=== PATIENT | male | born 1955 | race Caucasian/White ===

== ENCOUNTER 2016-10-29 11:07 | Inpatient (IN) | payer MEDICARE, OTHER ==
[2016-10-29] MEDS ORDERED: AMPICILLIN-SULBACTAM 3 GM in SODIUM CHLORIDE 0.9% 100 ML IVPB STA (11:27)
[2016-10-29] MEDS ORDERED: SODIUM CHLORIDE 0.9% 1,000 ML IV SCH ×2 (11:30→14:15)
--- NOTE | 2016-10-29 11:38 | ED ---
General Adult HPI - General Chief complaint: Skin/Abscess/Foreign Body Stated complaint: sores/difficulty walking Time Seen by Provider: 10/29/16 11:11 Source: patient, RN notes reviewed Mode of arrival: EMS Limitations: physical limitation - History of Present Illness Initial comments: Chief complaint and history of present illness this is a 61-year-old male brought emergency room by EMS. The patient states he last weighed himself 7 years ago he was over 500 pounds. Patient states she's having any now. His estimated to be proximally 600 pounds. Patient reports for the past 2-3 weeks he's had difficulty standing because his legs get weak and normal scleral from under him. He did stand once today. The patient reports that when he stood was noted that he has some blisters on his legs and the scrotal area. He also reports he has some blisters on his buttock region. Patient denies fever. - Related Data Home Medications Medication Instructions Recorded Confirmed Albuterol Sulfate [Proair Hfa] 2 puff INHALATION RT-Q4H PRN 03/20/14 10/29/16 Montelukast [Singulair] 10 mg PO DAILY 07/24/15 10/29/16 Bumetanide [Bumex] 1 mg PO DAILY 10/29/16 10/29/16 Celecoxib [CeleBREX] 200 mg PO BID 10/29/16 10/29/16 Citalopram Hydrobromide [CeleXA] 10 mg PO HS 10/29/16 10/29/16 Vitamin B Complex 1 cap PO DAILY 10/29/16 10/29/16 Allergies Allergy/AdvReac Type Severity Reaction Status Date / Time No Known Allergies Allergy Verified 10/29/16 11:29 Review of Systems ROS Statement: Those systems with pertinent positive or pertinent negative responses have been documented in the HPI. Review of systems. Denying any headache or visual acuity changes no chest pain or shortness of breath. He states his buttocks are uncomfortable because of not being able to move for several weeks. He states he was told his blisters in that general area. Patient weighs in excess of 600 pounds cannot physically move himself to examine the backside at this time. when The patient is transferred to his hospital bed this be examined. Patient reports she has a history of asthma and wheezes. All systems reviewed Past medical problems significant for asthma. His surgeries include both and carpal tunnel, and umbilical hernia repair. Patient's family history father had prostate cancer and mother had brain cancer patient denies any ALLERGIES nonsmoker nondrinker. ROS Other: All systems not noted in ROS Statement are negative. Past Medical History Past Medical History: Asthma, Hypertension, Prostate Disorder History of Any Multi-Drug Resistant Organisms: None Reported Past Surgical History: Hernia Repair, Orthopedic Surgery Additional Past Surgical History / Comment(s): cyst removed from hand Past Psychological History: Depression Smoking Status: Former smoker Past Alcohol Use History: Rare Past Drug Use History: None Reported General Exam - General Exam Comments Initial Comments: General: The patient is awake and alert, here because he is unable to stand, he weighs in excess of 600 pounds. States when he does stand his legs and muscles feel like to get about to give out. It was noticed patient does have some blistering on his tissue and complains of a burning sensation in the buttock area. Temperature 97.9 pulse 94 story rate 20 blood pressure 133/62, pulse ox 100% on 3 L. Eye: Pupils are equal, round and reactive to light, extra-ocular movements are intact ; there is normal conjunctiva bilaterally. No signs of icterus. Ears, nose, mouth and throat: There are moist mucous membranes and no oral lesions. Neck: The neck is supple, there is no tenderness . Cardiovascular: There is a regular rate and rhythm. No murmur, rub or gallop is appreciated. Respiratory: Lungs are clear to auscultation, respirations are non-labored, breath sounds are equal. No wheezes, stridor, rales, or rhonchi. Gastrointestinal: Morbidly obese, weighs Also 600 pounds. Back: Due to the patient's size unable to roll on his own to examine his back. This will be examined when the patient is transferred from the ER stretcher to his hospital bed. Musculoskeletal: Patient presents with redness, cellulitis type appearing lower extremities. Some ecchymotic areas on his heels from where he pushes to changes position in bed. Several clear blisters noted on his inner right thigh. Neurological: The patient states that due to his weight when he tries to stand his muscles feel he can give out. He is able to move upper or lower extremities.. Skin: He did have 1 clear fluid blister on his medial right thigh. Limitations: physical limitation Course Vital Signs 10/29/16 11:15 Temperature 97.9 F Pulse Rate 94 Respiratory 20 Rate Blood Pressure 133/62 O2 Sat by Pulse 100 Oximetry Medical Decision Making - Medical Decision Making Medical decision making patient's white count 8.5 hemoglobin 12 hematocrit 37 BUN 17 creatinine 0.7 with a GFR greater than 60. Glucose 100. Total bilirubin mildly elevated 2.1 with an AST of 88. UA sample was obtained using a Rob catheter. The patient's RBCs are 42 diagnoses 8. Patient had a Rob catheter placed because of his weight and developing decubiti and management of his physical state. Case discussed with Dr. Nash area patient be admitted his service for evaluation and management. Chest x-ray is done and reviewed by radiologist's his final impression is prominent heart size may be due to technique. Right sided aortic arch. Exam is limited technically. Follow-up PA and lateral chest x-ray for but evaluation is indicated. As read by Dr. Henriquez - Lab Data Result diagrams: 10/29/16 12:12 10/29/16 12:12 Lab Results 10/29/16 10/29/16 10/29/16 Range/Units 12:12 12:12 13:20 WBC 8.5 (3.8-10.6) k/uL RBC 4.15 L (4.30-5.90) m/uL Hgb 12.0 L (13.0-17.5) gm/dL Hct 37.6 L (39.0-53.0) % MCV 90.7 (80.0-100.0) fL MCH 28.9 (25.0-35.0) pg MCHC 31.9 (31.0-37.0) g/dL RDW 16.7 H (11.5-15.5) % Plt Count 168 (150-450) k/uL Sodium 138 (137-145) mmol/L Potassium 4.2 (3.5-5.1) mmol/L Chloride 108 H (98-107) mmol/L Carbon Dioxide 22 (22-30) mmol/L Anion Gap 8 mmol/L BUN 17 (9-20) mg/dL Creatinine 0.74 (0.66-1.25) mg/dL Est GFR (MDRD) Af Amer >60 (>60 ml/min/1.73 sqM) Est GFR (MDRD) Non-Af >60 (>60 ml/min/1.73 sqM) Glucose 100 H (74-99) mg/dL Calcium 8.2 L (8.4-10.2) mg/dL Total Bilirubin 2.1 H (0.2-1.3) mg/dL AST 88 H (17-59) U/L ALT 53 (21-72) U/L Alkaline Phosphatase 85 (38-126) U/L Total Protein 6.9 (6.3-8.2) g/dL Albumin 2.7 L (3.5-5.0) g/dL Urine Color Yellow Urine Appearance Cloudy (Clear) Urine pH 6.0 (5.0-8.0) Ur Specific [place] 1.022 (1.001-1.035) Urine Protein Trace H (Negative) Urine Glucose (UA) Negative (Negative) Urine Ketones 1+ H (Negative) Urine Blood Negative (Negative) Urine Nitrite Negative (Negative) Urine Bilirubin Negative (Negative) Urine Urobilinogen 6.0 (<2.0) mg/dL Ur Leukocyte Esterase Negative (Negative) Urine RBC 42 H (0-5) /hpf Urine WBC 8 H (0-5) /hpf Ur Squamous Epith Cells <1 (0-4) /hpf Urine Bacteria Occasional H (None) /hpf Urine Mucus Few H (None) /hpf Disposition Clinical Impression: Cellulitis of left leg, Cellulitis of right leg, Morbid obesity Disposition: ADMITTED IP TO THIS [facility] Condition: Serious
[2016-10-29 13:02] LABS: ALT 53 U/L (21-72); AST 88 U/L (17-59); Alkaline Phosphatase 85 U/L (38-126); Anion Gap 8 mmol/L; Blood Urea Nitrogen 17 mg/dL (9-20); Calcium 8.2 mg/dL (8.4-10.2); Carbon Dioxide 22 mmol/L (22-30); Chloride 108 mmol/L (98-107); Glucose 100 mg/dL (74-99); Non-African American GFR(MDRD) >60 (>60 ml/min/1.73 sqM); Potassium 4.2 mmol/L (3.5-5.1); Sodium 138 mmol/L (137-145); Total Bilirubin 2.1 mg/dL (0.2-1.3); Total Protein 6.9 g/dL (6.3-8.2)
--- NOTE | 2016-10-29 13:09 | XR ---
EXAMINATION TYPE: XR chest 1V portable DATE OF EXAM: 10/29/2016 1:00 PM COMPARISON: Prior chest x-ray 18 May 2014 HISTORY: Shortness of breath, bilateral lower limb swelling TECHNIQUE: Single frontal view of the chest is obtained. FINDINGS: Heart size is prominent but may be accentuated by technique. Patient is rotated. Right-lindsay ed aortic arch is present. No pneumothorax or pleural effusion. No evident airspace disease. IMPRESSION: Prominent heart size may be due to technique. Right-sided aortic arch. Exam is limited t echnically, follow-up PA and lateral chest x-ray for better evaluation as indicated.
[2016-10-29 13:52] LABS: Anisocytosis Slight; CH 27.8; CHCM 30.8; HCT 37.6 % (39.0-53.0); HDW 2.97; Hypochromasia Moderate; MCH 28.9 pg (25.0-35.0); MCHC 31.9 g/dL (31.0-37.0); MCV 90.7 fL (80.0-100.0); Mean Platelet Volume 8.4; RBC 4.15 m/uL (4.30-5.90); RDW 16.7 % (11.5-15.5); WBC 8.5 k/uL (3.8-10.6); WBC (Perox) 7.35
[2016-10-29 13:56] LABS: Appearance,Urine Cloudy (Clear); Bacteria,Urine Occasional /hpf; Bilirubin,Urine Negative (Negative); Glucose,Urine (UA) Negative (Negative); Ketones,Urine 1+ (Negative); Leukocyte Esterase,Urine Negative (Negative); Mucus,Urine Few /hpf; Nitrite,Urine Negative (Negative); Particle Count 27690; Protein,Urine Trace (Negative); RBC,Urine 42 /hpf (0-5); Specific Gravity,Urine 1.022 (1.001-1.035); Squamous Epithelial Cell,Urine <1 /hpf (0-4); UA Billing (MACRO vs. MICRO) MICRO; WBC,Urine 8 /hpf (0-5)
[2016-10-29] MEDS ORDERED: NALOXONE 0.4 MG/ML 1 ML VIAL IV PRN (14:09)
[2016-10-29] MEDS ORDERED: ALBUTEROL NEBULIZED 2.5 MG/3 ML INHALATION PRN (14:13)
[2016-10-29] MEDS: HYDROmorphone 1 MG/ML 1 ML SYRINGE IV PRN ×2 (14:16→18:31)
[2016-10-29 14:23] LABS: Add Differential Manual Differential
[2016-10-29 14:24] LABS: Nucleated Red Blood Cells 0 /100 WBC (0-0); Total Cells Counted 100
--- NOTE | 2016-10-29 16:38 | P.HPIM ---
History of Present Illness H&P Date: 10/29/16 61-year-old gentleman with history of morbid obesity currently is at home was brought to the hospital after being recommended by his home visiting physician for further evaluation in the hospital for cellulitis of the lower extremity is. And states that he is pretty much bedridden and dependent on all ADLs. Patient was evaluated in the emergency room was noted to have significant bilateral lower extremity erythema. Patient states that over the last few days he does State to have tenderness in his lower extremities significant tenderness in his left heel. Patient denies having any fevers chills nausea vomiting diarrhea chest pain difficulty breathing. Patient at the time of my evaluation was noted to be in 3 -4 L a supplement oxygen however was laying flat.States of tenderness in his lower extremities Tomy any history of heart failure COPD Review of Systems All systems: negative (Noted in HPI) Past Medical History Past Medical History: Asthma, Hypertension, Prostate Disorder History of Any Multi-Drug Resistant Organisms: None Reported Past Surgical History: Hernia Repair, Orthopedic Surgery Additional Past Surgical History / Comment(s): cyst removed from hand Past Psychological History: Depression Smoking Status: Former smoker Past Alcohol Use History: Rare Past Drug Use History: None Reported Medications and Allergies Home Medications Medication Instructions Recorded Confirmed Type Albuterol Sulfate [Proair Hfa] 2 puff INHALATION RT-Q4H PRN 03/20/14 10/29/16 History Montelukast [Singulair] 10 mg PO DAILY 07/24/15 10/29/16 History Bumetanide [Bumex] 1 mg PO DAILY 10/29/16 10/29/16 History Celecoxib [CeleBREX] 200 mg PO BID 10/29/16 10/29/16 History Citalopram Hydrobromide [CeleXA] 10 mg PO HS 10/29/16 10/29/16 History Vitamin B Complex 1 cap PO DAILY 10/29/16 10/29/16 History Allergies Allergy/AdvReac Type Severity Reaction Status Date / Time No Known Allergies Allergy Verified 10/29/16 11:29 Physical Exam Vitals: Vital Signs Temp Pulse Resp BP Pulse Ox 10/29/16 15:36 97.1 F L 93 18 120/59 98 10/29/16 15:00 97.1 F L 93 18 120/59 98 Gen. appearance morbidly obese gentleman appears to be comfortable Neck is supple no JVD Neck is supple no JVD \ Heart S1-S2 heard no murmurs appreciated F lungs good air movement anteriorly due to the patient's body habitus posterior auscultation is difficult Abdomen is obese no organomegaly distended Lower extremities bilateral lower extremity edema 2+ pitting in nature erythema appreciated there is a large blood blister noted on the left heel tender to palpation or graft neuro exam is able to move all 4 extremities no significant focal motor or sensory deficits noted Results CBC & Chem 7: 10/29/16 12:12 10/29/16 12:12 Assessment and Plan Plan: #1 sepsis secondary to bilateral lower ext cellulitis #2 morbid obesity #3 hypertension #4 depression #5 hypoxic respiratory failure likely secondary to obesity hypoventilation syndrome Plan Skin there is significant barrier breakdown on the back there is blisters noted diffusely on the right and lower left lower extremity Skin care with barrier cream Continue with antibiotics with the Unasyn Obtain a left heel x-ray. We'll rule out DVT in the bilateral lower extremities Medications were reconciled blood cultures were sent DVT prophylaxis will be initiated
--- NOTE | 2016-10-29 18:05 | US ---
EXAMINATION TYPE: US VENOUS DOPPLER DUPLEX LE DATE OF EXAM: 10/29/2016 5:50 PM COMPARISON: NONE CLINICAL HISTORY: rule out dvt. Cellulitis bilateral lower legs; 700lbs SIDE PERFORMED: Bilateral TECHNIQUE: The lower extremity deep venous system is examined utilizing real time linear array sonog meño with graded compression, Doppler sonography and color-flow sonography. VESSELS IMAGED and exam is technically limited by large body habitus: Common Femoral Vein Deep Femoral Vein Greater Saphenous Vein * Femoral Vein Popliteal Vein Small Saphenous Vein * Proximal Calf Veins/ right leg seen only due to body habitus *superficial veins FINDINGS: Grayscale, color doppler, spectral Doppler imaging performed of the deep veins of the lower extremities. There is normal flow, compressibility, vascular waveforms bilaterally. IMPRESSION: 1. NEGATIVE FOR DEEP VENOUS THROMBOSIS RIGHT LOWER EXTREMITY. 2. NEGATIVE FOR DEEP VENOUS THROMBOSIS LEFT LOWER EXTREMITY.
[2016-10-29] MEDS: HEPARIN SODIUM,PORCINE 5,000 UNIT/ML 1 ML VIAL SQ SCH ×2 (18:32→23:14)
[2016-10-29] MEDS: AMPICILLIN-SULBACTAM 3 GM in SODIUM CHLORIDE 0.9% 100 ML IVPB SCH (21:05)
[2016-10-29] MEDS: CITALOPRAM HYDROBROMIDE 10 MG TAB PO SCH (21:08)
[2016-10-29] MEDS: FAMOTIDINE 20 MG TAB PO SCH (21:08)
[2016-10-29] MEDS: MELOXICAM 7.5 MG TAB PO SCH (21:08)
[2016-10-29] MEDS: IPRATROPIUM-ALBUTEROL 3 ML NEB INHALATION PRN (21:27)
[2016-10-30] MEDS: AMPICILLIN-SULBACTAM 3 GM in SODIUM CHLORIDE 0.9% 100 ML IVPB SCH ×2 (05:49→13:14)
[2016-10-30] MEDS: IPRATROPIUM-ALBUTEROL 3 ML NEB INHALATION PRN ×4 (08:28→19:49)
[2016-10-30] MEDS: FAMOTIDINE 20 MG TAB PO SCH ×2 (09:38→21:01)
[2016-10-30] MEDS: MONTELUKAST 10 MG TAB PO SCH (09:38)
[2016-10-30] MEDS: MELOXICAM 7.5 MG TAB PO SCH ×2 (09:38→21:01)
[2016-10-30] MEDS: HEPARIN SODIUM,PORCINE 5,000 UNIT/ML 1 ML VIAL SQ SCH ×3 (09:38→23:26)
[2016-10-30] MEDS: BUMETANIDE 1 MG TAB PO SCH (09:39)
[2016-10-30] MEDS: B COMPLEX-VIT C-VIT E-ZINC 1 EACH TAB PO SCH (13:14)
[2016-10-30] MEDS: NYSTATIN 100,000UNIT/GM CREAM 30 GM TUBE TOPICAL SCH ×2 (13:37→21:02)
--- NOTE | 2016-10-30 14:14 | P.PN ---
Subjective 61-year-old gentleman with history of morbid obesity currently is at home was brought to the hospital after being recommended by his home visiting physician for further evaluation in the hospital for cellulitis of the lower extremity is. And states that he is pretty much bedridden and dependent on all ADLs. Patient was evaluated in the emergency room was noted to have significant bilateral lower extremity erythema. Patient states that over the last few days he does State to have tenderness in his lower extremities significant tenderness in his left heel. Patient denies having any fevers chills nausea vomiting diarrhea chest pain difficulty breathing. Patient at the time of my evaluation was noted to be in 3 -4 L a supplement oxygen however was laying flat.States of tenderness in his lower extremities denies any history of heart failure COPD 2016 Denies having any additional complaints Denies fevers chills nausea vomiting. No diarrhea is reported Patient's lower extremity are wrapped today. Objective - Vital Signs Vital signs: Vital Signs Temp 96.9 F L 10/30/16 07:00 Pulse 90 10/30/16 11:59 Resp 16 10/30/16 07:00 BP 122/67 10/30/16 07:00 Pulse Ox 95 10/30/16 07:00 Intake & Output 10/29/16 10/30/16 10/30/16 18:59 06:59 18:59 Output Total 900 Balance -900 Weight 230.3 kg Output: Urine 900 Other: Voiding Method Indwelling Catheter Indwelling Catheter # Voids 1 # Bowel Movements 0 - Exam Physical exam Gen. appearance oriented 3 in no distress. Obese Neck is supple no JVD Lungs good air entry clear to auscultation no rhonchi or wheezing Heart S1-S2 heard regular rate and rhythm no murmurs appreciated Abdomen is soft nontender no organomegaly bowel sounds are intact Lower extremities are wrapped Neurologically cranial nerves II-12 grossly intact no focal motor or sensory deficits noted Skin skin breakdown noted on the posterior surface multiple blisters - Labs CBC & Chem 7: 10/29/16 12:12 10/29/16 12:12 Assessment and Plan Plan: #1 sepsis secondary to bilateral lower ext cellulitis #2 morbid obesity #3 hypertension #4 depression #5 hypoxic respiratory failure likely secondary to obesity hypoventilation syndrome Plan Continue skin care DVT screen is negative Cefazolin as indicated by infectious diseases Titrate of oxygen Discharge disposition will be discussed social work consultation will be obtained Prophylaxis with heparin 10,000 units every 8 hours
[2016-10-30] MEDS: ceFAZolin 2 GM in SODIUM CHLORIDE 0.9% 100 ML IVPB SCH (15:33)
[2016-10-30] MEDS: CITALOPRAM HYDROBROMIDE 10 MG TAB PO SCH (21:01)
[2016-10-30] MEDS: HYDROmorphone 1 MG/ML 1 ML SYRINGE IV PRN (23:21)
--- NOTE | 2016-10-30 23:43 | CONS ---
DATE OF CONSULTATION: 10/30/2016 REASON FOR CONSULTATION: Lower extremity cellulitis. HISTORY OF PRESENT ILLNESS: The patient is a 61-year-old male with a past medical history significant for morbid obesity. Patient was sent to the ER at [facility] by request of his visiting physician for more swelling and redness of his lower extremity. Patient said over the last few days he has been noticed more swelling to his legs with subsequently getting more redness and pain to the left leg more than the right leg. The patient denies having any skin breakdown or any drainage from it. Denies having any history of any trauma. Pain is described to be more of a dull aching, 4 to 5 out of 10, and no radiation. The patient denies any high-grade fever; however, he did have some chills. Subsequently the patient was evaluated by the ER physician. The patient did have a lower extremity Doppler that was negative for DVT. The patient was started on Unasyn and admitted to hospital. I was asked to see the patient for further recommendations regarding antibiotic therapy. REVIEW OF SYSTEMS: CONSTITUTIONAL: Positive for weakness and chills. EYES: No complaint. ENT: No complaint. RESPIRATORY: No complaint. CARDIOVASCULAR: No complaint. GENITOURINARY: No complaint. GASTROINTESTINAL: No complaint. MUSCULOSKELETAL: No complaint. INTEGUMENTARY: As per HPI. PSYCHOLOGIC: No complaint. ENDOCRINE: No complaint. NEUROLOGIC: No complaint. Past medical history is significant for: 1. Asthma. 2. Hypertension. 3. Prostate disorder. PAST SURGICAL HISTORY: 1. Hernia repair. 2. Cyst removed from the head. SOCIAL HISTORY: Positive history of smoking. No drinking or any drug use. FAMILY HISTORY: No pertinent findings were noticed. ALLERGIES: NO KNOWN DRUG ALLERGIES. Medications currently include: 1. DuoNeb. 2. Bumex. 3. Celexa. 4. Pepcid. 5. Heparin. 6. Dilaudid. 7. Mobic. 8. Singulair. 9. Narcan. 10. Unasyn. On examination, blood pressure is 125/62 with a pulse of 92, temperature 96.8. He is 100% on 2 L nasal cannula. General description is a middle-aged male lying in bed in no distress. No tachypnea or accessory muscle of respiration use. HEENT EXAMINATION: No pallor or scleral icterus. Oral mucous membrane is dry. NECK: Trachea is central. No thyromegaly. LUNGS: Unlabored breathing. Clear to auscultation anteriorly. HEART: S1, S2. Regular rate and rhythm. ABDOMEN: Soft. No tenderness. LOWER EXTREMITIES: Significant swelling and diffuse redness, especially on the left leg more than the right. There is no skin breakdown. There is no foul-smelling drainage; however, the patient does have evidence of athlete's foot in between the toes. NEUROLOGICAL: The patient is awake, alert, oriented x3. Mood and affect normal. LABS: Hemoglobin is 12 with a white count of 8.5. BUN of 17, creatinine 0.74. UA has been negative. Blood culture obtained, currently pending. Lower extremity Doppler has been negative. DIAGNOSTIC IMPRESSION AND PLAN: Patient with bilateral lower extremity cellulitis, left greater than the right, in a patient who does have diffuse swelling and redness with evidence of athlete's foot, likely representing a streptococcal cellulitis. PLAN: 1. Will discontinue the Unasyn. 2. Start the patient on cefazolin 2 grams q.8 hours. 3. Nystatin powder in between the toes. 4. Rosas wrap from just above the toes to below the knee to keep swelling down. 5. Will follow up on the clinical condition and cultures to further adjust medication if needed. Thank you for this consultation. We will follow this patient along with you.
[2016-10-31] MEDS: ceFAZolin 2 GM in SODIUM CHLORIDE 0.9% 100 ML IVPB SCH ×4 (00:14→23:24)
[2016-10-31] MEDS: HYDROmorphone 1 MG/ML 1 ML SYRINGE IV PRN ×2 (02:35→21:57)
[2016-10-31] MEDS: IPRATROPIUM-ALBUTEROL 3 ML NEB INHALATION PRN ×2 (07:35→11:07)
[2016-10-31] MEDS: HEPARIN SODIUM,PORCINE 5,000 UNIT/ML 1 ML VIAL SQ SCH ×2 (07:40→14:58)
[2016-10-31] MEDS: BUMETANIDE 1 MG TAB PO SCH (07:41)
[2016-10-31] MEDS: MONTELUKAST 10 MG TAB PO SCH (07:41)
[2016-10-31] MEDS: FAMOTIDINE 20 MG TAB PO SCH ×2 (07:41→21:58)
[2016-10-31] MEDS: MELOXICAM 7.5 MG TAB PO SCH ×2 (07:41→21:58)
[2016-10-31] MEDS: NYSTATIN 100,000UNIT/GM CREAM 30 GM TUBE TOPICAL SCH ×2 (07:42→22:00)
[2016-10-31 09:39] LABS: Anisocytosis Slight; Basophils % (A) 0 %; CH 27.7; CHCM 31.1; Eosinophils # (A) 0.5 k/uL (0-0.7); Eosinophils % (A) 8 %; HCT 33.1 % (39.0-53.0); HDW 2.97; HGB 10.8 gm/dL (13.0-17.5); Hypochromasia Moderate; Luc # (Auto) 0.16; Luc % (Auto) 3; Lymphocytes # (A) 1.1 k/uL (1.0-4.8); Lymphocytes % (A) 19 %; MCH 29.1 pg (25.0-35.0); MCHC 32.6 g/dL (31.0-37.0); MCV 89.4 fL (80.0-100.0); Mean Platelet Volume 7.2; Monocytes # (A) 0.4 k/uL (0-1.0); Monocytes % (A) 6 %; Neutrophils # (A) 3.7 k/uL (1.3-7.7); Neutrophils % (A) 63 %; RBC 3.71 m/uL (4.30-5.90); RDW 16.7 % (11.5-15.5); WBC 5.8 k/uL (3.8-10.6); WBC (Perox) 5.45
[2016-10-31 09:56] LABS: ALT 47 U/L (21-72); AST 53 U/L (17-59); Alkaline Phosphatase 88 U/L (38-126); Anion Gap 7 mmol/L; Blood Urea Nitrogen 14 mg/dL (9-20); Calcium 7.7 mg/dL (8.4-10.2); Carbon Dioxide 24 mmol/L (22-30); Chloride 108 mmol/L (98-107); Glucose 124 mg/dL (74-99); Non-African American GFR(MDRD) >60 (>60 ml/min/1.73 sqM); Potassium 3.8 mmol/L (3.5-5.1); Sodium 139 mmol/L (137-145); Total Bilirubin 1.3 mg/dL (0.2-1.3); Total Protein 6.2 g/dL (6.3-8.2)
[2016-10-31 11:11] LABS: Manual Review Performed
[2016-10-31 11:12] LABS: Polychromasia Present
[2016-10-31] MEDS: B COMPLEX-VIT C-VIT E-ZINC 1 EACH TAB PO SCH (13:14)
--- NOTE | 2016-10-31 16:28 | CDI ---
In responding to this query, please exercise your independent professional judgment. The [facility] Coding Staff and Clinical Documentation Specialists appreciate your assistance in clarifying documentation, maintaining compliance with coding guidelines, accurately documenting patients condition and capturing severity of illness. The fact that a question is asked does not imply that any particular answer is desired or expected. Communication forms are a method of clarifying documentation and are not made part of the Legal Health Record. Thank you in advance for your clarification. Last Revision, August 2015 Marilin Hall [address] [place] [address] Documentation Clarification Form Date: 10/31/2016 4:13:00 PM From: Zeny Parson Admit Date: 10/29/2016 2:09:00 PM Patient Name: Kamran Salamanca Visit Number: [id number] Discharge Date: Dr. Fredy Rizzo Hypoxic respiratory failure likely secondary to obesity hypoventilation syndrome is in your H&P and progress notes. History/Risk Factors: Morbid obesity weight > 500 lbs, Hypertension, Asthma Tobacco use: Former smoker Clinical Indicators: 10/29/16 He complains of weakness and chills. H/P Evaluation noted patient to be on 3-4 L O2 NC Vital signs/Pulse oximetry: 133/62 94 20 97.9 100 % 2/L nc Lung/Breathing assessment: Good air entry clear to auscultation no rhonchi or wheezing Treatment: Breathing tx: Albuterol DuoNeb's, Singulair PO Monitor O2 Sat's (titrate) In your professional opinion, can you please further clarify? Acuity: o Acute o Chronic o Acute on Chronic Please document in your progress notes and discharge summary in order to capture severity of illness and risk of mortality. Include clinical findings that support your diagnosis. FYI: Press F11 to launch patient chart. Place X here if this finding has no clinical significance, is not applicable or if you are not able to provide any additional documentation. MTDD
--- NOTE | 2016-10-31 16:45 | P.PN ---
Subjective 61-year-old gentleman with history of morbid obesity currently is at home was brought to the hospital after being recommended by his home visiting physician for further evaluation in the hospital for cellulitis of the lower extremity is. And states that he is pretty much bedridden and dependent on all ADLs. Patient was evaluated in the emergency room was noted to have significant bilateral lower extremity erythema. Patient states that over the last few days he does State to have tenderness in his lower extremities significant tenderness in his left heel. Patient denies having any fevers chills nausea vomiting diarrhea chest pain difficulty breathing. Patient at the time of my evaluation was noted to be in 3 -4 L a supplement oxygen however was laying flat.States of tenderness in his lower extremities denies any history of heart failure COPD 2016 Denies having any additional complaints Denies fevers chills nausea vomiting. No diarrhea is reported Patient's lower extremity are wrapped today. 2016 Denies having any significant complaints Denies diarrhea urinary urgency or frequency nausea vomiting. Objective - Vital Signs Vital signs: Vital Signs Temp 97.2 F L 10/31/16 15:00 Pulse 96 10/31/16 15:00 Resp 20 10/31/16 15:00 BP 131/67 10/31/16 15:00 Pulse Ox 98 10/31/16 15:00 Intake & Output 10/30/16 10/31/16 10/31/16 18:59 06:59 18:59 Intake Total 640 Output Total 300 1625 1200 Balance -300 -1625 -560 Weight 230.1 kg Intake: Oral 640 Output: Urine 300 1625 1200 Other: Voiding Method Indwelling Catheter Indwelling Catheter Indwelling Catheter # Voids 3 # Bowel Movements 0 1 - Exam Physical exam Gen. appearance oriented 3 in no distress. Obese Neck is supple no JVD Lungs good air entry clear to auscultation no rhonchi or wheezing Heart S1-S2 heard regular rate and rhythm no murmurs appreciated Abdomen is soft nontender no organomegaly bowel sounds are intact Lower extremities are wrapped Neurologically cranial nerves II-12 grossly intact no focal motor or sensory deficits noted Skin skin breakdown noted on the posterior surface multiple blisters - Labs CBC & Chem 7: 10/31/16 09:00 10/31/16 09:00 Labs: Abnormal Lab Results - Last 24 Hours (Table) 10/31/16 10/31/16 Range/Units 09:00 09:00 RBC 3.71 L (4.30-5.90) m/uL Hgb 10.8 L (13.0-17.5) gm/dL Hct 33.1 L (39.0-53.0) % RDW 16.7 H (11.5-15.5) % Chloride 108 H (98-107) mmol/L Glucose 124 H (74-99) mg/dL Calcium 7.7 L (8.4-10.2) mg/dL Total Protein 6.2 L (6.3-8.2) g/dL Albumin 2.5 L (3.5-5.0) g/dL Assessment and Plan Plan: #1 sepsis secondary to bilateral lower ext cellulitis #2 morbid obesity #3 hypertension #4 depression #5 suspect chronic hypoxic respiratory failure likely secondary to obesity hypoventilation syndrome Plan Continue with antibiotic therapy disposition will be to a ECF/assisted living facility as patient and his family is not able to take care of himself Cellulitis is improving. Prophylaxis with heparin 10,000 units every 8 hours
[2016-10-31] MEDS: CITALOPRAM HYDROBROMIDE 10 MG TAB PO SCH (21:58)
[2016-10-31] MEDS: HEPARIN SODIUM,PORCINE 10,000 UNIT/ML 1 ML VIAL SQ SCH (23:30)
--- NOTE | 2016-11-01 07:32 | PN ---
DATE OF SERVICE: 10/31/2016 Reason for follow up is bilateral lower extremity cellulitis. INTERVAL HISTORY: The patient is afebrile. He has been breathing comfortably. The patient did not have the RN apply the Rosas wrap because of swelling and pain. Patient denies having any chest pain or shortness of breath or cough. On examination, blood pressure 141/55 with a pulse 91, temperature 97.6. He is 95% on room air. General description is a middle-aged male lying in bed in no distress. RESPIRATORY SYSTEM: Unlabored breathing. Clear to auscultation anteriorly. HEART: S1, S2 with regular rate and rhythm. ABDOMEN: Soft. No tenderness. LABS: Hemoglobin is 10.8 with white count 5.8, BUN of 14, creatinine 0.76. Blood culture so far negative. DIAGNOSTIC IMPRESSION AND PLAN: Patient with bilateral lower extremity cellulitis with diffuse swelling and redness and at least what is likely a streptococcal disease. The patient is to continue on the cefazolin. Will try to apply the Rosas wrap to keep the swelling down. Nystatin cream between the toes and Nystatin powder to the groin area. Continue supportive care. Plan of care was discussed with RN. ESTRADA
[2016-11-01] MEDS: ceFAZolin 2 GM in SODIUM CHLORIDE 0.9% 100 ML IVPB SCH ×3 (08:11→23:23)
[2016-11-01] MEDS: MELOXICAM 7.5 MG TAB PO SCH ×2 (08:11→20:20)
[2016-11-01] MEDS: BUMETANIDE 1 MG TAB PO SCH (08:11)
[2016-11-01] MEDS: FAMOTIDINE 20 MG TAB PO SCH ×2 (08:11→20:20)
[2016-11-01] MEDS: MONTELUKAST 10 MG TAB PO SCH (08:11)
[2016-11-01] MEDS: HEPARIN SODIUM,PORCINE 10,000 UNIT/ML 1 ML VIAL SQ SCH ×3 (08:15→23:23)
[2016-11-01] MEDS: HYDROmorphone 1 MG/ML 1 ML SYRINGE IV PRN ×2 (08:15→22:32)
[2016-11-01] MEDS: NYSTATIN 100,000UNIT/GM CREAM 30 GM TUBE TOPICAL SCH ×2 (09:47→20:21)
[2016-11-01] MEDS: IPRATROPIUM-ALBUTEROL 3 ML NEB INHALATION PRN ×2 (12:09→19:47)
[2016-11-01] MEDS: B COMPLEX-VIT C-VIT E-ZINC 1 EACH TAB PO SCH (12:17)
[2016-11-01 13:34] VITALS: BMI 74.0
--- NOTE | 2016-11-01 16:28 | P.PN ---
Subjective 61-year-old gentleman with history of morbid obesity currently is at home was brought to the hospital after being recommended by his home visiting physician for further evaluation in the hospital for cellulitis of the lower extremity is. And states that he is pretty much bedridden and dependent on all ADLs. Patient was evaluated in the emergency room was noted to have significant bilateral lower extremity erythema. Patient states that over the last few days he does State to have tenderness in his lower extremities significant tenderness in his left heel. Patient denies having any fevers chills nausea vomiting diarrhea chest pain difficulty breathing. Patient at the time of my evaluation was noted to be in 3 -4 L a supplement oxygen however was laying flat.States of tenderness in his lower extremities denies any history of heart failure COPD 2016 Denies having any additional complaints Denies fevers chills nausea vomiting. No diarrhea is reported Patient's lower extremity are wrapped today. 2016 Denies having any significant complaints Denies diarrhea urinary urgency or frequency nausea vomiting. 11/01/2001 No new overnight events per of denies having any headaches blurry vision, nausea , vomiting, diarrhea, chest pain. Does have does not have a cough currently on room air. Objective - Vital Signs Vital signs: Vital Signs Temp 97.1 F L 11/01/16 15:00 Pulse 91 11/01/16 15:00 Resp 20 11/01/16 15:00 BP 144/68 11/01/16 15:00 Pulse Ox 97 11/01/16 15:00 Intake & Output 10/31/16 11/01/16 11/01/16 18:59 06:59 18:59 Intake Total 640 480 Output Total 1200 1600 700 Balance -560 -1600 -220 Weight 241 kg 241 kg Intake: Oral 640 480 Output: Urine 1200 1600 700 Other: Voiding Method Indwelling Catheter Indwelling Catheter Indwelling Catheter # Voids 3 # Bowel Movements 1 0 - Exam Physical exam Gen. appearance oriented 3 in no distress. Obese Neck is supple no JVD Lungs good air entry clear to auscultation no rhonchi or wheezing Heart S1-S2 heard regular rate and rhythm no murmurs appreciated Abdomen is soft nontender no organomegaly bowel sounds are intact Lower extremities are wrapped Neurologically cranial nerves II-12 grossly intact no focal motor or sensory deficits noted Skin skin breakdown noted on the posterior surface multiple blisters - Labs CBC & Chem 7: 10/31/16 09:00 10/31/16 09:00 Assessment and Plan Plan: #1 sepsis secondary to bilateral lower ext cellulitis #2 morbid obesity #3 hypertension #4 depression #5 suspect chronic hypoxic respiratory failure likely secondary to obesity hypoventilation syndrome Plan Continue with antibiotic therapy disposition will be to a ECF/assisted living facility as patient and his family is not able to take care of himself Cellulitis is improving. Continue wrapping the lower extremities Prophylaxis with heparin 10,000 units every 8 hours
[2016-11-01] MEDS: CITALOPRAM HYDROBROMIDE 10 MG TAB PO SCH (20:20)
--- NOTE | 2016-11-02 08:03 | PN ---
DATE OF SERVICE: 11/01/2016 Reason for follow up is bilateral lower extremity cellulitis and athlete's foot. INTERVAL HISTORY: The patient is afebrile. He has been breathing comfortably. Swelling persisted to the legs. all the redness has been improved. Denies any significant chest pain, cough. no abdominal pain or any diarrhea. On examination, blood pressure is 144/68 with a pulse of 91, temperature 97.1. He is 97% on room air. General description is a middle-aged male lying in bed in no distress. RESPIRATORY SYSTEM: Unlabored breathing. Clear to auscultation anteriorly. HEART: S1, S2. Regular rate and rhythm. ABDOMEN: Soft, no tenderness. Bilateral leg swelling present, redness is improved. LABS: Hemoglobin is 10.8, white count of 5.8. DIAGNOSTIC IMPRESSION AND PLAN: 1. Patient with bilateral lower extremity cellulitis with diffuse swelling, redness and athlete's foot currently covered with cefazolin. Plan to finish therapy with p.o. Ceftin. 2. Patient with a positive urine culture with Streptococcus . Currently covered with cefazolin. Patient tolerating well. 3. Athlete's foot. Continue with Nystatin powder. MTDD
[2016-11-02] MEDS: ceFAZolin 2 GM in SODIUM CHLORIDE 0.9% 100 ML IVPB SCH ×3 (09:19→23:13)
[2016-11-02] MEDS: MELOXICAM 7.5 MG TAB PO SCH ×2 (09:19→20:09)
[2016-11-02] MEDS: BUMETANIDE 1 MG TAB PO SCH (09:19)
[2016-11-02] MEDS: HEPARIN SODIUM,PORCINE 10,000 UNIT/ML 1 ML VIAL SQ SCH ×3 (09:20→23:13)
[2016-11-02] MEDS: NYSTATIN 100,000UNIT/GM CREAM 30 GM TUBE TOPICAL SCH ×2 (09:21→20:10)
[2016-11-02] MEDS: FAMOTIDINE 20 MG TAB PO SCH ×2 (09:21→20:09)
[2016-11-02] MEDS: MONTELUKAST 10 MG TAB PO SCH (09:21)
[2016-11-02] MEDS: HYDROmorphone 1 MG/ML 1 ML SYRINGE IV PRN ×2 (09:25→16:13)
--- NOTE | 2016-11-02 12:18 | P.PN ---
Subjective 61-year-old gentleman with history of morbid obesity currently is at home was brought to the hospital after being recommended by his home visiting physician for further evaluation in the hospital for cellulitis of the lower extremity is. And states that he is pretty much bedridden and dependent on all ADLs. Patient was evaluated in the emergency room was noted to have significant bilateral lower extremity erythema. Patient states that over the last few days he does State to have tenderness in his lower extremities significant tenderness in his left heel. Patient denies having any fevers chills nausea vomiting diarrhea chest pain difficulty breathing. Patient at the time of my evaluation was noted to be in 3 -4 L a supplement oxygen however was laying flat.States of tenderness in his lower extremities denies any history of heart failure COPD 2016 Denies having any additional complaints Denies fevers chills nausea vomiting. No diarrhea is reported Patient's lower extremity are wrapped today. 2016 Denies having any significant complaints Denies diarrhea urinary urgency or frequency nausea vomiting. 11/01/2001 No new overnight events per of denies having any headaches blurry vision, nausea , vomiting, diarrhea, chest pain. Does have does not have a cough currently on room air. 11/02/2016 No new overnight events. Patient is having any headaches blurry vision nausea vomiting. Patient has never had urinary urgency or frequency. Objective - Vital Signs Vital signs: Vital Signs Temp 97.7 F 11/02/16 07:00 Pulse 89 11/02/16 07:00 Resp 20 11/02/16 07:00 BP 122/67 11/02/16 07:00 Pulse Ox 96 11/02/16 07:00 Intake & Output 11/01/16 11/02/16 11/02/16 18:59 06:59 18:59 Intake Total 480 Output Total 700 1475 Balance -220 -1475 Weight 241 kg 240.8 kg Intake: Oral 480 Output: Urine 700 1475 Other: Voiding Method Indwelling Catheter Indwelling Catheter Indwelling Catheter # Bowel Movements 0 - Exam Physical exam Gen. appearance oriented 3 in no distress. Obese Neck is supple no JVD Lungs good air entry clear to auscultation no rhonchi or wheezing Heart S1-S2 heard regular rate and rhythm no murmurs appreciated Abdomen is soft nontender no organomegaly bowel sounds are intact Lower extremities are wrapped Neurologically cranial nerves II-12 grossly intact no focal motor or sensory deficits noted Skin skin breakdown noted on the posterior surface multiple blisters - Labs CBC & Chem 7: 10/31/16 09:00 10/31/16 09:00 Assessment and Plan Plan: #1 sepsis secondary to bilateral lower ext cellulitis #2 morbid obesity #3 hypertension #4 depression #5 suspect chronic hypoxic respiratory failure likely secondary to obesity hypoventilation syndrome #6 asymptomatic bacteriuria Plan Continue with antibiotic therapy disposition will be to a ECF/assisted living facility as patient and his family is not able to take care of himself Cellulitis is improving. Continue wrapping the lower extremities Prophylaxis with heparin 10,000 units every 8 hours
[2016-11-02] MEDS: B COMPLEX-VIT C-VIT E-ZINC 1 EACH TAB PO SCH (12:34)
[2016-11-02] MEDS: CITALOPRAM HYDROBROMIDE 10 MG TAB PO SCH (20:09)
--- NOTE | 2016-11-03 07:50 | PN ---
DATE OF SERVICE: 11/02/2016 Reason for followup is bilateral lower extremity cellulitis and athlete's foot. INTERVAL HISTORY: The patient is afebrile. He is complaining of swelling which has be been extended to his thigh. Patient denies any significant chest pain. No cough. No abdominal pain or any diarrhea. On examination, blood pressure is 126/58 with a pulse of 95, temperature 97.8. He is 99% on room air. General description is a middle-age male lying in bed in no distress. RESPIRATORY SYSTEM: Unlabored breathing. Clear to auscultation anteriorly. HEART: S1, S2. Regular rate and rhythm. ABDOMEN: Soft, no tenderness. LABS: Hemoglobin is 10.8, white count times 5.8. Urine with streptococcus anginosus. DIAGNOSTIC IMPRESSION AND PLAN: 1. Patient with bilateral lower extremity cellulitis with diffuse swelling and redness foot likely streptococcal and currently on cefazolin. Plan to finish therapy with p.o. Keflex along with an Rosas wrap. 2. Athlete's foot. Continue with nystatin in between the toes. [facility]
[2016-11-03] MEDS: MELOXICAM 7.5 MG TAB PO SCH ×2 (08:16→20:39)
[2016-11-03] MEDS: ceFAZolin 2 GM in SODIUM CHLORIDE 0.9% 100 ML IVPB SCH ×2 (08:16→15:21)
[2016-11-03] MEDS: HEPARIN SODIUM,PORCINE 10,000 UNIT/ML 1 ML VIAL SQ SCH ×2 (08:16→15:21)
[2016-11-03] MEDS: BUMETANIDE 1 MG TAB PO SCH (08:16)
[2016-11-03] MEDS: FAMOTIDINE 20 MG TAB PO SCH ×2 (08:16→20:40)
[2016-11-03] MEDS: MONTELUKAST 10 MG TAB PO SCH (08:17)
[2016-11-03] MEDS: HYDROmorphone 1 MG/ML 1 ML SYRINGE IV PRN ×5 (08:20→22:31)
[2016-11-03] MEDS: NYSTATIN 100,000UNIT/GM CREAM 30 GM TUBE TOPICAL SCH ×2 (08:25→20:41)
[2016-11-03] MEDS ORDERED: BUMETANIDE 0.25 MG/ML 4 ML VIAL IVP STA (11:39)
[2016-11-03] MEDS: B COMPLEX-VIT C-VIT E-ZINC 1 EACH TAB PO SCH (12:00)
--- NOTE | 2016-11-03 13:08 | P.PN ---
Subjective 61-year-old gentleman with history of morbid obesity currently is at home was brought to the hospital after being recommended by his home visiting physician for further evaluation in the hospital for cellulitis of the lower extremity is. And states that he is pretty much bedridden and dependent on all ADLs. Patient was evaluated in the emergency room was noted to have significant bilateral lower extremity erythema. Patient states that over the last few days he does State to have tenderness in his lower extremities significant tenderness in his left heel. Patient denies having any fevers chills nausea vomiting diarrhea chest pain difficulty breathing. Patient at the time of my evaluation was noted to be in 3 -4 L a supplement oxygen however was laying flat.States of tenderness in his lower extremities denies any history of heart failure COPD 2016 Denies having any additional complaints Denies fevers chills nausea vomiting. No diarrhea is reported Patient's lower extremity are wrapped today. 2016 Denies having any significant complaints Denies diarrhea urinary urgency or frequency nausea vomiting. 11/01/2001 No new overnight events per of denies having any headaches blurry vision, nausea , vomiting, diarrhea, chest pain. Does have does not have a cough currently on room air. 11/02/2016 No new overnight events. Patient is having any headaches blurry vision nausea vomiting. Patient has never had urinary urgency or frequency. 11/03/2016 Denies having any additional complaints today States that he does have some swelling on his abdominal wall No fevers no chills nausea vomiting or diarrhea reported. Objective - Vital Signs Vital signs: Vital Signs Temp 97.8 F 11/03/16 07:00 Pulse 99 11/03/16 07:00 Resp 18 11/03/16 07:00 BP 143/77 11/03/16 07:00 Pulse Ox 97 11/03/16 07:00 Intake & Output 11/02/16 11/03/16 11/03/16 18:59 06:59 18:59 Intake Total 240 Output Total 550 950 Balance -310 -950 Weight 235 kg Intake: Oral 240 Output: Urine 550 950 Other: Voiding Method Indwelling Catheter Indwelling Catheter Indwelling Catheter # Bowel Movements 0 - Exam Physical exam Gen. appearance oriented 3 in no distress. Obese Neck is supple no JVD Lungs good air entry clear to auscultation no rhonchi or wheezing Heart S1-S2 heard regular rate and rhythm no murmurs appreciated Abdomen is soft nontender no organomegaly bowel sounds are intact with abdominal wall edema is appreciated Lower extremities are wrapped Neurologically cranial nerves II-12 grossly intact no focal motor or sensory deficits noted Skin skin breakdown noted on the posterior surface multiple blisters - Labs CBC & Chem 7: 10/31/16 09:00 10/31/16 09:00 Assessment and Plan Plan: #1 sepsis secondary to bilateral lower ext cellulitis #2 morbid obesity #3 hypertension #4 depression #5 suspect chronic hypoxic respiratory failure likely secondary to obesity hypoventilation syndrome #6 asymptomatic bacteriuria Plan Continue with antibiotic therapy disposition will be to a ECF/assisted living facility as patient and his family is not able to take care of himself Obtain echocardiogram today 1 dose of IV Bumex 1 mg. Repeat renal function in the a.m. Prophylaxis with heparin 10,000 units every 8 hours
[2016-11-03] MEDS: CITALOPRAM HYDROBROMIDE 10 MG TAB PO SCH (20:40)
[2016-11-03] MEDS: HYDROcodone/APAP 5-325MG 1 EACH TAB PO PRN (20:42)
[2016-11-04] MEDS: ceFAZolin 2 GM in SODIUM CHLORIDE 0.9% 100 ML IVPB SCH ×3 (00:44→16:27)
[2016-11-04] MEDS: HYDROmorphone 1 MG/ML 1 ML SYRINGE IV PRN ×3 (00:48→11:27)
[2016-11-04] MEDS: HEPARIN SODIUM,PORCINE 10,000 UNIT/ML 1 ML VIAL SQ SCH ×3 (04:19→16:29)
--- NOTE | 2016-11-04 06:14 | PN ---
DATE OF SERVICE: 11/03/2016 Reason for followup is bilateral lower extremity cellulitis and athlete's foot. INTERVAL HISTORY: The patient is afebrile. Patient is currently breathing comfortably. Swelling persists, the redness has slightly improved. Denies significant chest pain, cough. No abdominal pain or any diarrhea. On examination, blood pressure 123/61 with a pulse of 90, temperature 98.6. She is 98% on room air. General description is a middle-age male lying in bed in no distress. RESPIRATORY SYSTEM: Unlabored breathing. Clear to auscultation anteriorly. HEART: S1, S2, regular rate and rhythm. ABDOMEN: Soft, no tenderness. LEGS: Swelling persists. The redness improved. He did have a bruise on his left foot. LABS: No new lab has been obtained today. Blood culture has been negative. Urine with Streptococcus anginosus. DIAGNOSTIC IMPRESSION AND PLAN: Patient with bilateral lower extremity swelling and cellulitis with Athlete's foot, likely streptococal disease currently on cefazolin, that should cover the urinary tract infection. Plan to finish therapy with oral antibiotic therapy. Continue with Rosas wrap to keep the swelling down and marked the area of the bruise on the foot for continuous monitoring. MTDD
[2016-11-04] MEDS: HYDROcodone/APAP 5-325MG 1 EACH TAB PO PRN ×3 (08:28→21:03)
[2016-11-04] MEDS: BUMETANIDE 1 MG TAB PO SCH (08:29)
[2016-11-04] MEDS: MONTELUKAST 10 MG TAB PO SCH (08:29)
[2016-11-04] MEDS: FAMOTIDINE 20 MG TAB PO SCH ×2 (08:29→21:00)
[2016-11-04] MEDS: MELOXICAM 7.5 MG TAB PO SCH ×2 (08:29→21:00)
[2016-11-04] MEDS: NYSTATIN 100,000UNIT/GM CREAM 30 GM TUBE TOPICAL SCH ×2 (08:30→21:04)
[2016-11-04 09:34] LABS: Anisocytosis Slight; CH 27.8; CHCM 31.1; HCT 35.2 % (39.0-53.0); HDW 2.99; HGB 11.1 gm/dL (13.0-17.5); Hypochromasia Moderate; MCH 28.4 pg (25.0-35.0); MCHC 31.5 g/dL (31.0-37.0); Mean Platelet Volume 7.4; RBC 3.91 m/uL (4.30-5.90); RDW 16.3 % (11.5-15.5); WBC 6.1 k/uL (3.8-10.6); WBC (Perox) 5.84
[2016-11-04 10:30] LABS: ALT 37 U/L (21-72); AST 58 U/L (17-59); Alkaline Phosphatase 104 U/L (38-126); Anion Gap 6 mmol/L; Blood Urea Nitrogen 13 mg/dL (9-20); Calcium 7.9 mg/dL (8.4-10.2); Carbon Dioxide 29 mmol/L (22-30); Chloride 106 mmol/L (98-107); Glucose 128 mg/dL (74-99); Non-African American GFR(MDRD) >60 (>60 ml/min/1.73 sqM); Potassium 3.9 mmol/L (3.5-5.1); Sodium 141 mmol/L (137-145); Total Bilirubin 0.8 mg/dL (0.2-1.3); Total Protein 6.3 g/dL (6.3-8.2)
--- NOTE | 2016-11-04 10:53 | ECHOF ---
Referral Reason:diastolic murmur MEASUREMENTS -------- HEIGHT: 182.9 cm WEIGHT: 235.0 kg BP: 143/77 IVSd: 1.1 cm (0.6 - 1.1) LVIDd: 5.1 cm (3.9 - 5.3) LVPWd: 1.7 cm (0.6 - 1.1) IVSs: 1.5 cm LVIDs: 3.4 cm LVPWs: 2.6 cm Ao Diam: 3.1 cm (2.0 - 3.7) AV Cusp: 2.3 cm (1.5 - 2.6) LA Diam: 3.7 cm (2.7 - 3.8) MV EXCURSION: 12.148 mm (> 18.000) MV EF SLOPE: 81 mm/s (70 - 150) EPSS: 0.7 cm MV E Chaz: 1.04 m/s MV DecT: 185 ms MV A Chaz: 0.83 m/s MV E/A Ratio: 1.25 RAP: 5.00 mmHg RVSP: 10.41 mmHg FINDINGS -------- Sinus rhythm. This was a technically difficult study with suboptimal views. Morbid Obesity There is mild concentric left ventricular hypertrophy. Overall left ventricular systolic function is normal with, an EF between 55 - 60 %. The RV was not well visualized. The left atrial size is normal. The right atrium was not well visualized. 1.5mg of Definity was utilized for enhancement of images The aortic valve was not well visualized. There is trace mitral regurgitation. Trace tricuspid regurgitation present. The right ventricular systolic pressure, as measured by Doppler, is 10.41mmHg. The pulmonic valve was not well visualized. CONCLUSIONS -------- 1. Sinus rhythm. 2. The aortic valve was not well visualized. 3. There is trace mitral regurgitation. 4. Trace tricuspid regurgitation present. 5. The right ventricular systolic pressure, as measured by Doppler, is 10.41mmHg. 6. The pulmonic valve was not well visualized. 7. This was a technically difficult study with suboptimal views. 8. Morbid Obesity 9. There is mild concentric left ventricular hypertrophy. 10. Overall left ventricular systolic function is normal with, an EF between 55 - 60 %. 11. The RV was not well visualized. 12. The left atrial size is normal. 13. The right atrium was not well visualized. 14. 1.5mg of Definity was utilized for enhancement of images [employer] DESIGNER: Annette Shukla RDCS
[2016-11-04 11:26] LABS: Add Differential Manual Differential
[2016-11-04] MEDS: B COMPLEX-VIT C-VIT E-ZINC 1 EACH TAB PO SCH (11:27)
[2016-11-04 11:39] LABS: Nucleated Red Blood Cells 0 /100 WBC (0-0); Total Cells Counted 100
--- NOTE | 2016-11-04 12:21 | PN ---
DATE OF SERVICE: 11/04/2016 Reason for followup is bilateral lower extremity cellulitis. INTERVAL HISTORY: The patient is afebrile. Has been feeling better. Complaining of some pain in the right anterior thigh area, but no swelling or redness. The patient denies having any chest pain. Some shortness of breath, occasional cough. No abdominal pain or any diarrhea. On examination, blood pressure is 167/82 with a pulse of 97, temperature is 96.9. He is 97% on room air. General description is an middle-age male lying in bed in no distress. RESPIRATORY SYSTEM: Unlabored breathing. Clear to auscultation anteriorly. HEART: S1, S2. Regular rate and rhythm. ABDOMEN: Soft. No tenderness. Legs are wrapped up. No obvious drainage on the dressing. LABS: Hemoglobin is 11.1, white count 6.1 with a BUN of 13, creatinine 0.67. DIAGNOSTIC IMPRESSION AND PLAN: Patient with bilateral lower extremity cellulitis. The patient with diffuse swelling and likely streptococcal disease, did well on cefazolin. Plan to finish therapy with p.o. Keflex for about a week along with Rosas wrap to keep the swelling down. Continue supportive care. MTDD
--- NOTE | 2016-11-04 17:11 | P.PN ---
Subjective 61-year-old gentleman with history of morbid obesity currently is at home was brought to the hospital after being recommended by his home visiting physician for further evaluation in the hospital for cellulitis of the lower extremity is. And states that he is pretty much bedridden and dependent on all ADLs. Patient was evaluated in the emergency room was noted to have significant bilateral lower extremity erythema. Patient states that over the last few days he does State to have tenderness in his lower extremities significant tenderness in his left heel. Patient denies having any fevers chills nausea vomiting diarrhea chest pain difficulty breathing. Patient at the time of my evaluation was noted to be in 3 -4 L a supplement oxygen however was laying flat.States of tenderness in his lower extremities denies any history of heart failure COPD 2016 Denies having any additional complaints Denies fevers chills nausea vomiting. No diarrhea is reported Patient's lower extremity are wrapped today. 2016 Denies having any significant complaints Denies diarrhea urinary urgency or frequency nausea vomiting. 11/01/2001 No new overnight events per of denies having any headaches blurry vision, nausea , vomiting, diarrhea, chest pain. Does have does not have a cough currently on room air. 11/02/2016 No new overnight events. Patient is having any headaches blurry vision nausea vomiting. Patient has never had urinary urgency or frequency. 11/03/2016 Denies having any additional complaints today States that he does have some swelling on his abdominal wall No fevers no chills nausea vomiting or diarrhea reported. 11/04/16 No new overnight events denies fevers, chills, nausea, vomiting, diarrhea. Objective - Vital Signs Vital signs: Vital Signs Temp 97.3 F L 11/04/16 14:57 Pulse 90 11/04/16 14:57 Resp 18 11/04/16 14:57 BP 138/78 11/04/16 14:57 Pulse Ox 97 11/04/16 14:57 Intake & Output 11/03/16 11/04/16 11/04/16 18:59 06:59 18:59 Output Total 3400 1700 900 Balance -3400 -1700 -900 Weight 233.7 kg Output: Urine 3400 1700 900 Other: Voiding Method Indwelling Catheter Indwelling Catheter # Voids 0 # Bowel Movements 0 - Exam Physical exam Gen. appearance oriented 3 in no distress. Obese Neck is supple no JVD Lungs good air entry clear to auscultation no rhonchi or wheezing Heart S1-S2 heard regular rate and rhythm no murmurs appreciated Abdomen is soft nontender no organomegaly bowel sounds are intact with abdominal wall edema is appreciated Lower extremities are wrapped Neurologically cranial nerves II-12 grossly intact no focal motor or sensory deficits noted Skin skin breakdown noted on the posterior surface multiple blisters - Labs CBC & Chem 7: 11/04/16 08:41 11/04/16 08:41 Labs: Abnormal Lab Results - Last 24 Hours (Table) 11/04/16 11/04/16 Range/Units 08:41 08:41 RBC 3.91 L (4.30-5.90) m/uL Hgb 11.1 L (13.0-17.5) gm/dL Hct 35.2 L (39.0-53.0) % RDW 16.3 H (11.5-15.5) % Glucose 128 H (74-99) mg/dL Calcium 7.9 L (8.4-10.2) mg/dL Albumin 2.5 L (3.5-5.0) g/dL Assessment and Plan Plan: #1 sepsis secondary to bilateral lower ext cellulitis #2 morbid obesity #3 hypertension #4 depression #5 suspect chronic hypoxic respiratory failure likely secondary to obesity hypoventilation syndrome #6 asymptomatic bacteriuria Plan Continue with antibiotic therapy, change to oral keflex on discharge. disposition will be to a ECF/assisted living facility as patient and his family is not able to take care of himself echo was noted fluid retention is due to venous stasis. Prophylaxis with heparin 10,000 units every 8 hours
[2016-11-04] MEDS: CITALOPRAM HYDROBROMIDE 10 MG TAB PO SCH (21:00)
[2016-11-05] MEDS: HEPARIN SODIUM,PORCINE 10,000 UNIT/ML 1 ML VIAL SQ SCH ×4 (01:04→23:45)
[2016-11-05] MEDS: ceFAZolin 2 GM in SODIUM CHLORIDE 0.9% 100 ML IVPB SCH ×4 (01:04→23:45)
[2016-11-05] MEDS: HYDROcodone/APAP 5-325MG 1 EACH TAB PO PRN ×5 (01:05→23:47)
[2016-11-05] MEDS: FAMOTIDINE 20 MG TAB PO SCH ×2 (07:54→20:01)
[2016-11-05] MEDS: BUMETANIDE 1 MG TAB PO SCH (07:54)
[2016-11-05] MEDS: MELOXICAM 7.5 MG TAB PO SCH ×2 (07:54→20:01)
[2016-11-05] MEDS: MONTELUKAST 10 MG TAB PO SCH (07:55)
[2016-11-05] MEDS: NYSTATIN 100,000UNIT/GM CREAM 30 GM TUBE TOPICAL SCH ×2 (09:00→20:24)
[2016-11-05] MEDS: B COMPLEX-VIT C-VIT E-ZINC 1 EACH TAB PO SCH (14:31)
--- NOTE | 2016-11-05 14:42 | PN ---
DATE OF SERVICE: 11/05/2016 Reason for followup lower extremity wound and cellulitis. INTERVAL HISTORY: The patient is afebrile. He is breath comfortably. Denies any significant chest pain, no cough, no abdominal pain or diarrhea. There was pain in the leg area. On examination, blood pressure 141/65 with a pulse of 96, temperature 96.1. He is 96% on room air. General description is a middle-aged male, lying in bed in no distress. RESPIRATORY SYSTEM: Unlabored breathing. Clear to auscultation. HEART: S1, S2. Regular rate and rhythm. ABDOMEN: Soft, no tenderness. The left leg did have a open wound from a ruptured blister, the redness has improved. LABS: Hemoglobin 11.1, white count 6.1 with a BUN of 13, creatinine 0.67. DIAGNOSTIC IMPRESSION AND PLAN: Patient with left lower extremity wound from ruptured blister with diffuse swelling and redness and likely a streptococcal cellulitis, improved on cefazolin. Patient to finish therapy with p.o. Keflex. Will apply Aquacel Silver dressing to the open area, followed by an Rosas wrap to keep the swelling down
[2016-11-05] MEDS: CITALOPRAM HYDROBROMIDE 10 MG TAB PO SCH (20:01)
[2016-11-05] MEDS: ALPRAZolam 0.25 MG TAB PO PRN (20:01)
[2016-11-06 07:58] VITALS: BP 136/60; PULSE 93; RESP 16; TEMP 97
[2016-11-06] MEDS: BUMETANIDE 1 MG TAB PO SCH (07:59)
[2016-11-06] MEDS: MELOXICAM 7.5 MG TAB PO SCH (07:59)
[2016-11-06] MEDS: ceFAZolin 2 GM in SODIUM CHLORIDE 0.9% 100 ML IVPB SCH ×2 (08:00→15:09)
[2016-11-06] MEDS: NYSTATIN 100,000UNIT/GM CREAM 30 GM TUBE TOPICAL SCH (08:00)
[2016-11-06] MEDS: FAMOTIDINE 20 MG TAB PO SCH (08:00)
[2016-11-06] MEDS: MONTELUKAST 10 MG TAB PO SCH (08:00)
[2016-11-06] MEDS: HEPARIN SODIUM,PORCINE 10,000 UNIT/ML 1 ML VIAL SQ SCH ×2 (09:24→15:09)
[2016-11-06] MEDS: B COMPLEX-VIT C-VIT E-ZINC 1 EACH TAB PO SCH (12:44)
[2016-11-06] MEDS: HYDROcodone/APAP 5-325MG 1 EACH TAB PO PRN (13:28)
--- NOTE | 2016-11-06 14:06 | DS ---
DATE OF ADMISSION: 10/29/2016 DATE OF DISCHARGE: 11/06/2016 DISCHARGE DIAGNOSES: 1. Sepsis secondary to bilateral lower extremity cellulitis with open blisters. 2. Bilateral lower extremity edema secondary to venostasis and hypoalbuminemia. A 2-D echo showed normal ejection fraction, right lower extremity duplex is negative. 3. Morbid obesity. 4. Hypertension. 5. Depression. 6. Suspected chronic hypoxic respiratory failure secondary to obesity hypoventilation syndrome. 7. Asymptomatic bacteruria. CONSULTS AND PROCEDURES: A 2-D echo and carotid duplex. ID consultation. HOSPITAL COURSE: Mr. Salamanca is a 61-year-old male with known history of morbid obesity was admitted to the hospital after he was recommended by his primary care physician for the evaluation of cellulitis of the lower extremity. Patient is pretty-much bedridden and dependent on all ADLs. Patient was found to have bilateral lower extremity swelling and ( ). Patient was initially started on cefazolin as per ID recommendations and the wound cultures growing Streptococcus group and ID recommended to continue with the antibiotics for 7 more days and otherwise patient had lower extremity duplex done, showed no DVT and also 2-D echo showed normal ejection fraction. His lower extremity chronic edema is likely secondary to hypoalbuminemia as well as venostasis. Patient was continued on breathing treatments p.r.n. and currently patient is much improved now. There is no leukocytosis noted. Laboratory values reviewed which are within normal limits and otherwise, patient does have a normocytic anemia with hemoglobin level of 11.1 which has been stable and this patient is stable to be discharged to rehab for PT, OT and usp and wound care and continue with the p.o. antibiotics as per ID recommendations. DISCHARGE PHYSICAL EXAMINATION: A 61-year-old male lying in bed, awake, alert, oriented x3. Appears to be in no apparent distress. Patient is morbidly obese. VITALS: Blood pressure is 136/60, pulse is 93, respirations 16, temperature afebrile, pulse ox 98% on room air. LABORATORY DATA: Reviewed. Discharge physical examination done. Discharge medications include: 1. Albuterol HFA 2 puffs inhalation q.4 hourly p.r.n. for short of breath. 2. Singulair 10 mg p.o. daily. 3. Bumex 1 mg p.o. daily. 4. Celebrex 200 mg p.o. b.i.d. 5. Citalopram 10 mg p.o. at bedtime. 6. Vitamin B complex 1 capsule p.o. daily. 7. Keflex 500 mg p.o. q.6 hourly for 7 days. 8. Reading 5 one tablet q.6 hourly p.r.n. for pain. Patient will be discharged to extended care facility/rehab in stable condition. Follow with Dr. Trini Parkinson in 1 to 2 days. Follow with [facility] daily and follow with the primary care physician in 1 to 3 days. Activity as tolerated.
[2016-11-06] MEDS: ALPRAZolam 0.25 MG TAB PO PRN (15:09)
--- NOTE | 2016-11-06 15:57 | PN ---
DATE OF SERVICE: 11/05/2016 Mr. Salamanca is a 61-year-old male with a known history of morbid obesity who was brought to the hospital after being recommended by his home visiting physician for further evaluation in the hospital for cellulitis of the right lower extremity. Patient started on cefazolin in the hospital and leg swelling and redness seems to be improved. The patient was seen by ID and recommended p.o. antibiotics to complete the course. Today the patient denied any complaints of fever or chills. No nausea or vomiting, or abdominal pain. No acute overnight issues. Patient is being transferred to subacute rehab most likely in the next 24 hours. REVIEW OF SYSTEMS: CONSTITUTIONAL: No fever. No chills. RESPIRATORY: No cough or sputum production. Patient does have underlying short of breath. CARDIOVASCULAR: No chest pain. No short of breath. Patient does have leg swelling. ABDOMEN: No nausea, vomiting, or abdominal pain. GENITOURINARY: Negative. ENDOCRINE: Negative. PSYCHIATRIC: Negative. All other review of systems negative except for above. Current medications include [place], alprazolam, DuoNeb, Bumex, cefazolin, Celexa, Pepcid, heparin, meloxicam, Singulair, Narcan, nystatin, vitamin B. PHYSICAL EXAMINATION: A 61-year-old male, morbidly obese, lying in the bed, awake, alert, oriented x3 appears to be in no apparent distress. VITALS: Blood pressure is 127/69, pulse is 91, respirations 20, temperature afebrile, pulse ox 95% on room air. HEENT: Atraumatic, normocephalic. Neck is supple. No JVD. CVS: S1, S2 heard. No murmurs, no gallop. LUNGS: Bilateral air entry is present. Diminished breath sounds basally. Nonlabored breathing. ABDOMEN: Soft, obese. Bowel sounds are present. WELDER FITTER HELPER: Awake, alert x3. No focal deficits. EXTREMITIES: Patient does have bilateral lower extremity duplex edema with right lower extremity redness and swelling and blebs and also 5 x 5 cm wound on the lateral side of the right lower extremity. No purulent drainage noted. PSYCHIATRIC: Cooperative. SKIN: No rash or skin lesions except above. LABORATORY DATA: Reviewed. IMPRESSION: 1. Sepsis secondary to bilateral lower extremity cellulitis with open blisters now. 2. Morbid obesity. 3. Hypertension. 4. Depression. 5. Chronic respiratory failure likely secondary to obesity hypoventilation syndrome. 6. Asymptomatic bacteria. 7. Bilateral lower extremity secondary to venostasis as well as hypoalbuminemia. 8. Deep venous thrombosis prophylaxis. DISCUSSION AND PLAN: The patient will be continued on antibiotics in the form of cefazolin as per ID recommendations. Anticipate discharge to rehab in the next 24 hours and social media intern is following this patient. Continue the current management and follow up closely. Further recommendations based clinical course.
--- NOTE | 2016-11-06 21:52 | PN ---
DATE OF SERVICE: 11/06/2016 REASON FOR FOLLOWUP: Bilateral lower extremity cellulitis. INTERVAL HISTORY: The patient was seen on rounds early this afternoon. The patient has been breathing comfortably. Denies significant chest pain or cough. No worsening pain in the leg area. No significant skin breakdown or any drainage. No abdominal pain and no diarrhea with antibiotic therapy. On examination, blood pressure is 136/60 with a pulse of 93, temperature 97. She is 96% on room air. General description is a middle-aged male lying in bed in no distress. RESPIRATORY SYSTEM: Unlabored breathing. Clear to auscultation anteriorly. HEART: S1, S2. Regular rate and rhythm. ABDOMEN: Soft. No tenderness. LEGS: Swelling and redness have improved. LABS: No new labs have been obtained today. DIAGNOSTIC IMPRESSION AND PLAN: Patient with bilateral lower extremity cellulitis in a patient who did have diffuse swelling and redness, likely streptococcal disease. The patient apparently has overall improvement with cefazolin. Plan to finish therapy with p.o. Keflex 500 mg q.6 for another 10 days along with Rosas wraps to the legs to keep the swelling down. Continue supportive care.
== END 2016-11-06 16:04 | DRG 872 ==
LOC: EC 11:07 → 4MS4W 14:09
PROVIDERS: ADMIT Internal Medicine; ATTEND Internal Medicine
DX: A41.9 Sepsis, unspecified organism (principal); J96.11 Chronic respiratory failure with hypoxia; I11.0 Hypertensive heart disease with heart failure; E66.2 Morbid (severe) obesity with alveolar hypoventilation; E88.09 Other disorders of plasma-protein metabolism, not elsewhere classified; I50.9 Heart failure, unspecified; B35.3 Tinea pedis; D64.9 Anemia, unspecified; L03.115 Cellulitis of right lower limb; L03.116 Cellulitis of left lower limb; F32.9 Major depressive disorder, single episode, unspecified; J44.9 Chronic obstructive pulmonary disease, unspecified; J45.909 Unspecified asthma, uncomplicated; Z79.899 Other long term (current) drug therapy; Z87.891 Personal history of nicotine dependence; Z74.01 Bed confinement status
CPT/HCPCS: 36415; 51702; 71010; 80053; 81001; 85025; 87040; 87077; 87086; 87186; 93306; 93970; 94640; 94760; 96365; 96375; 99285

== ENCOUNTER 2016-11-20 17:38 | Inpatient (IN) | payer MEDICARE, OTHER ==
[2016-11-20] MEDS ORDERED: IPRATROPIUM-ALBUTEROL 3 ML NEB INHALATION STA (17:46)
[2016-11-20] MEDS ORDERED: methylPREDNISolone SOD SUCCI 125 MG/2 ML VIAL IV STA (17:46)
[2016-11-20 18:12] LABS: Anisocytosis Slight; Basophils % (A) 1 %; CH 27.2; CHCM 30.3; Eosinophils # (A) 0.4 k/uL (0-0.7); Eosinophils % (A) 6 %; HCT 38.4 % (39.0-53.0); HDW 2.64; HGB 11.8 gm/dL (13.0-17.5); Hypochromasia Moderate; Luc # (Auto) 0.12; Luc % (Auto) 2; Lymphocytes # (A) 1.3 k/uL (1.0-4.8); Lymphocytes % (A) 19 %; MCH 27.8 pg (25.0-35.0); MCHC 30.8 g/dL (31.0-37.0); MCV 90.1 fL (80.0-100.0); Mean Platelet Volume 7.5; Monocytes # (A) 0.4 k/uL (0-1.0); Monocytes % (A) 6 %; Neutrophils # (A) 4.6 k/uL (1.3-7.7); Neutrophils % (A) 67 %; RBC 4.26 m/uL (4.30-5.90); RDW 16.3 % (11.5-15.5); WBC 6.9 k/uL (3.8-10.6)
--- NOTE | 2016-11-20 18:22 | XR ---
EXAMINATION TYPE: XR chest 1V DATE OF EXAM: 11/20/2016 6:15 PM COMPARISON: 10/29/2016 HISTORY: Short of breath TECHNIQUE: Single frontal view of the chest is obtained. FINDINGS: There is no heart failure nor confluent pneumonic infiltrate. There are no hilar masses. T here are chest leads. IMPRESSION: No active cardiopulmonary disease. No change.
[2016-11-20 18:33] LABS: INR 1.3 (<1.1); Partial Thromboplastin Time 23.3 sec (22.0-30.0); Prothrombin Time 12.8 sec (9.0-12.0)
[2016-11-20 18:35] LABS: ALT 34 U/L (21-72); AST 45 U/L (17-59); Alkaline Phosphatase 153 U/L (38-126); Anion Gap 10 mmol/L; Blood Urea Nitrogen 17 mg/dL (9-20); Calcium 8.5 mg/dL (8.4-10.2); Carbon Dioxide 25 mmol/L (22-30); Chloride 106 mmol/L (98-107); Glucose 130 mg/dL (74-99); Magnesium 1.6 mg/dL (1.6-2.3); Non-African American GFR(MDRD) >60 (>60 ml/min/1.73 sqM); Potassium 3.9 mmol/L (3.5-5.1); Sodium 141 mmol/L (137-145); Total Bilirubin 1.2 mg/dL (0.2-1.3); Total Protein 7.3 g/dL (6.3-8.2)
[2016-11-20 18:50] LABS: Creatine Kinase MB 0.9 ng/mL (0.0-2.4); Troponin I 0.014 ng/mL (0.000-0.034)
--- NOTE | 2016-11-20 19:07 | ED ---
SOB HPI - General Chief Complaint: Shortness of Breath Stated Complaint: Difficulty Breathing Time Seen by Provider: 11/20/16 17:38 Source: patient, EMS, RN notes reviewed, old records reviewed Mode of arrival: EMS Limitations: no limitations - History of Present Illness Initial Comments: This is a 61-year-old male with a history of morbid obesity and COPD who was brought in by EMS after developing shortness of breath about 30 minutes prior to arrival. Patient found be very dyspneic and a difficult time with breathing he is morbidly obese has difficulty moving. He was transported by EMS he complains of severe shortness of breath. Upon immediate arrival he was assessed to require BiPAP which he did get an did help improve his respiratory status. MD Complaint: shortness of breath - Related Data Home Medications Medication Instructions Recorded Confirmed Albuterol Sulfate [Proair Hfa] 2 puff INHALATION RT-Q4H PRN 03/20/14 11/20/16 Montelukast [Singulair] 10 mg PO HS 07/24/15 11/20/16 Bumetanide [BUMEX] 1 mg PO DAILY 10/29/16 11/20/16 Vitamin B Complex 1 cap PO DAILY 10/29/16 11/20/16 ALPRAZolam [Xanax] 0.5 mg PO BID PRN 11/20/16 11/20/16 Bumetanide [BUMEX] 2 mg PO DAILY 11/20/16 11/20/16 Dimethicone/Zinc Oxide [Inzo Zinc 1 applic TOPICAL Q12H 11/20/16 11/20/16 Oxide Barrier Cream] HYDROcodone/APAP 5-325MG [[place] 1 tab PO Q6HR PRN 11/20/16 11/20/16 5-325] Ipratropium-Albuterol Nebulize 3 ml INHALATION RT-Q4H PRN 11/20/16 11/20/16 [Duoneb 0.5 mg-3 mg/3 ml Soln] Meloxicam [Mobic] 7.5 mg PO DAILY 11/20/16 11/20/16 Prostat Awc 30 ml PO TID@0900,1700,2100 11/20/16 11/20/16 Triamcinolone 0.1% Cream [Kenalog] 1 applicatio TOPICAL Q12H 11/20/16 11/20/16 Venlafaxine HCl [Effexor XR] 225 mg PO DAILY 11/20/16 11/20/16 Allergies Allergy/AdvReac Type Severity Reaction Status Date / Time No Known Allergies Allergy Verified 11/20/16 18:38 Review of Systems ROS Statement: Those systems with pertinent positive or pertinent negative responses have been documented in the HPI. ROS Other: All systems not noted in ROS Statement are negative. Past Medical History Past Medical History: Asthma, Hypertension, Osteoarthritis (OA), Pneumonia Additional Past Medical History / Comment(s): IN PAST TX FOR HYPERTENSION NO LONGER ON MEDS, KIDNEY STONE, BRONCHITIS, BEGINNINGS OF CATARACTS, DJD, HANDS SHAKY/TREMORS, DIVERTICULOSIS, History of Any Multi-Drug Resistant Organisms: None Reported Past Surgical History: Hernia Repair, Orthopedic Surgery Additional Past Surgical History / Comment(s): cyst removed from hand, CRISTOPHER CARPAL TUNNEL RELEASE,UMB HERNIA REPAIR, RT KNEE ARTHROSCOPY,COLONOSCOPY Additional Past Anesthesia/Blood Transfusion Reaction / Comment(s): CLAUSTERPHOBIA. PT LIVES ALONE IN A TRAILER.HAS 3 STEPS UP INTO HOME. PT USES A CANE/WALKER WHEN UP. HAS VISITING PHYSICIAN, MEALS ON WHEELS, CLEANING SERVICE X1 WEEK. CANE/WALKER, HOSPITAL BED. Past Psychological History: Depression Additional Psychological History / Comment(s): PT STATED FEELS WELL MAINTAINED ON HIS MEDS. Smoking Status: Former smoker Past Alcohol Use History: None Reported Additional Past Alcohol Use History / Comment(s): STARTED SMOKING AT AGE 15 SMOKED 1 PPD, QUIT 1991 Past Drug Use History: None Reported - Past Family History Father Family Medical History: Cancer, CVA/TIA, Myocardial Infarction ([place]), Prostate Disorder Additional Family Medical History / Comment(s): SKIN ANS PROSTATE CANCER Mother Family Medical History: Cancer Additional Family Medical History / Comment(s): FROM BRAIN CANCER General Exam - General Exam Comments Initial Comments: This a well-developed morbidly obese male who is severely dyspneic and in respiratory distress Limitations: no limitations General appearance: alert, in no apparent distress, anxious, lethargic Head exam: Present: atraumatic, normocephalic, normal inspection Eye exam: Present: normal appearance, PERRL, EOMI. Absent: scleral icterus, conjunctival injection, periorbital swelling ENT exam: Present: normal exam, mucous membranes moist Respiratory exam: Present: wheezes, decreased breath sounds Cardiovascular Exam: Present: tachycardia GI/Abdominal exam: Present: other (Orbit obesity). Absent: bruit, pulsatile mass, hernia Rectal exam: Present: deferred Extremities exam: Present: other (Bilateral trace edema with stasis dermatitis) Back exam: Present: normal inspection Neurological exam: Present: alert, oriented X3, CN II-XII intact Psychiatric exam: Present: anxious Skin exam: Present: warm, dry Course Vital Signs 11/20/16 11/20/16 11/20/16 17:40 17:41 17:58 Temperature 97.9 F Pulse Rate 116 H 112 H Respiratory 36 H 30 H Rate Blood Pressure 202/87 O2 Sat by Pulse 97 Oximetry 11/20/16 11/20/16 18:15 19:03 Temperature 97.8 F Pulse Rate 110 H 108 H Respiratory 36 H Rate Blood Pressure 168/72 O2 Sat by Pulse 97 Oximetry - Reevaluation(s) Reevaluation #1: 11/20/16 19:08 Reevaluation of the patient revealed patient and with some improvement. He still is requiring BiPAP but he is much more awake and alert breathing much easier. I did have a long discussion with patient regarding the findings patient does have elevated d-dimer and concern for DVT and/or PE is entertained patient be admitted and evaluated for the above. Medical Decision Making - Medical Decision Making Patient will be admitted I did discuss the case with Dr. Cabrera originally. This was prior to the d-dimer being evaluated patient be admitted place on heparin. - Lab Data Result diagrams: 11/20/16 18:00 11/20/16 18:00 Lab Results 11/20/16 11/20/16 11/20/16 Range/Units 18:00 18:00 18:00 WBC 6.9 (3.8-10.6) k/uL RBC 4.26 L (4.30-5.90) m/uL Hgb 11.8 L (13.0-17.5) gm/dL Hct 38.4 L (39.0-53.0) % MCV 90.1 (80.0-100.0) fL MCH 27.8 (25.0-35.0) pg MCHC 30.8 L (31.0-37.0) g/dL RDW 16.3 H (11.5-15.5) % Plt Count 171 (150-450) k/uL Neutrophils % 67 % Lymphocytes % 19 % Monocytes % 6 % Eosinophils % 6 % Basophils % 1 % Neutrophils # 4.6 (1.3-7.7) k/uL Lymphocytes # 1.3 (1.0-4.8) k/uL Monocytes # 0.4 (0-1.0) k/uL Eosinophils # 0.4 (0-0.7) k/uL Basophils # 0.0 (0-0.2) k/uL Hypochromasia Moderate Anisocytosis Slight PT (9.0-12.0) sec INR (<1.1) APTT (22.0-30.0) sec D-Dimer (<0.60) mg/L FEU Sodium 141 (137-145) mmol/L Potassium 3.9 (3.5-5.1) mmol/L Chloride 106 (98-107) mmol/L Carbon Dioxide 25 (22-30) mmol/L Anion Gap 10 mmol/L BUN 17 (9-20) mg/dL Creatinine 0.80 (0.66-1.25) mg/dL Est GFR (MDRD) Af Amer >60 (>60 ml/min/1.73 sqM) Est GFR (MDRD) Non-Af >60 (>60 ml/min/1.73 sqM) Glucose 130 H (74-99) mg/dL Plasma Lactic Acid Ac (0.7-2.0) mmol/L Calcium 8.5 (8.4-10.2) mg/dL Magnesium 1.6 (1.6-2.3) mg/dL Total Bilirubin 1.2 (0.2-1.3) mg/dL AST 45 (17-59) U/L ALT 34 (21-72) U/L Alkaline Phosphatase 153 H (38-126) U/L Total Creatine Kinase 63 (55-170) U/L CK-MB (CK-2) 0.9 (0.0-2.4) ng/mL CK-MB (CK-2) Rel Index 1.4 Troponin I 0.014 (0.000-0.034) ng/mL NT-Pro-B Natriuret Pep pg/mL Total Protein 7.3 (6.3-8.2) g/dL Albumin 3.1 L (3.5-5.0) g/dL 11/20/16 11/20/16 11/20/16 Range/Units 18:00 18:00 18:00 WBC (3.8-10.6) k/uL RBC (4.30-5.90) m/uL Hgb (13.0-17.5) gm/dL Hct (39.0-53.0) % MCV (80.0-100.0) fL MCH (25.0-35.0) pg MCHC (31.0-37.0) g/dL RDW (11.5-15.5) % Plt Count (150-450) k/uL Neutrophils % % Lymphocytes % % Monocytes % % Eosinophils % % Basophils % % Neutrophils # (1.3-7.7) k/uL Lymphocytes # (1.0-4.8) k/uL Monocytes # (0-1.0) k/uL Eosinophils # (0-0.7) k/uL Basophils # (0-0.2) k/uL Hypochromasia Anisocytosis PT 12.8 H (9.0-12.0) sec INR 1.3 (<1.1) APTT 23.3 (22.0-30.0) sec D-Dimer 3.26 H (<0.60) mg/L FEU Sodium (137-145) mmol/L Potassium (3.5-5.1) mmol/L Chloride (98-107) mmol/L Carbon Dioxide (22-30) mmol/L Anion Gap mmol/L BUN (9-20) mg/dL Creatinine (0.66-1.25) mg/dL Est GFR (MDRD) Af Amer (>60 ml/min/1.73 sqM) Est GFR (MDRD) Non-Af (>60 ml/min/1.73 sqM) Glucose (74-99) mg/dL Plasma Lactic Acid Ac 2.3 H* (0.7-2.0) mmol/L Calcium (8.4-10.2) mg/dL Magnesium (1.6-2.3) mg/dL Total Bilirubin (0.2-1.3) mg/dL AST (17-59) U/L ALT (21-72) U/L Alkaline Phosphatase (38-126) U/L Total Creatine Kinase (55-170) U/L CK-MB (CK-2) (0.0-2.4) ng/mL CK-MB (CK-2) Rel Index Troponin I (0.000-0.034) ng/mL NT-Pro-B Natriuret Pep 524 pg/mL Total Protein (6.3-8.2) g/dL Albumin (3.5-5.0) g/dL - EKG Data -: EKG Interpreted by Me EKG shows normal: sinus rhythm (Sinus tachycardia with a rate of 118 AL interval 158 QRS duration 118 daily since QTC of 3:30/473 low voltages a complete right bundle-branch block nonspecific anterior changes) - Radiology Data Radiology results: report reviewed, image reviewed Critical Care Time Critical Care Time: Yes Critical Care Time: 39 minutes of critical care time which includes initial presentation with monitoring of the EMS run and discussed with paramedics history physical lab and x-rays reevaluation patient several occasions discussion with the admitting physician and admitting orders and documentation of the above. Disposition Clinical Impression: Acute exacerbation of chronic obstructive airways disease, Adult respiratory distress syndrome, Morbid obesity Disposition: ADMITTED IP TO THIS HOSP Condition: Serious Referrals: Trini Parkinson DO [Primary Care Provider] - 1-2 days
[2016-11-20] MEDS ORDERED: HEPARIN SODIUM,PORCINE 5,000 UNIT/ML 1 ML VIAL IV STA (19:14)
[2016-11-20] MEDS ORDERED: NON-FORMULARY DRUG (Dimethicone/Zinc Oxide [Inzo Zinc Oxide Barrier Cream] 1 APPLIC) TOPICAL SCH (19:15)
[2016-11-20] MEDS ORDERED: RX INFO: IV CONTRAST WAS GIVEN 1 EACH MISC MISCELLANE PRN (19:16)
[2016-11-20] MEDS: ALPRAZolam 0.5 MG TAB PO PRN (19:59)
--- NOTE | 2016-11-20 20:03 | US ---
EXAMINATION TYPE: US venous doppler duplex LE DATE OF EXAM: 11/20/2016 7:53 PM COMPARISON: Prior in PACS CLINICAL HISTORY: Pain. Shortness of breath. Extremely limited exam due to patient body habitus- 538l bs. Patient is very agitated during the exam SIDE PERFORMED: Bilateral TECHNIQUE: The lower extremity deep venous system is examined utilizing real time linear array sonog meño with graded compression, doppler sonography and color-flow sonography. VESSELS IMAGED: External Iliac Vein (EIV) Common Femoral Vein Deep Femoral Vein Greater Saphenous Vein * Femoral Vein Popliteal Vein Small Saphenous Vein * Proximal Calf Veins (* superficial vessels) Right Leg: Negative as visualized. Limited exam Left Leg: Negative as visualized. Limited exam IMPRESSION: No evidence of deep venous thrombosis in the left and right leg.
[2016-11-20] MEDS: HYDROcodone/APAP 5-325MG 1 EACH TAB PO PRN (20:29)
[2016-11-20] MEDS: HEPARIN SODIUM,PORCINE/D5W PMX 25,000 UNIT in DEXTROSE/WATER 1 500ML.BAG IV SCH (20:39)
[2016-11-20] MEDS: SODIUM CHLORIDE 0.9% 1,000 ML IV SCH (20:42)
[2016-11-20] MEDS: TRIAMCINOLONE 0.1% CREAM 80 GM TUBE TOPICAL SCH (22:32)
[2016-11-20] MEDS: MONTELUKAST 10 MG TAB PO SCH (22:32)
[2016-11-20] MEDS: IPRATROPIUM-ALBUTEROL 3 ML NEB INHALATION SCH ×2 (23:40→23:41)
[2016-11-21] MEDS: methylPREDNISolone SOD SUCCI 125 MG/2 ML VIAL IV SCH ×3 (00:25→12:16)
[2016-11-21] MEDS: IPRATROPIUM-ALBUTEROL 3 ML NEB INHALATION SCH ×5 (04:14→20:11)
[2016-11-21 05:59] LABS: Glucose,Whole Blood 153 mg/dL (75-99)
[2016-11-21] MEDS: HEPARIN SODIUM,PORCINE/D5W PMX 25,000 UNIT in DEXTROSE/WATER 1 500ML.BAG IV SCH ×2 (06:41→17:31)
[2016-11-21] MEDS: INSULIN LISPRO (humaLOG) 300 UNIT/3 ML VIAL SQ SCH ×4 (07:24→21:30)
[2016-11-21 07:52] LABS: Hemoglobin A1C 5.4 % (4.2-6.1)
[2016-11-21] MEDS: VENLAFAXINE HCL ER 75 MG CAP PO SCH (08:28)
[2016-11-21] MEDS: ALPRAZolam 0.5 MG TAB PO PRN ×2 (08:28→18:27)
[2016-11-21] MEDS: BUMETANIDE 1 MG TAB PO SCH (08:28)
[2016-11-21] MEDS: TRIAMCINOLONE 0.1% CREAM 80 GM TUBE TOPICAL SCH ×2 (08:28→19:52)
[2016-11-21] MEDS: MELOXICAM 7.5 MG TAB PO SCH (08:28)
[2016-11-21] MEDS ORDERED: RX INFO: IV CONTRAST WAS GIVEN 1 EACH MISC MISCELLANE PRN (10:08)
[2016-11-21 11:42] LABS: Glucose,Whole Blood 174 mg/dL (75-99)
[2016-11-21] MEDS: B COMPLEX-VIT C-VIT E-ZINC 1 EACH TAB PO SCH (12:16)
--- NOTE | 2016-11-21 14:42 | P.CNPUL ---
History of Present Illness Consult date: 11/21/16 Requesting physician: Jennifer Cabrera Reason for consult: dyspnea Chief complaint: Shortness of breath History of present illness: This is a very pleasant 61-year-old gentleman who follows with Dr. Parkinson as his primary care physician. He has a history of asthma, hypertension, osteoarthritis, nephrolithiasis, hypertension, depression, prior history of chronic nicotine addiction however quit in 1991. He is morbidly obese currently weighing 547 pounds. He is pretty much bedridden at this point. He was recently discharged from here on 11/06/2016 after being treated for sepsis secondary to bilateral lower extremity cellulitis with open blisters. At that time he was maintaining good O2 saturations in the upper 90s on room air. He presented here yesterday with complaints of worsening shortness of breath and respiratory distress. He initially required BiPAP support for his significant shortness of breath. He is quite tachypneic and hypertensive and tachycardic. No fever. His chest x-ray revealed no acute cardiopulmonary process. D-dimer 3.26 however the patient's size prevented us the ability to do a ventilation perfusion scan or CT angiogram. Dopplers of lower extremity ruled out DVT. He had an echocardiogram on 11/03/2016 which revealed a preserved left ventricular systolic function. No significant right ventricular strain. He is currently maintaining good O2 saturations in the upper 90s on 5 L/m per nasal cannula. He has been afebrile. No tachycardia, no tachypnea. Current temperature 99.0. No leukocytosis. Hemoglobin 11.8. ProBNP 524. Troponins were negative. He is seen today in consultation on the selective care unit. He is currently resting fairly comfortably in bed. He states he is breathing easier today as compared to yesterday. He denies any chest pain, palpitations, lightheadedness or dizziness. We're unable to obtain a computed tomography scan or a VQ scan based on the patient's size. Review of Systems 14 point review of system was conducted. All negative other than as mentioned in HPI. Past Medical History Past Medical History: Asthma, Hypertension, Osteoarthritis (OA), Pneumonia Additional Past Medical History / Comment(s): IN PAST TX FOR HYPERTENSION NO LONGER ON MEDS, KIDNEY STONE, BRONCHITIS, BEGINNINGS OF CATARACTS, DJD, HANDS SHAKY/TREMORS, DIVERTICULOSIS, History of Any Multi-Drug Resistant Organisms: None Reported Past Surgical History: Hernia Repair, Orthopedic Surgery Additional Past Surgical History / Comment(s): cyst removed from hand, CRISTOPHER CARPAL TUNNEL RELEASE,UMB HERNIA REPAIR, RT KNEE ARTHROSCOPY,COLONOSCOPY Past Anesthesia/Blood Transfusion Reactions: No Reported Reaction Additional Past Anesthesia/Blood Transfusion Reaction / Comment(s): CLAUSTERPHOBIA. PT LIVES ALONE IN A TRAILER.HAS 3 STEPS UP INTO HOME. PT USES A CANE/WALKER WHEN UP. HAS VISITING PHYSICIAN, MEALS ON WHEELS, CLEANING SERVICE X1 WEEK. CANE/WALKER, HOSPITAL BED. Past Psychological History: Depression Additional Psychological History / Comment(s): PT STATED FEELS WELL MAINTAINED ON HIS MEDS. Smoking Status: Former smoker Past Alcohol Use History: None Reported Additional Past Alcohol Use History / Comment(s): STARTED SMOKING AT AGE 15 SMOKED 1 PPD, QUIT 1991 Past Drug Use History: None Reported - Past Family History Father Family Medical History: Cancer, CVA/TIA, Myocardial Infarction ([place]), Prostate Disorder Additional Family Medical History / Comment(s): SKIN ANd PROSTATE CANCER Mother Family Medical History: Cancer Additional Family Medical History / Comment(s): FROM BRAIN CANCER Medications and Allergies Home Medications Medication Instructions Recorded Confirmed Type Albuterol Sulfate [Proair Hfa] 2 puff INHALATION RT-Q4H PRN 03/20/14 11/20/16 History Montelukast [Singulair] 10 mg PO HS 07/24/15 11/20/16 History Bumetanide [BUMEX] 1 mg PO DAILY 10/29/16 11/20/16 History Vitamin B Complex 1 cap PO DAILY 10/29/16 11/20/16 History ALPRAZolam [Xanax] 0.5 mg PO BID PRN 11/20/16 11/20/16 History Bumetanide [BUMEX] 2 mg PO DAILY 11/20/16 11/20/16 History Dimethicone/Zinc Oxide [Inzo Zinc 1 applic TOPICAL Q12H 11/20/16 11/20/16 History Oxide Barrier Cream] HYDROcodone/APAP 5-325MG [[employer] 1 tab PO Q6HR PRN 11/20/16 11/20/16 History 5-325] Ipratropium-Albuterol Nebulize 3 ml INHALATION RT-Q4H PRN 11/20/16 11/20/16 History [Duoneb 0.5 mg-3 mg/3 ml Soln] Meloxicam [Mobic] 7.5 mg PO DAILY 11/20/16 11/20/16 History Prostat Awc 30 ml PO TID@0900,1700,2100 11/20/16 11/20/16 History Triamcinolone 0.1% Cream [Kenalog] 1 applicatio TOPICAL Q12H 11/20/16 11/20/16 History Venlafaxine HCl [Effexor XR] 225 mg PO DAILY 11/20/16 11/20/16 History Allergies Allergy/AdvReac Type Severity Reaction Status Date / Time No Known Allergies Allergy Verified 11/20/16 21:37 Physical Exam Vitals: Vital Signs Temp Pulse Pulse Resp BP BP Pulse Ox 11/21/16 11:31 99 F 89 20 123/58 97 11/21/16 11:25 100 11/21/16 11:07 100 11/21/16 08:28 97.4 F L 97 20 140/62 96 11/21/16 07:59 100 11/21/16 07:46 104 H 11/21/16 04:14 100 11/21/16 04:00 96 18 137/86 94 L 11/21/16 02:19 19 95 11/21/16 00:28 95 11/21/16 00:00 98.0 F 105 H 19 134/71 98 11/20/16 23:55 100 11/20/16 23:42 98 11/20/16 21:11 100.5 F H 103 H 26 H 136/65 98 11/20/16 20:44 99.8 F H 104 H 30 H 140/74 98 11/20/16 19:03 97.8 F 108 H 36 H 168/72 97 11/20/16 18:15 110 H 11/20/16 17:58 112 H 11/20/16 17:41 97.9 F 116 H 30 H 202/87 97 11/20/16 17:40 36 H Intake and Output 11/20/16 11/21/16 11/21/16 22:59 06:59 14:59 Intake Total 66 440.712 422.032 Balance 66 440.712 422.032 Intake: IV 66 Heparin Sodium,Porcine/ 46 D5w Pmx 25,000 unit In Dextrose/Water 1 500ml. bag @ 9.423 UNITS/KG/HR 46 mls/hr IV .[id number] [facility]IN[facility] Rx#:[id number] Sodium Chloride 0.9% 1, 20 000 ml @ 20 mls/hr IV . Q24H [facility]DA Rx#:[id number] Intake, IV Titration 440.712 186.032 Amount Heparin Sodium,Porcine/ 440.712 186.032 D5w Pmx 25,000 unit In Dextrose/Water 1 500ml. bag @ 9.423 UNITS/KG/HR 46 mls/hr IV .[id number] [facility]INDA Rx#:[id number] Oral 236 Other: Voiding Method Urinal Urinal # Voids 1 2 Weight 244.123 kg 249 kg GENERAL EXAM: Morbidly obese. Alert, comfortable in no apparent distress. HEAD: Normocephalic. EYES: Normal reaction of pupils, equal size. NOSE: Clear with pink turbinates. THROAT: There is crowding of the posterior pharynx. No erythema or exudates. NECK: Short. No masses, no JVD. CHEST: No chest wall deformity. LUNGS: Equal air entry with no crackles, wheeze, rhonchi or dullness. CVS: S1 and S2 normal with no audible murmurs, regular rhythm. ABDOMEN: Obese, soft, normal bowel sounds, no guarding or rigidity. Extremities: There is significant lower extremity peripheral edema with open sores and weeping. There is no clubbing, no cyanosis. Peripheral pulses are intact. Results - Laboratory Findings CBC and BMP: 11/20/16 18:00 11/20/16 18:00 PT/INR, D-dimer PT 12.8 sec (9.0-12.0) H 11/20/16 18:00 INR 1.3 (<1.1) 11/20/16 18:00 D-Dimer 3.26 mg/L FEU (<0.60) H 11/20/16 18:00 Abnormal lab findings: Abnormal Labs 11/20/16 11/20/16 11/20/16 18:00 18:00 18:00 RBC 4.26 L Hgb 11.8 L Hct 38.4 L MCHC 30.8 L RDW 16.3 H PT 12.8 H APTT D-Dimer 3.26 H Glucose 130 H POC Glucose (mg/dL) Plasma Lactic Acid Ac Alkaline Phosphatase 153 H Albumin 3.1 L 11/20/16 11/21/16 11/21/16 18:00 03:29 05:58 RBC Hgb Hct MCHC RDW PT APTT 78.7 H D-Dimer Glucose POC Glucose (mg/dL) 153 H Plasma Lactic Acid Ac 2.3 H* Alkaline Phosphatase Albumin 11/21/16 11/21/16 10:24 11:41 RBC Hgb Hct MCHC RDW PT APTT 40.6 H D-Dimer Glucose POC Glucose (mg/dL) 174 H Plasma Lactic Acid Ac Alkaline Phosphatase Albumin - Diagnostic Findings Chest x-ray: image reviewed (No acute pulmonary process.) Assessment and Plan Plan: Impression: #1 Dyspnea, multifactorial in a patient who is morbidly obese, suspected obesity /hypoventilation syndrome, basically bedridden, remote history of smoking, acute exacerbation of chronic obstructive pulmonary disease, cannot rule out pulmonary embolism. #2 Morbid obesity with suspected obesity/hypoventilation/sleep apnea syndrome. #3 Acute hypoxic respiratory failure secondary to above. #4 Hypertension. #5 Osteoarthritis. #6 History of nephrolithiasis. #7 History of diverticulosis. #8 History of depression. #9 Remote history of chronic tobacco dependence. Plan: The patient was seen and evaluated by Dr. Treviño. His chest x-ray and labs were reviewed. DVT is ruled out in the bilateral lower extremities however based on the patient's morbid obesity and sedentary lifestyle he is at risk for pulmonary embolism though not able to confirm on this admission. We would recommend long-term anticoagulation. He remains on heparin drip for now. We' ll continue with bronchodilators, IV Solu-Medrol and Singulair. He is being diuresed with Bumex. We will continue to follow and make further recommendations based on his clinical status. Time with Patient: Greater than 30
[2016-11-21 16:49] LABS: Glucose,Whole Blood 172 mg/dL (75-99)
[2016-11-21] MEDS: SODIUM CHLORIDE 0.9% 1,000 ML IV SCH (17:31)
--- NOTE | 2016-11-21 19:49 | HP ---
DATE OF ADMISSION: 11/20/2016 This patient is a 61-year-old who came in with severe shortness of breath. Patient is morbidly obese; weight is 250 kg. He came in with fever and shortness of breath that has been worsening for a few months. Patient has not been ambulating. Patient's saturations stayed low. Patient is requiring 5 liters of oxygen. Patient had a D-dimer which was elevated. Patient was complaining of a little bit of cough. Patient has severe restrictive lung disease. He probably has sleep apnea as well. Most of his respiratory distress is probably due to restrictive lung disease because he is requiring a high amount of oxygen and patient is desaturating. There is quite a bit of concern about pulmonary embolism, although we are unable to obtain a CT angiogram because of his body habitus, as he does not fit in the CT scan, because of which patient is empirically being started on anticoagulation, which will be continued. Patient is unable to ambulate because of his morbid obesity, and his ambulation status has gone down quite a bit. Patient was also tachypneic, tachycardic and hypertensive on admission. Patient is severely deconditioned due to morbid obesity. Will obtain PT and OT consultation. Patient may require subacute rehabilitation. Patient's overall prognosis is not great because of his morbid obesity. Patient had a low-grade fever; does not have any leukocytosis. Chest x-ray did not show any pneumonic process. Patient denied any UTI-like symptoms. REVIEW OF SYSTEMS: CONSTITUTIONAL: No fever, no malaise, no fatigue. HEENT: No recent visual problems or hearing problems. Denied any sore throat. CARDIOVASCULAR: No chest pain, orthopnea, PND, no palpitations, no syncope. PULMONARY: As described in HPI. GASTROINTESTINAL: No diarrhea, no nausea, no vomiting, no abdominal pain. Normoactive bowel sounds. NEUROLOGICAL: No headaches, no weakness, no numbness. HEMATOLOGICAL: Denies any bleeding or petechiae. GENITOURINARY: Denies any burning micturition, frequency, or urgency. MUSCULOSKELETAL/RHEUMATOLOGICAL: Denies any joint pain, swelling, or any muscle pain. ENDOCRINE: Denies any polyuria or polydipsia. The rest of the 14 point review of systems is negative. Past medical history is significant for: 1. Restrictive lung disease leading to some wheezing. 2. Hypertension. 3. Possibility of asthma, but my suspicion is low for that. It is mostly restrictive lung disease and bronchial constriction from fat. 4. Hernia repair. 5. Orthopedic surgery. 6. Depression. SOCIAL HISTORY: Former smoker. Quit smoking in 1991. Denied any alcohol abuse or any drug abuse. FAMILY HISTORY: Father had cancer, CVA, TIA, myocardial infarction, prostate disorder. Mother of brain cancer. Home medications include: 1. Albuterol. 2. Montelukast. 3. Bumex. 4. Vitamin B. 5. Alprazolam. 6. Triamcinolone. 7. Venlafaxine. ALLERGIES: NO KNOWN DRUG ALLERGIES. PHYSICAL EXAMINATION: VITAL SIGNS: [id number] T-max is 100.1, pulse of 99, respiratory rate of 20. Blood pressure is 133/58. Saturating at 97% on 5 L of oxygen by nasal cannula. GENERAL: Morbidly obese. Alert and oriented x3. HEENT: Pupils are round and equally reacting to light. EOMI. No scleral icterus. No conjunctival pallor. Normocephalic, atraumatic. No pharyngeal erythema. No thyromegaly. CARDIOVASCULAR: S1 and S2 present. No murmurs, rubs, or gallops. PULMONARY: Chest is clear to auscultation, no wheezing or crackles. ABDOMEN: Soft, nontender, nondistended, normoactive bowel sounds. No palpable organomegaly. MUSCULOSKELETAL: No joint swelling or deformity. EXTREMITIES: Patient has minimal edema, bilateral lower extremities, with some chronic venostasis. There is a skin breakdown on the right leg; does not appear to be infected. NEUROLOGICAL: Gross neurological examination did not reveal any focal deficits. SKIN: No rashes. LABORATORY DATA: CBC, CMP: no significant abnormality was appreciated. Elevated D-dimer of 3.26. Chest x-ray as mentioned above. ASSESSMENT AND PLAN: 1. Severe hypoxic respiratory failure, multifactorial, secondary to obesity hypoventilation syndrome, although pulmonary embolism cannot be ruled out because of his non-ambulatory status, morbid obesity. Patient is at high risk for PE. Patient also may have a little bit of component of COPD, although my suspicion is low for that exacerbation. I will cut down the steroids to oral steroids. Patient has mostly severe restrictive lung disease with a possibility of PE, which cannot be ruled out, considering his low-grade fever, although there is no significant pneumonic process. Pulmonology evaluated the patient and patient also was tachycardic. But morbidly obese people can be tachycardic and tachypneic from obesity hypoventilation syndrome. 2. Morbid obesity. 3. Hypertension. 4. Osteoarthritis. 5. Depression. 6. Chronic deconditioning. Plan is to continue with inhalational treatments, continue with anticoagulation empirically, as we are unable to do any further testing such as V/Q scan or CT angiogram of the chest to rule out pulmonary embolism. Will taper down oxygen. PT and OT evaluation. Patient may need subacute rehabilitation placement. Patient in the past was discharged to subacute rehab. Patient is on Bumex, which will be continued for peripheral edema with monitoring of kidney function.
[2016-11-21] MEDS: MONTELUKAST 10 MG TAB PO SCH (19:52)
[2016-11-21 21:10] LABS: Glucose,Whole Blood 148 mg/dL (75-99)
[2016-11-22 06:30] LABS: Anisocytosis Slight; CHCM 30.3; HCT 33.9 % (39.0-53.0); HDW 2.56; HGB 10.4 gm/dL (13.0-17.5); Hypochromasia Moderate; MCH 27.4 pg (25.0-35.0); MCHC 30.6 g/dL (31.0-37.0); MCV 89.4 fL (80.0-100.0); Mean Platelet Volume 7.7; RBC 3.79 m/uL (4.30-5.90); RDW 16.2 % (11.5-15.5)
[2016-11-22 06:42] LABS: Anion Gap 8 mmol/L; Blood Urea Nitrogen 25 mg/dL (9-20); Calcium 8.6 mg/dL (8.4-10.2); Carbon Dioxide 26 mmol/L (22-30); Chloride 106 mmol/L (98-107); Glucose 127 mg/dL (74-99); Non-African American GFR(MDRD) >60 (>60 ml/min/1.73 sqM); Potassium 4.3 mmol/L (3.5-5.1); Sodium 140 mmol/L (137-145)
[2016-11-22] MEDS: INSULIN LISPRO (humaLOG) 300 UNIT/3 ML VIAL SQ SCH ×4 (06:47→21:32)
[2016-11-22 07:01] LABS: Glucose,Whole Blood 124 mg/dL (75-99)
[2016-11-22] MEDS: HEPARIN SODIUM,PORCINE/D5W PMX 25,000 UNIT in DEXTROSE/WATER 1 500ML.BAG IV SCH ×3 (08:44→18:42)
[2016-11-22] MEDS: VENLAFAXINE HCL ER 75 MG CAP PO SCH (08:48)
[2016-11-22] MEDS: MELOXICAM 7.5 MG TAB PO SCH (08:48)
[2016-11-22] MEDS: BUMETANIDE 1 MG TAB PO SCH (08:48)
[2016-11-22] MEDS: predniSONE 20 MG TAB PO SCH (08:48)
[2016-11-22] MEDS: TRIAMCINOLONE 0.1% CREAM 80 GM TUBE TOPICAL SCH ×2 (08:49→21:30)
[2016-11-22] MEDS: IPRATROPIUM-ALBUTEROL 3 ML NEB INHALATION SCH ×4 (09:02→20:37)
[2016-11-22 11:40] LABS: Glucose,Whole Blood 128 mg/dL (75-99)
--- NOTE | 2016-11-22 12:01 | P.PN ---
Subjective Principal diagnosis: Dyspnea This is a very pleasant 61-year-old gentleman who follows with Dr. Parkinson as his primary care physician. He has a history of asthma, hypertension, osteoarthritis, nephrolithiasis, hypertension, depression, prior history of chronic nicotine addiction however quit in 1991. He is morbidly obese currently weighing 547 pounds. He is pretty much bedridden at this point. He was recently discharged from here on 11/06/2016 after being treated for sepsis secondary to bilateral lower extremity cellulitis with open blisters. At that time he was maintaining good O2 saturations in the upper 90s on room air. He presented here yesterday with complaints of worsening shortness of breath and respiratory distress. He initially required BiPAP support for his significant shortness of breath. He is quite tachypneic and hypertensive and tachycardic. No fever. His chest x-ray revealed no acute cardiopulmonary process. D-dimer 3.26 however the patient's size prevented us the ability to do a ventilation perfusion scan or CT angiogram. Dopplers of lower extremity ruled out DVT. He had an echocardiogram on 11/03/2016 which revealed a preserved left ventricular systolic function. No significant right ventricular strain. He is currently maintaining good O2 saturations in the upper 90s on 5 L/m per nasal cannula. He has been afebrile. No tachycardia, no tachypnea. Current temperature 99.0. No leukocytosis. Hemoglobin 11.8. ProBNP 524. Troponins were negative. He is seen today in consultation on the selective care unit. He is currently resting fairly comfortably in bed. He states he is breathing easier today as compared to yesterday. He denies any chest pain, palpitations, lightheadedness or dizziness. We're unable to obtain a computed tomography scan or a VQ scan based on the patient's size. The patient is seen again today 11/22/2016 in follow-up on the selective care unit. He is awake and alert in no acute distress. He states he is breathing better today as compared to yesterday. His oxygen requirements have very improved. He is currently at 5 L/m per nasal cannula maintaining O2 saturations in the 90s. He is breathing easier today as compared to yesterday. Not quite back to his baseline. He denies any worsening shortness of breath, cough or congestion. No chills or night sweats. Blood cultures reveal no growth to date. Objective - Vital Signs Vital signs: Vital Signs Temp 97.8 F 11/22/16 08:00 Pulse 104 H 11/22/16 11:52 Resp 18 11/22/16 08:00 BP 129/69 11/22/16 08:00 Pulse Ox 96 11/22/16 08:00 Intake & Output 11/21/16 11/22/16 11/22/16 18:59 06:59 18:59 Intake Total 585.295 7244 360 Balance 866.410 7851 360 Weight 227.8 kg Intake: IV 528 Heparin Sodium,Porcine/ 368 D5w Pmx 25,000 unit In Dextrose/Water 1 500ml. bag @ 9.423 UNITS/KG/HR 46 mls/hr IV .[id number] [facility] Rx#:[id number] Sodium Chloride 0.9% 1, 160 000 ml @ 20 mls/hr IV . Q24H [facility] Rx#:[id number] Intake, IV Titration 448.232 500 Amount Heparin Sodium,Porcine/ 448.232 500 D5w Pmx 25,000 unit In Dextrose/Water 1 500ml. bag @ 9.423 UNITS/KG/HR 46 mls/hr IV .[id number] [facility] Rx#:[id number] Oral 236 360 Other: Voiding Method Urinal Urinal Urinal # Voids 2 1 - Exam GENERAL EXAM: Morbidly obese. Alert, comfortable in no apparent distress. HEAD: Normocephalic. EYES: Normal reaction of pupils, equal size. NOSE: Clear with pink turbinates. THROAT: There is crowding of the posterior pharynx. No erythema or exudates. NECK: Short. No masses, no JVD. CHEST: No chest wall deformity. LUNGS: Equal air entry with no crackles, wheeze, rhonchi or dullness. CVS: S1 and S2 normal with no audible murmurs, regular rhythm. ABDOMEN: Obese, soft, normal bowel sounds, no guarding or rigidity. Extremities: There is significant lower extremity peripheral edema with open sores and weeping. There is no clubbing, no cyanosis. Peripheral pulses are intact. - Labs CBC & Chem 7: 11/22/16 06:07 11/22/16 06:07 Labs: Abnormal Lab Results - Last 24 Hours (Table) 11/21/16 11/21/16 11/21/16 Range/Units 16:47 18:17 21:08 WBC (3.8-10.6) k/uL RBC (4.30-5.90) m/uL Hgb (13.0-17.5) gm/dL Hct (39.0-53.0) % MCHC (31.0-37.0) g/dL RDW (11.5-15.5) % APTT 56.3 H (22.0-30.0) sec BUN (9-20) mg/dL Glucose (74-99) mg/dL POC Glucose (mg/dL) 172 H 148 H (75-99) mg/dL 11/22/16 11/22/16 11/22/16 Range/Units 06:07 06:07 06:07 WBC 12.0 H (3.8-10.6) k/uL RBC 3.79 L (4.30-5.90) m/uL Hgb 10.4 L (13.0-17.5) gm/dL Hct 33.9 L (39.0-53.0) % MCHC 30.6 L (31.0-37.0) g/dL RDW 16.2 H (11.5-15.5) % APTT 30.6 H (22.0-30.0) sec BUN 25 H (9-20) mg/dL Glucose 127 H (74-99) mg/dL POC Glucose (mg/dL) (75-99) mg/dL 11/22/16 11/22/16 Range/Units 06:15 11:38 WBC (3.8-10.6) k/uL RBC (4.30-5.90) m/uL Hgb (13.0-17.5) gm/dL Hct (39.0-53.0) % MCHC (31.0-37.0) g/dL RDW (11.5-15.5) % APTT (22.0-30.0) sec BUN (9-20) mg/dL Glucose (74-99) mg/dL POC Glucose (mg/dL) 124 H 128 H (75-99) mg/dL Microbiology - Last 24 Hours (Table) 11/20/16 18:35 Blood Culture - Preliminary Blood No Growth after 24 hours Assessment and Plan Plan: Impression: #1 Dyspnea, multifactorial in a patient who is morbidly obese, suspected obesity /hypoventilation syndrome, basically bedridden, remote history of smoking, acute exacerbation of chronic obstructive pulmonary disease, cannot rule out pulmonary embolism. #2 Morbid obesity with suspected obesity/hypoventilation/sleep apnea syndrome. #3 Acute hypoxic respiratory failure secondary to above. #4 Hypertension. #5 Osteoarthritis. #6 History of nephrolithiasis. #7 History of diverticulosis. #8 History of depression. #9 Remote history of chronic tobacco dependence. Plan: The patient was seen and evaluated by Dr. Treviño. His oxygen requirements have improved. We'll continue to titrate down while maintaining O2 saturations greater than 90%. Continue with his current medications. Based on the patient' s morbid obesity and sedentary lifestyle he is at risk for pulmonary embolism though not able to confirm on this admission. We would recommend long-term anticoagulation. He remains on heparin drip for now. We'll continue with bronchodilators, IV Solu-Medrol and Singulair. He is being diuresed with Bumex. We will continue to follow and make further recommendations based on his clinical status.
[2016-11-22] MEDS: B COMPLEX-VIT C-VIT E-ZINC 1 EACH TAB PO SCH (12:17)
[2016-11-22 16:25] LABS: Glucose,Whole Blood 161 mg/dL (75-99)
[2016-11-22] MEDS: SODIUM CHLORIDE 0.9% 1,000 ML IV SCH (17:06)
[2016-11-22 20:53] LABS: Glucose,Whole Blood 141 mg/dL (75-99)
--- NOTE | 2016-11-22 21:17 | PN ---
The patient is a 61-year-old. Patient is clinically doing much better today. Patient is saturating at rest at around 95% without oxygen, which is a significant improvement, and patient's shortness of breath did improve significantly. Patient will be transferred out of [facility] for rehabilitation care. REVIEW OF SYSTEMS: CARDIOVASCULAR: No chest pain, no orthopnea, no PND, no palpitations. PULMONARY: Denied any shortness of breath. No cough or hemoptysis. GASTROINTESTINAL: No diarrhea, nausea or vomiting. No abdominal pain. Normoactive bowel sounds. NEUROLOGIC: No headaches, no weakness, no numbness. Medications are reviewed. PHYSICAL EXAMINATION: VITAL SIGNS: Temperature 98.0, pulse of 94, respiratory rate of 14, blood pressure is 120/67, saturating at 95% on actually room air. GENERAL: Morbidly obese. Alert and oriented x3. HEENT: Pupils are round and equally reacting to light. EOMI. No scleral icterus. No conjunctival pallor. Normocephalic, atraumatic. No pharyngeal erythema. No thyromegaly. CARDIOVASCULAR: S1 and S2 present. No murmurs, rubs, or gallops. PULMONARY: Chest is clear to auscultation, no wheezing or crackles. ABDOMEN: Soft, nontender, nondistended, normoactive bowel sounds. No palpable organomegaly. MUSCULOSKELETAL: No joint swelling or deformity. EXTREMITIES: Patient's bilateral lower extremities do have minimal edema and chronic venostasis and skin breakdown without any signs or symptoms of infection. The patient does have minimal redness secondary to chronic venostasis. NEUROLOGICAL: Gross neurological examination did not reveal any focal deficits. SKIN: No rashes. ASSESSMENT AND PLAN: 1. Severe hypoxic respiratory failure, multifactorial, including restrictive lung disease, although pulmonary embolism cannot be ruled out, as patient is high risk. Patient is empirically being treated with treated with anticoagulation. 2. Generalized deconditioning and severe deconditioning, as patient was not ambulating for a long period of time due to his obesity. Physical Therapy and Occupational Therapy evaluated the patient. They are recommending subacute rehabilitation. We may need to place him in subacute rehab on Thursday. Until then, the patient will end up staying here. 3. Morbid obesity. 4. Possible sleep apnea. 5. Osteoarthritis. 6. Depression. 7. For above-mentioned chronic medical problems, I will go ahead and continue the home medications. His kidney function remains stable with Bumex. Will have to decide on long-term anticoagulation with the patient.
[2016-11-22] MEDS: MONTELUKAST 10 MG TAB PO SCH (21:30)
[2016-11-23] MEDS: HEPARIN SODIUM,PORCINE/D5W PMX 25,000 UNIT in DEXTROSE/WATER 1 500ML.BAG IV SCH (02:29)
[2016-11-23 07:34] LABS: Glucose,Whole Blood 98 mg/dL (75-99)
[2016-11-23] MEDS: INSULIN LISPRO (humaLOG) 300 UNIT/3 ML VIAL SQ SCH ×4 (07:35→21:02)
[2016-11-23] MEDS: ALPRAZolam 0.5 MG TAB PO PRN ×2 (07:45→21:02)
[2016-11-23] MEDS: IPRATROPIUM-ALBUTEROL 3 ML NEB INHALATION SCH ×4 (08:23→19:27)
[2016-11-23] MEDS: predniSONE 20 MG TAB PO SCH (09:29)
[2016-11-23] MEDS: BUMETANIDE 1 MG TAB PO SCH (09:29)
[2016-11-23] MEDS: VENLAFAXINE HCL ER 75 MG CAP PO SCH (09:30)
[2016-11-23] MEDS: MELOXICAM 7.5 MG TAB PO SCH (09:30)
[2016-11-23] MEDS: TRIAMCINOLONE 0.1% CREAM 80 GM TUBE TOPICAL SCH ×2 (09:32→21:03)
[2016-11-23] MEDS: guaiFENesin 600 MG TABLET.ER PO SCH ×2 (11:59→21:02)
[2016-11-23] MEDS: B COMPLEX-VIT C-VIT E-ZINC 1 EACH TAB PO SCH (11:59)
[2016-11-23 12:36] LABS: Glucose,Whole Blood 118 mg/dL (75-99)
--- NOTE | 2016-11-23 13:07 | P.PN ---
Subjective Principal diagnosis: Hypoxic respiratory failure, and dyspnea multifactorial. This is a very pleasant 61-year-old gentleman who follows with Dr. Parkinson as his primary care physician. He has a history of asthma, hypertension, osteoarthritis, nephrolithiasis, hypertension, depression, prior history of chronic nicotine addiction however quit in 1991. He is morbidly obese currently weighing 547 pounds. He is pretty much bedridden at this point. He was recently discharged from here on 11/06/2016 after being treated for sepsis secondary to bilateral lower extremity cellulitis with open blisters. At that time he was maintaining good O2 saturations in the upper 90s on room air. He presented here yesterday with complaints of worsening shortness of breath and respiratory distress. He initially required BiPAP support for his significant shortness of breath. He is quite tachypneic and hypertensive and tachycardic. No fever. His chest x-ray revealed no acute cardiopulmonary process. D-dimer 3.26 however the patient's size prevented us the ability to do a ventilation perfusion scan or CT angiogram. Dopplers of lower extremity ruled out DVT. He had an echocardiogram on 11/03/2016 which revealed a preserved left ventricular systolic function. No significant right ventricular strain. He is currently maintaining good O2 saturations in the upper 90s on 5 L/m per nasal cannula. He has been afebrile. No tachycardia, no tachypnea. Current temperature 99.0. No leukocytosis. Hemoglobin 11.8. ProBNP 524. Troponins were negative. He is seen today in consultation on the selective care unit. He is currently resting fairly comfortably in bed. He states he is breathing easier today as compared to yesterday. He denies any chest pain, palpitations, lightheadedness or dizziness. We're unable to obtain a computed tomography scan or a VQ scan based on the patient's size. The patient is seen again today 11/22/2016 in follow-up on the selective care unit. He is awake and alert in no acute distress. He states he is breathing better today as compared to yesterday. His oxygen requirements have very improved. He is currently at 5 L/m per nasal cannula maintaining O2 saturations in the 90s. He is breathing easier today as compared to yesterday. Not quite back to his baseline. He denies any worsening shortness of breath, cough or congestion. No chills or night sweats. Blood cultures reveal no growth to date. Patient was reevaluated on 11/23/2016, awake alert in no distress, patient is feeling better overall, intermittently on 5 L nasal cannula, but overall the patient is breathing easier. No cough no wheezing no shortness of breath at rest, no chest pain. Today I discussed with the patient that it would be best to keep him on anticoagulation therapy I prefer to Xarelto if approved by his insurance, and I would recommend treatment/lifetime. In the meantime plans will be made hopefully in the next couple of days to transfer the patient to a rehab facility he prefers the [facility] on the [place]. Objective - Vital Signs Vital signs: Vital Signs Temp 98.5 F 11/23/16 07:00 Pulse 92 11/23/16 08:33 Resp 22 11/23/16 07:00 BP 130/68 11/23/16 07:00 Pulse Ox 91 L 11/23/16 07:00 Intake & Output 11/22/16 11/23/16 11/23/16 18:59 06:59 18:59 Intake Total 1325.94 500 715.604 Output Total 750 500 Balance 1325.94 -250 215.604 Weight 227.8 kg 264.6 kg Intake: Intake, IV Titration 605.94 500 445.604 Amount Heparin Sodium,Porcine/ 605.94 500 445.604 D5w Pmx 25,000 unit In Dextrose/Water 1 500ml. bag @ 9.423 UNITS/KG/HR 46 mls/hr IV .[id number] [facility] Rx#:[id number] Oral 720 270 Output: Urine 750 500 Other: Voiding Method Urinal # Voids 3 - Exam GENERAL EXAM: Morbidly obese. Alert, comfortable in no apparent distress. HEAD: Normocephalic. EYES: Normal reaction of pupils, equal size. NOSE: Clear with pink turbinates. THROAT: There is crowding of the posterior pharynx. No erythema or exudates. NECK: Short. No masses, no JVD. CHEST: No chest wall deformity. LUNGS: Equal air entry with no crackles, wheeze, rhonchi or dullness. CVS: S1 and S2 normal with no audible murmurs, regular rhythm. ABDOMEN: Obese, soft, normal bowel sounds, no guarding or rigidity. Extremities: There is significant lower extremity peripheral edema with open sores and weeping. There is no clubbing, no cyanosis. Peripheral pulses are intact. - Labs CBC & Chem 7: 11/22/16 06:07 11/22/16 06:07 Labs: Abnormal Lab Results - Last 24 Hours (Table) 11/22/16 11/22/16 11/22/16 Range/Units 14:38 16:19 20:51 APTT 62.8 H (22.0-30.0) sec POC Glucose (mg/dL) 161 H 141 H (75-99) mg/dL 11/23/16 11/23/16 Range/Units 07:42 12:34 APTT 128.0 H* (22.0-30.0) sec POC Glucose (mg/dL) 118 H (75-99) mg/dL Microbiology - Last 24 Hours (Table) 11/20/16 18:35 Blood Culture - Preliminary Blood No Growth after 48 hours Assessment and Plan Plan: #1 Dyspnea, multifactorial in a patient who is morbidly obese, suspected obesity /hypoventilation syndrome, basically bedridden, remote history of smoking, acute exacerbation of chronic obstructive pulmonary disease, cannot rule out pulmonary embolism. #2 Morbid obesity with suspected obesity/hypoventilation/sleep apnea syndrome. #3 Acute hypoxic respiratory failure secondary to above. #4 Hypertension. #5 Osteoarthritis. #6 History of nephrolithiasis. #7 History of diverticulosis. #8 History of depression. #9 Remote history of chronic tobacco dependence. Recommendation: Continue present treatment plan, if that is better off Xarelto, patient could be switched to Xarelto and then discontinue heparin. Plan to discharge the patient home on Xarelto and lifetime anticoagulation therapy. It is impossible to rule out pulmonary embolism in this patient, not to mention that the patient is an excellent set up for possible thromboembolic disease. Considering his sedentary lifestyle and morbid obesity. Time with Patient: Less than 30
[2016-11-23 17:17] LABS: Glucose,Whole Blood 120 mg/dL (75-99)
[2016-11-23] MEDS: RIVAROXABAN 15 MG TAB PO SCH (17:31)
--- NOTE | 2016-11-23 20:04 | PN ---
Patient is a 61-year-old admitted secondary to hypoxic respiratory failure. Patient hypoxemia improved and there is a possibility of pulmonary embolism that cannot be ruled out because of which patient is on anticoagulation. Patient will be switched to oral anticoagulation. REVIEW OF SYSTEMS: CARDIOVASCULAR: No chest pain, no orthopnea, no PND, no palpitations. PULMONARY: Denied any shortness of breath. No cough or hemoptysis. GASTROINTESTINAL: No diarrhea, nausea or vomiting. No abdominal pain. Normoactive bowel sounds. NEUROLOGIC: No headaches, no weakness, no numbness. Medications were reviewed. PHYSICAL EXAMINATION: VITAL SIGNS: Temperature 98.3, pulse of 92, respiratory rate of 22. Blood pressure is 130/68, saturating at 91% on 2 L O2 by nasal cannula. GENERAL: Morbidly obese. Alert and oriented times three. HEENT: Pupils are round and equally reacting to light. EOMI. No scleral icterus. No conjunctival pallor. Normocephalic, atraumatic. No pharyngeal erythema. No thyromegaly. CARDIOVASCULAR: S1 and S2 present. No murmurs, rubs, or gallops. PULMONARY: On lung examination his wheezing improved, fairly good air entry into bilateral lung foreman. No crackles were appreciated. ABDOMEN: Soft, nontender, nondistended, normoactive bowel sounds. No palpable organomegaly. MUSCULOSKELETAL: No joint swelling or deformity. EXTREMITIES: No cyanosis, clubbing, or pedal edema. NEUROLOGICAL: Gross neurological examination did not reveal any focal deficits. SKIN: No rashes. FINAL DIAGNOSIS(ES): 1. Severe hypoxic respiratory failure, multifactorial secondary and possibility of pulmonary embolism that cannot be ruled out and patient is also morbidly obese with restrictive lung disease and obstructive sleep apnea. 2. Generalized deconditioning for which patient will need subacute rehabilitation. 3. Morbid obesity. 4. Sleep apnea. 5. Osteoarthritis. 6. Depression. 7. Chronic venostasis skin breakdown in the lower extremity for which patient will need local wound care. For above-mentioned chronic medical problems I will go ahead and continue his present medications. Continue supportive care.
[2016-11-23 20:57] LABS: Glucose,Whole Blood 135 mg/dL (75-99)
[2016-11-23] MEDS: MONTELUKAST 10 MG TAB PO SCH (21:02)
[2016-11-23] MEDS: SODIUM CHLORIDE 0.9% 1,000 ML IV SCH (21:03)
[2016-11-24] MEDS: IPRATROPIUM-ALBUTEROL 3 ML NEB INHALATION SCH ×4 (07:12→20:07)
[2016-11-24 07:15] LABS: Glucose,Whole Blood 101 mg/dL (75-99)
[2016-11-24] MEDS: INSULIN LISPRO (humaLOG) 300 UNIT/3 ML VIAL SQ SCH ×4 (08:12→20:53)
[2016-11-24] MEDS: BUMETANIDE 1 MG TAB PO SCH (08:13)
[2016-11-24] MEDS: guaiFENesin 600 MG TABLET.ER PO SCH ×2 (08:13→20:52)
[2016-11-24] MEDS: VENLAFAXINE HCL ER 75 MG CAP PO SCH (08:13)
[2016-11-24] MEDS: predniSONE 20 MG TAB PO SCH (08:13)
[2016-11-24] MEDS: RIVAROXABAN 15 MG TAB PO SCH ×2 (08:13→17:29)
[2016-11-24] MEDS: MELOXICAM 7.5 MG TAB PO SCH (08:14)
[2016-11-24] MEDS: TRIAMCINOLONE 0.1% CREAM 80 GM TUBE TOPICAL SCH ×2 (08:16→20:52)
[2016-11-24 11:54] LABS: Glucose,Whole Blood 131 mg/dL (75-99)
[2016-11-24 12:07] LABS: Glucose,Whole Blood 146 mg/dL (75-99)
[2016-11-24] MEDS: B COMPLEX-VIT C-VIT E-ZINC 1 EACH TAB PO SCH (12:26)
[2016-11-24 17:05] LABS: Glucose,Whole Blood 151 mg/dL (75-99)
[2016-11-24] MEDS: SODIUM CHLORIDE 0.9% 1,000 ML IV SCH (20:51)
[2016-11-24] MEDS: MONTELUKAST 10 MG TAB PO SCH (20:52)
[2016-11-24] MEDS: ALPRAZolam 0.5 MG TAB PO PRN (20:52)
[2016-11-24 20:53] LABS: Glucose,Whole Blood 103 mg/dL (75-99)
[2016-11-25 06:53] LABS: Glucose,Whole Blood 84 mg/dL (75-99)
--- NOTE | 2016-11-25 07:18 | PN ---
The patient is doing much better at this point of time. Patient is saturating well. REVIEW OF SYSTEMS: CARDIOVASCULAR: No chest pain, no orthopnea, no PND, no palpitations. PULMONARY: Denied any shortness of breath. No cough or hemoptysis. GASTROINTESTINAL: No diarrhea, nausea or vomiting. No abdominal pain. Normoactive bowel sounds. NEUROLOGIC: No headaches, no weakness, no numbness. Medications were reviewed. PHYSICAL EXAMINATION: Temperature 97.4, pulse of 90, respiratory rate 20, blood pressure 137/68, saturating at 92% on room air. GENERAL: The patient is morbidly obese, alert and oriented x3. HEENT: Pupils are round and equally reacting to light. EOMI. No scleral icterus. No conjunctival pallor. Normocephalic, atraumatic. No pharyngeal erythema. No thyromegaly. CARDIOVASCULAR: S1 and S2 present. No murmurs, rubs, or gallops. PULMONARY: Chest is clear to auscultation, no wheezing or crackles. ABDOMEN: Soft, nontender, nondistended, normoactive bowel sounds. No palpable organomegaly. MUSCULOSKELETAL: No joint swelling or deformity. EXTREMITIES: No change compared to yesterday. NEUROLOGICAL: Gross neurological examination did not reveal any focal deficits. SKIN: No rashes. LABORATORY DATA: None available from today. ASSESSMENT AND PLAN: 1. Severe hypoxic respiratory failure, multifactorial, secondary to possible pulmonary embolism, which cannot be ruled out. 2. Patient is also morbidly obese. 3. Significant restrictive lung disease and obstructive sleep apnea. 4. Generalized deconditioning for which patient will need subacute rehabilitation. 5. Morbid obesity. 6. Sleep apnea. 7. Osteoarthritis. 8. Depression. 9. Chronic venostasis with bilateral lower extremity skin breakdowns for which patient will need local wound care. Hopefully we can arrange for subacute rehabilitation tomorrow and we can discharge patient tomorrow.
[2016-11-25] MEDS: VENLAFAXINE HCL ER 75 MG CAP PO SCH (07:41)
[2016-11-25] MEDS: INSULIN LISPRO (humaLOG) 300 UNIT/3 ML VIAL SQ SCH ×3 (07:42→17:15)
[2016-11-25] MEDS: MELOXICAM 7.5 MG TAB PO SCH (07:42)
[2016-11-25] MEDS: predniSONE 20 MG TAB PO SCH (07:42)
[2016-11-25] MEDS: BUMETANIDE 1 MG TAB PO SCH (07:42)
[2016-11-25] MEDS: guaiFENesin 600 MG TABLET.ER PO SCH (07:42)
[2016-11-25] MEDS: RIVAROXABAN 15 MG TAB PO SCH ×2 (07:42→17:04)
[2016-11-25] MEDS: TRIAMCINOLONE 0.1% CREAM 80 GM TUBE TOPICAL SCH (07:43)
[2016-11-25] MEDS: IPRATROPIUM-ALBUTEROL 3 ML NEB INHALATION SCH ×3 (08:02→15:03)
[2016-11-25] MEDS: B COMPLEX-VIT C-VIT E-ZINC 1 EACH TAB PO SCH (11:11)
[2016-11-25 11:48] LABS: Glucose,Whole Blood 137 mg/dL (75-99)
[2016-11-25 16:12] VITALS: BP 126/64; PULSE 95; RESP 20; TEMP 98.8
[2016-11-25] MEDS: HYDROcodone/APAP 5-325MG 1 EACH TAB PO PRN (17:03)
[2016-11-25] MEDS: ALPRAZolam 0.5 MG TAB PO PRN (17:03)
[2016-11-25 17:15] LABS: Glucose,Whole Blood 149 mg/dL (75-99)
--- NOTE | 2016-11-25 18:08 | P.DS ---
Providers Date of admission: 11/20/16 19:11 Expected date of discharge: 11/25/16 Attending physician: Jennifer Nash Consults: 11/20/16 19:11 Consult Physician Routine Consulting Provider: Rebeca Treviño Consult Reason/Comments: COPD exacerbation rule out PE Do you want consulting provider notified?: Yes Primary care physician: Trini Ramirez at [facility] Course: Final Diagnoses: 1. Severe hypoxic respiratory failure, multifactorial secondary to possible pulmonary embolism which cannot be ruled out 2. Morbid obesity, BMI 81.6 3. Significant restrictive lung disease and obstructive sleep apnea 4. Generalized deconditioning for which patient needs subacute rehabilitation 5. Osteoarthritis 6. Depression 7. Chronic venostasis with bilateral lower extremity skin breakdowns receiving local wound care Hospital course: This is a 61-year-old gentleman admitted with severe shortness of breath that had been worsening over a few months, tachypneic, tachycardic, hypertensive in a patient with morbid obesity, BMI 81.6. Severely deconditioned secondary to morbid obesity. Initially required nonrebreather. Chest x-ray did not show any pneumonic process, denied any UTI-like symptoms. D-dimer elevated, Venous Dopplers negative,pulmonary embolism unable to rule out as patient unable to fit in the CT scanner secondary to body habitus.Therefore anticoagulation empirically initiated. Suspect most of his respiratory distress probably due to restrictive lung disease.Evaluated by pulmonary. Maintained on nebulized bronchodilators, steroids. Significant clinical improvement, maintaining O2 sats of 94% on room air. Patient has been cleared for discharge by pulmonary. Patient being discharged to [facility] in stable condition with guarded prognosis. The impression and plan of care has been dictated as directed as a scribe. : I performed a H&P examination of this patient and discussed the same with the dictator. I agree with the dictator's note. Any additional findings/opinions/ etc. will be noted. Patient Condition at Discharge: Stable Plan - Discharge Summary New Discharge Prescriptions: ALPRAZolam [Xanax] 0.5 mg PO BID PRN #10 PRN Reason: Anxiety HYDROcodone/APAP 5-325MG [[place]ner 5-325] 1 tab PO Q6HR PRN #20 PRN Reason: Pain predniSONE 10 mg PO DIRECTED #30 tab Discharge Medication List Montelukast [Singulair] 10 mg PO HS 07/24/15 [History] Vitamin B Complex 1 cap PO DAILY 10/29/16 [History] Bumetanide [BUMEX] 2 mg PO DAILY 11/20/16 [History] Dimethicone/Zinc Oxide [Inzo Zinc Oxide Barrier Cream] 1 applic TOPICAL Q12H [History] Ipratropium-Albuterol Nebulize [Duoneb 0.5 mg-3 mg/3 ml Soln] 3 ml INHALATION RT -Q4H PRN 11/20/16 [History] Meloxicam [Mobic] 7.5 mg PO DAILY 11/20/16 [History] Prostat Awc 30 ml PO TID@0900,1700,2100 11/20/16 [History] Triamcinolone 0.1% Cream [Kenalog] 1 applicatio TOPICAL Q12H 11/20/16 [History] Venlafaxine HCl [Effexor XR] 225 mg PO DAILY 11/20/16 [History] ALPRAZolam [Xanax] 0.5 mg PO BID PRN #10 11/25/16 [Rx] HYDROcodone/APAP 5-325MG [[place]ner 5-325] 1 tab PO Q6HR PRN #20 11/25/16 [Rx] Ipratropium-Albuterol Nebulize [Duoneb 0.5 mg-3 mg/3 ml Soln] 3 ml INHALATION RT -QID neb 11/25/16 [Rx] Rivaroxaban [Xarelto] 15 mg PO BID-W/MEALS tab 11/25/16 [Rx] guaiFENesin [Mucinex] 1,200 mg PO Q12HR tab 11/25/16 [Rx] predniSONE 10 mg PO DIRECTED #30 tab 11/25/16 [Rx] Follow up Appointment(s)/Referral(s): Trini Parkinson DO [Primary Care Provider] - 1-2 days Patient Instructions/Handouts: COPD (Chronic Obstructive Pulmonary Disease) (DC ) Activity/Diet/Wound Care/Special Instructions: [facility] Low fat diet. Daily ambulation with assist. Elevate legs at rest, use medicated cream, wrap with JE wraps while up. CBC,BMP in 3 days Discharge Disposition: TRANSFER TO SNF/ECF
== END 2016-11-25 17:57 | DRG 175 ==
LOC: EC 17:38 → 6SEL 19:11 → 4MS4W 11-22 19:33
PROVIDERS: ADMIT Internal Medicine; ATTEND Internal Medicine
DX: I26.99 Other pulmonary embolism without acute cor pulmonale (principal); J96.01 Acute respiratory failure with hypoxia; E66.2 Morbid (severe) obesity with alveolar hypoventilation; Z68.45 Body mass index [BMI] 70 or greater, adult; J44.1 Chronic obstructive pulmonary disease with (acute) exacerbation; I10 Essential (primary) hypertension; J98.4 Other disorders of lung; I87.8 Other specified disorders of veins; I83.12 Varicose veins of left lower extremity with inflammation; I83.11 Varicose veins of right lower extremity with inflammation; R50.9 Fever, unspecified; H26.9 Unspecified cataract; I45.10 Unspecified right bundle-branch block; R60.0 Localized edema; R00.0 Tachycardia, unspecified; J45.909 Unspecified asthma, uncomplicated; F40.240 Claustrophobia; M19.041 Primary osteoarthritis, right hand; M19.042 Primary osteoarthritis, left hand; K57.90 Diverticulosis of intestine, part unspecified, without perforation or abscess without bleeding; F32.9 Major depressive disorder, single episode, unspecified; Z87.891 Personal history of nicotine dependence; Z79.899 Other long term (current) drug therapy; Z80.8 Family history of malignant neoplasm of other organs or systems; Z82.3 Family history of stroke; Z82.49 Family history of ischemic heart disease and other diseases of the circulatory system; Z87.442 Personal history of urinary calculi; Z80.42 Family history of malignant neoplasm of prostate; Z74.01 Bed confinement status; Z87.01 Personal history of pneumonia (recurrent); Z79.1 Long term (current) use of non-steroidal anti-inflammatories (NSAID); Z79.891 Long term (current) use of opiate analgesic; Z87.09 Personal history of other diseases of the respiratory system; Z86.19 Personal history of other infectious and parasitic diseases
CPT/HCPCS: 36415; 71010; 80048; 80053; 82550; 82553; 83036; 83605; 83735; 83880; 84484; 85025; 85027; 85379; 85610; 85730; 87040; 93005; 93970; 94640; 94660; 94760

== ENCOUNTER 2016-12-23 20:30 | Inpatient (IN) | payer MEDICARE, OTHER ==
[2016-12-23 21:01] LABS: Glucose,Whole Blood 103 mg/dL (75-99)
[2016-12-23 21:42] LABS: Anisocytosis Slight; Basophils % (A) 0 %; CH 27.1; CHCM 31.9; Eosinophils # (A) 0.2 k/uL (0-0.7); Eosinophils % (A) 4 %; HCT 29.3 % (39.0-53.0); HDW 3.17; HGB 9.7 gm/dL (13.0-17.5); Hypochromasia Slight; Luc # (Auto) 0.13; Luc % (Auto) 2; Lymphocytes # (A) 1.9 k/uL (1.0-4.8); Lymphocytes % (A) 31 %; MCH 28.1 pg (25.0-35.0); MCV 85.3 fL (80.0-100.0); Mean Platelet Volume 7.8; Monocytes # (A) 0.4 k/uL (0-1.0); Monocytes % (A) 7 %; Neutrophils # (A) 3.5 k/uL (1.3-7.7); Neutrophils % (A) 56 %; RBC 3.43 m/uL (4.30-5.90); RDW 17.1 % (11.5-15.5); WBC 6.3 k/uL (3.8-10.6); WBC (Perox) 6.35
[2016-12-23 21:44] LABS: Appearance,Urine Clear (Clear); Bilirubin,Urine Negative (Negative); Glucose,Urine (UA) Negative (Negative); Ketones,Urine Negative (Negative); Leukocyte Esterase,Urine Negative (Negative); Nitrite,Urine Negative (Negative); PH, Urine 5.5 (5.0-8.0); Protein,Urine Negative (Negative); UA Billing (MACRO vs. MICRO) CHEM
[2016-12-23 21:52] LABS: INR 1.5 (<1.1); Partial Thromboplastin Time 25.8 sec (22.0-30.0); Prothrombin Time 14.5 sec (9.0-12.0)
[2016-12-23 21:53] LABS: ALT 33 U/L (21-72); AST 44 U/L (17-59); Alkaline Phosphatase 101 U/L (38-126); Anion Gap 9 mmol/L; Blood Urea Nitrogen 26 mg/dL (9-20); Calcium 8.3 mg/dL (8.4-10.2); Carbon Dioxide 27 mmol/L (22-30); Chloride 104 mmol/L (98-107); Glucose 103 mg/dL (74-99); Non-African American GFR(MDRD) >60 (>60 ml/min/1.73 sqM); Potassium 3.5 mmol/L (3.5-5.1); Sodium 140 mmol/L (137-145); Total Bilirubin 1.2 mg/dL (0.2-1.3); Total Protein 6.4 g/dL (6.3-8.2)
--- NOTE | 2016-12-23 21:54 | XR ---
EXAMINATION TYPE: XR chest 1V portable DATE OF EXAM: 12/23/2016 HISTORY: Shortness of breath. COMPARISON: 11/20/2016 TECHNIQUE: Single view of the chest is submitted. FINDINGS: Demonstrated are scattered senescent parenchymal change. There is no evidence for focal infiltrate. The heart is stable. Hilar and mediastinal structures are within normal limits. Degenerative changes are seen of the dorsal spine. IMPRESSION: 1. Chronic changes without evidence for acute pulmonary disease.
[2016-12-23] MEDS ORDERED: ACETAMINOPHEN TAB 325 MG TAB PO STA (22:28)
[2016-12-23] MEDS ORDERED: SODIUM CHLORIDE 0.9% 1,000 ML IV ONE (22:43)
--- NOTE | 2016-12-24 01:53 | ED ---
General Adult HPI - General Chief complaint: Altered Mental Status Stated complaint: Altered Mental Status Time Seen by Provider: 12/23/16 20:35 Source: patient, RN notes reviewed Mode of arrival: EMS Limitations: altered mental status - History of Present Illness Initial comments: Patient was originally seen by Dr. Henriquez however chart was not completed. Chart completed by myself at this time. Patient was reevaluated by myself, Dr. Mondragon. Patient resting comfortably in bed. Patient sent from [facility] secondary to suicidal thoughts. Patient has chronic delusional disorder. Patient is unclear why he is at the nursing facility. Patient does admit to being depressed and having suicidal thoughts. - Related Data Home Medications Medication Instructions Recorded Confirmed Vitamin B Complex 1 cap PO DAILY@89910/29/16 12/23/16 Bumetanide [BUMEX] 2 mg PO DAILY@89911/20/16 12/23/16 Dimethicone/Zinc Oxide [Inzo Zinc 1 applic TOPICAL Q12H 11/20/16 12/23/16 Oxide Barrier Cream] Ipratropium-Albuterol Nebulize 3 ml INHALATION RT-Q4H PRN 11/20/16 12/23/16 [Duoneb 0.5 mg-3 mg/3 ml Soln] Meloxicam [Mobic] 7.5 mg PO DAILY@89911/20/16 12/23/16 Prostat Awc 30 ml PO TID@0900,1300,209911/20/16 12/23/16 Triamcinolone 0.1% Cream [Kenalog] 1 applicatio TOPICAL HS 11/20/16 12/23/16 Venlafaxine HCl [Effexor XR] 225 mg PO DAILY@89911/20/16 12/23/16 Ferrous Sulfate [Feosol] 325 mg PO DAILY@89912/23/16 12/23/16 HYDROcodone/APAP 5-325MG [[place] 1 tab PO BID@0900,209912/23/16 12/23/16 5-325] HYDROcodone/APAP 5-325MG [[place] 1 tab PO Q6HR PRN 12/23/16 12/23/16 5-325] Potassium Chloride [Klor-Con 20] 20 meq PO DAILY@89912/23/16 12/23/16 Rivaroxaban [Xarelto] 20 mg PO DAILY@0900 12/23/16 12/23/16 guaiFENesin [Mucinex] 1,200 mg PO BID@0900,209912/23/16 12/23/16 risperiDONE [RisperDAL] 0.25 mg PO HS@209912/23/16 12/23/16 Previous Rx's Medication Instructions Recorded ALPRAZolam [Xanax] 0.5 mg PO BID PRN #10 11/25/16 Ipratropium-Albuterol Nebulize 3 ml INHALATION RT-QID neb 11/25/16 [Duoneb 0.5 mg-3 mg/3 ml Soln] Allergies Allergy/AdvReac Type Severity Reaction Status Date / Time No Known Allergies Allergy Verified 12/23/16 20:50 Review of Systems ROS Statement: Those systems with pertinent positive or pertinent negative responses have been documented in the HPI. ROS Other: All systems not noted in ROS Statement are negative. Constitutional: Denies: fever Eyes: Denies: as per HPI ENT: Denies: ear pain Respiratory: Denies: cough Cardiovascular: Denies: chest pain Endocrine: Denies: fatigue Gastrointestinal: Denies: abdominal pain Genitourinary: Denies: dysuria Musculoskeletal: Denies: back pain Skin: Denies: rash Neurological: Denies: weakness Psychiatric: Reports: depression, suicidal thoughts Past Medical History Past Medical History: Asthma, Hypertension, Osteoarthritis (OA), Pneumonia Additional Past Medical History / Comment(s): IN PAST TX FOR HYPERTENSION NO LONGER ON MEDS, KIDNEY STONE, BRONCHITIS, BEGINNINGS OF CATARACTS, DJD, HANDS SHAKY/TREMORS, DIVERTICULOSIS, History of Any Multi-Drug Resistant Organisms: None Reported Past Surgical History: Hernia Repair, Orthopedic Surgery Additional Past Surgical History / Comment(s): cyst removed from hand, CRISTOPHER CARPAL TUNNEL RELEASE,UMB HERNIA REPAIR, RT KNEE ARTHROSCOPY,COLONOSCOPY Past Anesthesia/Blood Transfusion Reactions: No Reported Reaction Additional Past Anesthesia/Blood Transfusion Reaction / Comment(s): CLAUSTERPHOBIA. PT LIVES ALONE IN A TRAILER.HAS 3 STEPS UP INTO HOME. PT USES A CANE/WALKER WHEN UP. HAS VISITING PHYSICIAN, MEALS ON WHEELS, CLEANING SERVICE X1 WEEK. CANE/WALKER, HOSPITAL BED. Past Psychological History: Depression Smoking Status: Former smoker Past Alcohol Use History: None Reported Past Drug Use History: None Reported - Past Family History Father Family Medical History: Cancer, CVA/TIA, Myocardial Infarction ([place]), Prostate Disorder Additional Family Medical History / Comment(s): SKIN ANd PROSTATE CANCER Mother Family Medical History: Cancer Additional Family Medical History / Comment(s): FROM BRAIN CANCER General Exam Limitations: altered mental status General appearance: alert, in no apparent distress, obese Eye exam: Present: normal appearance Respiratory exam: Present: normal lung sounds bilaterally Cardiovascular Exam: Present: regular rate, normal rhythm GI/Abdominal exam: Present: soft. Absent: tenderness Neurological exam: Present: alert Psychiatric exam: Present: depressed Skin exam: Present: normal color Course Vital Signs 12/23/16 12/23/16 12/23/16 20:30 20:50 21:50 Temperature 99.4 F 100.0 F H Pulse Rate 92 88 90 Respiratory 22 20 20 Rate Blood Pressure 131/63 131/64 119/62 O2 Sat by Pulse 95 98 98 Oximetry 12/23/16 12/23/16 22:36 23:05 Temperature Pulse Rate 88 84 Respiratory 20 18 Rate Blood Pressure 135/60 118/57 O2 Sat by Pulse 98 100 Oximetry Medical Decision Making - Medical Decision Making Patient was seen by mental health services who did arrange transfer. Positive clinical certificate completed. - Lab Data Result diagrams: 12/23/16 19:36 12/23/16 19:36 Lab Results 12/23/16 12/23/16 12/23/16 Range/Units 19:36 19:36 19:36 WBC 6.3 (3.8-10.6) k/uL RBC 3.43 L (4.30-5.90) m/uL Hgb 9.7 L (13.0-17.5) gm/dL Hct 29.3 L (39.0-53.0) % MCV 85.3 (80.0-100.0) fL MCH 28.1 (25.0-35.0) pg MCHC 33.0 (31.0-37.0) g/dL RDW 17.1 H (11.5-15.5) % Plt Count 182 (150-450) k/uL Neutrophils % 56 % Lymphocytes % 31 % Monocytes % 7 % Eosinophils % 4 % Basophils % 0 % Neutrophils # 3.5 (1.3-7.7) k/uL Lymphocytes # 1.9 (1.0-4.8) k/uL Monocytes # 0.4 (0-1.0) k/uL Eosinophils # 0.2 (0-0.7) k/uL Basophils # 0.0 (0-0.2) k/uL Hypochromasia Slight Anisocytosis Slight PT (9.0-12.0) sec INR (<1.1) APTT (22.0-30.0) sec Sodium 140 (137-145) mmol/L Potassium 3.5 (3.5-5.1) mmol/L Chloride 104 (98-107) mmol/L Carbon Dioxide 27 (22-30) mmol/L Anion Gap 9 mmol/L BUN 26 H (9-20) mg/dL Creatinine 0.93 (0.66-1.25) mg/dL Est GFR (MDRD) Af Amer >60 (>60 ml/min/1.73 sqM) Est GFR (MDRD) Non-Af >60 (>60 ml/min/1.73 sqM) Glucose 103 H (74-99) mg/dL POC Glucose (mg/dL) (75-99) mg/dL POC Glu [employer]ice ID Calcium 8.3 L (8.4-10.2) mg/dL Total Bilirubin 1.2 (0.2-1.3) mg/dL AST 44 (17-59) U/L ALT 33 (21-72) U/L Alkaline Phosphatase 101 (38-126) U/L Ammonia 59 H (<30) umol/L Troponin I (0.000-0.034) ng/mL Total Protein 6.4 (6.3-8.2) g/dL Albumin 2.8 L (3.5-5.0) g/dL TSH 2.570 (0.465-4.680) mIU/L Urine Color Urine Appearance (Clear) Urine pH (5.0-8.0) Ur Specific [place] (1.001-1.035) Urine Protein (Negative) Urine Glucose (UA) (Negative) Urine Ketones (Negative) Urine Blood (Negative) Urine Nitrite (Negative) Urine Bilirubin (Negative) Urine Urobilinogen (<2.0) mg/dL Ur Leukocyte Esterase (Negative) Urine Opiates Screen (NotDetected) Ur Oxycodone Screen (NotDetected) Urine Methadone Screen (NotDetected) Ur Propoxyphene Screen (NotDetected) Ur Barbiturates Screen (NotDetected) U Tricyclic Antidepress (NotDetected) Ur Phencyclidine Scrn (NotDetected) Ur Amphetamines Screen (NotDetected) U Methamphetamines Scrn (NotDetected) U Benzodiazepines Scrn (NotDetected) Urine Cocaine Screen (NotDetected) U Marijuana (THC) Screen (NotDetected) 12/23/16 12/23/16 12/23/16 Range/Units 19:36 19:36 21:00 WBC (3.8-10.6) k/uL RBC (4.30-5.90) m/uL Hgb (13.0-17.5) gm/dL Hct (39.0-53.0) % MCV (80.0-100.0) fL MCH (25.0-35.0) pg MCHC (31.0-37.0) g/dL RDW (11.5-15.5) % Plt Count (150-450) k/uL Neutrophils % % Lymphocytes % % Monocytes % % Eosinophils % % Basophils % % Neutrophils # (1.3-7.7) k/uL Lymphocytes # (1.0-4.8) k/uL Monocytes # (0-1.0) k/uL Eosinophils # (0-0.7) k/uL Basophils # (0-0.2) k/uL Hypochromasia Anisocytosis PT 14.5 H (9.0-12.0) sec INR 1.5 (<1.1) APTT 25.8 (22.0-30.0) sec Sodium (137-145) mmol/L Potassium (3.5-5.1) mmol/L Chloride (98-107) mmol/L Carbon Dioxide (22-30) mmol/L Anion Gap mmol/L BUN (9-20) mg/dL Creatinine (0.66-1.25) mg/dL Est GFR (MDRD) Af Amer (>60 ml/min/1.73 sqM) Est GFR (MDRD) Non-Af (>60 ml/min/1.73 sqM) Glucose (74-99) mg/dL POC Glucose (mg/dL) 103 H (75-99) mg/dL POC Glu [employer]rentice ID [place] Fish Calcium (8.4-10.2) mg/dL Total Bilirubin (0.2-1.3) mg/dL AST (17-59) U/L ALT (21-72) U/L Alkaline Phosphatase (38-126) U/L Ammonia (<30) umol/L Troponin I 0.013 (0.000-0.034) ng/mL Total Protein (6.3-8.2) g/dL Albumin (3.5-5.0) g/dL TSH (0.465-4.680) mIU/L Urine Color Urine Appearance (Clear) Urine pH (5.0-8.0) Ur Specific [place] (1.001-1.035) Urine Protein (Negative) Urine Glucose (UA) (Negative) Urine Ketones (Negative) Urine Blood (Negative) Urine Nitrite (Negative) Urine Bilirubin (Negative) Urine Urobilinogen (<2.0) mg/dL Ur Leukocyte Esterase (Negative) Urine Opiates Screen (NotDetected) Ur Oxycodone Screen (NotDetected) Urine Methadone Screen (NotDetected) Ur Propoxyphene Screen (NotDetected) Ur Barbiturates Screen (NotDetected) U Tricyclic Antidepress (NotDetected) Ur Phencyclidine Scrn (NotDetected) Ur Amphetamines Screen (NotDetected) U Methamphetamines Scrn (NotDetected) U Benzodiazepines Scrn (NotDetected) Urine Cocaine Screen (NotDetected) U Marijuana (THC) Screen (NotDetected) 12/23/16 Range/Units 21:10 WBC (3.8-10.6) k/uL RBC (4.30-5.90) m/uL Hgb (13.0-17.5) gm/dL Hct (39.0-53.0) % MCV (80.0-100.0) fL MCH (25.0-35.0) pg MCHC (31.0-37.0) g/dL RDW (11.5-15.5) % Plt Count (150-450) k/uL Neutrophils % % Lymphocytes % % Monocytes % % Eosinophils % % Basophils % % Neutrophils # (1.3-7.7) k/uL Lymphocytes # (1.0-4.8) k/uL Monocytes # (0-1.0) k/uL Eosinophils # (0-0.7) k/uL Basophils # (0-0.2) k/uL Hypochromasia Anisocytosis PT (9.0-12.0) sec INR (<1.1) APTT (22.0-30.0) sec Sodium (137-145) mmol/L Potassium (3.5-5.1) mmol/L Chloride (98-107) mmol/L Carbon Dioxide (22-30) mmol/L Anion Gap mmol/L BUN (9-20) mg/dL Creatinine (0.66-1.25) mg/dL Est GFR (MDRD) Af Amer (>60 ml/min/1.73 sqM) Est GFR (MDRD) Non-Af (>60 ml/min/1.73 sqM) Glucose (74-99) mg/dL POC Glucose (mg/dL) (75-99) mg/dL POC Glu [employer]ice ID Calcium (8.4-10.2) mg/dL Total Bilirubin (0.2-1.3) mg/dL AST (17-59) U/L ALT (21-72) U/L Alkaline Phosphatase (38-126) U/L Ammonia (<30) umol/L Troponin I (0.000-0.034) ng/mL Total Protein (6.3-8.2) g/dL Albumin (3.5-5.0) g/dL TSH (0.465-4.680) mIU/L Urine Color Yellow Urine Appearance Clear (Clear) Urine pH 5.5 (5.0-8.0) Ur Specific [place] 1.010 (1.001-1.035) Urine Protein Negative (Negative) Urine Glucose (UA) Negative (Negative) Urine Ketones Negative (Negative) Urine Blood Negative (Negative) Urine Nitrite Negative (Negative) Urine Bilirubin Negative (Negative) Urine Urobilinogen 2.0 (<2.0) mg/dL Ur Leukocyte Esterase Negative (Negative) Urine Opiates Screen Detected H (NotDetected) Ur Oxycodone Screen Not Detected (NotDetected) Urine Methadone Screen Not Detected (NotDetected) Ur Propoxyphene Screen Not Detected (NotDetected) Ur Barbiturates Screen Not Detected (NotDetected) U Tricyclic Antidepress Not Detected (NotDetected) Ur Phencyclidine Scrn Not Detected (NotDetected) Ur Amphetamines Screen Not Detected (NotDetected) U Methamphetamines Scrn Not Detected (NotDetected) U Benzodiazepines Scrn Not Detected (NotDetected) Urine Cocaine Screen Not Detected (NotDetected) U Marijuana (THC) Screen Not Detected (NotDetected) Disposition Clinical Impression: Depression, Suicidal ideation Disposition: TRANSFER TO [facility]YCH HOS[facility] Referrals: Humberto Ramirez MD [Primary Care Provider] - 1-2 days Time of Disposition: 01:53
[2016-12-25 12:05] LABS: ALT 29 U/L (21-72); AST 38 U/L (17-59); Alkaline Phosphatase 89 U/L (38-126); Anion Gap 7 mmol/L; Blood Urea Nitrogen 20 mg/dL (9-20); Calcium 8.1 mg/dL (8.4-10.2); Carbon Dioxide 27 mmol/L (22-30); Chloride 106 mmol/L (98-107); Glucose 92 mg/dL (74-99); Non-African American GFR(MDRD) >60 (>60 ml/min/1.73 sqM); Potassium 3.3 mmol/L (3.5-5.1); Sodium 140 mmol/L (137-145); Total Bilirubin 1.1 mg/dL (0.2-1.3); Total Protein 5.9 g/dL (6.3-8.2)
[2016-12-25 12:31] LABS: Anisocytosis Slight; Basophils % (A) 0 %; CH 26.2; CHCM 30.3; Eosinophils # (A) 0.3 k/uL (0-0.7); Eosinophils % (A) 6 %; HCT 27.1 % (39.0-53.0); HDW 3.13; HGB 8.7 gm/dL (13.0-17.5); Hypochromasia Marked; Luc # (Auto) 0.13; Luc % (Auto) 3; Lymphocytes # (A) 1.4 k/uL (1.0-4.8); Lymphocytes % (A) 31 %; MCH 27.8 pg (25.0-35.0); MCV 86.8 fL (80.0-100.0); Mean Platelet Volume 7.1; Monocytes # (A) 0.3 k/uL (0-1.0); Monocytes % (A) 6 %; Neutrophils # (A) 2.4 k/uL (1.3-7.7); Neutrophils % (A) 54 %; RBC 3.13 m/uL (4.30-5.90); RDW 16.5 % (11.5-15.5); WBC 4.4 k/uL (3.8-10.6); WBC (Perox) 4.56
[2016-12-25] MEDS ORDERED: LACTULOSE 20 GM/30 ML CUP PO ONE (13:00)
[2016-12-25] MEDS ORDERED: NALOXONE 0.4 MG/ML 1 ML VIAL IV PRN (17:19)
--- NOTE | 2016-12-25 17:19 | ED ---
General Adult HPI - General Chief complaint: Altered Mental Status Stated complaint: Altered Mental Status Time Seen by Provider: 12/23/16 20:35 Source: patient, RN notes reviewed Mode of arrival: EMS Limitations: altered mental status - Related Data Home Medications Medication Instructions Recorded Confirmed Vitamin B Complex 1 cap PO DAILY@0900 10/29/16 12/23/16 Bumetanide [BUMEX] 2 mg PO DAILY@89911/20/16 12/23/16 Dimethicone/Zinc Oxide [Inzo Zinc 1 applic TOPICAL Q12H 11/20/16 12/23/16 Oxide Barrier Cream] Ipratropium-Albuterol Nebulize 3 ml INHALATION RT-Q4H PRN 11/20/16 12/23/16 [Duoneb 0.5 mg-3 mg/3 ml Soln] Meloxicam [Mobic] 7.5 mg PO DAILY@89911/20/16 12/23/16 Prostat Awc 30 ml PO TID@0900,1300,209911/20/16 12/23/16 Triamcinolone 0.1% Cream [Kenalog] 1 applicatio TOPICAL HS 11/20/16 12/23/16 Venlafaxine HCl [Effexor XR] 225 mg PO DAILY@89911/20/16 12/23/16 Ferrous Sulfate [Feosol] 325 mg PO DAILY@89912/23/16 12/23/16 HYDROcodone/APAP 5-325MG [[place] 1 tab PO BID@0900,209912/23/16 12/23/16 5-325] HYDROcodone/APAP 5-325MG [[place] 1 tab PO Q6HR PRN 12/23/16 12/23/16 5-325] Potassium Chloride [Klor-Con 20] 20 meq PO DAILY@89912/23/16 12/23/16 Rivaroxaban [Xarelto] 20 mg PO DAILY@89912/23/16 12/23/16 guaiFENesin [Mucinex] 1,200 mg PO BID@0900,209912/23/16 12/23/16 risperiDONE [RisperDAL] 0.25 mg PO HS@209912/23/16 12/23/16 Previous Rx's Medication Instructions Recorded ALPRAZolam [Xanax] 0.5 mg PO BID PRN #10 11/25/16 Ipratropium-Albuterol Nebulize 3 ml INHALATION RT-QID neb 11/25/16 [Duoneb 0.5 mg-3 mg/3 ml Soln] Allergies Allergy/AdvReac Type Severity Reaction Status Date / Time No Known Allergies Allergy Verified 12/23/16 20:50 Review of Systems ROS Statement: Those systems with pertinent positive or pertinent negative responses have been documented in the HPI. ROS Other: All systems not noted in ROS Statement are negative. Constitutional: Denies: fever Eyes: Denies: as per HPI ENT: Denies: ear pain Respiratory: Denies: cough Cardiovascular: Denies: chest pain Endocrine: Denies: fatigue Gastrointestinal: Denies: abdominal pain Genitourinary: Denies: dysuria Musculoskeletal: Denies: back pain Skin: Denies: rash Neurological: Denies: weakness Psychiatric: Reports: depression, suicidal thoughts Past Medical History Past Medical History: Asthma, Hypertension, Osteoarthritis (OA), Pneumonia Additional Past Medical History / Comment(s): IN PAST TX FOR HYPERTENSION NO LONGER ON MEDS, KIDNEY STONE, BRONCHITIS, BEGINNINGS OF CATARACTS, DJD, HANDS SHAKY/TREMORS, DIVERTICULOSIS, History of Any Multi-Drug Resistant Organisms: None Reported Past Surgical History: Hernia Repair, Orthopedic Surgery Additional Past Surgical History / Comment(s): cyst removed from hand, CRISTOPHER CARPAL TUNNEL RELEASE,UMB HERNIA REPAIR, RT KNEE ARTHROSCOPY,COLONOSCOPY Past Anesthesia/Blood Transfusion Reactions: No Reported Reaction Additional Past Anesthesia/Blood Transfusion Reaction / Comment(s): CLAUSTERPHOBIA. PT LIVES ALONE IN A TRAILER.HAS 3 STEPS UP INTO HOME. PT USES A CANE/WALKER WHEN UP. HAS VISITING PHYSICIAN, MEALS ON WHEELS, CLEANING SERVICE X1 WEEK. CANE/WALKER, HOSPITAL BED. Past Psychological History: Depression Smoking Status: Former smoker Past Alcohol Use History: None Reported Past Drug Use History: None Reported - Past Family History Father Family Medical History: Cancer, CVA/TIA, Myocardial Infarction ([place]), Prostate Disorder Additional Family Medical History / Comment(s): SKIN ANd PROSTATE CANCER Mother Family Medical History: Cancer Additional Family Medical History / Comment(s): FROM BRAIN CANCER General Exam Limitations: altered mental status General appearance: alert, in no apparent distress, obese Course Vital Signs 12/23/16 12/23/1617 20:30 20:50 21:50 Temperature 99.4 F 100.0 F H Pulse Rate 92 88 90 Respiratory 22 20 20 Rate Blood Pressure 131/63 131/64 119/62 O2 Sat by Pulse 95 98 98 Oximetry 12/23/16 12/23/16 12/24/16 22:36 23:05 02:27 Temperature 97.6 F Pulse Rate 88 84 86 Respiratory 20 18 18 Rate Blood Pressure 135/60 118/57 122/62 O2 Sat by Pulse 98 100 98 Oximetry 12/24/16 12/24/16 12/24/16 06:58 10:05 11:36 Temperature 97.2 F L Pulse Rate 87 94 Respiratory 22 20 18 Rate Blood Pressure 106/74 110/56 O2 Sat by Pulse 98 99 Oximetry 12/24/16 12/24/16 12/25/16 13:50 23:21 03:23 Temperature 98.9 F 97.6 F Pulse Rate 91 68 95 Respiratory 16 16 18 Rate Blood Pressure 116/82 112/64 154/77 O2 Sat by Pulse 95 98 98 Oximetry 12/25/16 12/25/16 12/25/16 06:04 09:26 10:39 Temperature 97.7 F 97.9 F Pulse Rate 90 63 86 Respiratory 20 17 17 Rate Blood Pressure 164/87 113/66 116/62 O2 Sat by Pulse 98 95 99 Oximetry 12/25/16 16:57 Temperature 98.9 F Pulse Rate 88 Respiratory 20 Rate Blood Pressure 136/91 O2 Sat by Pulse 93 L Oximetry Medical Decision Making - Medical Decision Making Patient reevaluated and resting comfortably in bed. Patient is no complaints at this time other than feeling board. Patient does admit to having dark stools recently. Patient's Hemoccult was positive. Patient hemoglobin has decreased since yesterday. In addition patient does have elevation of ammonia level. Case was discussed this time with Dr. Cabrera, who is covering for Dr. lemus now and will admit for Dr. Ramirez. Patient was updated. - Lab Data Result diagrams: 12/25/16 11:47 12/25/16 11:47 Lab Results 12/23/16 12/23/16 12/23/16 Range/Units 19:36 19:36 19:36 WBC 6.3 (3.8-10.6) k/uL RBC 3.43 L (4.30-5.90) m/uL Hgb 9.7 L (13.0-17.5) gm/dL Hct 29.3 L (39.0-53.0) % MCV 85.3 (80.0-100.0) fL MCH 28.1 (25.0-35.0) pg MCHC 33.0 (31.0-37.0) g/dL RDW 17.1 H (11.5-15.5) % Plt Count 182 (150-450) k/uL Neutrophils % 56 % Lymphocytes % 31 % Monocytes % 7 % Eosinophils % 4 % Basophils % 0 % Neutrophils # 3.5 (1.3-7.7) k/uL Lymphocytes # 1.9 (1.0-4.8) k/uL Monocytes # 0.4 (0-1.0) k/uL Eosinophils # 0.2 (0-0.7) k/uL Basophils # 0.0 (0-0.2) k/uL Hypochromasia Slight Anisocytosis Slight PT (9.0-12.0) sec INR (<1.1) APTT (22.0-30.0) sec Sodium 140 (137-145) mmol/L Potassium 3.5 (3.5-5.1) mmol/L Chloride 104 (98-107) mmol/L Carbon Dioxide 27 (22-30) mmol/L Anion Gap 9 mmol/L BUN 26 H (9-20) mg/dL Creatinine 0.93 (0.66-1.25) mg/dL Est GFR (MDRD) Af Amer >60 (>60 ml/min/1.73 sqM) Est GFR (MDRD) Non-Af >60 (>60 ml/min/1.73 sqM) Glucose 103 H (74-99) mg/dL POC Glucose (mg/dL) (75-99) mg/dL POC Glu Tool Room Supervisor ID Calcium 8.3 L (8.4-10.2) mg/dL Total Bilirubin 1.2 (0.2-1.3) mg/dL AST 44 (17-59) U/L ALT 33 (21-72) U/L Alkaline Phosphatase 101 (38-126) U/L Ammonia 59 H (<30) umol/L Troponin I (0.000-0.034) ng/mL Total Protein 6.4 (6.3-8.2) g/dL Albumin 2.8 L (3.5-5.0) g/dL TSH 2.570 (0.465-4.680) mIU/L Urine Color Urine Appearance (Clear) Urine pH (5.0-8.0) Ur Specific [place] (1.001-1.035) Urine Protein (Negative) Urine Glucose (UA) (Negative) Urine Ketones (Negative) Urine Blood (Negative) Urine Nitrite (Negative) Urine Bilirubin (Negative) Urine Urobilinogen (<2.0) mg/dL Ur Leukocyte Esterase (Negative) Stool Occult Blood (Negative) Urine Opiates Screen (NotDetected) Ur Oxycodone Screen (NotDetected) Urine Methadone Screen (NotDetected) Ur Propoxyphene Screen (NotDetected) Ur Barbiturates Screen (NotDetected) U Tricyclic Antidepress (NotDetected) Ur Phencyclidine Scrn (NotDetected) Ur Amphetamines Screen (NotDetected) U Methamphetamines Scrn (NotDetected) U Benzodiazepines Scrn (NotDetected) Urine Cocaine Screen (NotDetected) U Marijuana (THC) Screen (NotDetected) 12/23/16 12/23/16 12/23/16 Range/Units 19:36 19:36 21:00 WBC (3.8-10.6) k/uL RBC (4.30-5.90) m/uL Hgb (13.0-17.5) gm/dL Hct (39.0-53.0) % MCV (80.0-100.0) fL MCH (25.0-35.0) pg MCHC (31.0-37.0) g/dL RDW (11.5-15.5) % Plt Count (150-450) k/uL Neutrophils % % Lymphocytes % % Monocytes % % Eosinophils % % Basophils % % Neutrophils # (1.3-7.7) k/uL Lymphocytes # (1.0-4.8) k/uL Monocytes # (0-1.0) k/uL Eosinophils # (0-0.7) k/uL Basophils # (0-0.2) k/uL Hypochromasia Anisocytosis PT 14.5 H (9.0-12.0) sec INR 1.5 (<1.1) APTT 25.8 (22.0-30.0) sec Sodium (137-145) mmol/L Potassium (3.5-5.1) mmol/L Chloride (98-107) mmol/L Carbon Dioxide (22-30) mmol/L Anion Gap mmol/L BUN (9-20) mg/dL Creatinine (0.66-1.25) mg/dL Est GFR (MDRD) Af Amer (>60 ml/min/1.73 sqM) Est GFR (MDRD) Non-Af (>60 ml/min/1.73 sqM) Glucose (74-99) mg/dL POC Glucose (mg/dL) 103 H (75-99) mg/dL POC Glu Tool Room Supervisor ID [place] Calcium (8.4-10.2) mg/dL Total Bilirubin (0.2-1.3) mg/dL AST (17-59) U/L ALT (21-72) U/L Alkaline Phosphatase (38-126) U/L Ammonia (<30) umol/L Troponin I 0.013 (0.000-0.034) ng/mL Total Protein (6.3-8.2) g/dL Albumin (3.5-5.0) g/dL TSH (0.465-4.680) mIU/L Urine Color Urine Appearance (Clear) Urine pH (5.0-8.0) Ur Specific [place] (1.001-1.035) Urine Protein (Negative) Urine Glucose (UA) (Negative) Urine Ketones (Negative) Urine Blood (Negative) Urine Nitrite (Negative) Urine Bilirubin (Negative) Urine Urobilinogen (<2.0) mg/dL Ur Leukocyte Esterase (Negative) Stool Occult Blood (Negative) Urine Opiates Screen (NotDetected) Ur Oxycodone Screen (NotDetected) Urine Methadone Screen (NotDetected) Ur Propoxyphene Screen (NotDetected) Ur Barbiturates Screen (NotDetected) U Tricyclic Antidepress (NotDetected) Ur Phencyclidine Scrn (NotDetected) Ur Amphetamines Screen (NotDetected) U Methamphetamines Scrn (NotDetected) U Benzodiazepines Scrn (NotDetected) Urine Cocaine Screen (NotDetected) U Marijuana (THC) Screen (NotDetected) 12/23/16 12/25/16 12/25/16 Range/Units 21:10 11:47 11:47 WBC (3.8-10.6) k/uL RBC (4.30-5.90) m/uL Hgb (13.0-17.5) gm/dL Hct (39.0-53.0) % MCV (80.0-100.0) fL MCH (25.0-35.0) pg MCHC (31.0-37.0) g/dL RDW (11.5-15.5) % Plt Count (150-450) k/uL Neutrophils % % Lymphocytes % % Monocytes % % Eosinophils % % Basophils % % Neutrophils # (1.3-7.7) k/uL Lymphocytes # (1.0-4.8) k/uL Monocytes # (0-1.0) k/uL Eosinophils # (0-0.7) k/uL Basophils # (0-0.2) k/uL Hypochromasia Anisocytosis PT (9.0-12.0) sec INR (<1.1) APTT (22.0-30.0) sec Sodium 140 (137-145) mmol/L Potassium 3.3 L (3.5-5.1) mmol/L Chloride 106 (98-107) mmol/L Carbon Dioxide 27 (22-30) mmol/L Anion Gap 7 mmol/L BUN 20 (9-20) mg/dL Creatinine 0.79 (0.66-1.25) mg/dL Est GFR (MDRD) Af Amer >60 (>60 ml/min/1.73 sqM) Est GFR (MDRD) Non-Af >60 (>60 ml/min/1.73 sqM) Glucose 92 (74-99) mg/dL POC Glucose (mg/dL) (75-99) mg/dL POC Glu Tool Room Supervisor ID Calcium 8.1 L (8.4-10.2) mg/dL Total Bilirubin 1.1 (0.2-1.3) mg/dL AST 38 (17-59) U/L ALT 29 (21-72) U/L Alkaline Phosphatase 89 (38-126) U/L Ammonia 56 H (<30) umol/L Troponin I (0.000-0.034) ng/mL Total Protein 5.9 L (6.3-8.2) g/dL Albumin 2.5 L (3.5-5.0) g/dL TSH (0.465-4.680) mIU/L Urine Color Yellow Urine Appearance Clear (Clear) Urine pH 5.5 (5.0-8.0) Ur Specific [place] 1.010 (1.001-1.035) Urine Protein Negative (Negative) Urine Glucose (UA) Negative (Negative) Urine Ketones Negative (Negative) Urine Blood Negative (Negative) Urine Nitrite Negative (Negative) Urine Bilirubin Negative (Negative) Urine Urobilinogen 2.0 (<2.0) mg/dL Ur Leukocyte Esterase Negative (Negative) Stool Occult Blood (Negative) Urine Opiates Screen Detected H (NotDetected) Ur Oxycodone Screen Not Detected (NotDetected) Urine Methadone Screen Not Detected (NotDetected) Ur Propoxyphene Screen Not Detected (NotDetected) Ur Barbiturates Screen Not Detected (NotDetected) U Tricyclic Antidepress Not Detected (NotDetected) Ur Phencyclidine Scrn Not Detected (NotDetected) Ur Amphetamines Screen Not Detected (NotDetected) U Methamphetamines Scrn Not Detected (NotDetected) U Benzodiazepines Scrn Not Detected (NotDetected) Urine Cocaine Screen Not Detected (NotDetected) U Marijuana (THC) Screen Not Detected (NotDetected) 12/25/16 12/25/16 Range/Units 11:47 15:39 WBC 4.4 (3.8-10.6) k/uL RBC 3.13 L (4.30-5.90) m/uL Hgb 8.7 L (13.0-17.5) gm/dL Hct 27.1 L (39.0-53.0) % MCV 86.8 (80.0-100.0) fL MCH 27.8 (25.0-35.0) pg MCHC 32.0 (31.0-37.0) g/dL RDW 16.5 H (11.5-15.5) % Plt Count 160 (150-450) k/uL Neutrophils % 54 % Lymphocytes % 31 % Monocytes % 6 % Eosinophils % 6 % Basophils % 0 % Neutrophils # 2.4 (1.3-7.7) k/uL Lymphocytes # 1.4 (1.0-4.8) k/uL Monocytes # 0.3 (0-1.0) k/uL Eosinophils # 0.3 (0-0.7) k/uL Basophils # 0.0 (0-0.2) k/uL Hypochromasia Marked Anisocytosis Slight PT (9.0-12.0) sec INR (<1.1) APTT (22.0-30.0) sec Sodium (137-145) mmol/L Potassium (3.5-5.1) mmol/L Chloride (98-107) mmol/L Carbon Dioxide (22-30) mmol/L Anion Gap mmol/L BUN (9-20) mg/dL Creatinine (0.66-1.25) mg/dL Est GFR (MDRD) Af Amer (>60 ml/min/1.73 sqM) Est GFR (MDRD) Non-Af (>60 ml/min/1.73 sqM) Glucose (74-99) mg/dL POC Glucose (mg/dL) (75-99) mg/dL POC Glu Tool Room Supervisor ID Calcium (8.4-10.2) mg/dL Total Bilirubin (0.2-1.3) mg/dL AST (17-59) U/L ALT (21-72) U/L Alkaline Phosphatase (38-126) U/L Ammonia (<30) umol/L Troponin I (0.000-0.034) ng/mL Total Protein (6.3-8.2) g/dL Albumin (3.5-5.0) g/dL TSH (0.465-4.680) mIU/L Urine Color Urine Appearance (Clear) Urine pH (5.0-8.0) Ur Specific [place] (1.001-1.035) Urine Protein (Negative) Urine Glucose (UA) (Negative) Urine Ketones (Negative) Urine Blood (Negative) Urine Nitrite (Negative) Urine Bilirubin (Negative) Urine Urobilinogen (<2.0) mg/dL Ur Leukocyte Esterase (Negative) Stool Occult Blood Positive (Negative) Urine Opiates Screen (NotDetected) Ur Oxycodone Screen (NotDetected) Urine Methadone Screen (NotDetected) Ur Propoxyphene Screen (NotDetected) Ur Barbiturates Screen (NotDetected) U Tricyclic Antidepress (NotDetected) Ur Phencyclidine Scrn (NotDetected) Ur Amphetamines Screen (NotDetected) U Methamphetamines Scrn (NotDetected) U Benzodiazepines Scrn (NotDetected) Urine Cocaine Screen (NotDetected) U Marijuana (THC) Screen (NotDetected) Disposition Clinical Impression: Depression, Suicidal ideation, GI hemorrhage, Hepatic encephalopathy Disposition: ADMITTED IP TO THIS HOSP Referrals: Humberto Ramirez MD [Primary Care Provider] - 1-2 days
[2016-12-25] MEDS ORDERED: PANTOPRAZOLE 40 MG TABLET PO STA (17:23)
[2016-12-25] MEDS: SODIUM CHLORIDE 0.9% 1,000 ML IV SCH (17:47)
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
[2016-12-25] MEDS ORDERED: IPRATROPIUM-ALBUTEROL 3 ML NEB INHALATION PRN (20:00)
[2016-12-25] MEDS ORDERED: ALPRAZolam 0.5 MG TAB PO PRN (20:00)
[2016-12-25] MEDS ORDERED: risperiDONE 0.25 MG TAB PO SCH (21:00)
[2016-12-25] MEDS ORDERED: PROSTAT AWC PO SCH (21:00)
[2016-12-25] MEDS: LACTULOSE 20 GM/30 ML CUP PO SCH (21:10)
[2016-12-25] MEDS: guaiFENesin 600 MG TABLET.ER PO SCH (23:06)
[2016-12-25] MEDS: TRIAMCINOLONE 0.1% CREAM 80 GM TUBE TOPICAL SCH ×2 (23:10→23:11)
[2016-12-25] MEDS: ZINC OXIDE 20% OINT 28.4 GM TUBE TOPICAL SCH (23:11)
[2016-12-26] MEDS: IPRATROPIUM-ALBUTEROL 3 ML NEB INHALATION SCH ×5 (07:12→19:55)
[2016-12-26 08:11] LABS: ALT 29 U/L (21-72); AST 38 U/L (17-59); Alkaline Phosphatase 99 U/L (38-126); Anion Gap 8 mmol/L; Blood Urea Nitrogen 14 mg/dL (9-20); Calcium 8.1 mg/dL (8.4-10.2); Carbon Dioxide 25 mmol/L (22-30); Chloride 108 mmol/L (98-107); Glucose 105 mg/dL (74-99); Non-African American GFR(MDRD) >60 (>60 ml/min/1.73 sqM); Potassium 3.4 mmol/L (3.5-5.1); Sodium 141 mmol/L (137-145); Total Bilirubin 1.5 mg/dL (0.2-1.3); Total Protein 6.2 g/dL (6.3-8.2)
[2016-12-26] MEDS: RIVAROXABAN 10 MG TAB PO SCH (08:19)
[2016-12-26] MEDS: VENLAFAXINE HCL ER 75 MG CAP PO SCH (08:19)
[2016-12-26] MEDS: MELOXICAM 7.5 MG TAB PO SCH (08:19)
[2016-12-26] MEDS: POTASSIUM CHLORIDE ER 20 MEQ TAB.ER PO SCH (08:19)
[2016-12-26] MEDS: guaiFENesin 600 MG TABLET.ER PO SCH ×2 (08:20→20:22)
[2016-12-26] MEDS: BUMETANIDE 1 MG TAB PO SCH (08:20)
[2016-12-26] MEDS: LACTULOSE 20 GM/30 ML CUP PO SCH ×2 (08:20→20:23)
[2016-12-26] MEDS: FERROUS SULFATE 325 MG TAB PO SCH (08:20)
[2016-12-26] MEDS: B COMPLEX-VIT C-VIT E-ZINC 1 EACH TAB PO SCH (08:21)
[2016-12-26 08:30] LABS: Anisocytosis Slight; Basophils % (A) 1 %; CH 26.1; CHCM 29.6; Eosinophils # (A) 0.2 k/uL (0-0.7); Eosinophils % (A) 3 %; HCT 29.3 % (39.0-53.0); HDW 3.11; HGB 9.4 gm/dL (13.0-17.5); Hypochromasia Marked; Luc # (Auto) 0.12; Luc % (Auto) 2; Lymphocytes # (A) 1.8 k/uL (1.0-4.8); Lymphocytes % (A) 34 %; MCH 28.4 pg (25.0-35.0); MCHC 32.1 g/dL (31.0-37.0); MCV 88.5 fL (80.0-100.0); Monocytes # (A) 0.4 k/uL (0-1.0); Monocytes % (A) 7 %; Neutrophils # (A) 2.7 k/uL (1.3-7.7); Neutrophils % (A) 53 %; RBC 3.31 m/uL (4.30-5.90); RDW 16.3 % (11.5-15.5); WBC 5.2 k/uL (3.8-10.6); WBC (Perox) 5.38
[2016-12-26] MEDS: ZINC OXIDE 20% OINT 28.4 GM TUBE TOPICAL SCH ×2 (08:31→20:22)
[2016-12-26 08:40] LABS: Hepatitis B Surface Ag Index 0.05
[2016-12-26 08:45] LABS: Hepatitis B Core IgM Index 0.03
[2016-12-26 08:57] LABS: Hepatitis C Virus IgG Ab Negative (Negative); Hepatitis C Virus IgG Index 0.07
[2016-12-26] MEDS ORDERED: PANTOPRAZOLE 40 MG/10 ML VIAL IV SCH (09:00)
--- NOTE | 2016-12-26 10:50 | US ---
EXAMINATION TYPE: US liver DATE OF EXAM: 12/26/2016 COMPARISON: Ultrasound abdomen 07/27/2010 CLINICAL HISTORY: cirrhosis? pl include gall bladder. Abnormal labs EXAM MEASUREMENTS: Liver Length: 15.7 cm Gallbladder Wall: 0.3 cm CHD: 0.4 cm Right Kidney: 9.7 x 4.4 x 5.7 cm Very limited visualization due to patients body habitus. Pancreas: Obscured by bowel gas Liver: Not well visualized , there is poor penetration by the ultrasound being. Gallbladder: Fundus not visualized. Patient unable to turn LLD. Evidence for sonographic Ross's sign: neg CHD: wnl as visualized CBD: Obscured by overlying bowel gas Right Kidney: Limited visualization There is no ascites evident. IMPRESSION: Exam is markedly limited. There may be underlying fatty infiltration of the liver versus hepatocellular disease.
--- NOTE | 2016-12-26 14:08 | P.CONS ---
History of Present Illness - Reason for Consult Consult date: 12/26/16 Hemoccult-positive stool - History of Present Illness 61-year-old white male was admitted to the hospital because of placement issues. Apparently he had some altered mental status and has psychiatric problems. In the emergency room and was noted to have a Hemoccult positive stool and hence we're consulted and because of this issue. The patient denies any abdominal pain, nausea vomiting, rectal bleeding or melena. Patient is somewhat poor historian and some of the history was obtained from the nursing staff. Review of Systems REVIEW OF SYSTEMS: CARDIOPULMONARY: No chest pain or shortness of breath. GENITOURINARY: No dysuria or hematuria. MUSCULOSKELETAL: Unremarkable. SKIN: Unremarkable. ENDOCRINE: Unremarkable. PSYCHIATRIC: Unremarkable. NEUROLOGY: Unremarkable. ENT: Vision unremarkable. CONSTITUTIONAL: No recent weight loss. No fever, chills, night sweats. Past Medical History Past Medical History: Asthma, Hypertension, Osteoarthritis (OA), Pneumonia Additional Past Medical History / Comment(s): IN PAST TX FOR HYPERTENSION NO LONGER ON MEDS, KIDNEY STONE, BRONCHITIS, BEGINNINGS OF CATARACTS, DJD, HANDS SHAKY/TREMORS, DIVERTICULOSIS, History of Any Multi-Drug Resistant Organisms: None Reported Past Surgical History: Hernia Repair, Orthopedic Surgery Additional Past Surgical History / Comment(s): cyst removed from hand, CRISTOPHER CARPAL TUNNEL RELEASE,UMB HERNIA REPAIR, RT KNEE ARTHROSCOPY,COLONOSCOPY Past Anesthesia/Blood Transfusion Reactions: No Reported Reaction Additional Past Anesthesia/Blood Transfusion Reaction / Comm: CLAUSTERPHOBIA. PT LIVES ALONE IN A TRAILER.HAS 3 STEPS UP INTO HOME. PT USES A CANE/WALKER WHEN UP. HAS VISITING PHYSICIAN, MEALS ON WHEELS, CLEANING SERVICE X1 WEEK. CANE/WALKER, HOSPITAL BED. Past Psychological History: Depression Additional Psychological History / Comment(s): PT STATED FEELS WELL MAINTAINED ON HIS MEDS. Smoking Status: Never smoker - Past Family History Father Family Medical History: Cancer, CVA/TIA, Myocardial Infarction (CT), Prostate Disorder Additional Family Medical History / Comment(s): SKIN ANd PROSTATE CANCER Mother Family Medical History: Cancer Additional Family Medical History / Comment(s): FROM BRAIN CANCER Medications and Allergies Home Medications Medication Instructions Recorded Confirmed Type Vitamin B Complex 1 cap PO DAILY@0900 10/29/16 12/23/16 History Bumetanide [BUMEX] 2 mg PO DAILY@0900 11/20/16 12/23/16 History Dimethicone/Zinc Oxide [Inzo Zinc 1 applic TOPICAL Q12H 11/20/16 12/23/16 History Oxide Barrier Cream] Ipratropium-Albuterol Nebulize 3 ml INHALATION RT-Q4H PRN 11/20/16 12/23/16 History [Duoneb 0.5 mg-3 mg/3 ml Soln] Meloxicam [Mobic] 7.5 mg PO DAILY@0911/20/16 12/23/16 History Prostat Awc 30 ml PO TID@0900,1300,209911/20/16 12/23/16 History Triamcinolone 0.1% Cream [Kenalog] 1 applicatio TOPICAL 11/20/16 12/23/16 History Venlafaxine HCl [Effexor XR] 225 mg PO DAILY@0911/20/16 12/23/16 History Ferrous Sulfate [Feosol] 325 mg PO DAILY@89912/23/16 12/23/16 History HYDROcodone/APAP 5-325MG [[place] 1 tab PO BID@0900,209912/23/16 12/23/16 History 5-325] HYDROcodone/APAP 5-325MG [[place] 1 tab PO Q6HR PRN 12/23/16 12/23/16 History 5-325] Potassium Chloride [Klor-Con 20] 20 meq PO DAILY@0912/23/16 12/23/16 History Rivaroxaban [Xarelto] 20 mg PO DAILY@89912/23/16 12/23/16 History guaiFENesin [Mucinex] 1,200 mg PO BID@0900,209912/23/16 12/23/16 History risperiDONE [RisperDAL] 0.25 mg PO HS@209912/23/16 12/23/16 History Allergies Allergy/AdvReac Type Severity Reaction Status Date / Time No Known Allergies Allergy Verified 12/23/16 20:50 Physical Exam Vitals: Vital Signs Temp Pulse Pulse Resp BP BP Pulse Ox 12/26/16 07:22 122 H 14 12/26/16 07:12 122 H 14 97 12/26/16 07:00 98.0 F 93 16 128/62 95 12/26/16 00:00 78 18 12/25/16 23:00 98.3 F 91 16 127/60 95 12/25/16 17:53 98.6 F 90 20 123/64 90 L 12/25/16 16:57 98.9 F 88 20 136/91 93 L Intake and Output 12/25/16 12/26/16 12/26/16 22:59 06:59 14:59 Intake Total 80 360 Balance 80 360 Intake: IV 80 160 Sodium Chloride 0.9% 1, 80 160 000 ml @ 20 mls/hr IV . Q24H [facility] Rx#:[id number] Oral 200 Other: Voiding Method Bedpan Bedpan Indwelling Catheter # Voids 3 # Bowel Movements 3 5 On physical examination, patient appears comfortable in no apparent distress. Vital signs are stable. Morbidly obese HEENT: Unremarkable. Conjunctivae pink. Sclerae anicteric. Oral cavity no lesions. NECK: No JVD or lymph node enlargement. CHEST: Clear to auscultation. HEART: Regular rate and rhythm. ABDOMEN: Soft. Bowel sounds are positive. No organomegaly. EXTREMITIES: No pedal edema. SKIN: No rashes. NEUROLOGIC: Alert and oriented x3. No focal deficits. Results CBC & Chem 7: 12/26/16 07:41 12/26/16 07:41 Labs: Abnormal Lab Results - Last 24 Hours (Table) 12/26/16 12/26/16 Range/Units 07:41 07:41 RBC 3.31 L (4.30-5.90) m/uL Hgb 9.4 L (13.0-17.5) gm/dL Hct 29.3 L (39.0-53.0) % RDW 16.3 H (11.5-15.5) % Plt Count 145 L (150-450) k/uL Potassium 3.4 L (3.5-5.1) mmol/L Chloride 108 H (98-107) mmol/L Glucose 105 H (74-99) mg/dL Calcium 8.1 L (8.4-10.2) mg/dL Total Bilirubin 1.5 H (0.2-1.3) mg/dL Total Protein 6.2 L (6.3-8.2) g/dL Albumin 2.7 L (3.5-5.0) g/dL Assessment and Plan (1) Anemia Narrative/Plan: Patient was noted to have hemoglobin of 9.4 and mild, thronbocytopenia. He has a Hemoccult-positive stool. No clinical evidence of active GI bleed. Status: Acute (2) Depression Status: Acute Plan: At this time as the patient does not have any evidence of active ongoing bleeding would not consider proceeding with any endoscopic interventions. He does not have any GI symptoms. He does not recall if he had a colonoscopy in outpatient basis. I did suggest to him that he can follow up in our office following discharge from the hospital and further workup in regards to anemia especially a colonoscopy can be offered an outpatient basis. Thank you for this consultation. We'll sign off. Please call us if needed.
--- NOTE | 2016-12-26 14:24 | P.CN ---
Psychiatric Consult - . Consult date: 12/26/16 Consult:: PSYCHIATRIC CONSULTATION DATE OF CONSULTATION: 12/26/2016 PURPOSE FOR CONSULTATION: [Evaluate for depression and thought disorder] INTERVAL HISTORY: [The patient has been doing fair. My understanding is that he is clear for discharge from my medical standpoint. Psychiatrically, the patient continues to have paranoid delusions. He continues to believe people were making threats to harm him and kill him at his care facility. He stated that when he was there people would say appropriate things when they talked to him and when he questioned them about threats people would say they were there to help him and not hurt him. The patient is convinced that when I talked with one another staff made statements that they wanted to harm him and kill him. Yesterday he made a statement that he knew people were coming in the room to kill him and because of that he had "attacked" them first. Today when I asked him to explain knowing that he is not able to walk, his statement was that he threw a pillow at them. No matter how the issue was discussed the patient was not able to gain any insight that he has delusional thinking about believing he is threatened. According to his nurse at [facility] the patient was having the problems with confusion. He was making statements about suicide. He was seen blood on the floor seen other violent things happening around him. He was yelling. He had no violent or aggressive behavior. Today when I talked to the patient to be good easily give me the day and date. He could tell me where he was. He made a statement that something was to happen in 5 or 6 days relating to his placement there, though he couldn't explain what he was referring to. He had a quiet manner. He was quite concerned about the idea that he believed he was threatened and could not be convinced otherwise.] ASSESSMENT: The patient continues with depression with psychotic thinking with paranoid delusions. He has not had any aggressive or acting out behavior. He continues to show delusional thinking. Will discontinue Risperdal and start the patient on Zyprexa 5 mg twice a day. I recommend referral to a psychiatric unit for further evaluation and treatment relating to his mood disorder with psychotic symptoms. 12/26/16 14:12
[2016-12-26] MEDS: OLANZapine 5 MG TAB PO SCH ×2 (14:52→20:23)
[2016-12-26] MEDS: SODIUM CHLORIDE 0.9% 1,000 ML IV SCH (17:42)
[2016-12-27 08:15] LABS: Anisocytosis Slight; Basophils % (A) 1 %; CH 26.3; CHCM 30.4; Eosinophils # (A) 0.2 k/uL (0-0.7); Eosinophils % (A) 4 %; HCT 28.3 % (39.0-53.0); HDW 3.19; HGB 8.9 gm/dL (13.0-17.5); Hypochromasia Marked; Luc # (Auto) 0.13; Luc % (Auto) 3; Lymphocytes # (A) 1.4 k/uL (1.0-4.8); Lymphocytes % (A) 29 %; MCH 27.1 pg (25.0-35.0); MCHC 31.3 g/dL (31.0-37.0); MCV 86.7 fL (80.0-100.0); Mean Platelet Volume 7.5; Monocytes # (A) 0.3 k/uL (0-1.0); Monocytes % (A) 7 %; Neutrophils # (A) 2.8 k/uL (1.3-7.7); Neutrophils % (A) 57 %; RBC 3.27 m/uL (4.30-5.90); RDW 16.4 % (11.5-15.5); WBC 4.9 k/uL (3.8-10.6); WBC (Perox) 5.21
[2016-12-27] MEDS: guaiFENesin 600 MG TABLET.ER PO SCH ×2 (08:45→20:09)
[2016-12-27] MEDS: MELOXICAM 7.5 MG TAB PO SCH (08:45)
[2016-12-27] MEDS: LACTULOSE 20 GM/30 ML CUP PO SCH ×3 (08:48→21:17)
[2016-12-27] MEDS: RIVAROXABAN 10 MG TAB PO SCH (08:48)
[2016-12-27] MEDS: OLANZapine 5 MG TAB PO SCH ×2 (08:48→20:09)
[2016-12-27] MEDS: BUMETANIDE 1 MG TAB PO SCH (08:48)
[2016-12-27] MEDS: B COMPLEX-VIT C-VIT E-ZINC 1 EACH TAB PO SCH (08:49)
[2016-12-27] MEDS: FERROUS SULFATE 325 MG TAB PO SCH (08:49)
[2016-12-27] MEDS: VENLAFAXINE HCL ER 75 MG CAP PO SCH (08:49)
[2016-12-27] MEDS: POTASSIUM CHLORIDE ER 20 MEQ TAB.ER PO SCH (08:49)
[2016-12-27] MEDS: PANTOPRAZOLE 40 MG TABLET PO SCH (08:49)
[2016-12-27 08:50] LABS: ALT 35 U/L (21-72); AST 32 U/L (17-59); Alkaline Phosphatase 96 U/L (38-126); Anion Gap 9 mmol/L; Blood Urea Nitrogen 11 mg/dL (9-20); Calcium 8.1 mg/dL (8.4-10.2); Carbon Dioxide 25 mmol/L (22-30); Chloride 108 mmol/L (98-107); Glucose 98 mg/dL (74-99); Non-African American GFR(MDRD) >60 (>60 ml/min/1.73 sqM); Potassium 3.1 mmol/L (3.5-5.1); Sodium 142 mmol/L (137-145); Total Bilirubin 1.1 mg/dL (0.2-1.3); Total Protein 5.5 g/dL (6.3-8.2)
[2016-12-27] MEDS: ZINC OXIDE 20% OINT 28.4 GM TUBE TOPICAL SCH ×2 (08:55→20:09)
[2016-12-27] MEDS: IPRATROPIUM-ALBUTEROL 3 ML NEB INHALATION SCH ×4 (09:13→21:40)
[2016-12-27 09:19] LABS: Polychromasia Present
--- NOTE | 2016-12-27 16:10 | HP ---
DATE OF ADMISSION: 12/25/2016 CHIEF COMPLAINT: Change in mental status. HISTORY OF PRESENT ILLNESS: This 61-year-old gentleman with past medical history of multiple medical issues including asthma, hypertension, history of DJD, pneumonia, history of hernia repair, history of claustrophobia, history of depression being followed by Dr. Ramirez at [facility] on the [place] was admitted to [facility] with complaints of change in mental status. The patient had previously severe respiratory failure. Pulmonary embolism was not able to be ruled out. From [facility], the patient was having some change in mental status as well as behavioral issues, including delusions, hallucinations, and the patient apparently had some suicide thoughts and the patient was taken to [facility] and admitted for further evaluation and treatment. The patient was held in the ER For several hours, almost more than 30 hours according to the staff and the ER physician was because of the patient also super morbid obesity with BMI 62.7, special facility could not accept apparently. The ammonia was found to be elevated at 59. There is no history of any chronic liver disease or any history of alcohol intake. The patient is mildly confused, unable to give a coherent history. Most of the history taken from my discussion with staff as well as the ER physician and review of the chart. Stool OB was positive even though there is no active meenu bleeding at this time. PAST MEDICAL HISTORY: History of asthma, hypertension, DJD, history of hernia repair, history of respiratory failure, depression, morbid obesity. MEDICATIONS: Prior to admission include home medications: 1. Risperdal 0.25 mg q.h.s. 3. Vitamin B complex one po daily. 4. Effexor XR 220 mg po daily. 5. Kenalog one application topically . 6. Xarelto 10 mg po daily. 7. ProStat 30 mL po t.i.d. 8. Klor-Con 20 mEq po daily. 9. Mobic 7.5 daily. 10. DuoNeb q.i.d. and q4h prn 11. [place] 5 mg po b.i.d. 12. Iron sulfate 320 mg po daily. 13. Zinc oxide one application topically b.i.d. 14. Bumex 2 mg daily. 15. Xanax 0.5 mg b.i.d. prn ALLERGIES: None. FAMILY HISTORY: History of cancer, CVA, TIA, myocardial infarction. SOCIAL HISTORY: No history of smoking. No history of alcohol intake. Review of systems could not be taken reliably, the patient is mildly confused. PHYSICAL EXAMINATION: Pulse 88, blood pressure 130/91. Respiratory 20. Temperature 98.1, pulse ox 93% on room air. HEENT: Conjunctivae normal. oral mucosa moist. Neck is obese. Cardiovascular: S1, S2 muffled. No S3, no S4. Respiratory: Breath sounds diminished at the bases. Bilateral scattered rhonchi and crackles. Abdomen is soft, obese, nontender. No guarding. No rigidity. No mass palpable. Bowel sounds present. LEGS: No edema. No swelling. Nervous system: Higher functions as mentioned earlier. Moves all four limbs. No focal motor or sensory deficits. Lymphatics: No lymph nodes palpable in the neck, axillae or groin. Skin: No ulcer, rash or bleeding. JOINTS: No active deforming arthropathy. Labs are WBC 4.6, hemoglobin 8.7. sodium 140, potassium ntd ASSESSMENT: 1. Change in mental status, possible acute metabolic encephalopathy, rule out hepatic encephalopathy. 2. Suicidal ideation, rule out severe depression. 3. Hypoalbuminemia with mild to moderate protein calorie malnutrition. 4. Super morbid obesity with body mass index 62.7. 5. Hypokalemia. 6. Anemia. Normocytic. Rule out chronic gastrointestinal bleed. 7. History of asthma. 8. History of hypertension essential. 9. History of degenerative joint disease. 10. History of pneumonia. 11. History of recent hypoxic respiratory failure, multifactorial. 12. History of restrictive lung disease as well as obstructive sleep apnea. 13. Gait dysfunction and decondition. 14. Depression, not otherwise specified. 15. Chronic venous stasis both bilateral legs. 16. Claustrophobia. 17. Degenerative joint disease. 18. Remote history of nicotine dependence. 19. FULL CODE. RECOMMENDATIONS AND DISCUSSION: In this 61 year old gentleman who presented with multiple complex medical issues, we will monitor the patient closely, continue current medications, continue symptomatic treatment. The exact etiology of change in mental status is unknown at this time. The possibility of hepatic encephalopathy to be considered. Chronic liver disease. I would recommend acute hepatitis panel and gastroenterology consultation. Ultrasound will be attempted. otherwise, CT scan could not be done because of the patient' s weight and other issues. Overall prognosis extremely guarded because of morbid obesity and multiple other complex medical issues the patient is having. See orders for further details. Resume the home medications. Further recommendations to follow. A copy of dictation being forwarded to Dr. Ramirez who is the primary care physician. SEAN
[2016-12-27] MEDS: SODIUM CHLORIDE 0.9% 1,000 ML IV SCH (16:45)
[2016-12-27] MEDS ORDERED: POTASSIUM CHLORIDE ER 20 MEQ TAB.ER PO STA (17:07)
[2016-12-27] MEDS: TRIAMCINOLONE 0.1% CREAM 80 GM TUBE TOPICAL SCH (21:17)
[2016-12-28] MEDS: LACTULOSE 20 GM/30 ML CUP PO SCH ×2 (06:58→21:02)
[2016-12-28] MEDS: BUMETANIDE 1 MG TAB PO SCH (07:00)
[2016-12-28] MEDS: PANTOPRAZOLE 40 MG TABLET PO SCH (07:00)
[2016-12-28] MEDS: FERROUS SULFATE 325 MG TAB PO SCH (07:00)
[2016-12-28] MEDS: MELOXICAM 7.5 MG TAB PO SCH (07:01)
[2016-12-28] MEDS: RIVAROXABAN 10 MG TAB PO SCH (07:01)
[2016-12-28] MEDS: VENLAFAXINE HCL ER 75 MG CAP PO SCH (07:02)
[2016-12-28] MEDS: POTASSIUM CHLORIDE ER 20 MEQ TAB.ER PO SCH (07:02)
[2016-12-28] MEDS: B COMPLEX-VIT C-VIT E-ZINC 1 EACH TAB PO SCH (07:02)
[2016-12-28] MEDS: guaiFENesin 600 MG TABLET.ER PO SCH ×2 (07:03→21:03)
[2016-12-28] MEDS: OLANZapine 5 MG TAB PO SCH ×2 (07:04→21:03)
[2016-12-28] MEDS: IPRATROPIUM-ALBUTEROL 3 ML NEB INHALATION SCH ×4 (07:19→20:08)
[2016-12-28 07:52] LABS: Anisocytosis Slight; Basophils % (A) 1 %; CH 26.2; CHCM 30.2; Eosinophils # (A) 0.2 k/uL (0-0.7); Eosinophils % (A) 5 %; HCT 28.3 % (39.0-53.0); HDW 3.16; Hypochromasia Marked; Luc # (Auto) 0.12; Luc % (Auto) 2; Lymphocytes # (A) 1.5 k/uL (1.0-4.8); Lymphocytes % (A) 31 %; MCH 27.9 pg (25.0-35.0); MCV 87.1 fL (80.0-100.0); Mean Platelet Volume 7.8; Monocytes # (A) 0.3 k/uL (0-1.0); Monocytes % (A) 6 %; Neutrophils # (A) 2.7 k/uL (1.3-7.7); Neutrophils % (A) 56 %; RBC 3.25 m/uL (4.30-5.90); RDW 16.3 % (11.5-15.5); WBC 4.8 k/uL (3.8-10.6); WBC (Perox) 4.95
[2016-12-28 08:01] LABS: ALT 28 U/L (21-72); AST 36 U/L (17-59); Alkaline Phosphatase 99 U/L (38-126); Anion Gap 7 mmol/L; Blood Urea Nitrogen 11 mg/dL (9-20); Carbon Dioxide 27 mmol/L (22-30); Chloride 108 mmol/L (98-107); Glucose 107 mg/dL (74-99); Non-African American GFR(MDRD) >60 (>60 ml/min/1.73 sqM); Potassium 3.3 mmol/L (3.5-5.1); Sodium 142 mmol/L (137-145); Total Bilirubin 1.2 mg/dL (0.2-1.3); Total Protein 6.1 g/dL (6.3-8.2)
[2016-12-28 08:43] LABS: Polychromasia Present
[2016-12-28] MEDS: ZINC OXIDE 20% OINT 28.4 GM TUBE TOPICAL SCH ×2 (11:32→19:43)
[2016-12-28] MEDS: SODIUM CHLORIDE 0.9% 1,000 ML IV SCH (16:56)
[2016-12-28] MEDS ORDERED: POTASSIUM CHLORIDE ER 20 MEQ TAB.ER PO STA (18:40)
[2016-12-28] MEDS: TRIAMCINOLONE 0.1% CREAM 80 GM TUBE TOPICAL SCH (19:43)
[2016-12-28] MEDS: HYDROcodone/APAP 5-325MG 1 EACH TAB PO PRN (22:16)
[2016-12-29 07:05] LABS: Anisocytosis Slight; CH 26.8; CHCM 30.9; HDW 3.11; HGB 9.4 gm/dL (13.0-17.5); Hypochromasia Moderate; MCH 28.2 pg (25.0-35.0); MCHC 32.5 g/dL (31.0-37.0); MCV 86.9 fL (80.0-100.0); Mean Platelet Volume 7.9; RBC 3.34 m/uL (4.30-5.90); RDW 16.6 % (11.5-15.5); WBC 5.8 k/uL (3.8-10.6); WBC (Perox) 5.89
[2016-12-29 07:36] LABS: ALT 34 U/L (21-72); AST 35 U/L (17-59); Alkaline Phosphatase 94 U/L (38-126); Anion Gap 8 mmol/L; Blood Urea Nitrogen 12 mg/dL (9-20); Calcium 7.9 mg/dL (8.4-10.2); Carbon Dioxide 25 mmol/L (22-30); Chloride 108 mmol/L (98-107); Glucose 97 mg/dL (74-99); Non-African American GFR(MDRD) >60 (>60 ml/min/1.73 sqM); Potassium 3.6 mmol/L (3.5-5.1); Sodium 141 mmol/L (137-145)
[2016-12-29 07:56] LABS: Add Differential Manual Differential
[2016-12-29 07:58] LABS: Nucleated Red Blood Cells 0 /100 WBC (0-0); Total Cells Counted 100
[2016-12-29 07:59] LABS: Manual Review Performed
[2016-12-29] MEDS: IPRATROPIUM-ALBUTEROL 3 ML NEB INHALATION SCH ×4 (08:26→20:16)
[2016-12-29] MEDS: LACTULOSE 20 GM/30 ML CUP PO SCH ×2 (08:54→20:31)
[2016-12-29] MEDS: B COMPLEX-VIT C-VIT E-ZINC 1 EACH TAB PO SCH (08:55)
[2016-12-29] MEDS: RIVAROXABAN 10 MG TAB PO SCH (08:55)
[2016-12-29] MEDS: VENLAFAXINE HCL ER 75 MG CAP PO SCH (08:55)
[2016-12-29] MEDS: POTASSIUM CHLORIDE ER 20 MEQ TAB.ER PO SCH (08:55)
[2016-12-29] MEDS: BUMETANIDE 1 MG TAB PO SCH (08:55)
[2016-12-29] MEDS: guaiFENesin 600 MG TABLET.ER PO SCH ×2 (08:56→20:31)
[2016-12-29] MEDS: MELOXICAM 7.5 MG TAB PO SCH (08:56)
[2016-12-29] MEDS: PANTOPRAZOLE 40 MG TABLET PO SCH (08:57)
[2016-12-29] MEDS: FERROUS SULFATE 325 MG TAB PO SCH (08:57)
[2016-12-29] MEDS: OLANZapine 5 MG TAB PO SCH ×2 (08:57→20:31)
[2016-12-29] MEDS: ZINC OXIDE 20% OINT 28.4 GM TUBE TOPICAL SCH ×2 (09:09→20:32)
[2016-12-29] MEDS ORDERED: DIPH,PERTUS(ACELL)TETVAC-LF 0.5 ML VIAL IM ONE (11:48)
--- NOTE | 2016-12-29 11:53 | P.CONS ---
History of Present Illness - Reason for Consult Consult date: 12/29/16 Lower extremity wounds - History of Present Illness This is a 61-year-old male who is currently residing at [facility]. Patient was brought into the hospital due to suicidal thoughts. Patient has had a temperature max of 100.0, no leukocytosis. He was found to have an elevated ammonia level initially at 59. Acute hepatitis panel was negative. Stool for occult blood was positive and apparently patient did relate that he has had dark stools recently. Urine drug screen was positive for opiates. Regarding his ammonia level this did go down to 11 on December 26 and now today is back at 51 and according to the nursing staff he has not is alert and cooperative as he normally is. He is noted to have a hemoglobin of 9.4 and platelets are currently at 157 but were down to 145. His urinalysis was negative for UTI and urine culture is showing no growth after 18 hours. Patient does have wounds to his bilateral knees. Patient states to me that he was running and ended up tripping and falling onto his knees. According to the nursing staff, patient fell out of bed at [facility]. Patient has been evaluated by Dr. Maribell Gomez with no evidence of GI bleed and follow-up in the office was recommended. He had an ultrasound of the abdomen which was limited and fatty infiltration of the liver was noted versus hepatocellular disease. Patient has been followed by psychiatry for delusional disorder with recommendations to continue Effexor, discontinue Risperdal and Zyprexa was started. Patient was thought to go to the mental health unit but he is non-ambulatory and may not be appropriate for our inpatient psychiatric unit. Patient also underwent a chest x-ray that showed chronic changes with nothing acute. Patient does not remember when he had his last tetanus status updated. Review of Systems All systems: negative Constitutional: Denies chills, Denies fever Eyes: denies blurred vision, denies pain Ears, nose, mouth and throat: Denies headache, Denies sore throat Cardiovascular: Denies chest pain, Denies shortness of breath Respiratory: Denies cough Gastrointestinal: Denies abdominal pain, Denies diarrhea, Denies nausea, Denies vomiting Musculoskeletal: Denies myalgias Integumentary: Reports wounds, Denies pruritus, Denies rash Neurological: Denies numbness, Denies weakness Psychiatric: Denies anxiety, Denies depression Endocrine: Denies fatigue, Denies weight change Past Medical History Past Medical History: Asthma, Hypertension, Osteoarthritis (OA), Pneumonia Additional Past Medical History / Comment(s): IN PAST TX FOR HYPERTENSION NO LONGER ON MEDS, KIDNEY STONE, BRONCHITIS, BEGINNINGS OF CATARACTS, DJD, HANDS SHAKY/TREMORS, DIVERTICULOSIS, History of Any Multi-Drug Resistant Organisms: None Reported Past Surgical History: Hernia Repair, Orthopedic Surgery Additional Past Surgical History / Comment(s): cyst removed from hand, CRISTOPHER CARPAL TUNNEL RELEASE,UMB HERNIA REPAIR, RT KNEE ARTHROSCOPY,COLONOSCOPY Past Anesthesia/Blood Transfusion Reactions: No Reported Reaction Additional Past Anesthesia/Blood Transfusion Reaction / Comm: CLAUSTERPHOBIA. PT LIVES ALONE IN A TRAILER.HAS 3 STEPS UP INTO HOME. PT USES A CANE/WALKER WHEN UP. HAS VISITING PHYSICIAN, MEALS ON WHEELS, CLEANING SERVICE X1 WEEK. CANE/WALKER, HOSPITAL BED. Past Psychological History: Depression Additional Psychological History / Comment(s): PT STATED FEELS WELL MAINTAINED ON HIS MEDS. Smoking Status: Never smoker - Past Family History Father Family Medical History: Cancer, CVA/TIA, Myocardial Infarction ([place]), Prostate Disorder Additional Family Medical History / Comment(s): SKIN ANd PROSTATE CANCER Mother Family Medical History: Cancer Additional Family Medical History / Comment(s): FROM BRAIN CANCER Medications and Allergies Home Medications Medication Instructions Recorded Confirmed Type Vitamin B Complex 1 cap PO DAILY@0900 10/29/16 12/23/16 History Bumetanide [BUMEX] 2 mg PO DAILY@0911/20/16 12/23/16 History Dimethicone/Zinc Oxide [Inzo Zinc 1 applic TOPICAL Q12H 11/20/16 12/23/16 History Oxide Barrier Cream] Ipratropium-Albuterol Nebulize 3 ml INHALATION RT-Q4H PRN 11/20/16 12/23/16 History [Duoneb 0.5 mg-3 mg/3 ml Soln] Meloxicam [Mobic] 7.5 mg PO DAILY@0911/20/16 12/23/16 History Prostat Awc 30 ml PO TID@0900,1300,2100 11/20/16 12/23/16 History Triamcinolone 0.1% Cream [Kenalog] 1 applicatio TOPICAL HS 11/20/16 12/23/16 History Venlafaxine HCl [Effexor XR] 225 mg PO DAILY@89911/20/16 12/23/16 History Ferrous Sulfate [Iron (65 MG 325 mg PO DAILY@89912/23/16 12/23/16 History Elemental)] HYDROcodone/APAP 5-325MG [[place] 1 tab PO Q6HR PRN 12/23/16 12/23/16 History 5-325] Potassium Chloride [Klor-Con 20] 20 meq PO DAILY@89912/23/16 12/23/16 History Rivaroxaban [Xarelto] 20 mg PO DAILY@89912/23/16 12/23/16 History guaiFENesin [Mucinex] 1,200 mg PO BID@899,209912/23/16 12/23/16 History risperiDONE [RisperDAL] 0.25 mg PO HS@209912/23/16 12/23/16 History Allergies Allergy/AdvReac Type Severity Reaction Status Date / Time No Known Allergies Allergy Verified 12/23/16 20:50 Physical Exam Vitals: Vital Signs Temp Pulse Pulse Resp BP Pulse Ox 12/29/16 08:43 76 12/29/16 08:25 76 96 12/29/16 07:00 98.2 F 91 18 109/62 96 12/28/16 22:37 98.2 F 93 18 108/52 96 12/28/16 20:20 84 12/28/16 20:08 85 12/28/16 15:26 80 12/28/16 15:16 77 12/28/16 15:00 97.1 F L 89 20 96/78 95 Intake and Output 12/28/16 12/29/16 12/29/16 22:59 06:59 14:59 Intake Total 240 240 Balance 240 240 Intake: Oral 240 240 Other: Voiding Method Urinal Urinal Diaper Diaper Incontinent Incontinent # Voids 1 2 Gen: This is a morbidly obese 61-year-old male. He is laying in bed and appears to be comfortable. He awakens to verbal stimuli and quickly drifts off to sleep. He has a very poor historian. HEENT: Head is atraumatic, normocephalic. Pupils equal, round. Sclerae is anicteric. Conjunctiva pink. Oral mucous membranes are very dry. NECK: Short and thick. Supple. No JVD. No lymphadenopathy. No thyromegaly. LUNGS: Clear to auscultation. No wheezes or rhonchi. No intercostal retractions. HEART: Regular rate and rhythm. No murmur. ABDOMEN: Orbital he obese. Soft. Bowel sounds are present. No masses. No tenderness. No redness under her abdominal. He EXTREMITIES: Trace pedal edema. No calf tenderness. Cells pedis is weak bilaterally. To the right pretibial area below the knee there are skin tears noted with surrounding erythema, sanguinous drainage, to the left knee there is an abrasion noted NEUROLOGICAL: Patient is awake, alert and oriented x1. Generalized bilateral weakness noted. Results Results: Laboratory Results WBC 5.8 k/uL (3.8-10.6) 12/29/16 06:50 RBC 3.34 m/uL (4.30-5.90) L 12/29/16 06:50 Hgb 9.4 gm/dL (13.0-17.5) L 12/29/16 06:50 Hct 29.0 % (39.0-53.0) L 12/29/16 06:50 MCV 86.9 fL (80.0-100.0) 12/29/16 06:50 MCH 28.2 pg (25.0-35.0) 12/29/16 06:50 MCHC 32.5 g/dL (31.0-37.0) 12/29/16 06:50 RDW 16.6 % (11.5-15.5) H 12/29/16 06:50 Plt Count 157 k/uL (150-450) 12/29/16 06:50 Neutrophils % 56 % 12/28/16 07:14 Neutrophils % (Manual) 68.0 % 12/29/16 06:50 Lymphocytes % 31 % 12/28/16 07:14 Lymphocytes % (Manual) 22.0 % 12/29/16 06:50 Monocytes % 6 % 12/28/16 07:14 Monocytes % (Manual) 6.0 % 12/29/16 06:50 Eosinophils % 5 % 12/28/16 07:14 Eosinophils % (Manual) 4.0 % 12/29/16 06:50 Basophils % 1 % 12/28/16 07:14 Neutrophils # 2.7 k/uL (1.3-7.7) 12/28/16 07:14 Neutrophils # (Manual) 3.9 k/uL (1.3-7.7) 12/29/16 06:50 Lymphocytes # 1.5 k/uL (1.0-4.8) 12/28/16 07:14 Lymphocytes # (Manual) 1.3 k/uL (1.0-4.8) 12/29/16 06:50 Monocytes # 0.3 k/uL (0-1.0) 12/28/16 07:14 Monocytes # (Manual) 0.3 k/uL (0-1.0) 12/29/16 06:50 Eosinophils # 0.2 k/uL (0-0.7) 12/28/16 07:14 Eosinophils # (Manual) 0.2 k/uL (0-0.7) 12/29/16 06:50 Basophils # 0.0 k/uL (0-0.2) 12/28/16 07:14 Nucleated RBCs 0 /100 WBC (0-0) 12/29/16 06:50 Manual Slide Review Performed 12/29/16 06:50 Polychromasia Present 12/28/16 07:14 Hypochromasia Moderate 12/29/16 06:50 Anisocytosis Slight 12/29/16 06:50 PT 14.5 sec (9.0-12.0) H 12/23/16 19:36 INR 1.5 (<1.1) 12/23/16 19:36 APTT 25.8 sec (22.0-30.0) 12/23/16 19:36 Sodium 141 mmol/L (137-145) 12/29/16 06:50 Potassium 3.6 mmol/L (3.5-5.1) 12/29/16 06:50 Chloride 108 mmol/L (98-107) H 12/29/16 06:50 Carbon Dioxide 25 mmol/L (22-30) 12/29/16 06:50 Anion Gap 8 mmol/L 12/29/16 06:50 BUN 12 mg/dL (9-20) 12/29/16 06:50 Creatinine 0.91 mg/dL (0.66-1.25) 12/29/16 06:50 Est GFR (MDRD) Af Amer >60 (>60 ml/min/1.73 sqM) 12/29/16 06:50 Est GFR (MDRD) Non-Af >60 (>60 ml/min/1.73 sqM) 12/29/16 06:50 Glucose 97 mg/dL (74-99) 12/29/16 06:50 POC Glucose (mg/dL) 103 mg/dL (75-99) H 12/23/16 21:[address] Commissioner ID Taylor Fish 12/23/16 21:00 Calcium 7.9 mg/dL (8.4-10.2) L 12/29/16 06:50 Total Bilirubin 1.0 mg/dL (0.2-1.3) 12/29/16 06:50 AST 35 U/L (17-59) 12/29/16 06:50 ALT 34 U/L (21-72) 12/29/16 06:50 Alkaline Phosphatase 94 U/L (38-126) 12/29/16 06:50 Ammonia 51 umol/L (<30) H 12/29/16 06:50 Troponin I 0.013 ng/mL (0.000-0.034) 12/23/16 19:36 Total Protein 6.0 g/dL (6.3-8.2) L 12/29/16 06:50 Albumin 2.5 g/dL (3.5-5.0) L 12/29/16 06:50 TSH 2.570 mIU/L (0.465-4.680) 12/23/16 19:36 Urine Color Yellow 12/23/16 21:10 Urine Appearance Clear (Clear) 12/23/16 21:10 Urine pH 5.5 (5.0-8.0) 12/23/16 21:10 Ur Specific Cotton 1.010 (1.001-1.035) 12/23/16 21:10 Urine Protein Negative (Negative) 12/23/16 21:10 Urine Glucose (UA) Negative (Negative) 12/23/16 21:10 Urine Ketones Negative (Negative) 12/23/16 21:10 Urine Blood Negative (Negative) 12/23/16 21:10 Urine Nitrite Negative (Negative) 12/23/16 21:10 Urine Bilirubin Negative (Negative) 12/23/16 21:10 Urine Urobilinogen 2.0 mg/dL (<2.0) 12/23/16 21:10 Ur Leukocyte Esterase Negative (Negative) 12/23/16 21:10 Stool Occult Blood Positive (Negative) 12/25/16 15:39 Urine Opiates Screen Detected (NotDetected) H 12/23/16 21:10 Ur Oxycodone Screen Not Detected (NotDetected) 12/23/16 21:10 Urine Methadone Screen Not Detected (NotDetected) 12/23/16 21:10 Ur Propoxyphene Screen Not Detected (NotDetected) 12/23/16 21:10 Ur Barbiturates Screen Not Detected (NotDetected) 12/23/16 21:10 U Tricyclic Antidepress Not Detected (NotDetected) 12/23/16 21:10 Ur Phencyclidine Scrn Not Detected (NotDetected) 12/23/16 21:10 Ur Amphetamines Screen Not Detected (NotDetected) 12/23/16 21:10 U Methamphetamines Scrn Not Detected (NotDetected) 12/23/16 21:10 U Benzodiazepines Scrn Not Detected (NotDetected) 12/23/16 21:10 Urine Cocaine Screen Not Detected (NotDetected) 12/23/16 21:10 U Marijuana (THC) Screen Not Detected (NotDetected) 12/23/16 21:10 Hepatitis A IgM Ab NEGATIVE 12/26/16 07:41 Hep Bs Antigen Negative 12/26/16 07:41 Hep B Core IgM Ab NEGATIVE 12/26/16 07:41 Hep C IgG Ab Negative (Negative) 12/26/16 07:41 CBC & Chem 7: 12/29/16 06:50 12/29/16 06:50 Labs: Abnormal Lab Results - Last 24 Hours (Table) 12/29/16 12/29/16 12/29/16 Range/Units 06:50 06:50 06:50 RBC 3.34 L (4.30-5.90) m/uL Hgb 9.4 L (13.0-17.5) gm/dL Hct 29.0 L (39.0-53.0) % RDW 16.6 H (11.5-15.5) % Chloride 108 H (98-107) mmol/L Calcium 7.9 L (8.4-10.2) mg/dL Ammonia 51 H (<30) umol/L Total Protein 6.0 L (6.3-8.2) g/dL Albumin 2.5 L (3.5-5.0) g/dL Microbiology - Last 24 Hours (Table) 12/28/16 15:40 Wound Culture - Preliminary Leg - Right Assessment and Plan Plan: This is a 61-year-old male who has been brought in the hospital due to mental status changes with metabolic encephalopathy and delusional disorder. Mental status changes may be in part due to elevated ammonia level of unclear etiology. We have been asked to see the patient regarding wound care to his right leg. Wound culture is in process. Local wound care will be addressed. Continue supportive care. Further recommendations as patient progresses. The above dictated assessment and findings were discussed with Dr. Meza. The impression and plan of care have been directed as dictated. Loni Jolly nurse practitioner acting as scribe for Dr. Meza.
[2016-12-29 13:53] VITALS: BMI 62.7
[2016-12-29] MEDS: SODIUM CHLORIDE 0.9% 1,000 ML IV SCH (17:07)
--- NOTE | 2016-12-29 18:12 | P.CN ---
Psychiatric Consult - . Consult:: PSYCHIATRIC CONSULTATION DATE OF CONSULTATION: 12/29/2016 PURPOSE FOR CONSULTATION: [Evaluate for depression and thought disorder] INTERVAL HISTORY: The patient has been doing fair. When I last saw him Thursday he was showing paranoid thinking. He was adamant about the idea of not wanting to go back to [facility]. When I asked him in detail about this he continued to focus on the delusional thoughts he had about being threatened. He had a fairly calm manner. He was cooperative with care. I had started him on Zyprexa which she tolerated well. Nursing reports that over the weekend he was doing very well. They said that he was quite positive in his mood. He was outgoing and quite talkative. He had a very pleasant manner. I received a call Thursday from nursing to rest he be taken off of one-to-one. I indicated that it would be appropriate for him to be taken off one-to-one as long as the on-call psychiatrist Dr. Lugo was in agreement. I indicated that if there was any question that Dr. Lugo would need to see the patient again and make the final decision. Nursing reports that he did well through the evening time. He was taken off one-to-one. Nursing notes today that he has been sleeping much of the day. They did not see that through the weekend. He has not had any significant changes in his general health condition. It is noted that his ammonia is elevated at 51. Ordering to a nursing his daughter reported that he has had significant mental status changes compared to his baseline. She says that in general he is a very pleasant and outgoing person. She says what has been reported from the [facility] is completely out of character for him. It's not clear whether the daughter would say his weekend function is closer to his baseline. Plan I interviewed the patient he was sleeping when I entered the room. I needed to arouse him to awake him up. He gave fair eye contact. He answered a few questions. Overall he was fairly tired in his manner. A talk to him about the plan of his being discharged to [facility] and that he was in agreement with that. He smiled briefly. He has seemed relaxed. ASSESSMENT: I'll continue the current diagnosis and the treatment plan. Patient has made progress in terms of improving mood and quieting his paranoid thinking. He would ask the delinquency prevention social worker to have a contact with the daughter to get an update on how she sees him doing as far as his weekend mood and function. From a psychiatric standpoint he is showing a good response to his medications. He would be appropriate for discharge to [facility]. He is in agreement with that treatment plan. Will see the patient again tomorrow when he is a little more awake further evaluate his overall mental health status. 12/29/16 17:49 12/29/16 17:53 12/29/16 17:55
[2016-12-29] MEDS: TRIAMCINOLONE 0.1% CREAM 80 GM TUBE TOPICAL SCH (20:32)
--- NOTE | 2016-12-29 22:16 | P.CON ---
Consult Note - . Consult date: 12/29/16 Assessment/Plan:: This is a 61-year-old male who is currently residing at [facility]. Patient was brought into the hospital due to suicidal thoughts. Patient has had a temperature max of 100.0, no leukocytosis. He was found to have an elevated ammonia level initially at 59. Acute hepatitis panel was negative. Stool for occult blood was positive and apparently patient did relate that he has had dark stools recently. Urine drug screen was positive for opiates. Regarding his ammonia level this did go down to 11 on December 26 and now today is back at 51 and according to the nursing staff he has not is alert and cooperative as he normally is. He is noted to have a hemoglobin of 9.4 and platelets are currently at 157 but were down to 145. His urinalysis was negative for UTI and urine culture is showing no growth after 18 hours. Patient does have wounds to his bilateral knees. Patient states to me that he was running and ended up tripping and falling onto his knees. According to the nursing staff, patient fell out of bed at [facility]. Patient has been evaluated by Dr. Maribell Gomez with no evidence of GI bleed and follow-up in the office was recommended. He had an ultrasound of the abdomen which was limited and fatty infiltration of the liver was noted versus hepatocellular disease. Patient has been followed by psychiatry for delusional disorder with recommendations to continue Effexor, discontinue Risperdal and Zyprexa was started. Patient was thought to go to the mental health unit but he is non-ambulatory and may not be appropriate for our inpatient psychiatric unit. Patient also underwent a chest x-ray that showed chronic changes with nothing acute. Patient does not remember when he had his last tetanus status updated.Please see the consult note as dictated by nurse practitioner Mrs. Loni Jolly. 61-year-old male with superobesity. Were checking to make sure the mattress he is on is designed for his superobesity. If not will change to a bariatric bed The patient's ulcerations will be treated with medical honey. The patient continues to have delusional thinking and is difficult to communicate with. But he is calm at this point in time. I agree with the evaluation assessment and plan as dictated by nurse practitioner Mrs. Loni Jolly.
--- NOTE | 2016-12-29 22:20 | P.PN ---
Progress Note - Text Presenting complaint-change in mental status Interval history: This is a patient admitted with altered mental status. Had some elevated ammonia level seen by GI not for any further workup currently . GI suggesting suggesting outpatient colonoscopy. Patient also seen by psychiatry who did change patient's medication put him on Zyprexa. The patient didn't sleep well last night but did sleep rather well this morning. Patient [facility] can use a walker. Patient looks rather cheerful and chirpy right now. Patient also seen by Dr. Meza for his right leg wound. Patient's last bowel movement was 2 days ago Review of systems: Was done for constitutional, cardiovascular, GI, pulmonary. relevant finding as above Current medications are reviewed that includes Effexor Xarelto Zyprexa DuoNeb Physical examination: VITAL SIGNS: [98.2, 86, 18, 108/57, 98% room air] GENERAL APPEARANCE: Morbidly obese, BMI 62.7. Lying in bed, comfortable. EYES: Pupils equal. Conjunctiva normal. NECK: JVD unable to assess. Mass not palpable. RESPIRATORY: Respiratory effort increased. Lungs distant breath CARDIOVASCULAR: First and second sounds normal. No edema. ABDOMEN: Soft. Liver and spleen not palpable. No tenderness. No mass palpable. PSYCHIATRY: Alert and oriented x3. Mood and affect normal. Patient knows that he is at [facility], knows the month,the year, no studies a resident of [facility] Labs: White count 5.8, hemoglobin 9.4 potassium 3.6, BUN/creatinine normal Hepatitis screen negative Assessment: -Possibly hepatocellular disease, given hypoalbuminemia and elevated ammonia, cirrhosis cannot be ruled out that could explain element of hepatic encephalopathy -Chronic right leg wound -Depression with psychotic thinking and paranoid delusion -COPD in an ex-smoker -Morbid obesity BMI 62.7 -Colonic diverticulosis -Primary osteoarthritis in multiple joints -Gait dysfunction uses a walker Plan: To speak to the nurse and 8 to make sure patient is to 3 bowel movements a day and titrate lactulose accordingly. Patient seems to doing better on Zyprexa was able to carry out a decent conversation with me will follow accordingly.
[2016-12-30] MEDS: IPRATROPIUM-ALBUTEROL 3 ML NEB INHALATION SCH ×4 (07:01→18:44)
[2016-12-30 07:14] LABS: ALT 26 U/L (21-72); AST 34 U/L (17-59); Alkaline Phosphatase 93 U/L (38-126); Anion Gap 8 mmol/L; Blood Urea Nitrogen 12 mg/dL (9-20); Calcium 7.9 mg/dL (8.4-10.2); Carbon Dioxide 26 mmol/L (22-30); Chloride 110 mmol/L (98-107); Glucose 97 mg/dL (74-99); Non-African American GFR(MDRD) >60 (>60 ml/min/1.73 sqM); Potassium 3.6 mmol/L (3.5-5.1); Sodium 144 mmol/L (137-145); Total Bilirubin 0.9 mg/dL (0.2-1.3); Total Protein 5.8 g/dL (6.3-8.2)
[2016-12-30 07:27] LABS: Anisocytosis Slight; Basophils % (A) 1 %; CH 26.3; CHCM 30.2; Eosinophils # (A) 0.2 k/uL (0-0.7); Eosinophils % (A) 5 %; HCT 28.3 % (39.0-53.0); HDW 3.07; HGB 8.8 gm/dL (13.0-17.5); Hypochromasia Marked; Luc # (Auto) 0.12; Luc % (Auto) 2; Lymphocytes # (A) 1.3 k/uL (1.0-4.8); Lymphocytes % (A) 26 %; MCH 27.3 pg (25.0-35.0); MCHC 31.2 g/dL (31.0-37.0); MCV 87.5 fL (80.0-100.0); Mean Platelet Volume 7.3; Monocytes # (A) 0.3 k/uL (0-1.0); Monocytes % (A) 6 %; Neutrophils % (A) 60 %; RBC 3.24 m/uL (4.30-5.90); RDW 16.5 % (11.5-15.5); WBC (Perox) 5.32
[2016-12-30] MEDS: POTASSIUM CHLORIDE ER 20 MEQ TAB.ER PO SCH (08:40)
[2016-12-30] MEDS: guaiFENesin 600 MG TABLET.ER PO SCH ×2 (08:40→21:06)
[2016-12-30] MEDS: MELOXICAM 7.5 MG TAB PO SCH (08:40)
[2016-12-30] MEDS: ZINC OXIDE 20% OINT 28.4 GM TUBE TOPICAL SCH ×2 (08:40→21:18)
[2016-12-30] MEDS: PANTOPRAZOLE 40 MG TABLET PO SCH (08:40)
[2016-12-30] MEDS: VENLAFAXINE HCL ER 75 MG CAP PO SCH (08:41)
[2016-12-30] MEDS: OLANZapine 5 MG TAB PO SCH ×2 (08:41→21:05)
[2016-12-30] MEDS: FERROUS SULFATE 325 MG TAB PO SCH (08:41)
[2016-12-30] MEDS: RIVAROXABAN 10 MG TAB PO SCH (08:42)
[2016-12-30] MEDS: BUMETANIDE 1 MG TAB PO SCH (08:43)
[2016-12-30] MEDS: LACTULOSE 20 GM/30 ML CUP PO SCH ×3 (08:43→21:06)
[2016-12-30] MEDS: B COMPLEX-VIT C-VIT E-ZINC 1 EACH TAB PO SCH (08:43)
[2016-12-30] MEDS ORDERED: LACTULOSE 20 GM/30 ML CUP PO PRN (12:24)
--- NOTE | 2016-12-30 13:49 | P.CN ---
Psychiatric Consult - . Consult:: 12/30/16 13:43 PSYCHIATRIC CONSULTATION DATE OF CONSULTATION: 12/30/2016 PURPOSE FOR CONSULTATION: Evaluate for depression and thought disorder INTERVAL HISTORY: The patient has been doing fairly well. When seen yesterday he was quite sleepy. According to the nursing he had been sleeping on and off throughout much of the day yesterday. Today the nurse reports that he has been doing well. He has been awake and alert. He has been in a good mood. He's been appropriate in his interactions. He has not had any difficult behavior. He's not had any indication of showing fearfulness, distressed, or paranoia. When I talked to him at first he seemed a little confused about discharge planning. Make comments about not being certain that things in his trailer were being disposed of. When I told him about plans to go to [facility] he seemed to be clear in his understanding. He asked what the treatment plan would be when he goes to [facility]. He was accepting of the idea that he would be discharged to a [facility] within the next few days. He knew what day of the week it was. He knew his immediate circumstances. He smiled. He was calm and pleasant in his manner. ASSESSMENT: The patient appears to be a stable from the standpoint of any mental health issues. Paranoid thinking that he exhibited when I first saw him and related to his experiences at [facility] resolved. He tolerates his medications well. From a psychiatric standpoint he is appropriate for discharge to a care facility. If there are any further psychiatric issues to arise please reconsult.
--- NOTE | 2016-12-30 15:41 | P.PN ---
Progress Note - Text Progress Note - Text Presenting complaint-change in mental status Interval history: This is a patient admitted with altered mental status. Had some elevated ammonia level seen by GI not for any further workup currently . GI suggesting suggesting outpatient colonoscopy. Patient also seen by psychiatry who did change patient's medication put him on Zyprexa. The patient didn't sleep well last night but did sleep rather well this morning. Patient is resident of [facility] can use a walker. Patient looks rather cheerful and chirpy right now. Patient also seen by Dr. Meza for his right leg wound. December 30/2017: Patient looks more awake. Did tolerate her diet. Did not have a bowel movement today. Answering questions appropriately Review of systems: Was done for constitutional, cardiovascular, GI, pulmonary. relevant finding as above Current medications are reviewed that includes Effexor Xarelto Zyprexa DuoNeb Physical examination: VITAL SIGNS: [98.2, 86, 16, 90/50, there are 9% room air] GENERAL APPEARANCE: Morbidly obese, BMI 62.7. Lying in bed, comfortable. Awake EYES: Pupils equal. Conjunctiva normal. NECK: JVD unable to assess. Mass not palpable. RESPIRATORY: Respiratory effort increased. Lungs distant breath CARDIOVASCULAR: First and second sounds normal. No edema. ABDOMEN: Soft. Liver and spleen not palpable. No tenderness. No mass palpable. PSYCHIATRY: Alert and oriented x3. Mood and affect normal. Labs: White count 5 hemoglobin 8.8 Assessment: -Possibly hepatocellular disease, given hypoalbuminemia and elevated ammonia, cirrhosis cannot be ruled out that could explain element of hepatic encephalopathy -Chronic right leg wound -Depression with psychotic thinking and paranoid delusion -COPD in an ex-smoker -Morbid obesity BMI 62.7 -Colonic diverticulosis -Primary osteoarthritis in multiple joints -Gait dysfunction uses a walker Plan: Overall patient looks a bit better. Wound care per Dr. Meza to continue. Will increase lactulose to 30 g 3 times a day plus every 4 when necessary to titrate to 3 BMs per day. Spoke to the nurse and patient's aide and reinforced the same
[2016-12-30] MEDS: SODIUM CHLORIDE 0.9% 1,000 ML IV SCH (16:57)
[2016-12-30] MEDS: TRIAMCINOLONE 0.1% CREAM 80 GM TUBE TOPICAL SCH (21:06)
[2016-12-31 06:38] LABS: Anisocytosis Slight; Basophils % (A) 1 %; CH 26.3; Eosinophils # (A) 0.3 k/uL (0-0.7); Eosinophils % (A) 6 %; HCT 29.4 % (39.0-53.0); HDW 3.02; HGB 9.2 gm/dL (13.0-17.5); Hypochromasia Marked; Luc # (Auto) 0.13; Luc % (Auto) 2; Lymphocytes # (A) 1.6 k/uL (1.0-4.8); Lymphocytes % (A) 29 %; MCH 27.4 pg (25.0-35.0); MCHC 31.2 g/dL (31.0-37.0); MCV 87.8 fL (80.0-100.0); Mean Platelet Volume 8.2; Monocytes # (A) 0.3 k/uL (0-1.0); Monocytes % (A) 6 %; Neutrophils # (A) 3.1 k/uL (1.3-7.7); Neutrophils % (A) 57 %; RBC 3.35 m/uL (4.30-5.90); RDW 16.7 % (11.5-15.5); WBC 5.5 k/uL (3.8-10.6); WBC (Perox) 5.68
[2016-12-31 06:50] LABS: ALT 30 U/L (21-72); AST 47 U/L (17-59); Alkaline Phosphatase 101 U/L (38-126); Anion Gap 8 mmol/L; Blood Urea Nitrogen 12 mg/dL (9-20); Calcium 7.9 mg/dL (8.4-10.2); Carbon Dioxide 25 mmol/L (22-30); Chloride 110 mmol/L (98-107); Glucose 94 mg/dL (74-99); Non-African American GFR(MDRD) >60 (>60 ml/min/1.73 sqM); Potassium 3.7 mmol/L (3.5-5.1); Sodium 143 mmol/L (137-145); Total Bilirubin 0.9 mg/dL (0.2-1.3); Total Protein 6.2 g/dL (6.3-8.2)
[2016-12-31] MEDS: IPRATROPIUM-ALBUTEROL 3 ML NEB INHALATION SCH ×4 (07:27→21:01)
[2016-12-31] MEDS: ZINC OXIDE 20% OINT 28.4 GM TUBE TOPICAL SCH ×2 (08:27→20:43)
[2016-12-31] MEDS: B COMPLEX-VIT C-VIT E-ZINC 1 EACH TAB PO SCH (08:27)
[2016-12-31] MEDS: BUMETANIDE 1 MG TAB PO SCH (08:28)
[2016-12-31] MEDS: FERROUS SULFATE 325 MG TAB PO SCH (08:28)
[2016-12-31] MEDS: guaiFENesin 600 MG TABLET.ER PO SCH ×2 (08:28→20:39)
[2016-12-31] MEDS: MELOXICAM 7.5 MG TAB PO SCH (08:28)
[2016-12-31] MEDS: VENLAFAXINE HCL ER 75 MG CAP PO SCH (08:29)
[2016-12-31] MEDS: OLANZapine 5 MG TAB PO SCH ×2 (08:29→20:39)
[2016-12-31] MEDS: RIVAROXABAN 10 MG TAB PO SCH (08:29)
[2016-12-31] MEDS: POTASSIUM CHLORIDE ER 20 MEQ TAB.ER PO SCH (08:29)
[2016-12-31] MEDS: PANTOPRAZOLE 40 MG TABLET PO SCH (08:29)
[2016-12-31] MEDS: LACTULOSE 20 GM/30 ML CUP PO SCH ×3 (08:38→20:39)
[2016-12-31] MEDS: HYDROcodone/APAP 5-325MG 1 EACH TAB PO PRN (12:43)
[2016-12-31] MEDS: SODIUM CHLORIDE 0.9% 1,000 ML IV SCH (15:14)
--- NOTE | 2016-12-31 15:49 | P.PN ---
Progress Note - Text Presenting complaint-change in mental status Interval history: This is a patient admitted with altered mental status. Had some elevated ammonia level seen by GI not for any further workup currently . GI suggesting suggesting outpatient colonoscopy. Patient also seen by psychiatry who did change patient's medication put him on Zyprexa. December 30/2017: Patient looks more awake. Did tolerate her diet. Did not have a bowel movement today. Answering questions appropriately 12/31/2016: Patient is felt to have underlying hepatocellular disease causing elevated ammonia which is responded well to lactulose. She now having about a bowel movement every shift. Looks better laying in bed tolerating diet. Overall feels better. Review of systems: Was done for constitutional, cardiovascular, GI, pulmonary. relevant finding as above Current medications are reviewed that includes Effexor Xarelto Zyprexa DuoNeb Physical examination: VITAL SIGNS: [97.9, 92, 16, 114/86, 92% room air] GENERAL APPEARANCE: Morbidly obese, Lying in bed, comfortable. Awake EYES: Pupils equal. Conjunctiva normal. NECK: JVD unable to assess. Mass not palpable. RESPIRATORY: Respiratory effort increased. Lungs distant breath CARDIOVASCULAR: First and second sounds normal. No edema. ABDOMEN: Soft. Liver and spleen not palpable. No tenderness. No mass palpable. PSYCHIATRY: Alert and oriented x3. Mood and affect normal. Answering questions appropriately Labs: White count 5.5, hemoglobin 9.2 potassium 3.7 ammonia 31, albumin 2.6 Assessment: -Possibly hepatocellular disease, given hypoalbuminemia and elevated ammonia, cirrhosis cannot be ruled out that could explain element of hepatic encephalopathy -Chronic right leg wound -Depression with psychotic thinking and paranoid delusion -COPD in an ex-smoker -Morbid obesity BMI 62.7 -Colonic diverticulosis -Primary osteoarthritis in multiple joints -Gait dysfunction uses a walker Plan: Patient clinically looks much better. Spoke on the phone with daughter. Did explain to her that patient's probably has underlying hepatocellular disease has responded well to lactulose. Also the psychotic thinking and paranoid delusion is doing better with Zyprexa. Had a lengthy discussion with her. Did tell her that patient stable to be discharged. outpatient follow-up with both the GI and psychiatry. Answered questions to her satisfaction. Total time spent today was about 40 minutes with over 20 minutes of discussion. Daughter will decide with the patient about discharge place
[2016-12-31] MEDS: TRIAMCINOLONE 0.1% CREAM 80 GM TUBE TOPICAL SCH (20:41)
--- NOTE | 2016-12-31 22:01 | P.PN ---
Subjective Principal diagnosis: Wounds This is a 61-year-old male who is currently residing at [facility]. Patient was brought into the hospital due to suicidal thoughts. Patient has had a temperature max of 100.0, no leukocytosis. He was found to have an elevated ammonia level initially at 59. Acute hepatitis panel was negative. Stool for occult blood was positive and apparently patient did relate that he has had dark stools recently. Urine drug screen was positive for opiates. Regarding his ammonia level this did go down to 11 on December 26 and now today is back at 51 and according to the nursing staff he has not is alert and cooperative as he normally is. He is noted to have a hemoglobin of 9.4 and platelets are currently at 157 but were down to 145. His urinalysis was negative for UTI and urine culture is showing no growth after 18 hours. Patient does have wounds to his bilateral knees. Patient states to me that he was running and ended up tripping and falling onto his knees. According to the nursing staff, patient fell out of bed at [facility]. Patient has been evaluated by Dr. Maribell Gomez with no evidence of GI bleed and follow-up in the office was recommended. He had an ultrasound of the abdomen which was limited and fatty infiltration of the liver was noted versus hepatocellular disease. Patient has been followed by psychiatry for delusional disorder with recommendations to continue Effexor, discontinue Risperdal and Zyprexa was started. Patient was thought to go to the mental health unit but he is non-ambulatory and may not be appropriate for our inpatient psychiatric unit. Patient also underwent a chest x-ray that showed chronic changes with nothing acute. Patient does not remember when he had his last tetanus status updated. Today the patient is improved. His hepatic function has improved. Encephalopathy is improved. Likely discharged home soon. Denies acute discomfort. Eating well. Objective - Vital Signs Vital signs: Vital Signs Temp 97.5 F L 12/31/16 20:45 Pulse 84 12/31/16 21:30 Resp 17 12/31/16 21:30 BP 123/64 12/31/16 20:45 Pulse Ox 96 12/31/16 20:45 Intake & Output 12/31/16 12/31/16 01/01/17 06:59 18:59 06:59 Intake Total 640 480 Output Total 300 Balance 640 180 Weight 203.98 kg Intake: Oral 640 480 Output: Urine 300 Other: Voiding Method Diaper Diaper Diaper Incontinent Incontinent Incontinent # Voids 1 1 # Bowel Movements 1 - Exam Gen: This is a morbidly obese 61-year-old male. He is laying in bed and appears to be comfortable. He awakens to verbal stimuli and quickly drifts off to sleep. He has a very poor historian. HEENT: Head is atraumatic, normocephalic. Pupils equal, round. Sclerae is anicteric. Conjunctiva pink. Oral mucous membranes are very dry. NECK: Short and thick. Supple. No JVD. No lymphadenopathy. No thyromegaly. LUNGS: Clear to auscultation. No wheezes or rhonchi. No intercostal retractions. HEART: Regular rate and rhythm. No murmur. ABDOMEN: Orbital he obese. Soft. Bowel sounds are present. No masses. No tenderness. No redness under her abdominal. He EXTREMITIES: Trace pedal edema. No calf tenderness. Cells pedis is weak bilaterally. To the right pretibial area below the knee there are skin tears noted with surrounding erythema, sanguinous drainage, to the left knee there is an abrasion noted these areas are improving. NEUROLOGICAL: Patient is awake, alert oriented to person, was not able to relate that he was Hospital. Did not know the month or the date but was able to say the year 2016. - Labs CBC & Chem 7: 12/31/16 06:24 12/31/16 06:24 Labs: Abnormal Lab Results - Last 24 Hours (Table) 12/31/16 12/31/16 12/31/16 Range/Units 06:24 06:24 06:24 RBC 3.35 L (4.30-5.90) m/uL Hgb 9.2 L (13.0-17.5) gm/dL Hct 29.4 L (39.0-53.0) % RDW 16.7 H (11.5-15.5) % Chloride 110 H (98-107) mmol/L Calcium 7.9 L (8.4-10.2) mg/dL Ammonia 31 H (<30) umol/L Total Protein 6.2 L (6.3-8.2) g/dL Albumin 2.6 L (3.5-5.0) g/dL Microbiology - Last 24 Hours (Table) 12/28/16 15:40 Gram Stain - Final Leg - Right Wound Culture - Final Staphylococcus aureus Laboratory Results WBC 5.5 k/uL (3.8-10.6) 12/31/16 06:24 RBC 3.35 m/uL (4.30-5.90) L 12/31/16 06:24 Hgb 9.2 gm/dL (13.0-17.5) L 12/31/16 06:24 Hct 29.4 % (39.0-53.0) L 12/31/16 06:24 MCV 87.8 fL (80.0-100.0) 12/31/16 06:24 MCH 27.4 pg (25.0-35.0) 12/31/16 06:24 MCHC 31.2 g/dL (31.0-37.0) 12/31/16 06:24 RDW 16.7 % (11.5-15.5) H 12/31/16 06:24 Plt Count 156 k/uL (150-450) 12/31/16 06:24 Neutrophils % 57 % 12/31/16 06:24 Neutrophils % (Manual) 68.0 % 12/29/16 06:50 Lymphocytes % 29 % 12/31/16 06:24 Lymphocytes % (Manual) 22.0 % 12/29/16 06:50 Monocytes % 6 % 12/31/16 06:24 Monocytes % (Manual) 6.0 % 12/29/16 06:50 Eosinophils % 6 % 12/31/16 06:24 Eosinophils % (Manual) 4.0 % 12/29/16 06:50 Basophils % 1 % 12/31/16 06:24 Neutrophils # 3.1 k/uL (1.3-7.7) 12/31/16 06:24 Neutrophils # (Manual) 3.9 k/uL (1.3-7.7) 12/29/16 06:50 Lymphocytes # 1.6 k/uL (1.0-4.8) 12/31/16 06:24 Lymphocytes # (Manual) 1.3 k/uL (1.0-4.8) 12/29/16 06:50 Monocytes # 0.3 k/uL (0-1.0) 12/31/16 06:24 Monocytes # (Manual) 0.3 k/uL (0-1.0) 12/29/16 06:50 Eosinophils # 0.3 k/uL (0-0.7) 12/31/16 06:24 Eosinophils # (Manual) 0.2 k/uL (0-0.7) 12/29/16 06:50 Basophils # 0.0 k/uL (0-0.2) 12/31/16 06:24 Nucleated RBCs 0 /100 WBC (0-0) 12/29/16 06:50 Manual Slide Review Performed 12/29/16 06:50 Polychromasia Present 12/28/16 07:14 Hypochromasia Marked 12/31/16 06:24 Anisocytosis Slight 12/31/16 06:24 PT 14.5 sec (9.0-12.0) H 12/23/16 19:36 INR 1.5 (<1.1) 12/23/16 19:36 APTT 25.8 sec (22.0-30.0) 12/23/16 19:36 Sodium 143 mmol/L (137-145) 12/31/16 06:24 Potassium 3.7 mmol/L (3.5-5.1) 12/31/16 06:24 Chloride 110 mmol/L (98-107) H 12/31/16 06:24 Carbon Dioxide 25 mmol/L (22-30) 12/31/16 06:24 Anion Gap 8 mmol/L 12/31/16 06:24 BUN 12 mg/dL (9-20) 12/31/16 06:24 Creatinine 0.80 mg/dL (0.66-1.25) 12/31/16 06:24 Est GFR (MDRD) Af Amer >60 (>60 ml/min/1.73 sqM) 12/31/16 06:24 Est GFR (MDRD) Non-Af >60 (>60 ml/min/1.73 sqM) 12/31/16 06:24 Glucose 94 mg/dL (74-99) 12/31/16 06:24 POC Glucose (mg/dL) 103 mg/dL (75-99) H 12/23/16 21:00 POC Glu [employer] Worker ID Taylor Fish 12/23/16 21:00 Calcium 7.9 mg/dL (8.4-10.2) L 12/31/16 06:24 Total Bilirubin 0.9 mg/dL (0.2-1.3) 12/31/16 06:24 AST 47 U/L (17-59) 12/31/16 06:24 ALT 30 U/L (21-72) 12/31/16 06:24 Alkaline Phosphatase 101 U/L (38-126) 12/31/16 06:24 Ammonia 31 umol/L (<30) H 12/31/16 06:24 Troponin I 0.013 ng/mL (0.000-0.034) 12/23/16 19:36 Total Protein 6.2 g/dL (6.3-8.2) L 12/31/16 06:24 Albumin 2.6 g/dL (3.5-5.0) L 12/31/16 06:24 TSH 2.570 mIU/L (0.465-4.680) 12/23/16 19:36 Urine Color Yellow 12/23/16 21:10 Urine Appearance Clear (Clear) 12/23/16 21:10 Urine pH 5.5 (5.0-8.0) 12/23/16 21:10 Ur Specific [place] 1.010 (1.001-1.035) 12/23/16 21:10 Urine Protein Negative (Negative) 12/23/16 21:10 Urine Glucose (UA) Negative (Negative) 12/23/16 21:10 Urine Ketones Negative (Negative) 12/23/16 21:10 Urine Blood Negative (Negative) 12/23/16 21:10 Urine Nitrite Negative (Negative) 12/23/16 21:10 Urine Bilirubin Negative (Negative) 12/23/16 21:10 Urine Urobilinogen 2.0 mg/dL (<2.0) 12/23/16 21:10 Ur Leukocyte Esterase Negative (Negative) 12/23/16 21:10 Stool Occult Blood Positive (Negative) 12/25/16 15:39 Urine Opiates Screen Detected (NotDetected) H 12/23/16 21:10 Ur Oxycodone Screen Not Detected (NotDetected) 12/23/16 21:10 Urine Methadone Screen Not Detected (NotDetected) 12/23/16 21:10 Ur Propoxyphene Screen Not Detected (NotDetected) 12/23/16 21:10 Ur Barbiturates Screen Not Detected (NotDetected) 12/23/16 21:10 U Tricyclic Antidepress Not Detected (NotDetected) 12/23/16 21:10 Ur Phencyclidine Scrn Not Detected (NotDetected) 12/23/16 21:10 Ur Amphetamines Screen Not Detected (NotDetected) 12/23/16 21:10 U Methamphetamines Scrn Not Detected (NotDetected) 12/23/16 21:10 U Benzodiazepines Scrn Not Detected (NotDetected) 12/23/16 21:10 Urine Cocaine Screen Not Detected (NotDetected) 12/23/16 21:10 U Marijuana (THC) Screen Not Detected (NotDetected) 12/23/16 21:10 Hepatitis A IgM Ab NEGATIVE 12/26/16 07:41 Hep Bs Antigen Negative 12/26/16 07:41 Hep B Core IgM Ab NEGATIVE 12/26/16 07:41 Hep C IgG Ab Negative (Negative) 12/26/16 07:41 Microbiology 12/28/16 15:40 Leg - Right Gram Stain - Final 12/28/16 15:40 Leg - Right Wound Culture - Final Staphylococcus aureus 12/23/16 21:10 Urine,Catheterized Urine Culture - Final Assessment and Plan (1) Hepatic encephalopathy Status: Acute (2) Abrasion of right leg Narrative/Plan: 61-year-old male presented hospital with altered mental status. No showing some significant improvement. His been treated for hepatic encephalopathy. He with this is now much more awake and alert interactive. Appetite is resolved. Only still has some confusion is much improved from prior. He will be following with gastroenterology after discharge from ongoing treatment of his current hepatic illness without evidence of acute viral hepatitis. Medical honey will be utilized to treat the abrasion to the right lateral leg.. The site does not appear to be grossly infected some staph was admitted from the site but is responding well to the current topical therapy. Without initiate further antibiotic therapy at this time. Home care should be able to help and if needed can follow in the office if needed. Status: Acute
[2017-01-01 07:54] VITALS: RESP 18
[2017-01-01] MEDS: IPRATROPIUM-ALBUTEROL 3 ML NEB INHALATION SCH ×3 (08:16→15:13)
[2017-01-01 08:59] LABS: Anisocytosis Slight; Basophils % (A) 0 %; CH 26.2; Eosinophils # (A) 0.2 k/uL (0-0.7); Eosinophils % (A) 5 %; HCT 29.9 % (39.0-53.0); HDW 3.03; HGB 9.4 gm/dL (13.0-17.5); Hypochromasia Marked; Luc % (Auto) 2; Lymphocytes # (A) 1.7 k/uL (1.0-4.8); Lymphocytes % (A) 34 %; MCH 27.4 pg (25.0-35.0); MCHC 31.3 g/dL (31.0-37.0); MCV 87.5 fL (80.0-100.0); Mean Platelet Volume 8.1; Monocytes # (A) 0.2 k/uL (0-1.0); Monocytes % (A) 4 %; Neutrophils # (A) 2.9 k/uL (1.3-7.7); Neutrophils % (A) 56 %; RBC 3.42 m/uL (4.30-5.90); RDW 16.6 % (11.5-15.5); WBC 5.2 k/uL (3.8-10.6); WBC (Perox) 5.39
[2017-01-01] MEDS: BUMETANIDE 1 MG TAB PO SCH (09:24)
[2017-01-01] MEDS: FERROUS SULFATE 325 MG TAB PO SCH (09:24)
[2017-01-01] MEDS: guaiFENesin 600 MG TABLET.ER PO SCH (09:24)
[2017-01-01] MEDS: B COMPLEX-VIT C-VIT E-ZINC 1 EACH TAB PO SCH (09:24)
[2017-01-01] MEDS: LACTULOSE 20 GM/30 ML CUP PO SCH ×2 (09:25→15:59)
[2017-01-01] MEDS: MELOXICAM 7.5 MG TAB PO SCH (09:25)
[2017-01-01] MEDS: PANTOPRAZOLE 40 MG TABLET PO SCH (09:26)
[2017-01-01] MEDS: VENLAFAXINE HCL ER 75 MG CAP PO SCH (09:26)
[2017-01-01] MEDS: RIVAROXABAN 10 MG TAB PO SCH (09:26)
[2017-01-01] MEDS: OLANZapine 5 MG TAB PO SCH (09:26)
[2017-01-01] MEDS: POTASSIUM CHLORIDE ER 20 MEQ TAB.ER PO SCH (09:26)
[2017-01-01 09:33] LABS: ALT 33 U/L (21-72); AST 36 U/L (17-59); Alkaline Phosphatase 108 U/L (38-126); Anion Gap 8 mmol/L; Blood Urea Nitrogen 14 mg/dL (9-20); Calcium 8.1 mg/dL (8.4-10.2); Carbon Dioxide 25 mmol/L (22-30); Chloride 108 mmol/L (98-107); Glucose 149 mg/dL (74-99); Non-African American GFR(MDRD) >60 (>60 ml/min/1.73 sqM); Potassium 3.5 mmol/L (3.5-5.1); Sodium 141 mmol/L (137-145); Total Bilirubin 0.9 mg/dL (0.2-1.3); Total Protein 6.1 g/dL (6.3-8.2)
[2017-01-01] MEDS: ZINC OXIDE 20% OINT 28.4 GM TUBE TOPICAL SCH (09:35)
--- NOTE | 2017-01-01 14:04 | P.DS ---
Providers Date of admission: 12/25/16 17:19 Expected date of discharge: 01/01/17 Attending physician: Christopher Marei Consults: 12/25/16 17:20 Consult Physician Urgent Consulting Provider: Marcial Forrest Consult Reason/Comments: Depression and suicidal ideation Do you want consulting provider notified?: Yes Consult Physician Urgent Consulting Provider: Ori Meredith Consult Reason/Comments: GI hemorrhage, hepatic encephalopathy Do you want consulting provider notified?: Yes 12/28/16 11:15 Consult Physician Routine Consulting Provider: Fritz Meza Consult Reason/Comments: right leg wound Do you want consulting provider notified?: Yes 12/28/16 15:31 Consult Physician Routine Consulting Provider: Tanja Lugo Consult Reason/Comments: depression Do you want consulting provider notified?: Already Contacted Primary care physician: Humberto Ramirez Hospital Course: Hospital course: This patient was admitted with altered mental status. Clinical picture and labs suggestive of hepatocellular disease. No evidence of alcoholism, As discussed with daughter. The patient has elevated ammonia level, low albumin and because of morbid obesity good pictures could not be obtained of the liver area. Patient was put on lactulose and bowel movements were titrated to 2-4 times a day to which he responded well. And patient's mental status did improve. Patient also seen by psychiatry who diagnosed him with depression with psychotic thinking and paranoid delusions and patient is put on Zyprexa at which he responded well. Patient's Risperdal was discontinued and his Effexor was continued. Patient tolerating a diet. Patient able to communicate now well Had a lengthy talk with patient's daughter yesterday evening and explained and all the workup. Patient also seen by Dr. Boateng from GI. Who may consider doing a colonoscopy as an outpatient. Patient also has an abrasion on the right leg treated with med-honey per Dr. Meza. Care was discussed in detail with the patient again today. Discharge planning more than 35 minutes. Discharge diagnosis: -Possibly hepatocellular disease, given hypoalbuminemia and elevated ammonia, cirrhosis cannot be ruled out causing hepatic encephalopathy -Acute right leg wound possibly -Depression with psychotic thinking and paranoid delusion, present on admission -COPD in an ex-smoker -Morbid obesity BMI 62.7 -Colonic diverticulosis -Primary osteoarthritis in multiple joints -Gait dysfunction uses a walker -Normocytic anemia Plan - Discharge Summary New Discharge Prescriptions: New Pantoprazole [Protonix] 40 mg PO DAILY tab Lactulose [Cephulac] 30 gm PO TID dose OLANZapine [ZyPREXA] 5 mg PO BID tab Continue Vitamin B Complex 1 cap PO DAILY@0900 Bumetanide [BUMEX] 2 mg PO DAILY@0900 Dimethicone/Zinc Oxide [Inzo Zinc Oxide Barrier Cream] 1 applic TOPICAL Q12H Ipratropium-Albuterol Nebulize [Duoneb 0.5 mg-3 mg/3 ml Soln] 3 ml INHALATION RT-Q4H PRN PRN Reason: Shortness Of Breath Meloxicam [Mobic] 7.5 mg PO DAILY@0900 Venlafaxine HCl [Effexor XR] 225 mg PO DAILY@0900 Ipratropium-Albuterol Nebulize [Duoneb 0.5 mg-3 mg/3 ml Soln] 3 ml INHALATION RT-QID neb guaiFENesin [Mucinex] 1,200 mg PO BID@0900,2100 Rivaroxaban [Xarelto] 20 mg PO DAILY@0900 Potassium Chloride [Klor-Con 20] 20 meq PO DAILY@0900 Ferrous Sulfate [Iron (65 MG Elemental)] 325 mg PO DAILY@0900 ALPRAZolam [Xanax] 0.5 mg PO BID PRN #10 PRN Reason: Anxiety HYDROcodone/APAP 5-325MG [[place] 5-325] 1 tab PO Q6HR PRN #10 PRN Reason: Breakthrough Pain Discontinued Prostat Awc 30 ml PO TID@0900,1300,2100 Triamcinolone 0.1% Cream [Kenalog] 1 applicatio TOPICAL HS HYDROcodone/APAP 5-325MG [[place] 5-325] 1 tab PO BID@0900,2100 risperiDONE [RisperDAL] 0.25 mg PO HS@2100 Discharge Medication List Vitamin B Complex 1 cap PO DAILY@0900 10/29/16 [History] Bumetanide [BUMEX] 2 mg PO DAILY@0900 11/20/16 [History] Dimethicone/Zinc Oxide [Inzo Zinc Oxide Barrier Cream] 1 applic TOPICAL Q12H [History] Ipratropium-Albuterol Nebulize [Duoneb 0.5 mg-3 mg/3 ml Soln] 3 ml INHALATION RT -Q4H PRN 11/20/16 [History] Meloxicam [Mobic] 7.5 mg PO DAILY@89911/20/16 [History] Venlafaxine HCl [Effexor XR] 225 mg PO DAILY@89911/20/16 [History] Ipratropium-Albuterol Nebulize [Duoneb 0.5 mg-3 mg/3 ml Soln] 3 ml INHALATION RT -QID neb 11/25/16 [Rx] Ferrous Sulfate [Iron (65 MG Elemental)] 325 mg PO DAILY@89912/23/16 [History] Potassium Chloride [Klor-Con 20] 20 meq PO DAILY@89912/23/16 [History] Rivaroxaban [Xarelto] 20 mg PO DAILY@89912/23/16 [History] guaiFENesin [Mucinex] 1,200 mg PO BID@0900,2100 12/23/16 [History] Pantoprazole [Protonix] 40 mg PO DAILY tab 12/26/16 [Rx] ALPRAZolam [Xanax] 0.5 mg PO BID PRN #10 01/01/17 [Rx] HYDROcodone/APAP 5-325MG [[place] 5-325] 1 tab PO Q6HR PRN #10 01/01/17 [Rx] Lactulose [Cephulac] 30 gm PO TID dose 01/01/17 [Rx] OLANZapine [ZyPREXA] 5 mg PO BID tab 01/01/17 [Rx] Follow up Appointment(s)/Referral(s): Fritz Meza MD [STAFF PHYSICIAN] - As Needed Marcial Forrest MD [STAFF PHYSICIAN] - 12/26/16 Janice Gomez MD [STAFF PHYSICIAN] - 10 Days Humberto Ramirez MD [Primary Care Provider] - 01/02/17 Activity/Diet/Wound Care/Special Instructions: cbc,cmp tomorrow wound care to continue per dr. meza Discharge Disposition: TRANSFER TO SNF/ECF
[2017-01-01 15:33] VITALS: BP 126/62; PULSE 87; TEMP 98.2
== END 2017-01-01 17:00 | DRG 441 ==
LOC: EC 20:30 → 5MS5E 12-25 17:19
PROVIDERS: ADMIT Hospitalist; ATTEND Hospitalist
DX: K72.90 Hepatic failure, unspecified without coma (principal); G93.41 Metabolic encephalopathy; E44.0 Moderate protein-calorie malnutrition; F32.3 Major depressive disorder, single episode, severe with psychotic features; R45.851 Suicidal ideations; Z68.44 Body mass index [BMI] 60.0-69.9, adult; D64.9 Anemia, unspecified; E66.01 Morbid (severe) obesity due to excess calories; E87.6 Hypokalemia; F40.240 Claustrophobia; G47.33 Obstructive sleep apnea (adult) (pediatric); I10 Essential (primary) hypertension; I87.8 Other specified disorders of veins; J44.9 Chronic obstructive pulmonary disease, unspecified; K57.30 Diverticulosis of large intestine without perforation or abscess without bleeding; M15.9 Polyosteoarthritis, unspecified; S81.801A Unspecified open wound, right lower leg, initial encounter; W06.XXXA Fall from bed, initial encounter; Y93.02 Activity, running; Z79.01 Long term (current) use of anticoagulants; Z80.42 Family history of malignant neoplasm of prostate; Z80.8 Family history of malignant neoplasm of other organs or systems; Z82.3 Family history of stroke; Z82.49 Family history of ischemic heart disease and other diseases of the circulatory system; Z87.01 Personal history of pneumonia (recurrent); Z87.891 Personal history of nicotine dependence; Z79.899 Other long term (current) drug therapy
CPT/HCPCS: 36415; 71010; 76705; 80053; 80074; 80306; 81003; 82075; 82140; 82272; 84443; 84484; 85025; 85610; 85730; 87070; 87077; 87086; 87186; 87205; 90715; 93005; 94640; 94760

== ENCOUNTER 2017-01-08 14:43 | Inpatient (IN) | payer MEDICARE ==
[2017-01-08 15:27] LABS: Anisocytosis Slight; Basophils % (A) 1 %; CH 26.3; Eosinophils # (A) 0.4 k/uL (0-0.7); Eosinophils % (A) 5 %; HCT 32.7 % (39.0-53.0); HDW 2.95; HGB 10.5 gm/dL (13.0-17.5); Hypochromasia Moderate; Luc # (Auto) 0.12; Luc % (Auto) 2; Lymphocytes # (A) 1.9 k/uL (1.0-4.8); Lymphocytes % (A) 26 %; MCH 27.3 pg (25.0-35.0); MCHC 32.1 g/dL (31.0-37.0); MCV 85.1 fL (80.0-100.0); Mean Platelet Volume 7.6; Monocytes # (A) 0.4 k/uL (0-1.0); Monocytes % (A) 6 %; Neutrophils # (A) 4.3 k/uL (1.3-7.7); Neutrophils % (A) 61 %; RBC 3.84 m/uL (4.30-5.90); RDW 16.7 % (11.5-15.5); WBC 7.2 k/uL (3.8-10.6); WBC (Perox) 6.87
--- NOTE | 2017-01-08 15:29 | XR ---
EXAMINATION TYPE: XR chest 1V portable DATE OF EXAM: 01/08/2017 COMPARISON: 12/23/2016 HISTORY: Confusion TECHNIQUE: Single frontal view of the chest is obtained. FINDINGS: There is no focal air space opacity, pleural effusion, or pneumothorax seen. The cardiac silhouette size is within normal limits. The osseous structures are intact. The heart is enlarged and the mediastinum is widened which is stable from the previous exam. IMPRESSION: 1. No definite acute process. Mediastinal widening stable from multiple previous exams. The Short-ter m follow-up CT chest.
[2017-01-08 15:39] LABS: INR 1.7 (<1.1); Partial Thromboplastin Time 27.2 sec (22.0-30.0); Prothrombin Time 16.4 sec (9.0-12.0)
[2017-01-08 15:42] LABS: ALT 38 U/L (21-72); AST 60 U/L (17-59); Alkaline Phosphatase 128 U/L (38-126); Anion Gap 10 mmol/L; Blood Urea Nitrogen 18 mg/dL (9-20); Calcium 8.7 mg/dL (8.4-10.2); Carbon Dioxide 25 mmol/L (22-30); Chloride 111 mmol/L (98-107); Glucose 105 mg/dL (74-99); Non-African American GFR(MDRD) >60 (>60 ml/min/1.73 sqM); Potassium 4.3 mmol/L (3.5-5.1); Sodium 146 mmol/L (137-145); Total Bilirubin 0.9 mg/dL (0.2-1.3); Total Protein 7.2 g/dL (6.3-8.2)
[2017-01-08 15:45] LABS: Creatine Kinase 46 U/L (55-170)
[2017-01-08 15:58] LABS: Amorphous Sediment,Urine Occasional /hpf; Appearance,Urine Clear (Clear); Bilirubin,Urine Negative (Negative); Glucose,Urine (UA) Negative (Negative); Ketones,Urine Negative (Negative); Leukocyte Esterase,Urine Small (Negative); Mucus,Urine Rare /hpf; Nitrite,Urine Negative (Negative); Particle Count 6393; Protein,Urine Negative (Negative); RBC,Urine 1 /hpf (0-5); Specific Gravity,Urine 1.008 (1.001-1.035); Squamous Epithelial Cell,Urine 2 /hpf (0-4); UA Billing (MACRO vs. MICRO) MICRO; Urobilinogen,Urine <2.0 mg/dL (<2.0); WBC,Urine 17 /hpf (0-5)
[2017-01-08 15:58] LABS: Creatine Kinase MB 0.7 ng/mL (0.0-2.4); Troponin I <0.012 ng/mL (0.000-0.034)
[2017-01-08] MEDS ORDERED: LACTULOSE 20 GM/30 ML CUP PO ONE (16:47)
[2017-01-08] MEDS ORDERED: NALOXONE 0.4 MG/ML 1 ML VIAL IV PRN (17:12)
[2017-01-08] MEDS ORDERED: ONDANSETRON 4 MG/2 ML VIAL IVP PRN (17:12)
[2017-01-08 19:19] VITALS: BMI 62.6
[2017-01-08] MEDS ORDERED: IPRATROPIUM-ALBUTEROL 3 ML NEB INHALATION PRN (20:33)
[2017-01-08] MEDS: ZINC OXIDE 20% OINT 28.4 GM TUBE TOPICAL SCH (21:15)
[2017-01-08] MEDS: guaiFENesin 600 MG TABLET.ER PO SCH (21:15)
[2017-01-08] MEDS: POTASSIUM CHLORIDE ER 20 MEQ TAB.ER PO SCH (21:16)
[2017-01-08] MEDS: OLANZapine 5 MG TAB PO SCH (21:16)
[2017-01-08] MEDS ORDERED: LACTULOSE 20 GM/30 ML CUP PO PRN (21:57)
[2017-01-08] MEDS ORDERED: LACTULOSE 20 GM/30 ML CUP PO SCH (22:00)
--- NOTE | 2017-01-08 22:49 | P.HPIM ---
History of Present Illness H&P Date: 01/08/17 This is a 61-year-old patient who was recently in the hospital. Patient is felt to have hepatocellular disease/cirrhosis, no history of alcoholism. Patient had hyper ammonia . Responded well to lactulose. Patient also seen by psychiatry diagnosed severe depression with psychotic thinking and Delusions, patient was put on Zyprexa to which she responded well. Patient had been on Risperdal that was discontinued and patient continued on his Effexor. Patient was doing well on lactulose getting 2-4 bowel movements a day. Patient then was seen by Dr. Boateng from GI. Patient was sent to the [facility]. Became confused and lethargic hence he was sent in. Patient not able to give much of her history. Tired and lethargic Significant past medical history: Hepatocellular disease, depression with psychotic thinking and paranoia and delusion, COPD, morbid obesity, diverticulosis, osteoarthritis, a dysfunction uses a walker, normocytic anemia. Review of Systems Review of review of system difficult to obtain. As patient is rather confused Past Medical History Past Medical History: Asthma, Hypertension, Osteoarthritis (OA), Pneumonia Additional Past Medical History / Comment(s): IN PAST TX FOR HYPERTENSION NO LONGER ON MEDS, KIDNEY STONE, BRONCHITIS, BEGINNINGS OF CATARACTS, DJD, HANDS SHAKY/TREMORS, DIVERTICULOSIS, History of Any Multi-Drug Resistant Organisms: None Reported Past Surgical History: Hernia Repair, Orthopedic Surgery Additional Past Surgical History / Comment(s): cyst removed from hand, CRISTOPHER CARPAL TUNNEL RELEASE,UMB HERNIA REPAIR, RT KNEE ARTHROSCOPY,COLONOSCOPY Past Anesthesia/Blood Transfusion Reactions: No Reported Reaction Additional Past Anesthesia/Blood Transfusion Reaction / Comment(s): CLAUSTERPHOBIA. PT LIVES ALONE IN A TRAILER.HAS 3 STEPS UP INTO HOME. PT USES A CANE/WALKER WHEN UP. HAS VISITING PHYSICIAN, MEALS ON WHEELS, CLEANING SERVICE X1 WEEK. CANE/WALKER, HOSPITAL BED. Past Psychological History: Depression Additional Psychological History / Comment(s): PT STATED FEELS WELL MAINTAINED ON HIS MEDS. Smoking Status: Never smoker - Past Family History Father Family Medical History: Cancer, CVA/TIA, Myocardial Infarction ([place]), Prostate Disorder Additional Family Medical History / Comment(s): SKIN ANd PROSTATE CANCER Mother Family Medical History: Cancer Additional Family Medical History / Comment(s): FROM BRAIN CANCER Medications and Allergies Home Medications Medication Instructions Recorded Confirmed Type Vitamin B Complex 1 cap PO DAILY@0900 10/29/16 01/08/17 History Bumetanide [BUMEX] 2 mg PO DAILY@89911/20/16 01/08/17 History Dimethicone/Zinc Oxide [Inzo Zinc 1 applic TOPICAL Q12H 11/20/16 01/08/17 History Oxide Barrier Cream] Ipratropium-Albuterol Nebulize 3 ml INHALATION RT-Q4H PRN 11/20/16 01/08/17 History [Duoneb 0.5 mg-3 mg/3 ml Soln] Meloxicam [Mobic] 7.5 mg PO DAILY@89911/20/16 01/08/17 History Venlafaxine HCl [Effexor XR] 225 mg PO DAILY@89911/20/16 01/08/17 History Ferrous Sulfate [Iron (65 MG 325 mg PO DAILY@89912/23/16 01/08/17 History Elemental)] Potassium Chloride [Klor-Con 20] 20 meq PO BID@0900,209912/23/16 01/08/17 History Rivaroxaban [Xarelto] 20 mg PO DAILY@0912/23/16 01/08/17 History guaiFENesin [Mucinex] 1,200 mg PO BID@0900,209912/23/16 01/08/17 History Lactulose [Cephulac] 30 gm PO TID@0600,1400,2200 01/08/17 01/08/17 History OLANZapine [ZyPREXA] 5 mg PO BID@0900,209901/08/17 01/08/17 History Omeprazole [PriLOSEC] 20 mg PO DAILY@0601/08/17 01/08/17 History Allergies Allergy/AdvReac Type Severity Reaction Status Date / Time No Known Allergies Allergy Verified 01/08/17 15:00 Physical Exam VITAL SIGNS: 98, 81, 20, 133/67, pulse ox 100% room air GENERAL: Well built, BMI 62.7 laying in bed, somewhat lethargic. EYES: Pupils equal. Conjunctiva normal. HEENT: External appearance of nose and ears normal, oral cavity grossly normal. NECK: JVD unable to assess; masses not palpable. HEART: First and second heart sounds are distant; no edema. LUNGS: Respiratory rate normal; distant breath sounds. ABDOMEN: Soft, nontender, liver spleen not palpable, no masses palpable. LYMPHATICS: No lymph nodes palpable in the axilla and neck. PSYCH: Patient able to answer some questions, otherwise drifts offl. NEUROLOGICAL: Cranial nerves grossly intact; no facial asymmetry, power and sensation grossly intact. Results CBC & Chem 7: 01/08/17 15:12 01/08/17 15:12 Labs: White count 7.2, hemoglobin 10.5, pro time 16.4, potassium 4.3,, ammonia 112, albumin 3.2 Assessment and Plan Plan: Assessment: -Acute on chronic hepatic nephropathy from underlying hepatocellular disease suspected underlying cirrhosis difficult to assess because of morbid obesity -Depression -COPD in ex-smoker Morbid obesity BMI 62.7 Colonic diverticulosis Primary osteoarthritis multiple joints Gait dysfunction uses a walker Normocytic anemia Plan: Home medications be reviewed and resumed. Patient be put on schedule lactulose and when necessary to obtain anywhere from 2-4 bowel movements a day. Overall prognosis guarded
--- NOTE | 2017-01-08 22:53 | P.HPIM ---
History of Present Illness H&P Date: 01/08/17 Chief Complaint: Acute mental status changes This is a 61-year-old male with chronic table medical conditions of asthma, hypertension, osteoarthritis, who resides at [facility] was brought into the hospital secondary to acute mental status changes. Patient is not a very good historian, most information has been gatheredfrompreviousadmissions he does start to answer questions appropriately and then is no longer able to do so starts talking about something completely unrelated. Labs were drawn and revealed AST elevation, alkaline phosphatase and ammonia, this could be contributing to his current status. Review of Systems ROS unobtainable: due to mental status Past Medical History Past Medical History: Asthma, Hypertension, Osteoarthritis (OA), Pneumonia Additional Past Medical History / Comment(s): IN PAST TX FOR HYPERTENSION NO LONGER ON MEDS, KIDNEY STONE, BRONCHITIS, BEGINNINGS OF CATARACTS, DJD, HANDS SHAKY/TREMORS, DIVERTICULOSIS, History of Any Multi-Drug Resistant Organisms: None Reported Past Surgical History: Hernia Repair, Orthopedic Surgery Additional Past Surgical History / Comment(s): cyst removed from hand, CRISTOPHER CARPAL TUNNEL RELEASE,UMB HERNIA REPAIR, RT KNEE ARTHROSCOPY,COLONOSCOPY Past Anesthesia/Blood Transfusion Reactions: No Reported Reaction Additional Past Anesthesia/Blood Transfusion Reaction / Comment(s): CLAUSTERPHOBIA. PT LIVES ALONE IN A TRAILER.HAS 3 STEPS UP INTO HOME. PT USES A CANE/WALKER WHEN UP. HAS VISITING PHYSICIAN, MEALS ON WHEELS, CLEANING SERVICE X1 WEEK. CANE/WALKER, HOSPITAL BED. Past Psychological History: Depression Additional Psychological History / Comment(s): PT STATED FEELS WELL MAINTAINED ON HIS MEDS. Smoking Status: Never smoker - Past Family History Father Family Medical History: Cancer, CVA/TIA, Myocardial Infarction ([place]), Prostate Disorder Additional Family Medical History / Comment(s): SKIN ANd PROSTATE CANCER Mother Family Medical History: Cancer Additional Family Medical History / Comment(s): FROM BRAIN CANCER Medications and Allergies Home Medications Medication Instructions Recorded Confirmed Type Vitamin B Complex 1 cap PO DAILY@0900 10/29/16 01/08/17 History Bumetanide [BUMEX] 2 mg PO DAILY@0900 11/20/16 01/08/17 History Dimethicone/Zinc Oxide [Inzo Zinc 1 applic TOPICAL Q12H 11/20/16 01/08/17 History Oxide Barrier Cream] Ipratropium-Albuterol Nebulize 3 ml INHALATION RT-Q4H PRN 11/20/16 01/08/17 History [Duoneb 0.5 mg-3 mg/3 ml Soln] Meloxicam [Mobic] 7.5 mg PO DAILY@0900 11/20/16 01/08/17 History Venlafaxine HCl [Effexor XR] 225 mg PO DAILY@0900 11/20/16 01/08/17 History Ferrous Sulfate [Iron (65 MG 325 mg PO DAILY@0900 12/23/16 01/08/17 History Elemental)] Potassium Chloride [Klor-Con 20] 20 meq PO BID@0900,2100 12/23/16 01/08/17 History Rivaroxaban [Xarelto] 20 mg PO DAILY@0900 12/23/16 01/08/17 History guaiFENesin [Mucinex] 1,200 mg PO BID@0900,2100 12/23/16 01/08/17 History Lactulose [Cephulac] 30 gm PO TID@0600,1400,2200 01/08/17 01/08/17 History OLANZapine [ZyPREXA] 5 mg PO BID@0900,2100 01/08/17 01/08/17 History Omeprazole [PriLOSEC] 20 mg PO DAILY@0601/08/17 01/08/17 History Allergies Allergy/AdvReac Type Severity Reaction Status Date / Time No Known Allergies Allergy Verified 01/08/17 15:00 Physical Exam Vitals: Vital Signs Temp Pulse Pulse Resp BP BP Pulse Ox 01/08/17 20:39 84 01/08/17 20:33 84 01/08/17 19:21 98.5 F 95 18 129/92 98 01/08/17 17:03 86 18 107/63 100 01/08/17 15:45 70 20 135/65 97 01/08/17 14:44 98 F 81 20 133/67 100 Intake and Output 01/08/17 01/08/17 01/08/17 06:59 14:59 22:59 Other: Voiding Method Urinal Weight 198.22 kg 198.22 kg Patient Weight 01/09/17 06:59 Weight 198.22 kg VITAL SIGNS: . Temperature 98.5, pulse 95, respiratory rate 18, blood pressure 129/92, oxygen saturation 98% on room air BMI noted] GENERAL: [Obese, sitting up, appears comfortable]. EYES: [Pupils equal. Conjunctiva mildred]l. HEENT: [External appearance of nose and ears normal, oral cavity grossly normal] . NECK: [JVD not raised; masses not palpable]. HEART: [First and second heart sounds are normal; generalized edema]. LUNGS:[ Respiratory rate normal; diminished bilaterally to auscultation]. ABDOMEN: [Obese Soft, nontender, liver spleen not palpable, no masses palpable] . LYMPHATICS: [No lymph nodes palpable in the axilla and neck]. PSYCH: [Alert and oriented x 2; calm yet somewhat lethargic unable to answer questions fully, l. NEUROLOGICAL: [Cranial nerves grossly intact; no facial asymmetry, power and sensation grossly intact]. Results CBC & Chem 7: 01/08/17 15:12 01/08/17 15:12 Labs: Abnormal Lab Results - Last 24 Hours (Table) 01/08/17 01/08/17 01/08/17 Range/Units 15:12 15:12 15:12 RBC 3.84 L (4.30-5.90) m/uL Hgb 10.5 L (13.0-17.5) gm/dL Hct 32.7 L (39.0-53.0) % RDW 16.7 H (11.5-15.5) % PT (9.0-12.0) sec Sodium (137-145) mmol/L Chloride (98-107) mmol/L Glucose (74-99) mg/dL AST (17-59) U/L Alkaline Phosphatase (38-126) U/L Ammonia 112 H (<30) umol/L Total Creatine Kinase 46 L (55-170) U/L Albumin (3.5-5.0) g/dL Ur Leukocyte Esterase (Negative) Urine WBC (0-5) /hpf Amorphous Sediment (None) /hpf Urine Mucus (None) /hpf 01/08/17 01/08/17 01/08/17 Range/Units 15:12 15:12 15:50 RBC (4.30-5.90) m/uL Hgb (13.0-17.5) gm/dL Hct (39.0-53.0) % RDW (11.5-15.5) % PT 16.4 H (9.0-12.0) sec Sodium 146 H (137-145) mmol/L Chloride 111 H (98-107) mmol/L Glucose 105 H (74-99) mg/dL AST 60 H (17-59) U/L Alkaline Phosphatase 128 H (38-126) U/L Ammonia (<30) umol/L Total Creatine Kinase (55-170) U/L Albumin 3.2 L (3.5-5.0) g/dL Ur Leukocyte Esterase Small H (Negative) Urine WBC 17 H (0-5) /hpf Amorphous Sediment Occasional H (None) /hpf Urine Mucus Rare H (None) /hpf Thrombosis Risk Factor Assmnt - Choose All That Apply Each Factor Represents 1 point: Obesity (BMI >25) Each Risk Factor Represents 2 Points: Age 61-74 years, Patient confined to bed Thrombosis Risk Factor Assessment Total Risk Factor Score: 5 Thrombosis Risk Factor Assessment Level: High Risk Assessment and Plan Plan: ASSESSMENT: -Acute mental status changes, in a patient with hepatocellular disease, elevated ammonia, causing hepatic encephalopathy -acute urinary tract infection -COPD and an ex-smoker -Morbid obesity, BMI 62.7 -Primary osteoarthritis of multiple joints -Gait dysfunction uses a walker PLAN: Home medications ordered, lactulose restarted to titrate to 3-4 bowel movements per day, antibiotics ordered, plan of care discussed with patient however given patient's condition it is unclear if he was agreeable to the plan, patient stated he was. We will continue to follow closely
[2017-01-09] MEDS ORDERED: IPRATROPIUM-ALBUTEROL 3 ML NEB INHALATION SCH
--- NOTE | 2017-01-09 00:48 | ED ---
General Adult HPI - General Chief complaint: Altered Mental Status Stated complaint: Abn labs Time Seen by Provider: 01/08/17 14:50 Source: patient, EMS, RN notes reviewed, old records reviewed Mode of arrival: EMS - History of Present Illness Initial comments: 61-year-old male with history of COPD, liver disease, morbid obesity and apparently presents from assisted with a one-day history of confusion. Patient was sent in with ammonia level of 121. Patient is on lactulose 20 mg 3 times a day. Patient has no complaints. Clonidine EMS patient is normally quite talkative and he is somewhat subdued. He is alert and oriented 2. Denies chest pain or shortness of breath. Denies fever or chills. Denies abdominal pain. - Related Data Home Medications Medication Instructions Recorded Confirmed Vitamin B Complex 1 cap PO DAILY@0900 10/29/16 01/08/17 Bumetanide [BUMEX] 2 mg PO DAILY@89911/20/16 01/08/17 Dimethicone/Zinc Oxide [Inzo Zinc 1 applic TOPICAL Q12H 11/20/16 01/08/17 Oxide Barrier Cream] Ipratropium-Albuterol Nebulize 3 ml INHALATION RT-Q4H PRN 11/20/16 01/08/17 [Duoneb 0.5 mg-3 mg/3 ml Soln] Meloxicam [Mobic] 7.5 mg PO DAILY@89911/20/16 01/08/17 Venlafaxine HCl [Effexor XR] 225 mg PO DAILY@89911/20/16 01/08/17 Ferrous Sulfate [Iron (65 MG 325 mg PO DAILY@89912/23/16 01/08/17 Elemental)] Potassium Chloride [Klor-Con 20] 20 meq PO BID@0900,209912/23/16 01/08/17 Rivaroxaban [Xarelto] 20 mg PO DAILY@89912/23/16 01/08/17 guaiFENesin [Mucinex] 1,200 mg PO BID@0900,209912/23/16 01/08/17 Lactulose [Cephulac] 30 gm PO TID@0600,1400,2200 01/08/17 01/08/17 OLANZapine [ZyPREXA] 5 mg PO BID@0900,209901/08/17 01/08/17 Omeprazole [PriLOSEC] 20 mg PO DAILY@0600 01/08/17 01/08/17 Previous Rx's Medication Instructions Recorded Ipratropium-Albuterol Nebulize 3 ml INHALATION RT-QID neb 11/25/16 [Duoneb 0.5 mg-3 mg/3 ml Soln] ALPRAZolam [Xanax] 0.5 mg PO BID PRN #10 01/01/17 HYDROcodone/APAP 5-325MG [[place]us 1 tab PO Q6HR PRN #10 01/01/17 5-325] Allergies Allergy/AdvReac Type Severity Reaction Status Date / Time No Known Allergies Allergy Verified 01/08/17 15:00 Review of Systems ROS Statement: Those systems with pertinent positive or pertinent negative responses have been documented in the HPI. ROS Other: All systems not noted in ROS Statement are negative. Past Medical History Past Medical History: Asthma, Hypertension, Osteoarthritis (OA), Pneumonia Additional Past Medical History / Comment(s): IN PAST TX FOR HYPERTENSION NO LONGER ON MEDS, KIDNEY STONE, BRONCHITIS, BEGINNINGS OF CATARACTS, DJD, HANDS SHAKY/TREMORS, DIVERTICULOSIS, History of Any Multi-Drug Resistant Organisms: None Reported Past Surgical History: Hernia Repair, Orthopedic Surgery Additional Past Surgical History / Comment(s): cyst removed from hand, CRISTOPHER CARPAL TUNNEL RELEASE,UMB HERNIA REPAIR, RT KNEE ARTHROSCOPY,COLONOSCOPY Past Anesthesia/Blood Transfusion Reactions: No Reported Reaction Additional Past Anesthesia/Blood Transfusion Reaction / Comment(s): CLAUSTERPHOBIA. PT LIVES ALONE IN A TRAILER.HAS 3 STEPS UP INTO HOME. PT USES A CANE/WALKER WHEN UP. HAS VISITING PHYSICIAN, MEALS ON WHEELS, CLEANING SERVICE X1 WEEK. CANE/WALKER, HOSPITAL BED. Past Psychological History: Depression Additional Psychological History / Comment(s): PT STATED FEELS WELL MAINTAINED ON HIS MEDS. Smoking Status: Never smoker - Past Family History Father Family Medical History: Cancer, CVA/TIA, Myocardial Infarction ([place]), Prostate Disorder Additional Family Medical History / Comment(s): SKIN ANd PROSTATE CANCER Mother Family Medical History: Cancer Additional Family Medical History / Comment(s): FROM BRAIN CANCER General Exam General appearance: in no apparent distress Head exam: Present: atraumatic, normocephalic Eye exam: Present: normal appearance, PERRL ENT exam: Present: normal exam, mucous membranes moist Neck exam: Present: normal inspection. Absent: meningismus Respiratory exam: Present: decreased breath sounds. Absent: respiratory distress Cardiovascular Exam: Present: regular rate, normal rhythm GI/Abdominal exam: Present: soft, other (Obese). Absent: distended Extremities exam: Present: normal capillary refill, pedal edema Neurological exam: Present: CN II-XII intact, motor sensory deficit, other (No focal neurological deficits, patient does have bilateral upper extremity asterixis, alert and oriented 2). Absent: oriented X3 Psychiatric exam: Present: normal affect, normal mood Skin exam: Present: warm, dry Course Vital Signs 01/08/17 01/08/17 01/08/17 14:44 15:45 17:03 Temperature 98 F Pulse Rate 81 70 86 Respiratory 20 20 18 Rate Blood Pressure 133/67 135/65 107/63 O2 Sat by Pulse 100 97 100 Oximetry EKG Findings - EKG Comments: EKG Findings:: EKG shows normal sinus rhythm with a ventricular rate 81, ID interval 158, QRS duration 108, QTC is prolonged at 520. Medical Decision Making - Medical Decision Making 61-year-old male with a one-day history of confusion. Patient's found to have an ammonia level of 112. Patient is given lactulose in the emergency department and his dose is increased to 4 times daily. Patient will be admitted to internal medicine for further treatment and reevaluation. Diagnosis: Hepatic encephalopathy - Lab Data Result diagrams: 01/08/17 15:12 01/08/17 15:12 Lab Results 01/08/17 01/08/17 01/08/17 Range/Units 15:12 15:12 15:12 WBC 7.2 (3.8-10.6) k/uL RBC 3.84 L (4.30-5.90) m/uL Hgb 10.5 L (13.0-17.5) gm/dL Hct 32.7 L (39.0-53.0) % MCV 85.1 (80.0-100.0) fL MCH 27.3 (25.0-35.0) pg MCHC 32.1 (31.0-37.0) g/dL RDW 16.7 H (11.5-15.5) % Plt Count 194 (150-450) k/uL Neutrophils % 61 % Lymphocytes % 26 % Monocytes % 6 % Eosinophils % 5 % Basophils % 1 % Neutrophils # 4.3 (1.3-7.7) k/uL Lymphocytes # 1.9 (1.0-4.8) k/uL Monocytes # 0.4 (0-1.0) k/uL Eosinophils # 0.4 (0-0.7) k/uL Basophils # 0.0 (0-0.2) k/uL Hypochromasia Moderate Anisocytosis Slight PT (9.0-12.0) sec INR (<1.1) APTT (22.0-30.0) sec Sodium (137-145) mmol/L Potassium (3.5-5.1) mmol/L Chloride (98-107) mmol/L Carbon Dioxide (22-30) mmol/L Anion Gap mmol/L BUN (9-20) mg/dL Creatinine (0.66-1.25) mg/dL Est GFR (MDRD) Af Amer (>60 ml/min/1.73 sqM) Est GFR (MDRD) Non-Af (>60 ml/min/1.73 sqM) Glucose (74-99) mg/dL Calcium (8.4-10.2) mg/dL Total Bilirubin (0.2-1.3) mg/dL AST (17-59) U/L ALT (21-72) U/L Alkaline Phosphatase (38-126) U/L Ammonia 112 H (<30) umol/L Total Creatine Kinase 46 L (55-170) U/L CK-MB (CK-2) 0.7 (0.0-2.4) ng/mL CK-MB (CK-2) Rel Index 1.5 Troponin I <0.012 (0.000-0.034) ng/mL Total Protein (6.3-8.2) g/dL Albumin (3.5-5.0) g/dL Urine Color Urine Appearance (Clear) Urine pH (5.0-8.0) Ur Specific [place] (1.001-1.035) Urine Protein (Negative) Urine Glucose (UA) (Negative) Urine Ketones (Negative) Urine Blood (Negative) Urine Nitrite (Negative) Urine Bilirubin (Negative) Urine Urobilinogen (<2.0) mg/dL Ur Leukocyte Esterase (Negative) Urine RBC (0-5) /hpf Urine WBC (0-5) /hpf Ur Squamous Epith Cells (0-4) /hpf Amorphous Sediment (None) /hpf Urine Mucus (None) /hpf Urine Opiates Screen (NotDetected) Ur Oxycodone Screen (NotDetected) Urine Methadone Screen (NotDetected) Ur Propoxyphene Screen (NotDetected) Ur Barbiturates Screen (NotDetected) U Tricyclic Antidepress (NotDetected) Ur Phencyclidine Scrn (NotDetected) Ur Amphetamines Screen (NotDetected) U Methamphetamines Scrn (NotDetected) U Benzodiazepines Scrn (NotDetected) Urine Cocaine Screen (NotDetected) U Marijuana (THC) Screen (NotDetected) 01/08/17 01/08/17 01/08/17 Range/Units 15:12 15:12 15:50 WBC (3.8-10.6) k/uL RBC (4.30-5.90) m/uL Hgb (13.0-17.5) gm/dL Hct (39.0-53.0) % MCV (80.0-100.0) fL MCH (25.0-35.0) pg MCHC (31.0-37.0) g/dL RDW (11.5-15.5) % Plt Count (150-450) k/uL Neutrophils % % Lymphocytes % % Monocytes % % Eosinophils % % Basophils % % Neutrophils # (1.3-7.7) k/uL Lymphocytes # (1.0-4.8) k/uL Monocytes # (0-1.0) k/uL Eosinophils # (0-0.7) k/uL Basophils # (0-0.2) k/uL Hypochromasia Anisocytosis PT 16.4 H (9.0-12.0) sec INR 1.7 (<1.1) APTT 27.2 (22.0-30.0) sec Sodium 146 H (137-145) mmol/L Potassium 4.3 (3.5-5.1) mmol/L Chloride 111 H (98-107) mmol/L Carbon Dioxide 25 (22-30) mmol/L Anion Gap 10 mmol/L BUN 18 (9-20) mg/dL Creatinine 1.00 (0.66-1.25) mg/dL Est GFR (MDRD) Af Amer >60 (>60 ml/min/1.73 sqM) Est GFR (MDRD) Non-Af >60 (>60 ml/min/1.73 sqM) Glucose 105 H (74-99) mg/dL Calcium 8.7 (8.4-10.2) mg/dL Total Bilirubin 0.9 (0.2-1.3) mg/dL AST 60 H (17-59) U/L ALT 38 (21-72) U/L Alkaline Phosphatase 128 H (38-126) U/L Ammonia (<30) umol/L Total Creatine Kinase (55-170) U/L CK-MB (CK-2) (0.0-2.4) ng/mL CK-MB (CK-2) Rel Index Troponin I (0.000-0.034) ng/mL Total Protein 7.2 (6.3-8.2) g/dL Albumin 3.2 L (3.5-5.0) g/dL Urine Color Light Yellow Urine Appearance Clear (Clear) Urine pH 6.0 (5.0-8.0) Ur Specific [place] 1.008 (1.001-1.035) Urine Protein Negative (Negative) Urine Glucose (UA) Negative (Negative) Urine Ketones Negative (Negative) Urine Blood Negative (Negative) Urine Nitrite Negative (Negative) Urine Bilirubin Negative (Negative) Urine Urobilinogen <2.0 (<2.0) mg/dL Ur Leukocyte Esterase Small H (Negative) Urine RBC 1 (0-5) /hpf Urine WBC 17 H (0-5) /hpf Ur Squamous Epith Cells 2 (0-4) /hpf Amorphous Sediment Occasional H (None) /hpf Urine Mucus Rare H (None) /hpf Urine Opiates Screen Not Detected (NotDetected) Ur Oxycodone Screen Not Detected (NotDetected) Urine Methadone Screen Not Detected (NotDetected) Ur Propoxyphene Screen Not Detected (NotDetected) Ur Barbiturates Screen Not Detected (NotDetected) U Tricyclic Antidepress Not Detected (NotDetected) Ur Phencyclidine Scrn Not Detected (NotDetected) Ur Amphetamines Screen Not Detected (NotDetected) U Methamphetamines Scrn Not Detected (NotDetected) U Benzodiazepines Scrn Not Detected (NotDetected) Urine Cocaine Screen Not Detected (NotDetected) U Marijuana (THC) Screen Not Detected (NotDetected) Disposition Clinical Impression: Hepatic encephalopathy Disposition: ADMITTED IP TO THIS [facility] Condition: Stable Decision to Admit Reason: Admit from EC
[2017-01-09] MEDS: LACTULOSE 20 GM/30 ML CUP PO SCH ×6 (01:56→20:03)
[2017-01-09] MEDS: PANTOPRAZOLE 40 MG TABLET PO SCH (06:12)
[2017-01-09] MEDS: IPRATROPIUM-ALBUTEROL 3 ML NEB INHALATION SCH ×4 (07:17→19:27)
[2017-01-09 07:51] LABS: ALT 33 U/L (21-72); AST 41 U/L (17-59); Alkaline Phosphatase 112 U/L (38-126); Anion Gap 7 mmol/L; Blood Urea Nitrogen 19 mg/dL (9-20); Calcium 8.4 mg/dL (8.4-10.2); Carbon Dioxide 25 mmol/L (22-30); Chloride 114 mmol/L (98-107); Glucose 105 mg/dL (74-99); Non-African American GFR(MDRD) >60 (>60 ml/min/1.73 sqM); Potassium 3.8 mmol/L (3.5-5.1); Sodium 146 mmol/L (137-145); Total Bilirubin 0.9 mg/dL (0.2-1.3); Total Protein 6.2 g/dL (6.3-8.2)
[2017-01-09 08:15] LABS: Anisocytosis Slight; CH 25.9; CHCM 29.9; HCT 31.4 % (39.0-53.0); HDW 2.92; HGB 9.7 gm/dL (13.0-17.5); Hypochromasia Marked; MCH 26.9 pg (25.0-35.0); MCHC 30.9 g/dL (31.0-37.0); Mean Platelet Volume 7.9; RDW 16.6 % (11.5-15.5); WBC 5.9 k/uL (3.8-10.6)
[2017-01-09] MEDS: B COMPLEX-VIT C-VIT E-ZINC 1 EACH TAB PO SCH (09:49)
[2017-01-09] MEDS: POTASSIUM CHLORIDE ER 20 MEQ TAB.ER PO SCH ×2 (09:49→20:03)
[2017-01-09] MEDS: OLANZapine 5 MG TAB PO SCH ×2 (09:49→20:03)
[2017-01-09] MEDS: VENLAFAXINE HCL ER 75 MG CAP PO SCH (09:49)
[2017-01-09] MEDS: BUMETANIDE 1 MG TAB PO SCH (09:49)
[2017-01-09] MEDS: RIVAROXABAN 10 MG TAB PO SCH (09:49)
[2017-01-09] MEDS: guaiFENesin 600 MG TABLET.ER PO SCH ×2 (09:49→20:03)
[2017-01-09] MEDS: DEXTROSE 5%-0.45% NACL 1,000 ML IV SCH ×2 (09:50→17:18)
[2017-01-09] MEDS: FERROUS SULFATE 325 MG TAB PO SCH (09:50)
[2017-01-09] MEDS: ZINC OXIDE 20% OINT 28.4 GM TUBE TOPICAL SCH ×2 (09:51→20:06)
[2017-01-09 10:30] LABS: Add Differential Manual Differential
[2017-01-09 10:32] LABS: Nucleated Red Blood Cells 0 /100 WBC (0-0); Total Cells Counted 100
--- NOTE | 2017-01-09 19:52 | P.PN ---
<Lizette Aleman - Last Filed: 01/09/17 19:52> Progress Note - Text DATE OF SERVICE: 01/09/2017 PRESENTING COMPLAINT: Mental status changes INTERVAL HISTORY: 61-year-old patient who was felt to have hepatocellular disease cirrhosis no history of alcoholism. Presented with mental status changes and increasing confusion and lethargy. 01/09/2017: Patient remains confused today, not really able to answer many questions smiles a lot, nondistended a lot. When he is asked questions oftentimes is not able to really verbalize the correct answer. Remains on lactulose and goal of 2-4 bowel movements a day. Patient eats about 50% of his meal and requires assistance. Is having said bowel movements per nursing REVIEW OF SYSTEMS: Done for constitutional ,cardiovascular, GI, pulmonary with relevant findings as above. CURRENT MEDICATIONS DuoNeb's, Bumex, lactulose 30 g every 4 hours. Protonix, Xarelto PHYSICAL EXAM VITAL SIGNS: Temperature 97.9, pulse 88, respiratory rate 16, blood pressure 120/59, oxygen saturation 96% on room air. GENERAL APPEARANCE: Obese. Lying in bed, not in distress. EYES: Pupils equal. Conjunctiva normal. NECK: JVD not raised. Mass not palpable. RESPIRATORY: Respiratory effort normal. Lungs diminished auscultation. CARDIOVASCULAR: First and second sounds normal. No edema. ABDOMEN: Soft, obese, Liver and spleen not palpable. No tenderness. No mass palpable. PSYCHIATRY: Alert to room stimuli, attempts to speak to you but unable to clearly communicate thoughts.. Mood and affect calm and cooperative l. INVESTIGATIONS: White blood cell count 5.9, hemoglobin 9.7, sodium 146, chloride 114, ammonia 82 ASSESSMENT: -Acute on chronic hepatic encephalopathy from underlying hepatocellular disease suspected underlying cirrhosis difficult to assess because of morbid obesity -Depression, not otherwise specified -COPD in ex-smoker -Morbid obesity BMI 62.7 -Colonic diverticulosis -Primary osteoarthritis multiple joints -Gait dysfunction uses a walker -Normocytic anemia PLAN: Increase lactulose 20 g to 30 titrate to having 3-4 bowel movements every day. GI consulted and we'll await their input. Overall prognosis is guarded MANAGED CARE NURSE statement: Patient was seen and examined by nurse practitioner Lizette Aleman and all elements of the case discussed with attending Dr. Marie <Christopher Marie - Last Filed: 01/09/17 20:07> Progress Note - Text Attending note. Date of service-01/09/2017 This patient was seen and examined by me . I reviewed the note of my nurse practitioner, Ms. Aleman. Discussed with her, additional findings as below. Patient is still rather confused, lethargic. Has been on lactulose. ate about 50% of his meals per the aide. Laying in bed On examination: Laying in bed-, still somewhat confused Investigations: Ammonia 82 Assessment and plan: Acute hepatic encephalopathy from underlying hepatocellular disease. Slow to respond. Increase patient's lactulose to 30 g every 4. Prognosis guarded
[2017-01-10] MEDS: LACTULOSE 20 GM/30 ML CUP PO SCH ×6 (01:41→21:39)
[2017-01-10] MEDS: PANTOPRAZOLE 40 MG TABLET PO SCH (06:04)
[2017-01-10] MEDS: FERROUS SULFATE 325 MG TAB PO SCH (07:48)
[2017-01-10] MEDS: guaiFENesin 600 MG TABLET.ER PO SCH ×2 (07:48→20:08)
[2017-01-10] MEDS: BUMETANIDE 1 MG TAB PO SCH (07:48)
[2017-01-10] MEDS: B COMPLEX-VIT C-VIT E-ZINC 1 EACH TAB PO SCH (07:48)
[2017-01-10] MEDS: POTASSIUM CHLORIDE ER 20 MEQ TAB.ER PO SCH ×2 (07:49→20:08)
[2017-01-10] MEDS: OLANZapine 5 MG TAB PO SCH ×2 (07:49→20:08)
[2017-01-10] MEDS: RIVAROXABAN 10 MG TAB PO SCH (07:49)
[2017-01-10] MEDS: VENLAFAXINE HCL ER 75 MG CAP PO SCH (07:49)
[2017-01-10 08:25] LABS: ALT 34 U/L (21-72); AST 40 U/L (17-59); Alkaline Phosphatase 105 U/L (38-126); Anion Gap 9 mmol/L; Blood Urea Nitrogen 19 mg/dL (9-20); Calcium 8.7 mg/dL (8.4-10.2); Carbon Dioxide 23 mmol/L (22-30); Chloride 114 mmol/L (98-107); Glucose 94 mg/dL (74-99); Non-African American GFR(MDRD) >60 (>60 ml/min/1.73 sqM); Potassium 3.9 mmol/L (3.5-5.1); Sodium 146 mmol/L (137-145); Total Bilirubin 0.8 mg/dL (0.2-1.3)
[2017-01-10] MEDS: IPRATROPIUM-ALBUTEROL 3 ML NEB INHALATION SCH ×4 (09:14→20:28)
[2017-01-10] MEDS: DEXTROSE 5%-0.45% NACL 1,000 ML IV SCH (10:35)
[2017-01-10] MEDS: ZINC OXIDE 20% OINT 28.4 GM TUBE TOPICAL SCH ×2 (12:04→20:08)
--- NOTE | 2017-01-10 17:10 | P.PN ---
Progress Note - Text DATE OF SERVICE: 01/10/2017 PRESENTING COMPLAINT: Mental status changes INTERVAL HISTORY: 61-year-old patient who was felt to have hepatocellular disease cirrhosis no history of alcoholism. Presented with mental status changes and increasing confusion and lethargy. 01/09/2017: Patient remains confused today, not really able to answer many questions smiles a lot, nondistended a lot. When he is asked questions oftentimes is not able to really verbalize the correct answer. Remains on lactulose and goal of 2-4 bowel movements a day. Patient eats about 50% of his meal and requires assistance. Is having said bowel movements per nursing 01/10/2017: Continues to be confused however was able to tell us his name, the season, and where he was. Much more awake and interactive. It does take him a fair amount of time to answer questions, but he is able to answer some simple straightforward questions. Continues to have multiple bowel movements secondary to lactulose administration. Does require a one-to-one feeding assistance as he seems to have some difficulty feeding himself and using utensils. Still eating about 50% of his meals per the aide. REVIEW OF SYSTEMS: Done for constitutional ,cardiovascular, GI, pulmonary with relevant findings as above. CURRENT MEDICATIONS DuoNeb's, Bumex, lactulose 30 g every 4 hours. Protonix, Xarelto PHYSICAL EXAM VITAL SIGNS: Temperature 97.9, pulse 88, respiratory rate 16, blood pressure 120/59, oxygen saturation 96% on room air. GENERAL APPEARANCE: Obese. Lying in bed, more alert. EYES: Pupils equal. Conjunctiva normal. NECK: JVD not raised. Mass not palpable. RESPIRATORY: Respiratory effort normal. Lungs diminished auscultation. CARDIOVASCULAR: First and second sounds normal. No edema. ABDOMEN: Soft, obese, Liver and spleen not palpable. No tenderness. No mass palpable. PSYCHIATRY: Alert to self, season and location, tries to communicate but it does take a fair amount of time for him to gather his thoughts.. Mood and affect calm and cooperative . INVESTIGATIONS: ASSESSMENT: -Acute on chronic hepatic encephalopathy from underlying hepatocellular disease suspected underlying cirrhosis difficult to assess because of morbid obesity, improving -Depression, not otherwise specified -COPD in ex-smoker -Morbid obesity BMI 62.7 -Colonic diverticulosis -Primary osteoarthritis multiple joints -Gait dysfunction uses a walker -Normocytic anemia PLAN: Continue lactulose for patient have 3-4 bowel movements per day, initiate PT and OT as patient can tolerate and pertussis patent. Condition improving, remains guarded. We'll follow CLOSET BUILDER statement: Patient was seen and examined by nurse practitioner Lizette lAeman and all elements of the case discussed with attending Dr. Marie
[2017-01-11] MEDS: PANTOPRAZOLE 40 MG TABLET PO SCH (05:31)
[2017-01-11] MEDS: IPRATROPIUM-ALBUTEROL 3 ML NEB INHALATION SCH ×4 (07:11→20:29)
[2017-01-11] MEDS: guaiFENesin 600 MG TABLET.ER PO SCH ×2 (08:27→19:58)
[2017-01-11] MEDS: B COMPLEX-VIT C-VIT E-ZINC 1 EACH TAB PO SCH (08:27)
[2017-01-11] MEDS: OLANZapine 5 MG TAB PO SCH ×2 (08:27→19:58)
[2017-01-11] MEDS: VENLAFAXINE HCL ER 75 MG CAP PO SCH (08:27)
[2017-01-11] MEDS: BUMETANIDE 1 MG TAB PO SCH (08:27)
[2017-01-11] MEDS: RIVAROXABAN 10 MG TAB PO SCH (08:28)
[2017-01-11] MEDS: POTASSIUM CHLORIDE ER 20 MEQ TAB.ER PO SCH ×2 (08:28→19:58)
[2017-01-11] MEDS: FERROUS SULFATE 325 MG TAB PO SCH (08:28)
[2017-01-11] MEDS: ZINC OXIDE 20% OINT 28.4 GM TUBE TOPICAL SCH ×2 (08:29→19:59)
[2017-01-11] MEDS: LACTULOSE 20 GM/30 ML CUP PO SCH ×5 (08:38→23:53)
--- NOTE | 2017-01-11 08:50 | P.CONS ---
History of Present Illness - Reason for Consult Consult date: 01/10/17 Hepatic encephalopathy - History of Present Illness This is a 61-year-old patient with hepatocellular disease/cirrhosis no definite etiology, with hyper ammonia that responded well to lactulose, and history of depression with psychotic thinking and delusions for which he was put on Zyprexa with good response, has been sent from [facility] because he became confused and lethargic. Patient not able to give much history. Tired and lethargic. He has been taking lactulose with 2-4 BM daily. He was recently hospitalized and was seen by Dr Gomez for anemia and he was to be evaluated further as outpatient with possible colonoscopy. On admission, his urine drug screen was negative. Ammonia level 82. Review of Systems ROS unobtainable: due to mental status Past Medical History Past Medical History: Asthma, Hypertension, Osteoarthritis (OA), Pneumonia Additional Past Medical History / Comment(s): IN PAST TX FOR HYPERTENSION NO LONGER ON MEDS, KIDNEY STONE, BRONCHITIS, BEGINNINGS OF CATARACTS, DJD, HANDS SHAKY/TREMORS, DIVERTICULOSIS, History of Any Multi-Drug Resistant Organisms: None Reported Past Surgical History: Hernia Repair, Orthopedic Surgery Additional Past Surgical History / Comment(s): cyst removed from hand, CRISTOPHER CARPAL TUNNEL RELEASE,UMB HERNIA REPAIR, RT KNEE ARTHROSCOPY,COLONOSCOPY Past Anesthesia/Blood Transfusion Reactions: No Reported Reaction Additional Past Anesthesia/Blood Transfusion Reaction / Comm: CLAUSTERPHOBIA. PT LIVES ALONE IN A TRAILER.HAS 3 STEPS UP INTO HOME. PT USES A CANE/WALKER WHEN UP. HAS VISITING PHYSICIAN, MEALS ON WHEELS, CLEANING SERVICE X1 WEEK. CANE/WALKER, HOSPITAL BED. Past Psychological History: Depression Additional Psychological History / Comment(s): PT STATED FEELS WELL MAINTAINED ON HIS MEDS. Smoking Status: Never smoker - Past Family History Father Family Medical History: Cancer, CVA/TIA, Myocardial Infarction ([place]), Prostate Disorder Additional Family Medical History / Comment(s): SKIN ANd PROSTATE CANCER Mother Family Medical History: Cancer Additional Family Medical History / Comment(s): FROM BRAIN CANCER Medications and Allergies Home Medications Medication Instructions Recorded Confirmed Type Vitamin B Complex 1 cap PO DAILY@0900 10/29/16 01/08/17 History Bumetanide [BUMEX] 2 mg PO DAILY@0900 11/20/16 01/08/17 History Dimethicone/Zinc Oxide [Inzo Zinc 1 applic TOPICAL Q12H 11/20/16 01/08/17 History Oxide Barrier Cream] Ipratropium-Albuterol Nebulize 3 ml INHALATION RT-Q4H PRN 11/20/16 01/08/17 History [Duoneb 0.5 mg-3 mg/3 ml Soln] Meloxicam [Mobic] 7.5 mg PO DAILY@0900 11/20/16 01/08/17 History Venlafaxine HCl [Effexor XR] 225 mg PO DAILY@0900 11/20/16 01/08/17 History Ferrous Sulfate [Iron (65 MG 325 mg PO DAILY@0900 12/23/16 01/08/17 History Elemental)] Potassium Chloride [Klor-Con 20] 20 meq PO BID@0900,2100 12/23/16 01/08/17 History Rivaroxaban [Xarelto] 20 mg PO DAILY@0900 12/23/16 01/08/17 History guaiFENesin [Mucinex] 1,200 mg PO BID@0900,2100 12/23/16 01/08/17 History Lactulose [Cephulac] 30 gm PO TID@0600,1400,2200 01/08/17 01/08/17 History OLANZapine [ZyPREXA] 5 mg PO BID@0900,2100 01/08/17 01/08/17 History Omeprazole [PriLOSEC] 20 mg PO DAILY@0600 01/08/17 01/08/17 History Allergies Allergy/AdvReac Type Severity Reaction Status Date / Time No Known Allergies Allergy Verified 01/08/17 15:00 Physical Exam Vitals: Vital Signs Temp Pulse Pulse Resp BP Pulse Ox 01/10/17 09:15 85 01/10/17 07:00 98 F 85 16 128/65 98 01/09/17 23:45 86 18 01/09/17 22:17 98 F 86 18 112/63 97 01/09/17 19:38 86 01/09/17 19:27 86 97 01/09/17 16:00 18 01/09/17 15:30 86 01/09/17 15:18 86 01/09/17 15:00 98.4 F 89 18 103/56 93 L 01/09/17 11:09 88 01/09/17 11:00 88 Intake and Output 01/09/17 01/10/17 01/10/17 22:59 06:59 14:59 Other: Voiding Method Urinal Urinal # Voids 1 1 # Bowel Movements 1 General appearance: The patient appeared confused in no acute distress. HET: Head is normocephalic and atraumatic. Pupils are equal and reactive. Oropharynx is clear without lesions. Neck: Supple without lymphadenopathy. Trachea midline. Heart: S1 S2. Lungs: No crackles or wheezes are heard. Abdomen: Soft, obese, nontender, nondistended with bowel sounds. No peritoneal signs. No palpable organomegaly or masses could be assessed.. Extremities: Normal skin color and turgor. No cyanosis, rash, ulceration, clubbing, or edema. Radial and pedal pulses are 2/4 bilaterally. Neurological: No focal deficits. Strength and sensation are grossly intact. No definite flapping tremors. Results CBC & Chem 7: 01/09/17 07:04 01/10/17 07:27 Labs: Abnormal Lab Results - Last 24 Hours (Table) 01/10/17 Range/Units 07:27 Sodium 146 H (137-145) mmol/L Chloride 114 H (98-107) mmol/L Total Protein 6.0 L (6.3-8.2) g/dL Albumin 2.6 L (3.5-5.0) g/dL Assessment and Plan Plan: 61-year old male with mental changes and elevated ammonia level consistent with hepatic encephalopathy. Agree with current management. Will follow with you closely and make additional recomendations based on his course.
--- NOTE | 2017-01-11 09:20 | PN ---
DATE OF SERVICE: 01/10/17 ATTENDING NOTE: This patient was seen and examined by me. Reviewed the note of my nurse practitioner, Ms. Aleman, discussed, additional findings below. INTERVAL HISTORY: This patient is a little bit less confused. Having good bowel movements. Tolerating a diet. Feeling tired appearing. On examination, afebrile, pulse 85, blood pressure 120/65. Sitting up. Awake. Less lethargic. The patient knows that he is in the hospital. Not sure about the year. Knows it is summer time. ASSESSMENT: Acute hepatic encephalopathy from underlying hepatocellular disease , possible cirrhosis with some improvement with lactulose. PLAN: Continue with Lactulose. We will make sure the patient has 30 gm Lactulose every six hours and titrate to three to four bowel movements a day. Follow. MTDD
[2017-01-11 09:53] LABS: ALT 38 U/L (21-72); AST 36 U/L (17-59); Alkaline Phosphatase 114 U/L (38-126); Anion Gap 10 mmol/L; Blood Urea Nitrogen 18 mg/dL (9-20); Calcium 8.5 mg/dL (8.4-10.2); Carbon Dioxide 20 mmol/L (22-30); Chloride 113 mmol/L (98-107); Glucose 134 mg/dL (74-99); Non-African American GFR(MDRD) >60 (>60 ml/min/1.73 sqM); Potassium 3.5 mmol/L (3.5-5.1); Sodium 143 mmol/L (137-145); Total Bilirubin 0.8 mg/dL (0.2-1.3); Total Protein 6.1 g/dL (6.3-8.2)
[2017-01-11] MEDS: DEXTROSE 5%-0.45% NACL 1,000 ML IV SCH (16:40)
[2017-01-12] MEDS: LACTULOSE 20 GM/30 ML CUP PO SCH ×3 (03:55→12:43)
[2017-01-12] MEDS: PANTOPRAZOLE 40 MG TABLET PO SCH (06:11)
--- NOTE | 2017-01-12 06:34 | PN ---
DATE OF SERVICE: 01/11/2017 PRESENTING COMPLAINT: Confused. INTERVAL HISTORY: This is a patient who is felt to have hepatocellular disease and a possible cirrhosis with no history of alcoholism, a resident of [facility], presented with altered mental status. Patient has been on lactulose. Patient oral intake has been fluctuating. Pretty much bedbound. Patient still remains to be confused. Patient had been on lactulose 30 grams 4 times a day. Yesterday , we ordered all feedings to be supervised. Review of systems could not be done as patient not really able to answer questions. Current medications include lactulose. On examination, temperature 98.1, pulse 83, respirations 16, blood pressure 136/ 75, pulse ox 96% on room air. GENERAL APPEARANCE: Lying in bed, awake, but tired appearing. EYES: Pupils equal. Conjunctivae normal. NECK: JVD unable to assess. Mass not palpable. RESPIRATORY: Effort increased. LUNGS: Distant breath sounds. CARDIOVASCULAR: Heart sounds muffled. Minimal edema. ABDOMEN: Distended, soft. Liver and spleen not palpable. PSYCHIATRY: Patient does answer questions, but not really oriented. He is slow. INVESTIGATIONS: Potassium 3.5. BUN and creatinine normal. ASSESSMENT: 1. Acute on chronic hepatic encephalopathy from suspected hepatocellular disease , suspected cirrhosis. Further evaluation could not be done because of morbid obesity. Slow to respond. 2. Depression, not otherwise specified. 3. Chronic obstructive pulmonary disease in an ex-smoker. 4. Morbid obesity, body mass index 62.7. 5. Colonic diverticulosis. 6. Primary osteoarthritis of multiple joints bilaterally. 7. Gait dysfunction, uses a walker. 8. Normocytic anemia. PLAN: Will increase the patient's lactulose to 30 grams q.4. GI was consulted. Overall prognosis remains guarded. No family is at the bedside. [facility]
[2017-01-12] MEDS: IPRATROPIUM-ALBUTEROL 3 ML NEB INHALATION SCH ×2 (06:51→11:47)
[2017-01-12 07:42] LABS: ALT 38 U/L (21-72); AST 41 U/L (17-59); Alkaline Phosphatase 123 U/L (38-126); Anion Gap 11 mmol/L; Blood Urea Nitrogen 17 mg/dL (9-20); Calcium 8.6 mg/dL (8.4-10.2); Carbon Dioxide 20 mmol/L (22-30); Chloride 115 mmol/L (98-107); Glucose 117 mg/dL (74-99); Non-African American GFR(MDRD) >60 (>60 ml/min/1.73 sqM); Potassium 3.3 mmol/L (3.5-5.1); Sodium 146 mmol/L (137-145); Total Bilirubin 0.9 mg/dL (0.2-1.3); Total Protein 6.5 g/dL (6.3-8.2)
[2017-01-12] MEDS: B COMPLEX-VIT C-VIT E-ZINC 1 EACH TAB PO SCH (07:56)
[2017-01-12] MEDS: POTASSIUM CHLORIDE ER 20 MEQ TAB.ER PO SCH ×3 (07:56→13:56)
[2017-01-12] MEDS: BUMETANIDE 1 MG TAB PO SCH (07:56)
[2017-01-12] MEDS: FERROUS SULFATE 325 MG TAB PO SCH (07:57)
[2017-01-12] MEDS: OLANZapine 5 MG TAB PO SCH (07:57)
[2017-01-12] MEDS: VENLAFAXINE HCL ER 75 MG CAP PO SCH (07:57)
[2017-01-12] MEDS: guaiFENesin 600 MG TABLET.ER PO SCH (07:57)
[2017-01-12 07:58] VITALS: BP 147/77; RESP 16; TEMP 98
[2017-01-12] MEDS: RIVAROXABAN 10 MG TAB PO SCH (07:58)
[2017-01-12] MEDS: ZINC OXIDE 20% OINT 28.4 GM TUBE TOPICAL SCH (07:58)
[2017-01-12] MEDS ORDERED: Potassium Replacement Protocol 1 EACH MISC MISCELLANE PRN (10:50)
[2017-01-12 11:50] VITALS: PULSE 76
[2017-01-12] MEDS ORDERED: POTASSIUM CHLORIDE 10 MEQ, LIDOCAINE 2% INJ 10 MG in SODIUM CHLORIDE 0.9% 100 ML IV SCH (12:00)
--- NOTE | 2017-01-12 12:53 | P.DS ---
Providers Date of admission: 01/08/17 17:19 Expected date of discharge: 01/12/17 Attending physician: Christopher Nash Consults: 01/09/17 20:07 Consult Physician Routine Consulting Provider: Ori Meredith Consult Reason/Comments: HEP ENCEPHALOPATHY Do you want consulting provider notified?: Yes Primary care physician: Humberto Ramirez Hospital Course: Final Diagnses: -Acute on chronic hepatic encephalopathy from underlying hepatocellular disease suspected underlying cirrhosis, improving -Depression, not otherwise specified -COPD in ex-smoker -Morbid obesity BMI 62.7 -Colonic diverticulosis -Primary osteoarthritis multiple joints -Gait dysfunction uses a walker -Normocytic anemia Hospital Course: This is a 61-year-old patient admitted with hepatic encephalopathy and multiple other medical problems.Evaluated by GI. Received Lactulose, titrated to 3-4 BMs daily. SIgnificant clinical improvement. Patient has been cleared by GI for Discharge. Patient is being discharge to [facility]. The impression and plan of care has been dictated as directed as a scribe. .: I performed a H&P examination of this patient and discussed the same with the dictator. I agree with the dictator's note. Any additional findings/opinions/ etc. will be noted. Patient Condition at Discharge: Stable Plan - Discharge Summary New Discharge Prescriptions: New Spironolactone [Aldactone] 50 mg PO DAILY #1 tab Continue Vitamin B Complex 1 cap PO DAILY@0900 Bumetanide [BUMEX] 2 mg PO DAILY@0900 Dimethicone/Zinc Oxide [Inzo Zinc Oxide Barrier Cream] 1 applic TOPICAL Q12H Ipratropium-Albuterol Nebulize [Duoneb 0.5 mg-3 mg/3 ml Soln] 3 ml INHALATION RT-Q4H PRN PRN Reason: Shortness Of Breath Venlafaxine HCl [Effexor XR] 225 mg PO DAILY@0900 Ipratropium-Albuterol Nebulize [Duoneb 0.5 mg-3 mg/3 ml Soln] 3 ml INHALATION RT-QID neb guaiFENesin [Mucinex] 1,200 mg PO BID@0900,2100 Rivaroxaban [Xarelto] 20 mg PO DAILY@0900 Ferrous Sulfate [Iron (65 MG Elemental)] 325 mg PO DAILY@0900 Omeprazole [PriLOSEC] 20 mg PO DAILY@0600 OLANZapine [ZyPREXA] 5 mg PO BID@0900,2100 Lactulose [Cephulac] 30 gm PO TID@0600,1400,2200 #0 Discontinued Meloxicam [Mobic] 7.5 mg PO DAILY@0900 Potassium Chloride [Klor-Con 20] 20 meq PO BID@0900,2100 Discharge Medication List Vitamin B Complex 1 cap PO DAILY@0900 10/29/16 [History] Bumetanide [BUMEX] 2 mg PO DAILY@0911/20/16 [History] Dimethicone/Zinc Oxide [Inzo Zinc Oxide Barrier Cream] 1 applic TOPICAL Q12H [History] Ipratropium-Albuterol Nebulize [Duoneb 0.5 mg-3 mg/3 ml Soln] 3 ml INHALATION RT -Q4H PRN 11/20/16 [History] Venlafaxine HCl [Effexor XR] 225 mg PO DAILY@0911/20/16 [History] Ipratropium-Albuterol Nebulize [Duoneb 0.5 mg-3 mg/3 ml Soln] 3 ml INHALATION RT -QID neb 11/25/16 [Rx] Ferrous Sulfate [Iron (65 MG Elemental)] 325 mg PO DAILY@0912/23/16 [History] Rivaroxaban [Xarelto] 20 mg PO DAILY@89912/23/16 [History] guaiFENesin [Mucinex] 1,200 mg PO BID@0900,209912/23/16 [History] OLANZapine [ZyPREXA] 5 mg PO BID@0900,209901/08/17 [History] Omeprazole [PriLOSEC] 20 mg PO DAILY@59901/08/17 [History] Lactulose [Cephulac] 30 gm PO TID@0600,1400,2200 #0 01/12/17 [Rx] Spironolactone [Aldactone] 50 mg PO DAILY #1 tab 01/12/17 [Rx] Follow up Appointment(s)/Referral(s): Humberto Ramirez MD [Primary Care Provider] - 3 Days Activity/Diet/Wound Care/Special Instructions: [facility] cbc,bmp in 3 days Discharge Disposition: TRANSFER TO SNF/[facility]
== END 2017-01-12 16:25 | DRG 442 ==
LOC: EC 14:43 → 5MS5E 17:19
PROVIDERS: ADMIT Hospitalist; ATTEND Hospitalist
DX: K72.00 Acute and subacute hepatic failure without coma (principal); F32.3 Major depressive disorder, single episode, severe with psychotic features; K74.60 Unspecified cirrhosis of liver; E66.01 Morbid (severe) obesity due to excess calories; D64.9 Anemia, unspecified; I10 Essential (primary) hypertension; J44.9 Chronic obstructive pulmonary disease, unspecified; K57.30 Diverticulosis of large intestine without perforation or abscess without bleeding; M15.9 Polyosteoarthritis, unspecified; R63.3 Feeding difficulties; R26.9 Unspecified abnormalities of gait and mobility; J45.909 Unspecified asthma, uncomplicated; H26.9 Unspecified cataract; R25.1 Tremor, unspecified; F40.240 Claustrophobia; Z68.44 Body mass index [BMI] 60.0-69.9, adult; Z79.01 Long term (current) use of anticoagulants; Z79.899 Other long term (current) drug therapy; Z87.891 Personal history of nicotine dependence; Z82.49 Family history of ischemic heart disease and other diseases of the circulatory system
CPT/HCPCS: 36415; 71010; 80053; 80306; 81001; 82140; 82550; 82553; 84484; 85025; 85610; 85730; 94640; 94760; 99285

== ENCOUNTER → 2017-02-04 | Outpatient (CLI) | payer MEDICARE, OTHER ==
--- NOTE | 2017-02-04 17:09 | CT ---
EXAMINATION TYPE: CT brain wo con DATE OF EXAM: 02/04/2017 COMPARISON: NONE HISTORY: Patient shows signs of confusion. Altered mental status CT DLP: 813 mGycm Automated exposure control for dose reduction was used. Helical acquisition through the brain FINDINGS: Cerebral vascular calcifications are present. There is left subdural hematoma present with mixed atte nuation measuring approximately 1 cm in thickness on axial imaging, coronal image shows approximately 19 mm in thickness. There is some local mass effect. Periventricular white matter shows patchy low a ttenuation. No evident hydrocephalus. Calvarium is intact. IMPRESSION: SUBDURAL HEMATOMA COULD BE SUBACUTE ON CHRONIC.
== END | disposition home or self-care (01) ==
LOC: RADCTMAIN 15:44
PROVIDERS: ATTEND Family Medicine
DX: I62.00 Nontraumatic subdural hemorrhage, unspecified (principal)
CPT/HCPCS: 70450

== ENCOUNTER 2017-02-26 14:30 | Emergency (ER) | payer MEDICARE, OTHER ==
--- NOTE | 2017-02-26 15:13 | XR ---
EXAMINATION TYPE: XR chest 1V portable DATE OF EXAM: 02/26/2017 HISTORY: altered mental status. REFERENCE: Previous study dated 01/08/2017. FINDINGS: The heart is enlarged. There is stable mediastinal widening. The lungs are clear. Pleural s paces are clear. IMPRESSION: NO ACUTE INTRATHORACIC ABNORMALITY.
--- NOTE | 2017-02-26 15:22 | ED ---
General Adult HPI - General Chief complaint: Altered Mental Status Stated complaint: Abnormal Labs Time Seen by Provider: 02/26/17 15:14 Source: patient, EMS, RN notes reviewed, old records reviewed Mode of arrival: EMS Limitations: altered mental status, physical limitation - History of Present Illness Initial comments: Patient is a pleasant 61-year-old male presenting to the emergency department with change in mental status. Onset of symptoms is unknown. Patient is a very poor historian and provides very limited history. Patient reportedly does have a history of hepatic encephalopathy previously. Patient states he feels fine and has no complaints. Patient has difficulty answering questions. Patient is able to follow some commands. - Related Data Home Medications Medication Instructions Recorded Confirmed Bumetanide [BUMEX] 2 mg PO DAILY@0900 11/20/16 02/26/17 Dimethicone/Zinc Oxide [Inzo Zinc 1 applic TOPICAL Q12H 11/20/16 02/26/17 Oxide Barrier Cream] Venlafaxine HCl [Effexor XR] 225 mg PO DAILY@0900 11/20/16 02/26/17 Ferrous Sulfate [Iron (65 MG 325 mg PO DAILY@0900 12/23/16 02/26/17 Elemental)] guaiFENesin [Mucinex] 600 mg PO BID@0900,2100 PRN 12/23/16 02/26/17 OLANZapine [ZyPREXA] 5 mg PO HS 01/08/17 02/26/17 Omeprazole [PriLOSEC] 20 mg PO DAILY@0600 01/08/17 02/26/17 Acetaminophen Tab [Tylenol Tab] 650 mg PO Q6H PRN 02/26/17 02/26/17 Previous Rx's Medication Instructions Recorded Ipratropium-Albuterol Nebulize 3 ml INHALATION RT-QID neb 11/25/16 [Duoneb 0.5 mg-3 mg/3 ml Soln] Lactulose [Cephulac] 30 gm PO TID@0600,1400,2200 #0 01/12/17 Spironolactone [Aldactone] 50 mg PO DAILY #1 tab 01/12/17 Allergies Allergy/AdvReac Type Severity Reaction Status Date / Time No Known Allergies Allergy Verified 02/26/17 14:37 Review of Systems ROS Statement: Those systems with pertinent positive or pertinent negative responses have been documented in the HPI. ROS Other: All systems not noted in ROS Statement are negative. Constitutional: Denies: fever Eyes: Denies: eye pain ENT: Denies: ear pain Respiratory: Denies: cough Cardiovascular: Denies: chest pain Endocrine: Denies: fatigue Gastrointestinal: Denies: abdominal pain Genitourinary: Denies: urgency Musculoskeletal: Denies: back pain Skin: Denies: rash Neurological: Denies: headache Past Medical History Past Medical History: Asthma, Hypertension, Osteoarthritis (OA), Pneumonia Additional Past Medical History / Comment(s): IN PAST TX FOR HYPERTENSION NO LONGER ON MEDS, KIDNEY STONE, BRONCHITIS, BEGINNINGS OF CATARACTS, DJD, HANDS SHAKY/TREMORS, DIVERTICULOSIS, history of elevated ammonia levels, chronic subdural hemorrhage History of Any Multi-Drug Resistant Organisms: None Reported Past Surgical History: Hernia Repair, Orthopedic Surgery Additional Past Surgical History / Comment(s): cyst removed from hand, CRISTOPHER CARPAL TUNNEL RELEASE,UMB HERNIA REPAIR, RT KNEE ARTHROSCOPY,COLONOSCOPY Past Anesthesia/Blood Transfusion Reactions: No Reported Reaction Additional Past Anesthesia/Blood Transfusion Reaction / Comment(s): CLAUSTERPHOBIA. PT LIVES ALONE IN A TRAILER.HAS 3 STEPS UP INTO HOME. PT USES A CANE/WALKER WHEN UP. HAS VISITING PHYSICIAN, MEALS ON WHEELS, CLEANING SERVICE X1 WEEK. CANE/WALKER, HOSPITAL BED. Past Psychological History: Depression Smoking Status: Never smoker Past Alcohol Use History: None Reported Past Drug Use History: None Reported - Past Family History Father Family Medical History: Cancer, CVA/TIA, Myocardial Infarction ([place]), Prostate Disorder Additional Family Medical History / Comment(s): SKIN ANd PROSTATE CANCER Mother Family Medical History: Cancer Additional Family Medical History / Comment(s): FROM BRAIN CANCER General Exam Limitations: altered mental status, physical limitation General appearance: obese, other (Drowsy but easily arousable to voice) Head exam: Present: atraumatic Eye exam: Present: normal appearance, PERRL ENT exam: Present: normal oropharynx Neck exam: Present: normal inspection Respiratory exam: Present: normal lung sounds bilaterally Cardiovascular Exam: Present: regular rate, normal rhythm GI/Abdominal exam: Present: soft. Absent: tenderness Extremities exam: Present: other (Bilateral lower leg sores) Neurological exam: Present: CN II-XII intact, other (Limited exam. Drowsy but easily arousable to voice. Difficulty following commands.) Expanded Neurological exam: Present: protecting the airway Patient oriented to: Present: place. Absent: person, time Motor strength exam: RUE: 3, LUE: 4, RLE: 2/1, LLE: 2/1 Psychiatric exam: Present: flat affect Skin exam: Present: normal color Course Vital Signs 02/26/17 02/26/17 02/26/17 14:31 15:21 16:13 Temperature 99.1 F Pulse Rate 86 85 90 Respiratory 16 18 18 Rate Blood Pressure 131/69 146/80 194/107 O2 Sat by Pulse 99 100 98 Oximetry - Reevaluation(s) Reevaluation #1: 02/26/17 16:15 Family updated. Patient was intubated for transport. 02/26/17 16:18 Case discussed in detail with Dr. Leary at [facility], who will accept transfer. EKG Findings - EKG Comments: EKG Findings:: Normal sinus rhythm 86. LA 162. QRS 114. QT 448. QTC 536. Left axis. Incomplete right bundle-branch block. Nonspecific ST-T. Procedures - Intubation Time Out Performed: Yes Sedative: Versed Paralytic: Succinylcholine Laryngoscope: Garcia Size: 3 ET Tube Size: 8 Tube Placement Confirmation: visualized tube passing through cords, equal breath sounds bilaterally, confirmation by capnometry Patient Tolerated Procedure: well, no complications Medical Decision Making - Lab Data Result diagrams: 02/26/17 15:13 02/26/17 15:13 Lab Results 02/26/17 02/26/17 02/26/17 Range/Units 15:13 15:13 15:13 WBC 7.2 (3.8-10.6) k/uL RBC 4.36 (4.30-5.90) m/uL Hgb 12.2 L (13.0-17.5) gm/dL Hct 38.4 L (39.0-53.0) % MCV 88.0 (80.0-100.0) fL MCH 28.1 (25.0-35.0) pg MCHC 31.9 (31.0-37.0) g/dL RDW 17.5 H (11.5-15.5) % Plt Count 163 (150-450) k/uL Neutrophils % 66 % Lymphocytes % 21 % Monocytes % 8 % Eosinophils % 3 % Basophils % 0 % Neutrophils # 4.7 (1.3-7.7) k/uL Lymphocytes # 1.5 (1.0-4.8) k/uL Monocytes # 0.6 (0-1.0) k/uL Eosinophils # 0.2 (0-0.7) k/uL Basophils # 0.0 (0-0.2) k/uL Hypochromasia Slight Anisocytosis Slight PT (9.0-12.0) sec INR (<1.2) APTT (22.0-30.0) sec Sodium (137-145) mmol/L Potassium (3.5-5.1) mmol/L Chloride (98-107) mmol/L Carbon Dioxide (22-30) mmol/L Anion Gap mmol/L BUN (9-20) mg/dL Creatinine (0.66-1.25) mg/dL Est GFR (MDRD) Af Amer (>60 ml/min/1.73 sqM) Est GFR (MDRD) Non-Af (>60 ml/min/1.73 sqM) Glucose (74-99) mg/dL POC Glucose (mg/dL) (75-99) mg/dL POC Glu Pre Fabricator ID Calcium (8.4-10.2) mg/dL Total Bilirubin (0.2-1.3) mg/dL AST (17-59) U/L ALT (21-72) U/L Alkaline Phosphatase (38-126) U/L Ammonia 191 H (<30) umol/L Total Creatine Kinase 44 L (55-170) U/L CK-MB (CK-2) 0.6 (0.0-2.4) ng/mL CK-MB (CK-2) Rel Index 1.4 Troponin I <0.012 (0.000-0.034) ng/mL Total Protein (6.3-8.2) g/dL Albumin (3.5-5.0) g/dL Urine Color Urine Appearance (Clear) Urine pH (5.0-8.0) Ur Specific [place] (1.001-1.035) Urine Protein (Negative) Urine Glucose (UA) (Negative) Urine Ketones (Negative) Urine Blood (Negative) Urine Nitrite (Negative) Urine Bilirubin (Negative) Urine Urobilinogen (<2.0) mg/dL Ur Leukocyte Esterase (Negative) Urine RBC (0-5) /hpf Urine WBC (0-5) /hpf Ur Squamous Epith Cells (0-4) /hpf Hyaline Casts (0-2) /lpf Urine Mucus (None) /hpf 02/26/17 02/26/17 02/26/17 Range/Units 15:13 15:13 15:22 WBC (3.8-10.6) k/uL RBC (4.30-5.90) m/uL Hgb (13.0-17.5) gm/dL Hct (39.0-53.0) % MCV (80.0-100.0) fL MCH (25.0-35.0) pg MCHC (31.0-37.0) g/dL RDW (11.5-15.5) % Plt Count (150-450) k/uL Neutrophils % % Lymphocytes % % Monocytes % % Eosinophils % % Basophils % % Neutrophils # (1.3-7.7) k/uL Lymphocytes # (1.0-4.8) k/uL Monocytes # (0-1.0) k/uL Eosinophils # (0-0.7) k/uL Basophils # (0-0.2) k/uL Hypochromasia Anisocytosis PT 12.1 H (9.0-12.0) sec INR 1.2 H (<1.2) APTT 22.4 (22.0-30.0) sec Sodium 140 (137-145) mmol/L Potassium 4.0 (3.5-5.1) mmol/L Chloride 109 H (98-107) mmol/L Carbon Dioxide 21 L (22-30) mmol/L Anion Gap 10 mmol/L BUN 22 H (9-20) mg/dL Creatinine 1.10 (0.66-1.25) mg/dL Est GFR (MDRD) Af Amer >60 (>60 ml/min/1.73 sqM) Est GFR (MDRD) Non-Af >60 (>60 ml/min/1.73 sqM) Glucose 107 H (74-99) mg/dL POC Glucose (mg/dL) 104 H (75-99) mg/dL POC Glu Pre Fabricator ID Ramirez, Bernie Calcium 8.8 (8.4-10.2) mg/dL Total Bilirubin 1.0 (0.2-1.3) mg/dL AST 33 (17-59) U/L ALT 32 (21-72) U/L Alkaline Phosphatase 122 (38-126) U/L Ammonia (<30) umol/L Total Creatine Kinase (55-170) U/L CK-MB (CK-2) (0.0-2.4) ng/mL CK-MB (CK-2) Rel Index Troponin I (0.000-0.034) ng/mL Total Protein 7.0 (6.3-8.2) g/dL Albumin 3.2 L (3.5-5.0) g/dL Urine Color Urine Appearance (Clear) Urine pH (5.0-8.0) Ur Specific [place] (1.001-1.035) Urine Protein (Negative) Urine Glucose (UA) (Negative) Urine Ketones (Negative) Urine Blood (Negative) Urine Nitrite (Negative) Urine Bilirubin (Negative) Urine Urobilinogen (<2.0) mg/dL Ur Leukocyte Esterase (Negative) Urine RBC (0-5) /hpf Urine WBC (0-5) /hpf Ur Squamous Epith Cells (0-4) /hpf Hyaline Casts (0-2) /lpf Urine Mucus (None) /hpf 02/26/17 Range/Units 16:00 WBC (3.8-10.6) k/uL RBC (4.30-5.90) m/uL Hgb (13.0-17.5) gm/dL Hct (39.0-53.0) % MCV (80.0-100.0) fL MCH (25.0-35.0) pg MCHC (31.0-37.0) g/dL RDW (11.5-15.5) % Plt Count (150-450) k/uL Neutrophils % % Lymphocytes % % Monocytes % % Eosinophils % % Basophils % % Neutrophils # (1.3-7.7) k/uL Lymphocytes # (1.0-4.8) k/uL Monocytes # (0-1.0) k/uL Eosinophils # (0-0.7) k/uL Basophils # (0-0.2) k/uL Hypochromasia Anisocytosis PT (9.0-12.0) sec INR (<1.2) APTT (22.0-30.0) sec Sodium (137-145) mmol/L Potassium (3.5-5.1) mmol/L Chloride (98-107) mmol/L Carbon Dioxide (22-30) mmol/L Anion Gap mmol/L BUN (9-20) mg/dL Creatinine (0.66-1.25) mg/dL Est GFR (MDRD) Af Amer (>60 ml/min/1.73 sqM) Est GFR (MDRD) Non-Af (>60 ml/min/1.73 sqM) Glucose (74-99) mg/dL POC Glucose (mg/dL) (75-99) mg/dL POC Glu Pre Fabricator ID Calcium (8.4-10.2) mg/dL Total Bilirubin (0.2-1.3) mg/dL AST (17-59) U/L ALT (21-72) U/L Alkaline Phosphatase (38-126) U/L Ammonia (<30) umol/L Total Creatine Kinase (55-170) U/L CK-MB (CK-2) (0.0-2.4) ng/mL CK-MB (CK-2) Rel Index Troponin I (0.000-0.034) ng/mL Total Protein (6.3-8.2) g/dL Albumin (3.5-5.0) g/dL Urine Color Yellow Urine Appearance Clear (Clear) Urine pH 6.0 (5.0-8.0) Ur Specific [place] 1.009 (1.001-1.035) Urine Protein Negative (Negative) Urine Glucose (UA) Negative (Negative) Urine Ketones Negative (Negative) Urine Blood Small H (Negative) Urine Nitrite Negative (Negative) Urine Bilirubin Negative (Negative) Urine Urobilinogen <2.0 (<2.0) mg/dL Ur Leukocyte Esterase Negative (Negative) Urine RBC 27 H (0-5) /hpf Urine WBC 1 (0-5) /hpf Ur Squamous Epith Cells <1 (0-4) /hpf Hyaline Casts 7 H (0-2) /lpf Urine Mucus Rare H (None) /hpf - Radiology Data Radiology results: image reviewed (Computed tomography scan of the brain shows acute on chronic subdural hematoma left frontal. Chest x-ray shows no acute process.) Critical Care Time Critical Care Time: Yes Total Critical Care Time: 32 Disposition Clinical Impression: Acute on chronic intracranial subdural hematoma, Hepatic encephalopathy Disposition: OTHER INSTITUTION NOT DEFINED Condition: Serious Referrals: Humberto Ramirez MD [Primary Care Provider] - 1-2 days Time of Disposition: 16:19 - Out of Hospital Transfer - Req. Specs Out of Hospital Transfer - Requested Specifics: Other Emergency Center
[2017-02-26 15:24] LABS: Glucose,Whole Blood 104 mg/dL (75-99)
[2017-02-26 15:36] LABS: Anisocytosis Slight; Basophils % (A) 0 %; CH 27.4; CHCM 31.2; Eosinophils # (A) 0.2 k/uL (0-0.7); Eosinophils % (A) 3 %; HCT 38.4 % (39.0-53.0); HDW 2.39; HGB 12.2 gm/dL (13.0-17.5); Hypochromasia Slight; Luc # (Auto) 0.16; Luc % (Auto) 2; Lymphocytes # (A) 1.5 k/uL (1.0-4.8); Lymphocytes % (A) 21 %; MCH 28.1 pg (25.0-35.0); MCHC 31.9 g/dL (31.0-37.0); Mean Platelet Volume 7.3; Monocytes # (A) 0.6 k/uL (0-1.0); Monocytes % (A) 8 %; Neutrophils # (A) 4.7 k/uL (1.3-7.7); Neutrophils % (A) 66 %; RBC 4.36 m/uL (4.30-5.90); RDW 17.5 % (11.5-15.5); WBC 7.2 k/uL (3.8-10.6); WBC (Perox) 7.91
[2017-02-26 15:46] LABS: ALT 32 U/L (21-72); AST 33 U/L (17-59); Alkaline Phosphatase 122 U/L (38-126); Anion Gap 10 mmol/L; Blood Urea Nitrogen 22 mg/dL (9-20); Calcium 8.8 mg/dL (8.4-10.2); Carbon Dioxide 21 mmol/L (22-30); Chloride 109 mmol/L (98-107); Glucose 107 mg/dL (74-99); Non-African American GFR(MDRD) >60 (>60 ml/min/1.73 sqM); Sodium 140 mmol/L (137-145)
[2017-02-26 15:48] LABS: INR 1.2 (<1.2); Partial Thromboplastin Time 22.4 sec (22.0-30.0); Prothrombin Time 12.1 sec (9.0-12.0)
--- NOTE | 2017-02-26 15:52 | CT ---
EXAMINATION TYPE: CT brain wo con DATE OF EXAM: 02/26/2017 COMPARISON: Previous study dated 02/04/2017 HISTORY: Altered mental status CT DLP: 1047.1 mGycm Automated exposure control for dose reduction was used. FINDINGS: There has been fresh bleeding into the patient's pre-existing subdural hygroma. Overall size has not changed significantly overall thickness is 12.3 mm. Central structures are midline. There is no evidence of hydrocephalus. There is diffuse periventricul ar white matter lucency, compatible with chronic ischemic change. There is mild mass effect on the co rtex adjacent to the subdural fluid collection. Visualized portions of the paranasal sinuses and mastoids are clear. No depressed skull fracture is s een. IMPRESSION: 1. ACUTE ON CHRONIC LEFT SUBDURAL HEMATOMA. 2. MILD, CHRONIC WHITE MATTER ISCHEMIC CHANGE. THIS REPORT WAS PHONED TO DR. KELLY IN THE EMERGENCY ROOM AT THE TIME OF REPORTING.
[2017-02-26 15:56] LABS: Creatine Kinase 44 U/L (55-170)
[2017-02-26] MEDS ORDERED: SUCCINYLCHOLINE CHLORIDE VIAL 200 MG/10 ML VIAL IV STA ×2 (16:00→16:03)
[2017-02-26] MEDS ORDERED: MIDAZOLAM 2 MG/2 ML VIAL IV ONE (16:00)
[2017-02-26] MEDS ORDERED: LORazepam 2 MG/ML SYRINGE IV PRN (16:01)
[2017-02-26 16:09] LABS: Creatine Kinase MB 0.6 ng/mL (0.0-2.4); Troponin I <0.012 ng/mL (0.000-0.034)
[2017-02-26] MEDS ORDERED: MIDAZOLAM (PF) 1 MG/ML 5 ML VIAL IV STA (16:11)
[2017-02-26] MEDS ORDERED: PROPOFOL 1,000 MG/100 ML VIAL IV SCH (16:15)
[2017-02-26 16:18] LABS: Appearance,Urine Clear (Clear); Bilirubin,Urine Negative (Negative); Glucose,Urine (UA) Negative (Negative); Ketones,Urine Negative (Negative); Leukocyte Esterase,Urine Negative (Negative); Mucus,Urine Rare /hpf; Nitrite,Urine Negative (Negative); Particle Count 2222; Protein,Urine Negative (Negative); RBC,Urine 27 /hpf (0-5); Specific Gravity,Urine 1.009 (1.001-1.035); Squamous Epithelial Cell,Urine <1 /hpf (0-4); UA Billing (MACRO vs. MICRO) MICRO; Urobilinogen,Urine <2.0 mg/dL (<2.0); WBC,Urine 1 /hpf (0-5)
[2017-02-26] MEDS ORDERED: LACTULOSE 20 GM/30 ML CUP PO ONE (16:19)
[2017-02-26] MEDS: LORazepam 2 MG/ML SYRINGE IV PRN ×2 (16:26→16:39)
--- NOTE | 2017-02-26 16:29 | XR ---
EXAMINATION TYPE: XR chest 1V portable DATE OF EXAM: 02/26/2017 HISTORY: Tube placement. REFERENCE: Previous study of earlier today. FINDINGS: The patient has been intubated. ET tube is in satisfactory position approximately 7 cm abov e the jess. An NG tube is been placed and is coiled in the stomach. The lungs are clear. Pleural spaces are clear. Heart size is upper limits of normal. IMPRESSION: 1. SATISFACTORY TUBE PLACEMENT. 2. BORDERLINE CARDIOMEGALY.
[2017-02-26 17:22] VITALS: BP 153/97; PULSE 109; RESP 19
[2017-02-26 17:23] VITALS: TEMP 98.1
[2017-02-26 17:42] LABS: ABG Base Excess -2.8 mmol/L; ABG HCO3 20 mmol/L (21-25); ABG PCO2 26 mmHg (35-45); ABG PO2 363 mmHg (83-108); ABG TCO2 21 mmol/L (19-24)
== END 2017-02-26 17:40 | disposition short-term general hospital (02) ==
LOC: EC 14:30
DX: I62.01 Nontraumatic acute subdural hemorrhage (principal); K72.90 Hepatic failure, unspecified without coma; F32.9 Major depressive disorder, single episode, unspecified; E66.9 Obesity, unspecified; Z68.43 Body mass index [BMI] 50.0-59.9, adult; Z79.899 Other long term (current) drug therapy
CPT/HCPCS: 99291; 31500; 96374; 36415; 36600; 93005; 80053; 82140; 82550; 82553; 82805; 84484; 85025; 85610; 85730; 81001; 71010; 70450; J0330; J2060; J2250; J2704

== ENCOUNTER 2018-06-03 10:40 | Observation (INO) | payer MEDICARE, OTHER ==
--- NOTE | 2018-06-03 11:26 | XR ---
EXAMINATION TYPE: XR chest 2V DATE OF EXAM: 06/03/2018 COMPARISON: 06/26/2017 HISTORY: Shortness of breath and chest pain. TECHNIQUE: Frontal and lateral views of the chest are obtained. FINDINGS: Incidental note is made of an azygos fissure. Mild pulmonary vascular congestion is seen t hroughout. Cardiac size is again enlarged. No sizable pleural effusions or pneumothorax. IMPRESSION: Mild pulmonary vascular congestion likely on the basis of congestive heart failure with stable cardiomegaly.
[2018-06-03 11:29] LABS: Anisocytosis Slight; Basophils % (A) 1 %; Eosinophils # (A) 0.3 k/uL (0-0.7); Eosinophils % (A) 4 %; HCT 36.6 % (39.0-53.0); HGB 11.8 gm/dL (13.0-17.5); Lymphocytes # (A) 1.2 k/uL (1.0-4.8); Lymphocytes % (A) 15 %; MCH 28.9 pg (25.0-35.0); MCHC 32.2 g/dL (31.0-37.0); MCV 89.7 fL (80.0-100.0); Mean Platelet Volume 7.8; Monocytes # (A) 0.5 k/uL (0-1.0); Monocytes % (A) 6 %; Neutrophils # (A) 5.9 k/uL (1.3-7.7); Neutrophils % (A) 73 %; Platelet Count 149 k/uL (150-450); RBC 4.07 m/uL (4.30-5.90); RDW 16.3 % (11.5-15.5); WBC 8.1 k/uL (3.8-10.6)
--- NOTE | 2018-06-03 11:30 | ED ---
Chest Pain HPI - General Source: EMS Mode of arrival: EMS Limitations: no limitations <Niles Sinha - Last Filed: 06/03/18 12:37> <Mitul Hanley - Last Filed: 06/03/18 13:08> - General Chief Complaint: Chest Pain Stated Complaint: chest pain Time Seen by Provider: 06/03/18 10:47 - History of Present Illness Initial Comments: 63-year-old male presents emergency department via EMS from [facility] on the leg chief complaint of chest pain. Patient states he does have a history of hypertension, asthma, obesity with inability to ambulate. Patient states that the pain started last night and has worsened this morning. Patient was given aspirin and nitro. Patient denies any nausea vomiting diarrhea constipation. Patient states it does hurt if you press on his chest. He has no increased shortness of breath from his baseline. Patient denies history of hyperlipidemia , diabetes, heart disease. (Niles Sinha) - Related Data Home Medications Medication Instructions Recorded Confirmed Bumetanide [BUMEX] 2 mg PO DAILY@89911/20/16 06/03/18 Dimethicone/Zinc Oxide [Inzo Zinc 1 applic TOPICAL Q12H 11/20/16 06/03/18 Oxide Barrier Cream] Venlafaxine HCl [Effexor XR] 225 mg PO DAILY@89911/20/16 06/03/18 Ferrous Sulfate [Iron (65 MG 325 mg PO DAILY@209912/23/16 06/03/18 Elemental)] Clopidogrel [Plavix] 75 mg PO DAILY@89906/26/17 06/03/18 Ensure 1 can PO BID-W/MEALS 06/26/17 06/03/18 Potassium Chloride [Klor-Con 10] 10 meq PO DAILY@89906/26/17 06/03/18 Spironolactone [Aldactone] 50 mg PO DAILY@59906/26/17 06/03/18 ARIPiprazole [Abilify] 2 mg PO HS@209906/03/18 06/03/18 Aspirin [Adult Low Dose Aspirin EC] 81 mg PO DAILY@0900 06/03/18 06/03/18 Diclofenac Sodium [Voltaren Gel] 1 applicate TOPICAL BID 06/03/18 06/03/18 Fluticasone/Vilanterol [Breo 1 puff PO DAILY@209906/03/18 06/03/18 Ellipta 100-25 Mcg Inhaler] Ipratropium-Albuterol Nebulize 3 ml INHALATION RT-Q4H PRN 06/03/18 06/03/18 [Duoneb 0.5 mg-3 mg/3 ml Soln] Lactulose 30 gm PO QID@00,0600,1200,18 06/03/18 06/03/18 Menthol [Biofreeze] 1 applic TOPICAL Q4H PRN 06/03/18 06/03/18 Metolazone [Zaroxolyn] 2.5 mg PO MO 06/03/18 06/03/18 Milk Thistle 1 tab PO BID@0900,209906/03/18 06/03/18 Olopatadine HCl [Patanol] 5 ml BOTH EYES BID PRN 06/03/18 06/03/18 Pantoprazole Sodium [Protonix] 20 mg PO DAILY@0600 06/03/18 06/03/18 Phentermine HCl [Adipex-P] 37.5 mg PO DAILY 06/03/18 06/03/18 Rifaximin [Xifaxan] 550 mg PO BID@0900,209906/03/18 06/03/18 Sulfamethox-Tmp 800-160Mg [Bactrim 1 tab PO BID@0900,209906/03/18 06/03/18 DS 800-160 mg] Previous Rx's Medication Instructions Recorded Pregabalin [Lyrica] 50 mg PO TID@0600,1400,2200 #12 cap 06/30/17 Allergies Allergy/AdvReac Type Severity Reaction Status Date / Time No Known Allergies Allergy Verified 06/03/18 12:10 Review of Systems ROS Other: All systems not noted in ROS Statement are negative. <Niles Sinha - Last Filed: 06/03/18 12:37> ROS Other: All systems not noted in ROS Statement are negative. <Mitul Hanley - Last Filed: 06/03/18 13:08> ROS Statement: Those systems with pertinent positive or pertinent negative responses have been documented in the HPI. EKG Findings - EKG Comments: EKG Findings:: EKG performed at 10:55 normal sinus rhythm with a rate of 88 TN 160 QRS 128 QT/QTc 412/[address] abnormality <Niles Sinha M - Last Filed: 06/03/18 12:37> Past Medical History Past Medical History: Asthma, Hypertension, Osteoarthritis (OA), Pneumonia Additional Past Medical History / Comment(s): IN PAST TX FOR HYPERTENSION NO LONGER ON MEDS, KIDNEY STONE, BRONCHITIS, BEGINNINGS OF CATARACTS, DJD, HANDS SHAKY/TREMORS, DIVERTICULOSIS, history of elevated ammonia levels, hepatic encephalopathy, hx of cellulitis lower extremities. previously charted " chronic subdural hemorrhage", History of Any Multi-Drug Resistant Organisms: MRSA Date of last positivie culture/infection: 05/31/18 MDRO Source:: Abdomen Past Surgical History: Hernia Repair, Orthopedic Surgery Additional Past Surgical History / Comment(s): cyst removed from hand, CRISTOPHER CARPAL TUNNEL RELEASE,UMB HERNIA REPAIR, RT KNEE ARTHROSCOPY,COLONOSCOPY Past Anesthesia/Blood Transfusion Reactions: No Reported Reaction Additional Past Anesthesia/Blood Transfusion Reaction / Comment(s): pt currently at [facility] on the [facility]. not ambulatory. trasnfers per lift to w/c. Past Psychological History: No Psychological Hx Reported, Depression Smoking Status: Former smoker Past Alcohol Use History: None Reported Past Drug Use History: None Reported - Past Family History Father Family Medical History: Cancer, CVA/TIA, Myocardial Infarction (NH), Prostate Disorder Additional Family Medical History / Comment(s): SKIN ANd PROSTATE CANCER Mother Family Medical History: Cancer Additional Family Medical History / Comment(s): FROM BRAIN CANCER <Niles Sinha - Last Filed: 06/03/18 12:37> General Exam Limitations: no limitations General appearance: alert, in no apparent distress, obese Head exam: Present: atraumatic, normocephalic, normal inspection Eye exam: Present: normal appearance, PERRL, EOMI. Absent: scleral icterus, conjunctival injection, periorbital swelling ENT exam: Present: mucous membranes moist Respiratory exam: Present: normal lung sounds bilaterally, chest wall tenderness. Absent: respiratory distress, wheezes, rales, rhonchi, stridor Cardiovascular Exam: Present: regular rate, normal rhythm, normal heart sounds. Absent: systolic murmur, diastolic murmur, rubs, gallop, clicks GI/Abdominal exam: Present: soft, normal bowel sounds. Absent: distended, tenderness, guarding, rebound, rigid <Niles Sinha - Last Filed: 06/03/18 12:37> Course <Niles Sinha - Last Filed: 06/03/18 12:37> <Mitul Hanley - Last Filed: 06/03/18 13:08> Vital Signs 06/03/18 06/03/18 10:53 11:05 Temperature 97.7 F Pulse Rate 90 Pulse Rate [ 89 Devil Dog ] Respiratory 18 Rate Blood Pressure 126/50 O2 Sat by Pulse 98 Oximetry - Reevaluation(s) Reevaluation #1: 06/03/18 13:07 PA supervision: I proceeded [id number] evaluation the patient he comes in with complaints of chest pain at did get better after nitro and aspirin and aspirin. He is a custodial resident is morbidly obese. At this time he is pain-free heart sounds are demonstrated to be regular with no murmurs are appreciable. Lung sounds appear to be within normal limits. I did discuss findings with him and with Dr. Bang patient be admitted with cardiology consultation. I do agree with the assessment and plan (Mitul Hanley) Chest Pain MDM <Niles Sinha - Last Filed: 06/03/18 12:37> <Mitul Hanley - Last Filed: 06/03/18 13:08> - MDM 63-year-old male presents emergency from for chest pain. Patient has multiple risk factors. Patient will be admitted for cardiac rule out. Patient was started on heparin. (Niles Sinha) Disposition <Niles Sinha - Last Filed: 06/03/18 12:37> <Mitul Hanley - Last Filed: 06/03/18 13:08> Clinical Impression: Chest pain Disposition: ADMITTED IP TO THIS HOSP Condition: Stable Referrals: Rosa Palmer MD [Primary Care Provider] - 1-2 days
[2018-06-03 11:38] LABS: Calcium 8.5 mg/dL (8.4-10.2); Magnesium 1.9 mg/dL (1.6-2.3); Potassium 4.3 mmol/L (3.5-5.1); Total Bilirubin 1.2 mg/dL (0.2-1.3); Total Protein 6.7 g/dL (6.3-8.2)
[2018-06-03 11:58] LABS: INR 1.1 (<1.2); Partial Thromboplastin Time 23.8 sec (22.0-30.0); Prothrombin Time 11.3 sec (9.0-12.0)
[2018-06-03 12:06] LABS: Creatine Kinase MB 0.5 ng/mL (0.0-2.4); Troponin I 0.013 ng/mL (0.000-0.034)
[2018-06-03] MEDS ORDERED: NITROGLYCERIN SL TABS 0.4 MG TAB SUBLINGUAL PRN (12:39)
[2018-06-03] MEDS ORDERED: HEPARIN SODIUM,PORCINE 5,000 UNIT/ML 1 ML VIAL IV ONE (12:39)
[2018-06-03] MEDS ORDERED: HEPARIN SOD,PORK IN 0.45% NACL 25,000 UNIT in 0.45% NACL 1 500ML.BAG IV SCH (12:45)
[2018-06-03 18:12] LABS: Creatine Kinase 78 U/L (55-170)
[2018-06-03 18:26] LABS: Creatine Kinase MB 0.6 ng/mL (0.0-2.4); Troponin I <0.012 ng/mL (0.000-0.034)
[2018-06-03] MEDS ORDERED: KETOTIFEN 0.025% OPHTH DROPS 5 ML BTL BOTH EYES PRN (20:26)
[2018-06-03] MEDS ORDERED: NON-FORMULARY DRUG (Menthol [Biofreeze] 1 APPLIC) TOPICAL PRN (20:26)
[2018-06-03] MEDS ORDERED: IPRATROPIUM-ALBUTEROL 3 ML NEB INHALATION PRN (20:26)
[2018-06-03] MEDS ORDERED: SYMBICORT 80-4.5 MCG INHALER INHALATION SCH (21:00)
[2018-06-03] MEDS ORDERED: FERROUS SULFATE 325 MG TAB PO SCH (21:00)
[2018-06-03] MEDS ORDERED: ARIPiprazole 2 MG TAB PO SCH (21:00)
[2018-06-03] MEDS ORDERED: MILK THISTLE PO SCH (21:00)
[2018-06-03] MEDS: SULFAMETHOX-TMP 800-160MG 1 EACH TAB PO SCH (21:26)
[2018-06-03] MEDS: RIFAXIMIN 550 MG TABLET PO SCH (21:26)
[2018-06-03] MEDS: PREGABALIN 50 MG CAP PO SCH (21:26)
[2018-06-03] MEDS: LACTULOSE 20 GM/30 ML CUP PO SCH (21:27)
[2018-06-03] MEDS: ZINC OXIDE 20% OINT 28.4 GM TUBE TOPICAL SCH (21:50)
[2018-06-03] MEDS: DICLOFENAC SODIUM GEL 100 GM TUBE TOPICAL SCH (21:50)
[2018-06-04 00:48] LABS: Creatine Kinase 77 U/L (55-170)
[2018-06-04 01:00] LABS: Creatine Kinase MB 0.5 ng/mL (0.0-2.4); Troponin I <0.012 ng/mL (0.000-0.034)
[2018-06-04] MEDS: LACTULOSE 20 GM/30 ML CUP PO SCH ×2 (05:39→13:45)
[2018-06-04] MEDS: PREGABALIN 50 MG CAP PO SCH ×2 (05:39→13:47)
[2018-06-04] MEDS ORDERED: PANTOPRAZOLE 40 MG TABLET PO SCH (06:00)
[2018-06-04] MEDS ORDERED: SPIRONOLACTONE 25 MG TAB PO SCH (06:00)
[2018-06-04] MEDS ORDERED: SYMBICORT 80-4.5 MCG INHALER INHALATION SCH (07:23)
[2018-06-04] MEDS ORDERED: NON-FORMULARY DRUG (Ensure 1 CAN) PO SCH (07:30)
--- NOTE | 2018-06-04 07:56 | CONS ---
CONSULTATION Mr. Salamanca is a 63-year-old male who was transferred from [facility] on the [place] yesterday with symptoms of chest discomfort. He had chest discomfort yesterday that was worse with deep breathing, improved with exhaling. The patient is inactive, unable to stand. He has morbid obesity and severe arthritic pain. He denies any prior cardiac history. He denies any history of myocardial infarction. He has no dizziness or palpitation. No syncope. He has peripheral edema. He has no clear PND nor orthopnea. His discomfort is gone today. He had some cough a few days ago. His coronary risk factors are negative for smoking. He is nondiabetic. He has was told that he had high blood pressure in the past but not recently. His lipid profile is not available. He has a known history of liver cirrhosis that was thought to be related to fatty liver. MEDICATIONS: His medications include Abilify, aspirin, Plavix 75 mg daily, which according to him is taking to prevent DVT, iron, Protonix, Adipex, potassium, Aldactone 50 mg daily, Effexor, Zaroxolyn 2.5 mg daily, Bumex 2 mg daily, Ensure, Lyrica, lactulose, DuoNeb, Voltaren, Biofreeze, Breo Ellipta. REVIEW OF SYSTEMS: RESPIRATORY SYSTEM: He has history of asthma. No history of recent exacerbation. He had some cough earlier that resolved. He is very limited in his physical activity. GI SYSTEM: No recent GI bleed. No peptic ulcer disease. SYSTEM: No dysuria or hematuria. NERVOUS SYSTEM: No stroke or seizure. PHYSICAL EXAMINATION: He is a 63-year-old male, alert, oriented, in no apparent distress. Morbidly obese. Blood pressure 112/60 with the heart rate in the 90s. HEAD: Normocephalic. EYES: Sclerae anicteric. NECK: Good carotid upstroke. No bruit. LUNGS: Clear to auscultation. HEART: Regular rate and rhythm. S1, S2. No S3 with no rub or gallop. ABDOMEN: Soft, obese, nontender. Positive bowel sounds. No organomegaly. EXTREMITIES: +2 edema bilaterally with mild erythema. LAB DATA: Lab data revealed troponin less than 0.012 for 3 samples. BUN and creatinine 21 and 1.34. Hemoglobin of 11.8. Chest x-ray raised the question of mild congestion. EKG revealed a sinus mechanism with borderline IVCD and borderline left axis deviation. IMPRESSION: 1. Chest discomfort atypical for ischemic heart disease probably noncardiac, appears to be musculoskeletal in etiology. 2. Morbid obesity. 3. Prior history of liver cirrhosis. 4. History of bronchial asthma. 5. Chronic peripheral edema. RECOMMENDATION: From the cardiac standpoint, I will stop the IV heparin. I will obtain echocardiogram with Doppler. If there is no significant segmental wall motion abnormality, then no further cardiac workup will be needed. Thank you for this consult. We will follow with you. MICHELEL / IJN: [id number] /
[2018-06-04 08:19] VITALS: RESP 18
[2018-06-04] MEDS: SULFAMETHOX-TMP 800-160MG 1 EACH TAB PO SCH (08:22)
[2018-06-04] MEDS: RIFAXIMIN 550 MG TABLET PO SCH (08:35)
[2018-06-04] MEDS: DICLOFENAC SODIUM GEL 100 GM TUBE TOPICAL SCH (08:36)
[2018-06-04 08:50] LABS: Cholesterol 180 mg/dL (<200); HDL Cholesterol 53 mg/dL (40-60); LDL Cholesterol,Calculated 110 mg/dL (0-99); Triglycerides 85 mg/dL (<150)
[2018-06-04] MEDS ORDERED: ASPIRIN 325 MG TAB PO SCH (09:00)
[2018-06-04] MEDS ORDERED: VENLAFAXINE HCL 75 MG TAB PO SCH (09:00)
[2018-06-04] MEDS ORDERED: PHENTERMINE HCL 37.5 MG PO SCH (09:00)
[2018-06-04] MEDS ORDERED: BUMETANIDE 1 MG TAB PO SCH (09:00)
[2018-06-04] MEDS ORDERED: NON-FORMULARY DRUG (Aspirin [Adult Low Dose Aspirin Ec] 81 MG) PO SCH (09:00)
[2018-06-04] MEDS ORDERED: POTASSIUM CHLORIDE ER 10 MEQ TAB.ER.PRT PO SCH (09:00)
[2018-06-04] MEDS ORDERED: CLOPIDOGREL 75 MG TAB PO SCH (09:00)
--- NOTE | 2018-06-04 11:05 | ECHOF ---
Referral Reason:cp MEASUREMENTS -------- HEIGHT: 182.9 cm WEIGHT: 235.9 kg BP: 112/65 RVIDd: 3.2 cm (< 3.3) IVSd: 1.3 cm (0.6 - 1.1) LVIDd: 5.8 cm (3.9 - 5.3) LVPWd: 1.4 cm (0.6 - 1.1) IVSs: 1.4 cm LVIDs: 4.7 cm LVPWs: 1.7 cm Ao Diam: 3.1 cm (2.0 - 3.7) LA Diam: 4.3 cm (2.7 - 3.8) MV EXCURSION: 26.725 mm (> 18.000) MV EF SLOPE: 95 mm/s (70 - 150) EPSS: 0.7 cm MV E Chaz: 0.81 m/s MV DecT: 207 ms MV A Chaz: 0.81 m/s MV E/A Ratio: 0.99 RAP: 5.00 mmHg RVSP: 17.25 mmHg FINDINGS -------- Sinus rhythm. Morbid Obesity The left ventricular size is normal. There is mild concentric left ventricular hypertrophy. Overa ll left ventricular systolic function is normal with, an EF between 55 - 60 %. The right ventricle is normal in size. The left atrial size is normal. The right atrial size is normal. 5.0mg OF Lumason UTLIZED: 2 OR MORE WALL SEGMENTS NOT VISUALIZED. The aortic valve was not well visualized. The mitral valve was not well visualized. The tricuspid valve was not well visualized. The pulmonic valve was not well visualized. There is no pericardial effusion. CONCLUSIONS -------- 1. Sinus rhythm. 2. Morbid Obesity 3. The left ventricular size is normal. 4. There is mild concentric left ventricular hypertrophy. 5. Overall left ventricular systolic function is normal with, an EF between 55 - 60 %. 6. The left atrial size is normal. 7. 5.0mg OF Lumason UTLIZED: 2 OR MORE WALL SEGMENTS NOT VISUALIZED. 8. The aortic valve was not well visualized. 9. The mitral valve was not well visualized. 10. The tricuspid valve was not well visualized. 11. The pulmonic valve was not well visualized. 12. There is no pericardial effusion. [employer]: Bernie Dey RDCS
[2018-06-04 12:09] VITALS: BP 104/58; PULSE 74; TEMP 97.8
--- NOTE | 2018-06-04 13:40 | P.HPIM ---
History of Present Illness H&P Date: 06/04/18 Chief Complaint: chest pain HISTORY AND PHYSICAL AND DISCHARGE SUMMARY: This is a 63-year-old male patient of Dr. Palmer followed at [facility] as a long-term resident with past medical history of super morbid obesity, hepatocellular disease and cirrhosis most likely secondary to fatty liver, mild intermittent asthma, hypertension, osteoarthritis, kidney stones chronic cellulitis of the lower extremities, subdural hemorrhage secondary to a fall not requiring surgery. patient is also being treated for folliculitis of the bilateral abdominal areas on Bactrim. Patient developed chest pain on the left side night before he came in the continue to worsen by the morning. He was given one nitroglycerin at the detention that did not help. He denied any nausea or vomiting. The pain was constant on the left side without radiation. No nausea or vomiting. No shortness of breath. Patient was evaluated in [facility] emergency center. Hemoglobin 11.8, white count was normal,alkaline phosphatase 179. Troponins negative on 3 draws. Triglycerides 85, cholesterol 180, LDL 110, HDL 53. chest x-ray showed mild pulmonary vascular congestion likely on the basis of heart failure was stable cardiomegaly. Patient was placed on the observation unit and seen in consultation by Dr. Watts. He has ordered echocardiogram and if this has a normal ejection fraction no further workup. Acute coronary syndrome was ruled out.patient states that he has the pain intermittently now when he takes a deep breath. Echocardiogram reveals EF of 55-60% with mild concentric left hypertrophy. Patient will be discharged back to [facility] today in stable condition. Discharge Medication List Bumetanide [BUMEX] 2 mg PO DAILY@0911/20/16 [History] Dimethicone/Zinc Oxide [Inzo Zinc Oxide Barrier Cream] 1 applic TOPICAL Q12H [History] Venlafaxine HCl [Effexor XR] 225 mg PO DAILY@0911/20/16 [History] Ferrous Sulfate [Iron (65 MG Elemental)] 325 mg PO DAILY@2100 12/23/16 [History] Clopidogrel [Plavix] 75 mg PO DAILY@0906/26/17 [History] Ensure 1 can PO BID-W/MEALS 06/26/17 [History] Potassium Chloride [Klor-Con 10] 10 meq PO DAILY@0906/26/17 [History] Spironolactone [Aldactone] 50 mg PO DAILY@0600 06/26/17 [History] ARIPiprazole [Abilify] 2 mg PO HS@209906/03/18 [History] Aspirin [Adult Low Dose Aspirin EC] 81 mg PO DAILY@0906/03/18 [History] Diclofenac Sodium [Voltaren Gel] 1 applicate TOPICAL BID 06/03/18 [History] Fluticasone/Vilanterol [Breo Ellipta 100-25 Mcg Inhaler] 1 puff PO DAILY@2099 [History] Ipratropium-Albuterol Nebulize [Duoneb 0.5 mg-3 mg/3 ml Soln] 3 ml INHALATION RT -Q4H PRN 06/03/18 [History] Lactulose 30 gm PO QID@00,0600,1200,06/03/18 [History] Menthol [Biofreeze] 1 applic TOPICAL Q4H PRN 06/03/18 [History] Metolazone [Zaroxolyn] 2.5 mg PO MO 06/03/18 [History] Milk Thistle 1 tab PO BID@0900,209906/03/18 [History] Olopatadine HCl [Patanol] 5 ml BOTH EYES BID PRN 06/03/18 [History] Pantoprazole Sodium [Protonix] 20 mg PO DAILY@0606/03/18 [History] Phentermine HCl [Adipex-P] 37.5 mg PO DAILY 06/03/18 [History] Rifaximin [Xifaxan] 550 mg PO BID@0900,209906/03/18 [History] Sulfamethox-Tmp 800-160Mg [Bactrim DS 800-160 mg] 1 tab PO BID@0900,2099 [History] Pregabalin [Lyrica] 50 mg PO TID@0600,1400,2200 #12 cap 06/04/18 [Rx] Past Medical History Past Medical History: Asthma, Hypertension, Osteoarthritis (OA), Pneumonia Additional Past Medical History / Comment(s): IN PAST [place] FOR HYPERTENSION NO LONGER ON MEDS, KIDNEY STONE, BRONCHITIS, BEGINNINGS OF CATARACTS, DJD, HANDS SHAKY/TREMORS, DIVERTICULOSIS,anemia history of elevated ammonia levels, hepatic encephalopathy, hx of cellulitis lower extremities. previously charted "chronic subdural hemorrhage", History of Any Multi-Drug Resistant Organisms: MRSA Date of last positivie culture/infection: 05/31/18 MDRO Source:: Abdomen Past Surgical History: Hernia Repair, Orthopedic Surgery Additional Past Surgical History / Comment(s): cyst removed from hand, CRISTOPHER CARPAL TUNNEL RELEASE,UMB HERNIA REPAIR, RT KNEE ARTHROSCOPY,COLONOSCOPY Past Anesthesia/Blood Transfusion Reactions: No Reported Reaction Additional Past Anesthesia/Blood Transfusion Reaction / Comment(s): pt currently at [facility] on the [address]. not ambulatory. trasnfers per lift to w/c. Smoking Status: Former smoker Additional Past Alcohol Use History / Comment(s): patient was a smoker one pack per day and quit in 1991. He denies any marijuana, street drug or alcohol use. He is currently on disability since 2010. He previously worked in a correction. He is single. He is a long-term resident at [facility] and is non- ambulatory and does transfers with lifts to wheelchair. - Past Family History Father Family Medical History: Asthma, Cancer, CVA/TIA, Myocardial Infarction ([place]), Prostate Disorder Additional Family Medical History / Comment(s): SKIN ANd PROSTATE CANCER. Father at age 79 from heart failure. Mother Family Medical History: Cancer Additional Family Medical History / Comment(s): FROM BRAIN CANCER at age 83. Brother(s) Additional Family Medical History / Comment(s): patient has 2 brothers and one sister all alive. One brother has undergone 4 vessel CABG in 1 has carotid artery disease. Daughter(s) Additional Family Medical History / Comment(s): patient has 3 children, 2 daughters with Lyme disease and one son with no major medical problems Medications and Allergies Home Medications Medication Instructions Recorded Confirmed Type Bumetanide [BUMEX] 2 mg PO DAILY@0900 11/20/16 06/03/18 History Dimethicone/Zinc Oxide [Inzo Zinc 1 applic TOPICAL Q12H 11/20/16 06/03/18 History Oxide Barrier Cream] Venlafaxine HCl [Effexor XR] 225 mg PO DAILY@0900 11/20/16 06/03/18 History Ferrous Sulfate [Iron (65 MG 325 mg PO DAILY@209912/23/16 06/03/18 History Elemental)] Clopidogrel [Plavix] 75 mg PO DAILY@0906/26/17 06/03/18 History Ensure 1 can PO BID-W/MEALS 06/26/17 06/03/18 History Potassium Chloride [Klor-Con 10] 10 meq PO DAILY@0900 06/26/17 06/03/18 History Spironolactone [Aldactone] 50 mg PO DAILY@0606/26/17 06/03/18 History ARIPiprazole [Abilify] 2 mg PO HS@209906/03/18 06/03/18 History Aspirin [Adult Low Dose Aspirin EC] 81 mg PO DAILY@0906/03/18 06/03/18 History Diclofenac Sodium [Voltaren Gel] 1 applicate TOPICAL BID 06/03/18 06/03/18 History Fluticasone/Vilanterol [Breo 1 puff PO DAILY@209906/03/18 06/03/18 History Ellipta 100-25 Mcg Inhaler] Ipratropium-Albuterol Nebulize 3 ml INHALATION RT-Q4H PRN 06/03/18 06/03/18 History [Duoneb 0.5 mg-3 mg/3 ml Soln] Lactulose 30 gm PO QID@00,0600,1200,18 06/03/18 06/03/18 History Menthol [Biofreeze] 1 applic TOPICAL Q4H PRN 06/03/18 06/03/18 History Metolazone [Zaroxolyn] 2.5 mg PO MO 06/03/18 06/03/18 History Milk Thistle 1 tab PO BID@0900,209906/03/18 06/03/18 History Olopatadine HCl [Patanol] 5 ml BOTH EYES BID PRN 06/03/18 06/03/18 History Pantoprazole Sodium [Protonix] 20 mg PO DAILY@0606/03/18 06/03/18 History Phentermine HCl [Adipex-P] 37.5 mg PO DAILY 06/03/18 06/03/18 History Rifaximin [Xifaxan] 550 mg PO BID@0900,209906/03/18 06/03/18 History Sulfamethox-Tmp 800-160Mg [Bactrim 1 tab PO BID@0900,209906/03/18 06/03/18 History DS 800-160 mg] Pregabalin [Lyrica] 50 mg PO TID@0600,1400,2200 #12 cap 06/04/18 Rx Allergies Allergy/AdvReac Type Severity Reaction Status Date / Time No Known Allergies Allergy Verified 06/03/18 12:10 Physical Exam Vitals: Vital Signs Temp Pulse Pulse Pulse Resp BP BP 06/04/18 08:00 98.2 F 88 18 131/74 06/04/18 07:35 92 06/04/18 07:22 92 06/04/18 04:00 97.9 F 90 20 112/65 06/04/18 03:57 20 06/03/18 23:45 98.8 F 92 20 122/67 06/03/18 23:21 20 06/03/18 20:45 98.2 F 95 20 125/68 06/03/18 20:10 98.1 F 94 20 110/50 06/03/18 20:00 20 06/03/18 19:00 92 20 118/46 06/03/18 16:55 97.7 F 89 20 117/36 06/03/18 15:31 91 15 103/48 06/03/18 15:00 90 23 107/63 06/03/18 14:11 91 19 123/45 06/03/18 14:00 93 18 122/52 06/03/18 13:00 93 19 118/46 06/03/18 11:05 89 06/03/18 10:53 97.7 F 90 18 126/50 06/03/18 10:50 90 20 126/50 Pulse Ox 06/04/18 08:00 97 06/04/18 07:35 06/04/18 07:22 06/04/18 04:00 96 06/04/18 03:57 06/03/18 23:45 94 L 06/03/18 23:21 06/03/18 20:45 97 06/03/18 20:10 97 06/03/18 20:00 06/03/18 19:00 98 06/03/18 16:55 94 L 06/03/18 15:31 97 06/03/18 15:00 93 L 06/03/18 14:11 96 06/03/18 14:00 06/03/18 13:00 06/03/18 11:05 06/03/18 10:53 98 06/03/18 10:50 Intake and Output 06/03/18 06/04/18 06/04/18 22:59 06:59 14:59 Intake Total 212.667 Balance 212.667 Intake: Intake, IV Titration 212.667 Amount Heparin Sod,Pork in 0.45% 212.667 NaCl 25,000 unit In 0.45 % NaCl 1 500ml.bag @ 4.24 UNITS/KG/HR 20 mls/hr IV .Q24H BELINDA Rx#:[id number] Other: # Voids 1 1 Gen: This is a super morbid obese male. He is in bed and appears to be comfortable. HEENT: Head is atraumatic, normocephalic. Pupils equal, round. Sclerae is anicteric. NECK: Supple. No JVD. No lymphadenopathy. No thyromegaly. LUNGS: Clear to auscultation. No wheezes or rhonchi. No intercostal retractions. HEART: Regular rate and rhythm. No murmur. ABDOMEN: morbidly obese.Soft. Bowel sounds are present. No masses. No tenderness.wound/folliculitis noted on the bilateral lateral abdominal fold EXTREMITIES: 2+ pedal edema bilaterally. Mild erythema to the lower extremities. No significant wounds. No drainage. NEUROLOGICAL: Patient is awake, alert and oriented x3. Cranial nerves 2 through 12 are grossly intact. Results CBC & Chem 7: 06/03/18 11:10 06/03/18 11:10 Labs: Abnormal Lab Results - Last 24 Hours (Table) 06/03/18 06/03/18 06/04/18 Range/Units 11:10 11:10 08:17 RBC 4.07 L (4.30-5.90) m/uL Hgb 11.8 L (13.0-17.5) gm/dL Hct 36.6 L (39.0-53.0) % RDW 16.3 H (11.5-15.5) % Plt Count 149 L (150-450) k/uL Sodium 136 L (137-145) mmol/L BUN 21 H (9-20) mg/dL Creatinine 1.34 H (0.66-1.25) mg/dL Glucose 161 H (74-99) mg/dL Alkaline Phosphatase 179 H (38-126) U/L Albumin 3.0 L (3.5-5.0) g/dL LDL Cholesterol, Calc 110 H (0-99) mg/dL Thrombosis Risk Factor Assmnt - Choose All That Apply Each Factor Represents 1 point: Obesity (BMI >25) Each Risk Factor Represents 2 Points: Age 61-74 years Thrombosis Risk Factor Assessment Total Risk Factor Score: 3 Thrombosis Risk Factor Assessment Level: Moderate Risk Assessment and Plan Plan: 1. Musculoskeletal chest pain. Acute coronary syndrome ruled out. 2. Mild intermittent asthma, stable. 3. Acute folliculitis on Bactrim with local wound care. 4. Hepatocellular disease/cirrhosis secondary to fatty liver, stable. 5. Hypertension. 6. Super morbid obesity with BMI of 70. 7. chronic kidney disease stage III. Patient laced on the observation unit. Discharge plan: return to [facility] Impression and plan of care have been directed as dictated by the signing physician. Loni Jolly nurse practitioner acting as scribe for signing physician.
[2018-06-04] MEDS: ZINC OXIDE 20% OINT 28.4 GM TUBE TOPICAL SCH (13:45)
[2018-06-07] MEDS ORDERED: METOLAZONE 2.5 MG TAB PO SCH (20:26)
== END 2018-06-04 16:22 ==
LOC: EC 10:40 → 3SCARD 13:09 → 1SOBS 15:48
PROVIDERS: ADMIT Family Medicine; ATTEND Family Medicine
DX: R07.89 Other chest pain (principal); J45.20 Mild intermittent asthma, uncomplicated; I13.10 Hypertensive heart and chronic kidney disease without heart failure, with stage 1 through stage 4 chronic kidney disease, or unspecified chronic kidney disease; N18.3 Chronic kidney disease, stage 3 (moderate); D64.9 Anemia, unspecified; R25.1 Tremor, unspecified; K74.60 Unspecified cirrhosis of liver; K76.89 Other specified diseases of liver; M19.90 Unspecified osteoarthritis, unspecified site; L73.9 Follicular disorder, unspecified; K57.90 Diverticulosis of intestine, part unspecified, without perforation or abscess without bleeding; E66.01 Morbid (severe) obesity due to excess calories; Z68.45 Body mass index [BMI] 70 or greater, adult; Z79.02 Long term (current) use of antithrombotics/antiplatelets; Z79.82 Long term (current) use of aspirin; Z79.51 Long term (current) use of inhaled steroids; Z79.899 Other long term (current) drug therapy; R26.2 Difficulty in walking, not elsewhere classified; Z87.442 Personal history of urinary calculi; Z87.2 Personal history of diseases of the skin and subcutaneous tissue; Z86.14 Personal history of Methicillin resistant Staphylococcus aureus infection; Z87.01 Personal history of pneumonia (recurrent); Z86.79 Personal history of other diseases of the circulatory system; Z87.19 Personal history of other diseases of the digestive system; Z87.891 Personal history of nicotine dependence; Z80.8 Family history of malignant neoplasm of other organs or systems; Z80.42 Family history of malignant neoplasm of prostate; Z82.49 Family history of ischemic heart disease and other diseases of the circulatory system; Z82.3 Family history of stroke; Z82.5 Family history of asthma and other chronic lower respiratory diseases; Z83.1 Family history of other infectious and parasitic diseases
CPT/HCPCS: 96366 ×3; 96376; 96365; 99285; 36415; 94640 ×2; 93005; 83880; 80061; 80053; 82550; 82553; 83735; 84484; 85025; 85610; 85730; 71046; G0378 ×3; C8929; J1644 ×2; Q9950; 93306

== ENCOUNTER 2019-01-05 19:16 | Inpatient (IN) | payer MEDICARE, OTHER ==
[2019-01-05] MEDS ORDERED: PANTOPRAZOLE 40 MG/10 ML VIAL IVP STA (19:32)
[2019-01-05] MEDS ORDERED: SODIUM CHLORIDE 0.9% 1,000 ML IV STA (19:32)
--- NOTE | 2019-01-05 19:35 | ED ---
Recheck HPI - General Stated Complaint: Low Hemoglobin Time Seen by Provider: 01/05/19 19:32 Source: RN notes reviewed, old records reviewed - History of Present Illness Initial Comments: This is a 63-year-old male the ER for evaluation. Patient comes in for evaluation of an outpatient lab test. Low hemoglobin. Patient does admit to dark stools. No nausea vomiting, dizziness and generalized weakness. Not feeling well. No blood thinners. MD Complaint: abnormal lab (Low hemoglobin) -: unknown Returns Today for: Called Because of Abnormal Lab/Test Symptoms Since Prior Visit: worsening pain (Worsening weakness) Context: called for abnormal lab result Associated Symptoms: shortness of breath, malaise - Related Data Home Medications Medication Instructions Recorded Confirmed Bumetanide [BUMEX] 2 mg PO BID@0900,1700 11/20/16 01/05/19 Clopidogrel [Plavix] 75 mg PO DAILY@0900 06/26/17 01/05/19 Aspirin [Adult Low Dose Aspirin EC] 81 mg PO DAILY@0900 06/03/18 01/05/19 Ipratropium-Albuterol Nebulize 3 ml INHALATION RT-Q4H PRN 06/03/18 01/05/19 [Duoneb 0.5 mg-3 mg/3 ml Soln] Lactulose 40 gm PO QID 06/03/18 01/05/19 Metolazone [Zaroxolyn] 2.5 mg PO TH 06/03/18 01/05/19 Milk Thistle 240 mg PO BID@0900,2100 06/03/18 01/05/19 Olopatadine HCl [Patanol] 1 drop BOTH EYES DAILY PRN 06/03/18 01/05/19 Pantoprazole Sodium [Protonix] 20 mg PO DAILY@0600 06/03/18 01/05/19 Phentermine HCl [Adipex-P] 37.5 mg PO DAILY@1000 06/03/18 01/05/19 Rifaximin [Xifaxan] 550 mg PO BID@0900,209906/03/18 01/05/19 Albuterol Inhaler [Ventolin Hfa 1 - 2 puff INHALATION RT-Q4H PRN 01/05/19 01/05/19 Inhaler] Budesonide [Pulmicort] 0.5 mg INHALATION RT-BID@0900,2100 01/05/19 01/05/19 Ergocalciferol [Vitamin D2] 50,000 unit PO HUERTA@1400 01/05/19 01/05/19 Glimepiride [Amaryl] 1 mg PO DAILY@0900 01/05/19 01/05/19 Ibuprofen [Motrin Ib] 400 mg PO Q6H PRN 01/05/19 01/05/19 Lurasidone [Latuda] 20 mg PO DAILY@0900 01/05/19 01/05/19 Montelukast [Singulair] 10 mg PO HS@2200 01/05/19 01/05/19 Potassium Chloride ER [K-Dur 20] 20 meq PO BID@0900,2100 01/05/19 01/05/19 Potassium Chloride ER [K-Dur 20] 20 meq PO DAILY@1400 01/05/19 01/05/19 Venlafaxine HCl ER [Effexor Xr] 225 mg PO HS@2100 01/05/19 01/05/19 guaiFENesin [guaiFENesin Oral 200 mg PO Q4H PRN 01/05/19 01/05/19 Solution] metFORMIN HCL [metFORMIN HCL ER] 750 mg PO BID@0900,1700 01/05/19 01/05/19 Previous Rx's Medication Instructions Recorded Pregabalin [Lyrica] 50 mg PO TID@0600,1400,2200 #12 cap 06/04/18 Allergies Allergy/AdvReac Type Severity Reaction Status Date / Time No Known Allergies Allergy Verified 01/05/19 19:47 Review of Systems ROS Statement: Those systems with pertinent positive or pertinent negative responses have been documented in the HPI. ROS Other: All systems not noted in ROS Statement are negative. Past Medical History Past Medical History: Asthma, Hypertension, Osteoarthritis (OA), Pneumonia Additional Past Medical History / Comment(s): IN PAST [place] FOR HYPERTENSION NO LONGER ON MEDS, KIDNEY STONE, BRONCHITIS, BEGINNINGS OF CATARACTS, DJD, HANDS SHAKY/TREMORS, DIVERTICULOSIS,anemia history of elevated ammonia levels, hepatic encephalopathy, hx of cellulitis lower extremities. previously charted "chr onic subdural hemorrhage", History of Any Multi-Drug Resistant Organisms: MRSA Date of last positivie culture/infection: 05/31/18 MDRO Source:: Abdomen Past Surgical History: Hernia Repair, Orthopedic Surgery Additional Past Surgical History / Comment(s): cyst removed from hand, CRISTOPHER CARPAL TUNNEL RELEASE,UMB HERNIA REPAIR, RT KNEE ARTHROSCOPY,COLONOSCOPY Past Anesthesia/Blood Transfusion Reactions: No Reported Reaction Additional Past Anesthesia/Blood Transfusion Reaction / Comment(s): pt currently at [facility] on the [address]. not ambulatory. trasnfers per lift to w/c. Smoking Status: Former smoker Additional Past Alcohol Use History / Comment(s): patient was a smoker one pack per day and quit in 1991. He denies any marijuana, street drug or alcohol use. He is currently on disability since 2010. 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 He is a long-term resident at [facility] and is non- ambulatory and does transfers with lifts to wheelchair. - Past Family History Father Family Medical History: Asthma, Cancer, CVA/TIA, Myocardial Infarction ([place]), Prostate Disorder Additional Family Medical History / Comment(s): SKIN ANd PROSTATE CANCER. Father at age 79 from heart failure. Mother Family Medical History: Cancer Additional Family Medical History / Comment(s): FROM BRAIN CANCER at age 83. Brother(s) Additional Family Medical History / Comment(s): patient has 2 brothers and one sister all alive. One brother has undergone 4 vessel CABG in 1 has carotid artery disease. Daughter(s) Additional Family Medical History / Comment(s): patient has 3 children, 2 daughters with Lyme disease and one son with no major medical problems General Exam General appearance: alert, in no apparent distress Head exam: Present: atraumatic, normocephalic, normal inspection Eye exam: Present: normal appearance, PERRL, EOMI. Absent: scleral icterus, conjunctival injection, periorbital swelling ENT exam: Present: normal exam, mucous membranes moist Neck exam: Present: normal inspection. Absent: tenderness, meningismus, lymphadenopathy Respiratory exam: Present: normal lung sounds bilaterally. Absent: respiratory distress, wheezes, rales, rhonchi, stridor Cardiovascular Exam: Present: regular rate, normal rhythm, normal heart sounds. Absent: systolic murmur, diastolic murmur, rubs, gallop, clicks GI/Abdominal exam: Present: soft, normal bowel sounds. Absent: distended, tenderness, guarding, rebound, rigid Extremities exam: Present: normal inspection, full ROM, normal capillary refill. Absent: tenderness, pedal edema, joint swelling, calf tenderness Back exam: Present: normal inspection Neurological exam: Present: alert, oriented X3, CN II-XII intact Psychiatric exam: Present: normal affect, normal mood Skin exam: Present: warm, dry, intact, normal color. Absent: rash Course Vital Signs 01/05/19 01/05/19 19:41 20:45 Temperature 98.0 F Pulse Rate 90 86 Respiratory 20 18 Rate Blood Pressure 128/53 112/75 O2 Sat by Pulse 95 97 Oximetry - Reevaluation(s) Reevaluation #1: 01/05/19 19:34 Medical records reviewed Reevaluation #2: 01/05/19 19:34 (Dr. Syed regarding admission, as well as regarding outpatient lab tests Medical Decision Making - Medical Decision Making 83 male the ER for evaluation GI bleed with anemia, will admit for transfusion and GI evaluation - Lab Data Result diagrams: 01/05/19 20:30 01/05/19 20:30 Lab Results 01/05/19 01/05/19 01/05/19 Range/Units 20:30 20:30 20:30 WBC 9.0 (3.8-10.6) k/uL RBC 2.67 L (4.30-5.90) m/uL Hgb 7.3 L (13.0-17.5) gm/dL Hct 23.3 L (39.0-53.0) % MCV 87.1 (80.0-100.0) fL MCH 27.2 (25.0-35.0) pg MCHC 31.3 (31.0-37.0) g/dL RDW 19.6 H (11.5-15.5) % Plt Count 220 (150-450) k/uL Neutrophils % 68 % Lymphocytes % 18 % Monocytes % 7 % Eosinophils % 5 % Basophils % 0 % Neutrophils # 6.1 (1.3-7.7) k/uL Lymphocytes # 1.6 (1.0-4.8) k/uL Monocytes # 0.6 (0-1.0) k/uL Eosinophils # 0.5 (0-0.7) k/uL Basophils # 0.0 (0-0.2) k/uL Hypochromasia Moderate Poikilocytosis Slight Anisocytosis Slight PT 13.0 H (9.0-12.0) sec INR 1.3 H (<1.2) APTT 23.8 (22.0-30.0) sec Sodium 136 L (137-145) mmol/L Potassium 3.9 (3.5-5.1) mmol/L Chloride 103 (98-107) mmol/L Carbon Dioxide 24 (22-30) mmol/L Anion Gap 9 mmol/L BUN 28 H (9-20) mg/dL Creatinine 1.70 H (0.66-1.25) mg/dL Est GFR (CKD-EPI)AfAm 48 (>60 ml/min/1.73 sqM) Est GFR (CKD-EPI)NonAf 42 (>60 ml/min/1.73 sqM) Glucose 94 (74-99) mg/dL Calcium 8.5 (8.4-10.2) mg/dL Magnesium 2.0 (1.6-2.3) mg/dL Total Bilirubin 1.5 H (0.2-1.3) mg/dL AST 114 H (17-59) U/L ALT 47 (21-72) U/L Alkaline Phosphatase 471 H (38-126) U/L Total Protein 6.5 (6.3-8.2) g/dL Albumin 2.7 L (3.5-5.0) g/dL Lipase 113 (23-300) U/L Disposition Clinical Impression: GI hemorrhage, Anemia, Morbid obesity Disposition: ADMITTED IP TO THIS HOSP Condition: Fair Is patient prescribed a controlled substance at d/c from ED?: No Referrals: Rosa Palmer MD [Primary Care Provider] - 1-2 days
[2019-01-05 20:48] LABS: Anisocytosis Slight; Basophils % (A) 0 %; Eosinophils # (A) 0.5 k/uL (0-0.7); Eosinophils % (A) 5 %; HCT 23.3 % (39.0-53.0); HGB 7.3 gm/dL (13.0-17.5); Hypochromasia Moderate; Lymphocytes # (A) 1.6 k/uL (1.0-4.8); Lymphocytes % (A) 18 %; MCH 27.2 pg (25.0-35.0); MCHC 31.3 g/dL (31.0-37.0); MCV 87.1 fL (80.0-100.0); Mean Platelet Volume 8.1; Monocytes # (A) 0.6 k/uL (0-1.0); Monocytes % (A) 7 %; Neutrophils # (A) 6.1 k/uL (1.3-7.7); Neutrophils % (A) 68 %; Platelet Count 220 k/uL (150-450); Poikilocytosis Slight; RBC 2.67 m/uL (4.30-5.90); RDW 19.6 % (11.5-15.5)
[2019-01-05 20:50] LABS: Albumin 2.7 g/dL (3.5-5.0); Calcium 8.5 mg/dL (8.4-10.2); Potassium 3.9 mmol/L (3.5-5.1); Total Bilirubin 1.5 mg/dL (0.2-1.3); Total Protein 6.5 g/dL (6.3-8.2)
[2019-01-05 20:54] LABS: INR 1.3 (<1.2); Partial Thromboplastin Time 23.8 sec (22.0-30.0)
[2019-01-06 06:54] LABS: Glucose,Whole Blood 103 mg/dL (75-99)
--- NOTE | 2019-01-06 09:25 | P.CONS ---
History of Present Illness - Reason for Consult Consult date: 01/06/19 GI bleed Requesting physician: Rosa Palmer - Chief Complaint Abnormal outpatient CBC dark-colored bowel movements - History of Present Illness 63-year-old gentleman with a history of psychiatric issues, NAFLD cirrhosis, CVA, depression, hypertension, chronic kidney disease, asthma, CAD maintained on dual antiplatelet therapy, morbid obesity admitted with reports of an outpatient abnormal CBC with reported dark-colored bowel movements. Admission hemoglobin 7.3. MCV 87. Platelet 220. INR 1.3. BUN 28. Creatinine 1.7. LFTs total bilirubin 1.5. AST 114. ALT 47. AP 471. FOBT positive. Previous hemoglobin between 11 and 12 range and 2017 in 2018. Most recent hemoglobin for comparison May 2018 was 11.8. Home medications reviewed Protonix 20 mg daily, Plavix, baby aspirin. No NSAIDs or alcohol. Denies gross hematemesis or hematochezia. Unsure patient has had an EGD colonoscopy in the past he cannot recall. Denies abdominal pain. Review of Systems Constitutional: Denies fever, chills, sweats, weight gain, or loss. Morbid obesity. HEENT: Negative for migraines, blurred vision or loss, earaches, drainage, tinnitus, oral mucosal lesions, dysphagia, or odynophagia. Cardiac: Negative for chest pain, arrhythmias, or palpitation. Respiratory: Negative for shortness of breath, hemoptysis, cough, or sputum production. Gastrointestinal: See HPI for pertinent findings. Genitourinary: Negative for hematuria, urgency, frequency, polyuria, dysuria, or penile discharge. Musculoskeletal: Negative for muscle aches, swelling, arthritis, and arthralgias. Neurologic: Negative for stroke or TIA. Endocrine: Negative for thyroid problems. Skin: Negative for rash or itching. Psychiatric: History psychiatric problems Past Medical History Past Medical History: Asthma, CVA/TIA, Hypertension, Osteoarthritis (OA), Pneumonia, Skin Disorder Additional Past Medical History / Comment(s): IN PAST [place] FOR HYPERTENSION NO LONGER ON MEDS, KIDNEY STONE, BRONCHITIS, BEGINNINGS OF CATARACTS, DJD, HANDS SHAKY/TREMORS, DIVERTICULOSIS,anemia history of elevated ammonia levels, hepatic encephalopathy, hx of cellulitis lower extremities. previously charted "chronic subdural hemorrhage", [place] 1 year ago History of Any Multi-Drug Resistant Organisms: MRSA Year Discovered:: 05/31/18 MDRO Source:: Abdomen Past Surgical History: Hernia Repair, Orthopedic Surgery Additional Past Surgical History / Comment(s): cyst removed from hand, CRISTOPHER CARPAL TUNNEL RELEASE,UMB HERNIA REPAIR, RT KNEE ARTHROSCOPY,COLONOSCOPY Past Anesthesia/Blood Transfusion Reactions: No Reported Reaction Additional Past Anesthesia/Blood Transfusion Reaction / Comm: pt currently at [facility] on the [address]. not ambulatory. bedbound Past Psychological History: Anxiety, Depression Additional Psychological History / Comment(s): PT STATED FEELS WELL MAINTAINED ON HIS MEDS. Smoking Status: Former smoker Past Alcohol Use History: None Reported Additional Past Alcohol Use History / Comment(s): patient was a smoker one pack per day and quit in 1991. He denies any marijuana, street drug or alcohol use. He is currently on disability since 2010. He previously worked in a prison. He is single. He is a long-term resident at [facility] and is non-ambulatory and bedbound Past Drug Use History: None Reported - Past Family History Father Family Medical History: Asthma, Cancer, CVA/TIA, Myocardial Infarction ([place]), Prostate Disorder Additional Family Medical History / Comment(s): SKIN ANd PROSTATE CANCER. Father at age 79 from heart failure. Mother Family Medical History: Cancer Additional Family Medical History / Comment(s): FROM BRAIN CANCER at age 83. Brother(s) Additional Family Medical History / Comment(s): patient has 2 brothers and one sister all alive. One brother has undergone 4 vessel CABG in 1 has carotid artery disease. Daughter(s) Additional Family Medical History / Comment(s): patient has 3 children, 2 daughters with Lyme disease and one son with no major medical problems Medications and Allergies Home Medications Medication Instructions Recorded Confirmed Type Bumetanide [BUMEX] 2 mg PO BID@0900,1700 11/20/16 01/05/19 History Clopidogrel [Plavix] 75 mg PO DAILY@0900 06/26/17 01/05/19 History Aspirin [Adult Low Dose Aspirin EC] 81 mg PO DAILY@0900 06/03/18 01/05/19 History Ipratropium-Albuterol Nebulize 3 ml INHALATION RT-Q4H PRN 06/03/18 01/05/19 Hist ory [Duoneb 0.5 mg-3 mg/3 ml Soln] Lactulose 40 gm PO QID 06/03/18 01/05/19 History Metolazone [Zaroxolyn] 2.5 mg PO TH 06/03/18 01/05/19 History Milk Thistle 240 mg PO BID@0900,2100 06/03/18 01/05/19 History Olopatadine HCl [Patanol] 1 drop BOTH EYES DAILY PRN 06/03/18 01/05/19 History Pantoprazole Sodium [Protonix] 20 mg PO DAILY@0600 06/03/18 01/05/19 History Phentermine HCl [Adipex-P] 37.5 mg PO DAILY@1000 06/03/18 01/05/19 History Rifaximin [Xifaxan] 550 mg PO BID@0900,209906/03/18 01/05/19 History Pregabalin [Lyrica] 50 mg PO TID@0600,1400,2200 #12 cap 06/04/18 01/05/19 Rx Albuterol Inhaler [Ventolin Hfa 1 - 2 puff INHALATION RT-Q4H PRN 01/05/19 01/05/19 History Inhaler] Budesonide [Pulmicort] 0.5 mg INHALATION RT-BID@0900,209901/05/19 01/05/19 History Ergocalciferol [Vitamin D2] 50,000 unit PO HUERTA@139901/05/19 01/05/19 History Glimepiride [Amaryl] 1 mg PO DAILY@0901/05/19 01/05/19 History Ibuprofen [Motrin Ib] 400 mg PO Q6H PRN 01/05/19 01/05/19 History Lurasidone [Latuda] 20 mg PO DAILY@0901/05/19 01/05/19 History Montelukast [Singulair] 10 mg PO HS@219901/05/19 01/05/19 History Potassium Chloride ER [K-Dur 20] 20 meq PO BID@0900,209901/05/19 01/05/19 History Potassium Chloride ER [K-Dur 20] 20 meq PO DAILY@1400 01/05/19 01/05/19 History Venlafaxine HCl ER [Effexor Xr] 225 mg PO HS@209901/05/19 01/05/19 History guaiFENesin [guaiFENesin Oral 200 mg PO Q4H PRN 01/05/19 01/05/19 History Solution] metFORMIN HCL [metFORMIN HCL ER] 750 mg PO BID@0900,1700 01/05/19 01/05/19 History Allergies Allergy/AdvReac Type Severity Reaction Status Date / Time No Known Allergies Allergy Verified 01/05/19 19:47 Physical Exam Vitals: Vital Signs Temp Pulse Pulse Pulse Resp BP BP 01/06/19 07: 98.2 F 93 22 01/06/19 00:22 97.9 F 105 H 16 122/59 01/05/19 22:33 98.1 F 90 15 127/70 01/05/19 21:43 97.7 F 87 20 112/67 01/05/19 20:45 86 18 112/75 01/05/19 19:41 98.0 F 90 20 128/53 BP Pulse Ox 01/06/19 07:19 137/68 97 01/06/19 00:22 97 01/05/19 22:33 96 01/05/19 21:43 95 01/05/19 20:45 97 01/05/19 19:41 95 Intake and Output 01/05/19 01/06/19 01/06/19 22:59 06:59 14:59 Other: Voiding Method Incontinent # Voids 1 1 # Bowel Movements 1 1 Weight 234.734 kg General appearance: The patient is somewhat drowsy but easily awakened, in no acute distress. Morbidly obese. Pickwickian appearance. HET: Head is normocephalic and atraumatic. Pupils are equal and reactive. Oropharynx is clear without lesions. Neck: Supple without lymphadenopathy. Trachea midline. Heart: S1 S2. Regular rate and rhythm. Lungs: No crackles or wheezes are heard. Abdomen: Soft, morbidly obese with large pannus nontender, nondistended with bowel sounds. No peritoneal signs. No palpable organomegaly or masses. Extremities: Radial and pedal pulses are 2/4 bilaterally. Neurological: No focal deficits. Strength and sensation are grossly intact. Results CBC & Chem 7: 01/05/19 20:30 01/05/19 20:30 Labs: Abnormal Lab Results - Last 24 Hours (Table) 01/05/19 01/05/19 01/05/19 Range/Units 20:30 20:30 20:30 RBC 2.67 L (4.30-5.90) m/uL Hgb 7.3 L (13.0-17.5) gm/dL Hct 23.3 L (39.0-53.0) % RDW 19.6 H (11.5-15.5) % PT 13.0 H (9.0-12.0) sec INR 1.3 H (<1.2) Sodium 136 L (137-145) mmol/L BUN 28 H (9-20) mg/dL Creatinine 1.70 H (0.66-1.25) mg/dL POC Glucose (mg/dL) (75-99) mg/dL Total Bilirubin 1.5 H (0.2-1.3) mg/dL AST 114 H (17-59) U/L Alkaline Phosphatase 471 H (38-126) U/L Albumin 2.7 L (3.5-5.0) g/dL 01/06/19 Range/Units 06:52 RBC (4.30-5.90) m/uL Hgb (13.0-17.5) gm/dL Hct (39.0-53.0) % RDW (11.5-15.5) % PT (9.0-12.0) sec INR (<1.2) Sodium (137-145) mmol/L BUN (9-20) mg/dL Creatinine (0.66-1.25) mg/dL POC Glucose (mg/dL) 103 H (75-99) mg/dL Total Bilirubin (0.2-1.3) mg/dL AST (17-59) U/L Alkaline Phosphatase (38-126) U/L Albumin (3.5-5.0) g/dL Assessment and Plan (1) Normocytic hypochromic anemia Narrative/Plan: 63-year-old male past medical history of chronic kidney disease, nonalcoholic cirrhosis mild coagulopathy CAD maintained on dual antiplatelet therapy presents with reports of an abnormal outpatient CBC. Admission hemoglobin normocytic hypochromic 7.3, MCV 87 with dark-colored bowel movements. Hemoglobin has drifted down by 3-4 g over the last 2 years without abdominal pain, fever chills gross hematemesis or hematochezia. Unsure if patient has had previous endoscopic exams in the past. Current Visit: Yes Status: Acute Code(s): D50.9 - IRON DEFICIENCY ANEMIA, UNSPECIFIED SNOMED Code(s): 24624482 (2) Non-alcoholic cirrhosis Current Visit: Yes Status: Acute Code(s): K74.60 - UNSPECIFIED CIRRHOSIS OF LIVER SNOMED Code(s): 032973938 (3) Exogenous obesity Current Visit: Yes Status: Acute Code(s): E66.09 - OTHER OBESITY DUE TO EXCESS CALORIES SNOMED Code(s): 447706784 Plan: 1. GI office called no record of endoscopic exams performed in the last 10 years unless performed elsewhere. Will check Iron indices. CBC monitoring. Protonix 40 mg twice daily. Inpatient endoscopic exams will be challenging due to his exogenous obesity may have to be performed in the operating room setting. Patient will require medical and anesthesia clearance prior to endoscopic exams. We'll tentatively schedule EGD tomorrow pending anesthesia medical clearance. Nothing by mouth after midnight. 2. Clear liquid diet. 3. Check ammonia level. Continue with present medical therapy. Thank you for this kind referral and the opportunity to participate in the care of your patient. This consultation was discussed with Dr. Gomez. The impression and plan of care have been directed as dictated.
[2019-01-06] MEDS ORDERED: ALBUTEROL NEBULIZED 2.5 MG/3 ML INHALATION PRN (09:26)
[2019-01-06] MEDS ORDERED: IPRATROPIUM-ALBUTEROL 3 ML NEB INHALATION PRN (09:26)
[2019-01-06] MEDS ORDERED: KETOTIFEN 0.025% OPHTH DROPS 5 ML BTL BOTH EYES PRN (09:26)
[2019-01-06] MEDS ORDERED: guaiFENesin SYRUP 100MG/5ML 200 MG/10 ML CUP PO PRN (09:26)
[2019-01-06 11:56] LABS: Glucose,Whole Blood 97 mg/dL (75-99)
[2019-01-06 11:58] LABS: Reticulocyte % 3.9 % (0.5-2.0)
[2019-01-06] MEDS: INSULIN ASPART (NovoLOG) 100 UNIT/ML VIAL SQ SCH ×3 (12:46→21:18)
[2019-01-06] MEDS: PREGABALIN 50 MG CAP PO SCH ×2 (13:27→21:25)
[2019-01-06] MEDS: PANTOPRAZOLE 40 MG/10 ML VIAL IVP SCH (13:27)
--- NOTE | 2019-01-06 13:32 | P.CRDCN ---
History of Present Illness Consult date: 01/06/19 History of present illness: This is a 63-year-old gentleman with extreme obesity, who was noted to have some blood in the stools. Apparently was also coughing up some blood. Subsequent blood work showed evidence of anemia. It is suspected that patient is having GI bleeding and workup including endoscopy studies is recommended. We're asked to see the patient for cardiac clearance before the procedure. Patient is being scheduled to have the procedure in the operating room. Because of his obesity, medical clearance and anesthesia clearance also requested. He denies any chest pain. He is chronically short of breath or asthma and also probably related is body size. Patient had echocardiogram done a few months ago which showed normal LV function. EKG done in May showed a normal sinus rhythm. No evidence of any previous myocardial infarctions, unstable angina or congestive heart failure. Based on those facts, I do not see no contraindication from a cardiac standpoint. Obviously, because of his size, and history of asthma and other medical problems, his risk for procedures is high. I'm going also order an EKG. Review of Systems As per the chart Past Medical History Past Medical History: Asthma, CVA/TIA, Hypertension, Osteoarthritis (OA), Pneumonia, Skin Disorder Additional Past Medical History / Comment(s): IN PAST [place] FOR HYPERTENSION NO LONGER ON MEDS, KIDNEY STONE, BRONCHITIS, BEGINNINGS OF CATARACTS, DJD, HANDS SHAKY/TREMORS, DIVERTICULOSIS,anemia history of elevated ammonia levels, hepatic encephalopathy, hx of cellulitis lower extremities. previously charted "chronic subdural hemorrhage", [place] 1 year ago History of Any Multi-Drug Resistant Organisms: MRSA Date of last positivie culture/infection: 05/31/18 MDRO Source:: Abdomen Past Surgical History: Hernia Repair, Orthopedic Surgery Additional Past Surgical History / Comment(s): cyst removed from hand, CRISTOPHER CARPAL TUNNEL RELEASE,UMB HERNIA REPAIR, RT KNEE ARTHROSCOPY,COLONOSCOPY Past Anesthesia/Blood Transfusion Reactions: No Reported Reaction Additional Past Anesthesia/Blood Transfusion Reaction / Comment(s): pt currently at [facility] on [facility] [place] [place]. not ambulatory. bedbound Past Psychological History: Anxiety, Depression Additional Psychological History / Comment(s): PT STATED FEELS WELL MAINTAINED ON HIS MEDS. Smoking Status: Former smoker Past Alcohol Use History: None Reported Additional Past Alcohol Use History / Comment(s): patient was a smoker one pack per day and quit in 1991. He denies any marijuana, street drug or alcohol use. He is currently on disability since 2010. 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 He is a long-term resident at [facility] and is non-ambulatory and bedbound Past Drug Use History: None Reported - Past Family History Father Family Medical History: Asthma, Cancer, CVA/TIA, Myocardial Infarction ([place]), Prostate Disorder Additional Family Medical History / Comment(s): SKIN ANd PROSTATE CANCER. Father at age 79 from heart failure. Mother Family Medical History: Cancer Additional Family Medical History / Comment(s): FROM BRAIN CANCER at age 83. Brother(s) Additional Family Medical History / Comment(s): patient has 2 brothers and one sister all alive. One brother has undergone 4 vessel CABG in 1 has carotid alen ry disease. Daughter(s) Additional Family Medical History / Comment(s): patient has 3 children, 2 daughters with Lyme disease and one son with no major medical problems Medications and Allergies Home Medications Medication Instructions Recorded Confirmed Type Bumetanide [BUMEX] 2 mg PO BID@0900,1700 11/20/16 01/05/19 History Clopidogrel [Plavix] 75 mg PO DAILY@0900 06/26/17 01/05/19 History Aspirin [Adult Low Dose Aspirin EC] 81 mg PO DAILY@0900 06/03/18 01/05/19 History Ipratropium-Albuterol Nebulize 3 ml INHALATION RT-Q4H PRN 06/03/18 01/05/19 History [Duoneb 0.5 mg-3 mg/3 ml Soln] Lactulose 40 gm PO QID 06/03/18 01/05/19 History Metolazone [Zaroxolyn] 2.5 mg PO TH 06/03/18 01/05/19 History Milk Thistle 240 mg PO BID@0900,2100 06/03/18 01/05/19 History Olopatadine HCl [Patanol] 1 drop BOTH EYES DAILY PRN 06/03/18 01/05/19 History Pantoprazole Sodium [Protonix] 20 mg PO DAILY@0600 06/03/18 01/05/19 History Phentermine HCl [Adipex-P] 37.5 mg PO DAILY@1000 06/03/18 01/05/19 History Rifaximin [Xifaxan] 550 mg PO BID@0900,2100 06/03/18 01/05/19 History Pregabalin [Lyrica] 50 mg PO TID@0600,1400,2200 #12 cap 06/04/18 01/05/19 Rx Albuterol Inhaler [Ventolin Hfa 1 - 2 puff INHALATION RT-Q4H PRN 01/05/19 01/05/19 History Inhaler] Budesonide [Pulmicort] 0.5 mg INHALATION RT-BID@0900,209901/05/19 01/05/19 History Ergocalciferol [Vitamin D2] 50,000 unit PO HUERTA@1400 01/05/19 01/05/19 History Glimepiride [Amaryl] 1 mg PO DAILY@0900 01/05/19 01/05/19 History Ibuprofen [Motrin Ib] 400 mg PO Q6H PRN 01/05/19 01/05/19 History Lurasidone [Latuda] 20 mg PO DAILY@0900 01/05/19 01/05/19 History Montelukast [Singulair] 10 mg PO HS@2200 01/05/19 01/05/19 History Potassium Chloride ER [K-Dur 20] 20 meq PO BID@0900,209901/05/19 01/05/19 History Potassium Chloride ER [K-Dur 20] 20 meq PO DAILY@1400 01/05/19 01/05/19 History Venlafaxine HCl ER [Effexor Xr] 225 mg PO HS@209901/05/19 01/05/19 History guaiFENesin [guaiFENesin Oral 200 mg PO Q4H PRN 01/05/19 01/05/19 History Solution] metFORMIN HCL [metFORMIN HCL ER] 750 mg PO BID@0900,1700 01/05/19 01/05/19 History Allergies Allergy/AdvReac Type Severity Reaction Status Date / Time No Known Allergies Allergy Verified 01/05/19 19:47 Physical Exam Vitals: Vital Signs Temp Pulse Pulse Pulse Resp BP BP 01/06/19 07:19 98.2 F 93 22 01/06/19 00:22 97.9 F 105 H 16 122/59 01/05/19 22:33 98.1 F 90 15 127/70 01/05/19 21:43 97.7 F 87 20 112/67 01/05/19 20:45 86 18 112/75 01/05/19 19:41 98.0 F 90 20 128/53 BP Pulse Ox 01/06/19 07:19 137/68 97 01/06/19 00:22 97 01/05/19 22:33 96 01/05/19 21:43 95 01/05/19 20:45 97 01/05/19 19:41 95 Intake and Output 01/05/19 01/06/19 01/06/19 22:59 06:59 14:59 Other: Voiding Method Incontinent # Voids 1 1 # Bowel Movements 1 1 Weight 234.734 kg 241.6 kg GENERAL EXAM: Patient is alert and oriented . Patient is extremely obese HEENT: Normocephalic. Normal reaction of pupils, equal size, normal range of extraocular motion. No erythema or exudates in the throat. NECK: No masses, no nuchal rigidity. CHEST: No chest wall deformity. LUNGS: Equal air entry with no crackles or wheeze. HEART: S1 and S2 normal with no audible mumurs or gallops. Regular rhythm, femorals equal on both sides.. ABDOMEN: No hepatosplenomegaly, normal bowel sounds, no guarding or rigidity. SKIN: No rashes CENTRAL NERVOUS SYSTEM: No focal deficits. EXTREMITIES: No cyanosis, clubbing or edema. Some ecchymotic changes and chronic changes Results 01/05/19 20:30 01/05/19 20:30 Cardiac Enzymes 01/05/19 01/05/19 Range/Units 20:30 20:30 AST 114 H (17-59) U/L Troponin I 0.013 (0.000-0.034) ng/mL Coagulation 01/05/19 Range/Units 20:30 PT 13.0 H (9.0-12.0) sec APTT 23.8 (22.0-30.0) sec CBC 01/05/19 Range/Units 20:30 WBC 9.0 (3.8-10.6) k/uL RBC 2.67 L (4.30-5.90) m/uL Hgb 7.3 L (13.0-17.5) gm/dL Hct 23.3 L (39.0-53.0) % Plt Count 220 (150-450) k/uL Comprehensive Metabolic Panel 01/05/19 Range/Units 20:30 Sodium 136 L (137-145) mmol/L Potassium 3.9 (3.5-5.1) mmol/L Chloride 103 (98-107) mmol/L Carbon Dioxide 24 (22-30) mmol/L BUN 28 H (9-20) mg/dL Creatinine 1.70 H (0.66-1.25) mg/dL Glucose 94 (74-99) mg/dL Calcium 8.5 (8.4-10.2) mg/dL AST 114 H (17-59) U/L ALT 47 (21-72) U/L Alkaline Phosphatase 471 H (38-126) U/L Total Protein 6.5 (6.3-8.2) g/dL Albumin 2.7 L (3.5-5.0) g/dL Current Medications Generic Name Dose Route Start Last Admin Trade Name Freq PRN Reason Stop Dose Admin Albuterol Sulfate 2.5 mg 01/06/19 09:26 Ventolin Nebulized INHALATION RT-Q4H PRN Shortness Of Breath Albuterol/Ipratropium 3 ml 01/06/19 09:26 Duoneb 0.5 Mg-3 Mg/3 Ml Soln INHALATION RT-Q4H PRN Shortness Of Breath Budesonide 0.5 mg 01/06/19 21:00 Pulmicort INHALATION RT-BID@0900,2100 [facility] Bumetanide 2 mg 01/06/19 17:00 Bumex PO BID@0900,1700 [facility] Guaifenesin 200 mg 01/06/19 09:26 Robitussin PO Q4H PRN Cough Insulin Aspart 0 unit 01/06/19 12:30 01/06/19 12:46 Novolog SQ Not Given ACHS [facility] Protocol Ketotifen Fumarate 1 drops 01/06/19 09:26 Zaditor BOTH EYES BID PRN OCULAR IRRITATION Lurasidone HCl 20 mg 01/07/19 09:00 Latuda PO DAILY@0900 [facility] Montelukast Sodium 10 mg 01/06/19 22:00 Singulair PO HS@2200 [facility] Pantoprazole Sodium 40 mg 01/06/19 09:45 Protonix IVP DAILY [facility] Potassium Chloride 20 meq 01/06/19 21:00 K-Dur 20 PO BID@0900,2100 [facility] Pregabalin 50 mg 01/06/19 14:00 Lyrica PO TID@0600,1400,2200 [facility] Rifaximin 550 mg 01/06/19 21:00 Xifaxan PO 02/05/19 21:01 BID@0900,2100 [facility] Venlafaxine HCl 225 mg 01/06/19 21:00 Effexor Xr PO HS@2100 [facility] Intake and Output 01/05/19 01/06/19 01/06/19 22:59 06:59 14:59 Other: Voiding Method Incontinent # Voids 1 1 # Bowel Movements 1 1 Weight 234.734 kg 241.6 kg Patient Weight 01/07/19 06:59 Weight 241.6 kg 01/05/19 20:30 01/05/19 20:30 EKG Interpretations (text) Not available Assessment and Plan (1) Exogenous obesity Current Visit: Yes Status: Acute Code(s): E66.09 - OTHER OBESITY DUE TO EXCESS CALORIES SNOMED Code(s): 802845528 (2) GI hemorrhage Current Visit: Yes Status: Acute Code(s): K92.2 - GASTROINTESTINAL HEMORRHAGE, UNSPECIFIED SNOMED Code(s): 28774258 (3) Non-alcoholic cirrhosis Current Visit: Yes Status: Acute Code(s): K74.60 - UNSPECIFIED CIRRHOSIS OF LIVER SNOMED Code(s): 747434802 (4) Asthma Current Visit: No Status: Acute Code(s): J45.909 - UNSPECIFIED ASTHMA, UNCOMPLICATED SNOMED Code(s): 056103927 (5) Depression Current Visit: No Status: Acute Code(s): F32.9 - MAJOR DEPRESSIVE DISORDER, SINGLE EPISODE, UNSPECIFIED SNOMED Code(s): 98678944 Plan: No acute cardiac issues at this time. No history of any previous myocardial infarction. Echocardiogram in May showed normal LV function. From cardiac standpoint, I do not see any absolute contraindication for the proposed procedure. However given his comorbidities and body size. There is more than average risk of the procedure.
--- NOTE | 2019-01-06 15:13 | P.HPIM ---
History of Present Illness H&P Date: 01/06/19 Chief Complaint: Low hemoglobin This is a 63-year-old male patient of Dr. Palmer followed at [facility] as a long-term resident with past medical history of super morbid obesity, hepatocellular disease and cirrhosis most likely secondary to fatty liver, mild intermittent asthma, hypertension, osteoarthritis, kidney stones, chronic cellulitis of the lower extremities and panniculus, subdural hemorrhage secondary to a fall not requiring surgery. Patient's most recent hospitalization was in May 2018 which time she was treated for chest pain/musculoskeletal. She was seen at that time by Dr. Watts. Echocardiogram at that time revealed EF of 55-60% with mild concentric left hypertrophy. Patient was found at the senior care to have a hemoglobin of 7.0 and hemoglobin appears to run at about 12. Patient is non-ambulatory. He had rapid decline and is now bedbound with no clear explanation. He denies having any abdominal pain, black tarry stools, he denies history of esophageal varices. He denies history of [place] or coronary artery disease. He does have history of subdural he hemorrhage but no CVA. He is being treated for conjunctivitis as he states he recently scratched his conjunctiva. Patient complains of a cough with productive red sputum 2 nights ago and that was reason for lab work and a chest x-ray to be done. Patient is noted to have chronic wounds which patient and daughter state her improved from baseline. These wounds are to the bilateral forearms, bilateral panniculus, left axillary area. He has chronic wound changes to the bilateral lower extremities. A condom catheter has been placed. Patient's last colonoscopy was greater than 10 years ago. Due to concern for GI bleed, patient was sent into [facility] emergency center for evaluation where repeat hemoglobin is 7.3, INR 1.3, BUN 28 and creatinine 1.70 with baseline of 1.1-1.3. Total bilirubin 1.5, AST 114, ALT 47, alkaline phosphatase 471. Stool for occult blood is positive. Lipase 113. Albumin 2.7. Patient has been admitted to the MedSurg floor and consult requested with GI. We have added the cardiac consultation for surgical clearance for endoscopy which is planned for the OR. Patient has been seen by Dr. Stewart with no contraindication for procedure. Review of Systems Constitutional: Reports weakness, Denies anorexia, Denies chills, Denies fever, Denies poor appetite, Denies weight loss Ears, nose, mouth and throat: Denies dysphagia, Denies mouth pain, Denies nasal congestion, Denies nasal discharge, Denies vertigo Cardiovascular: Reports edema, Reports leg edema, Denies decreased exercise tolerance, Denies dyspnea on exertion, Denies lightheadedness, Denies palpitations, Denies syncope Respiratory: Reports cough with sputum, Reports dyspnea, Denies cough, Denies excessive sputum, Denies hemoptysis, Denies home oxygen, Denies wheezing Gastrointestinal: Reports diarrhea, Denies coffee ground emesis, Denies constipation, Denies loss of appetite, Denies nausea, Denies vomiting Genitourinary: Denies dysuria, Denies urinary frequency, Denies urinary retention Musculoskeletal: Reports gait dysfunction, Reports muscle weakness Integumentary: Reports color changes, Reports darkening of skin, Reports wounds, Denies pruritus, Denies rash Neurological: Reports gait dysfunction, Denies aphasia, Denies change in mentation, Denies change in speech, Denies confusion, Denies seizures, Denies syncope Psychiatric: Denies anxiety, Denies depression Endocrine: Denies fatigue, Denies weight change Past Medical History Past Medical History: Asthma, Hypertension, Osteoarthritis (OA), Pneumonia, Skin Disorder Additional Past Medical History / Comment(s): IN PAST TX FOR HYPERTENSION NO LONGER ON MEDS, KIDNEY STONE, BRONCHITIS, BEGINNINGS OF CATARACTS, DJD, HANDS S HAKY/TREMORS, DIVERTICULOSIS,anemia history of elevated ammonia levels, hepatic encephalopathy, hx of cellulitis lower extremities. previously charted "chronic subdural hemorrhage", stoke 1 year ago History of Any Multi-Drug Resistant Organisms: MRSA Date of last positivie culture/infection: 05/31/18 MDRO Source:: Abdomen Past Surgical History: Hernia Repair, Orthopedic Surgery Additional Past Surgical History / Comment(s): cyst removed from hand, CRISTOPHER CARPAL TUNNEL RELEASE,UMB HERNIA REPAIR, RT KNEE ARTHROSCOPY,COLONOSCOPY Past Anesthesia/Blood Transfusion Reactions: No Reported Reaction Additional Past Anesthesia/Blood Transfusion Reaction / Comment(s): pt currently at [facility]. not ambulatory. bedbound Past Psychological History: Anxiety, Depression Additional Psychological History / Comment(s): PT STATED FEELS WELL MAINTAINED ON HIS MEDS. Smoking Status: Former smoker Past Alcohol Use History: None Reported Additional Past Alcohol Use History / Comment(s): patient was a smoker one pack per day and quit in 1991. He denies any marijuana, street drug or alcohol use. He is currently on disability since 2010. He previously worked in a penitentiary. He is single. He is a long-term resident at [facility] and is non-ambulatory and bedbound Past Drug Use History: None Reported - Past Family History Father Family Medical History: Asthma, Cancer, CVA/TIA, Myocardial Infarction ([place]), Prostate Disorder Additional Family Medical History / Comment(s): SKIN ANd PROSTATE CANCER. Father at age 79 from heart failure. Mother Family Medical History: Cancer Additional Family Medical History / Comment(s): FROM BRAIN CANCER at age 83. Brother(s) Additional Family Medical History / Comment(s): patient has 2 brothers and one sister all alive. One brother has undergone 4 vessel CABG in 1 has carotid artery disease. Daughter(s) Additional Family Medical History / Comment(s): patient has 3 children, 2 daughters with Lyme disease and one son with no major medical problems Medications and Allergies Home Medications Medication Instructions Recorded Confirmed Type Bumetanide [BUMEX] 2 mg PO BID@0900,1700 11/20/16 01/05/19 History Clopidogrel [Plavix] 75 mg PO DAILY@0900 06/26/17 01/05/19 History Aspirin [Adult Low Dose Aspirin EC] 81 mg PO DAILY@0900 06/03/18 01/05/19 History Ipratropium-Albuterol Nebulize 3 ml INHALATION RT-Q4H PRN 06/03/18 01/05/19 History [Duoneb 0.5 mg-3 mg/3 ml Soln] Lactulose 40 gm PO QID 06/03/18 01/05/19 History Metolazone [Zaroxolyn] 2.5 mg PO TH 06/03/18 01/05/19 History Milk Thistle 240 mg PO BID@0900,2100 06/03/18 01/05/19 History Olopatadine HCl [Patanol] 1 drop BOTH EYES DAILY PRN 06/03/18 01/05/19 History Pantoprazole Sodium [Protonix] 20 mg PO DAILY@0600 06/03/18 01/05/19 History Phentermine HCl [Adipex-P] 37.5 mg PO DAILY@1000 06/03/18 01/05/19 History Rifaximin [Xifaxan] 550 mg PO BID@0900,209906/03/18 01/05/19 History Pregabalin [Lyrica] 50 mg PO TID@0600,1400,2200 #12 cap 06/04/18 01/05/19 Rx Albuterol Inhaler [Ventolin Hfa 1 - 2 puff INHALATION RT-Q4H PRN 01/05/19 01/05/19 History Inhaler] Budesonide [Pulmicort] 0.5 mg INHALATION RT-BID@0900,209901/05/19 01/05/19 History Ergocalciferol [Vitamin D2] 50,000 unit PO HUERTA@1400 01/05/19 01/05/19 History Glimepiride [Amaryl] 1 mg PO DAILY@0900 01/05/19 01/05/19 History Ibuprofen [Motrin Ib] 400 mg PO Q6H PRN 01/05/19 01/05/19 History Lurasidone [Latuda] 20 mg PO DAILY@0900 01/05/19 01/05/19 History Montelukast [Singulair] 10 mg PO HS@2200 01/05/19 01/05/19 History Potassium Chloride ER [K-Dur 20] 20 meq PO BID@0900,209901/05/19 01/05/19 History Potassium Chloride ER [K-Dur 20] 20 meq PO DAILY@1400 01/05/19 01/05/19 History Venlafaxine HCl ER [Effexor Xr] 225 mg PO HS@209901/05/19 01/05/19 History guaiFENesin [guaiFENesin Oral 200 mg PO Q4H PRN 01/05/19 01/05/19 History Solution] metFORMIN HCL [metFORMIN HCL ER] 750 mg PO BID@0900,1700 01/05/19 01/05/19 History Allergies Allergy/AdvReac Type Severity Reaction Status Date / Time No Known Allergies Allergy Verified 01/05/19 19:47 Physical Exam Vitals: Vital Signs Temp Pulse Pulse Pulse Resp BP BP 01/06/19 07:19 98.2 F 93 22 01/06/19 00:22 97.9 F 105 H 16 122/59 01/05/19 22:33 98.1 F 90 15 127/70 01/05/19 21:43 97.7 F 87 20 112/67 01/05/19 20:45 86 18 112/75 01/05/19 19:41 98.0 F 90 20 128/53 BP Pulse Ox 01/06/19 07:19 137/68 97 01/06/19 00:22 97 01/05/19 22:33 96 01/05/19 21:43 95 01/05/19 20:45 97 01/05/19 19:41 95 Intake and Output 01/05/19 01/06/19 01/06/19 22:59 06:59 14:59 Other: Voiding Method Incontinent # Voids 1 1 # Bowel Movements 1 1 Weight 234.734 kg Gen: This is a super morbid obese 63-year-old male. He is in bed and appears to be comfortable. Daughter is at bedside. HEENT: Head is atraumatic, normocephalic. Pupils equal, round. Sclerae is anicteric. NECK: Supple. No JVD. No lymphadenopathy. No thyromegaly. LUNGS: Clear to auscultation. No wheezes or rhonchi. No intercostal retractions. HEART: Regular rate and rhythm. No murmur. ABDOMEN: morbidly obese.Soft. Bowel sounds are present. No masses. No tenderness. Wounds/folliculitis noted on the bilateral lateral abdominal fold, worse on the left side, wound to the left axilla area. EXTREMITIES: 2+ pedal edema bilaterally. Chronic erythema to the lower extremities. No significant wounds. No drainage. Wounds to the bilateral forearms. NEUROLOGICAL: Patient is awake, alert and oriented x3. Cranial nerves 2 through 12 are grossly intact. Results CBC & Chem 7: 01/05/19 20:30 01/05/19 20:30 Labs: Abnormal Lab Results - Last 24 Hours (Table) 01/05/19 01/05/19 01/05/19 Range/Units 20:30 20:30 20:30 RBC 2.67 L (4.30-5.90) m/uL Hgb 7.3 L (13.0-17.5) gm/dL Hct 23.3 L (39.0-53.0) % RDW 19.6 H (11.5-15.5) % PT 13.0 H (9.0-12.0) sec INR 1.3 H (<1.2) Sodium 136 L (137-145) mmol/L BUN 28 H (9-20) mg/dL Creatinine 1.70 H (0.66-1.25) mg/dL POC Glucose (mg/dL) (75-99) mg/dL Total Bilirubin 1.5 H (0.2-1.3) mg/dL AST 114 H (17-59) U/L Alkaline Phosphatase 471 H (38-126) U/L Albumin 2.7 L (3.5-5.0) g/dL 01/06/19 Range/Units 06:52 RBC (4.30-5.90) m/uL Hgb (13.0-17.5) gm/dL Hct (39.0-53.0) % RDW (11.5-15.5) % PT (9.0-12.0) sec INR (<1.2) Sodium (137-145) mmol/L BUN (9-20) mg/dL Creatinine (0.66-1.25) mg/dL POC Glucose (mg/dL) 103 H (75-99) mg/dL Total Bilirubin (0.2-1.3) mg/dL AST (17-59) U/L Alkaline Phosphatase (38-126) U/L Albumin (3.5-5.0) g/dL Thrombosis Risk Factor Assmnt - DVT/VTE Prophylaxis DVT/VTE Prophylaxis: Mechanical Prophylaxis ordered - Choose All That Apply Each Factor Represents 1 point: Medical pt on bed rest, Obesity (BMI >25) Each Risk Factor Represents 2 Points: Age 61-74 years Thrombosis Risk Factor Assessment Total Risk Factor Score: 4 Thrombosis Risk Factor Assessment Level: Moderate Risk Assessment and Plan Plan: 1. Possible acute anemia with possible GI bleed most likely due to diverticular disease and blood and sputum. Consult with GI. Patient started on clear liquid diet, iron studies, repeat hemoglobin in the morning. Inpatient endoscopy exams will be challenging due to his obesity and patient will require medical clearance prior to exams. Hold aspirin, Plavix, ibuprofen. Cardiology has cleared the patient for endoscopy. 2. Acute kidney injury secondary to dehydration, diuretics and ibuprofen. Bumex and potassium will be resumed, ibuprofen on hold. 3. Diabetes mellitus type 2. Metformin and Amaryl on hold. NovoLog scale before meals and at bedtime. 4. Acute on chronic folliculitis of the panniculus. Consult with Dr. Meza. 5. Hepatocellular disease and cirrhosis secondary to fatty liver, with mild coagulopathy. GI consult. Ammonia level. Patient is normally on lactulose 40 g 4 times daily and Xifaxan. 6. Chronic lower extremity edema. No history of coronary artery disease or heart failure. Continue Bumex and potassium. 7. Mild intermittent asthma, stable. Continue DuoNeb treatments every 4 hours as needed or Ventolin inhaler as needed. Continue Pulmicort 0.5 mg twice daily. 8. Hypertension. Continue Bumex. 9. Super morbid obesity with BMI of 70. Hold Adipex. 10. Chronic kidney disease stage III. 11. Recurrent depression. Continue Effexor X are 225 mg at bedtime, continue Latuda 20 mg daily. 12. History of some dural hemorrhage secondary to fall, not requiring surgery, stable. 13. DVT prophylaxis. SCDs and KATHY aarone. 14. GI prophylaxis. Protonix 40 mg IV daily. Patient admitted to the hospital for a minimum of 2 nights day. Discharge plan: return to [facility] Impression and plan of care have been directed as dictated by the signing physician. Loni Jolly nurse practitioner acting as scribe for signing physician.
--- NOTE | 2019-01-06 15:58 | P.CONS ---
History of Present Illness - Reason for Consult Consult date: 01/06/19 Multiple wounds - History of Present Illness This is a 63-year-old male resides at [facility] as a long-term resident with past medical history of super morbid obesity, hepatocellular disease and cirrhosis most likely secondary to fatty liver, mild intermittent asthma, hypertension, osteoarthritis, kidney stones, chronic cellulitis of the lower extremities and panniculus, subdural hemorrhage secondary to a fall not requiring surgery. Patient is noted to have chronic wounds which patient and daughter state are improved from baseline. These wounds are to the bilateral forearms, bilateral panniculus, left axillary area. He has chronic changes to the bilateral lower extremities. Due to concern for GI bleed, patient was sent into [facility] emergency center for evaluation where repeat hemoglobin is 7.3, INR 1.3, BUN 28 and creatinine 1.70 with baseline of 1.1-1.3. Total bilirubin 1.5, AST 114, ALT 47, alkaline phosphatase 471. Stool for occult blood is positive. Lipase 113. Albumin 2.7. Patient has been admitted to the [facility] floor and no antibiotics are currently in place. Cardiac has provided clearance for endoscopy which is planned in the OR with GI. Review of Systems Constitutional: Reports weakness, Denies anorexia, Denies chills, Denies fever, Denies poor appetite, Denies weight loss Ears, nose, mouth and throat: Denies dysphagia, Denies mouth pain, Denies nasal congestion, Denies nasal discharge, Denies vertigo Cardiovascular: Reports edema, Reports leg edema, Denies decreased exercise tolerance, Denies dyspnea on exertion, Denies lightheadedness, Denies palpitations, Denies syncope Respiratory: Reports cough with sputum, Reports dyspnea, Denies cough, Denies excessive sputum, Denies hemoptysis, Denies home oxygen, Denies wheezing Gastrointestinal: Reports diarrhea, Denies coffee ground emesis, Denies constipation, Denies loss of appetite, Denies nausea, Denies vomiting Genitourinary: Denies dysuria, Denies urinary frequency, Denies urinary retention Musculoskeletal: Reports gait dysfunction, Reports muscle weakness Integumentary: Reports color changes, Reports darkening of skin, Reports wounds, Denies pruritus, Denies rash Neurological: Reports gait dysfunction, Denies aphasia, Denies change in mentation, Denies change in speech, Denies confusion, Denies seizures, Denies syncope Psychiatric: Denies anxiety, Denies depression Endocrine: Denies fatigue, Denies weight change Past Medical History Past Medical History: Asthma, Hypertension, Osteoarthritis (OA), Pneumonia, Skin Disorder Additional Past Medical History / Comment(s): IN PAST TX FOR HYPERTENSION NO LONGER ON MEDS, KIDNEY STONE, BRONCHITIS, BEGINNINGS OF CATARACTS, DJD, HANDS SHAKY/TREMORS, DIVERTICULOSIS,anemia history of elevated ammonia levels, hepatic encephalopathy, hx of cellulitis lower extremities. previously charted "chronic subdural hemorrhage", radha 1 year ago History of Any Multi-Drug Resistant Organisms: MRSA Year Discovered:: 05/31/18 MDRO Source:: Abdomen Past Surgical History: Hernia Repair, Orthopedic Surgery Additional Past Surgical History / Comment(s): cyst removed from hand, CRISTOPHER CARPAL TUNNEL RELEASE,UMB HERNIA REPAIR, RT KNEE ARTHROSCOPY,COLONOSCOPY Past Anesthesia/Blood Transfusion Reactions: No Reported Reaction Additional Past Anesthesia/Blood Transfusion Reaction / Comm: pt currently at [facility] the [place]. not ambulatory. bedbound Past Psychological History: Anxiety, Depression Additional Psychological History / Comment(s): PT STATED FEELS WELL MAINTAINED ON HIS MEDS. Smoking Status: Former smoker Past Alcohol Use History: None Reported Additional Past Alcohol Use History / Comment(s): patient was a smoker one pack per day and quit in 1991. He denies any marijuana, street drug or alcohol use. He is currently on disability since 2010. He previously worked in a snf. He is single. He is a long-term resident at [facility] and is non-ambulatory and bedbound Past Drug Use History: None Reported - Past Family History Father Family Medical History: Asthma, Cancer, CVA/TIA, Myocardial Infarction ([place]), Prostate Disorder Additional Family Medical History / Comment(s): SKIN ANd PROSTATE CANCER. Father at age 79 from heart failure. Mother Family Medical History: Cancer Additional Family Medical History / Comment(s): FROM BRAIN CANCER at age 83. Brother(s) Additional Family Medical History / Comment(s): patient has 2 brothers and one sister all alive. One brother has undergone 4 vessel CABG in 1 has carotid artery disease. Daughter(s) Additional Family Medical History / Comment(s): patient has 3 children, 2 daughters with Lyme disease and one son with no major medical problems Medications and Allergies Home Medications Medication Instructions Recorded Confirmed Type Bumetanide [BUMEX] 2 mg PO BID@0900,1700 11/20/16 01/05/19 History Clopidogrel [Plavix] 75 mg PO DAILY@0900 06/26/17 01/05/19 History Aspirin [Adult Low Dose Aspirin EC] 81 mg PO DAILY@0900 06/03/18 01/05/19 History Ipratropium-Albuterol Nebulize 3 ml INHALATION RT-Q4H PRN 06/03/18 01/05/19 History [Duoneb 0.5 mg-3 mg/3 ml Soln] Lactulose 40 gm PO QID 06/03/18 01/05/19 History Metolazone [Zaroxolyn] 2.5 mg PO TH 06/03/18 01/05/19 History Milk Thistle 240 mg PO BID@0900,2100 06/03/18 01/05/19 History Olopatadine HCl [Patanol] 1 drop BOTH EYES DAILY PRN 06/03/18 01/05/19 History Pantoprazole Sodium [Protonix] 20 mg PO DAILY@0600 06/03/18 01/05/19 History Phentermine HCl [Adipex-P] 37.5 mg PO DAILY@1000 06/03/18 01/05/19 History Rifaximin [Xifaxan] 550 mg PO BID@0900,2100 06/03/18 01/05/19 History Pregabalin [Lyrica] 50 mg PO TID@0600,1400,2200 #12 cap 06/04/18 01/05/19 Rx Albuterol Inhaler [Ventolin Hfa 1 - 2 puff INHALATION RT-Q4H PRN 01/05/19 01/05/19 History Inhaler] Budesonide [Pulmicort] 0.5 mg INHALATION RT-BID@0900,2100 01/05/19 01/05/19 History Ergocalciferol [Vitamin D2] 50,000 unit PO HUERTA@1400 01/05/19 01/05/19 History Glimepiride [Amaryl] 1 mg PO DAILY@0900 01/05/19 01/05/19 History Ibuprofen [Motrin Ib] 400 mg PO Q6H PRN 01/05/19 01/05/19 History Lurasidone [Latuda] 20 mg PO DAILY@0900 01/05/19 01/05/19 History Montelukast [Singulair] 10 mg PO HS@2200 01/05/19 01/05/19 History Potassium Chloride ER [K-Dur 20] 20 meq PO BID@0900,2100 01/05/19 01/05/19 History Potassium Chloride ER [K-Dur 20] 20 meq PO DAILY@1400 01/05/19 01/05/19 History Venlafaxine HCl ER [Effexor Xr] 225 mg PO HS@2100 01/05/19 01/05/19 History guaiFENesin [guaiFENesin Oral 200 mg PO Q4H PRN 01/05/19 01/05/19 History Solution] metFORMIN HCL [metFORMIN HCL ER] 750 mg PO BID@0900,1700 01/05/19 01/05/19 History Allergies Allergy/AdvReac Type Severity Reaction Status Date / Time No Known Allergies Allergy Verified 01/05/19 19:47 Physical Exam Vitals: Vital Signs Temp Pulse Pulse Pulse Resp BP BP 01/06/19 15:00 97.7 F 79 20 01/06/19 07:19 98.2 F 93 22 01/06/19 00:22 97.9 F 105 H 16 122/59 01/05/19 22:33 98.1 F 90 15 127/70 01/05/19 21:43 97.7 F 87 20 112/67 01/05/19 20:45 86 18 112/75 01/05/19 19:41 98.0 F 90 20 128/53 BP Pulse Ox 01/06/19 15:00 134/63 100 01/06/19 07:19 137/68 97 01/06/19 00:22 97 01/05/19 22:33 96 01/05/19 21:43 95 01/05/19 20:45 97 01/05/19 19:41 95 Intake and Output 01/06/19 01/06/19 01/06/19 06:59 14:59 22:59 Intake Total 300 Output Total 350 Balance -50 Intake: Oral 300 Output: Urine 350 Other: # Voids 1 1 # Bowel Movements 1 1 Weight 241.6 kg Gen: This is a super morbid obese 63-year-old male. He is in bed and appears to be comfortable. Daughter is at bedside. HEENT: Head is atraumatic, normocephalic. Pupils equal, round. Sclerae is anicteric. NECK: Supple. No JVD. No lymphadenopathy. No thyromegaly. LUNGS: Clear to auscultation. No wheezes or rhonchi. No intercostal retractions. HEART: Regular rate and rhythm. No murmur. ABDOMEN: morbidly obese.Soft. Bowel sounds are present. No masses. No tenderness. Wounds/folliculitis noted on the bilateral lateral abdominal fold, worse on the left side, wound to the left axilla area. EXTREMITIES: 2+ pedal edema bilaterally. Chronic erythema to the lower extremities. No significant wounds. No drainage. Wounds to the bilateral forearms. NEUROLOGICAL: Patient is awake, alert and oriented x3. Cranial nerves 2 through 12 are grossly intact. Results Results: Laboratory Results WBC 9.0 k/uL (3.8-10.6) 01/05/19 20:30 RBC 2.67 m/uL (4.30-5.90) L 01/05/19 20:30 Hgb 7.3 gm/dL (13.0-17.5) L 01/05/19 20:30 Hct 23.3 % (39.0-53.0) L 01/05/19 20:30 MCV 87.1 fL (80.0-100.0) 01/05/19 20:30 MCH 27.2 pg (25.0-35.0) 01/05/19 20:30 MCHC 31.3 g/dL (31.0-37.0) 01/05/19 20:30 RDW 19.6 % (11.5-15.5) H 01/05/19 20:30 Plt Count 220 k/uL (150-450) 01/05/19 20:30 Neutrophils % 68 % 01/05/19 20:30 Lymphocytes % 18 % 01/05/19 20:30 Monocytes % 7 % 01/05/19 20:30 Eosinophils % 5 % 01/05/19 20:30 Basophils % 0 % 01/05/19 20:30 Neutrophils # 6.1 k/uL (1.3-7.7) 01/05/19 20:30 Lymphocytes # 1.6 k/uL (1.0-4.8) 01/05/19 20:30 Monocytes # 0.6 k/uL (0-1.0) 01/05/19 20:30 Eosinophils # 0.5 k/uL (0-0.7) 01/05/19 20:30 Basophils # 0.0 k/uL (0-0.2) 01/05/19 20:30 Hypochromasia Moderate 01/05/19 20:30 Poikilocytosis Slight 01/05/19 20:30 Anisocytosis Slight 01/05/19 20:30 Retic Count 3.9 % (0.5-2.0) H 01/06/19 09:32 PT 13.0 sec (9.0-12.0) H 01/05/19 20:30 INR 1.3 (<1.2) H 01/05/19 20:30 APTT 23.8 sec (22.0-30.0) 01/05/19 20:30 Sodium 136 mmol/L (137-145) L 01/05/19 20:30 Potassium 3.9 mmol/L (3.5-5.1) 01/05/19 20:30 Chloride 103 mmol/L (98-107) 01/05/19 20:30 Carbon Dioxide 24 mmol/L (22-30) 01/05/19 20:30 Anion Gap 9 mmol/L 01/05/19 20:30 BUN 28 mg/dL (9-20) H 01/05/19 20:30 Creatinine 1.70 mg/dL (0.66-1.25) H 01/05/19 20:30 Est GFR (CKD-EPI)AfAm 48 (>60 ml/min/1.73 sqM) 01/05/19 20:30 Est GFR (CKD-EPI)NonAf 42 (>60 ml/min/1.73 sqM) 01/05/19 20:30 Glucose 94 mg/dL (74-99) 01/05/19 20:30 POC Glucose (mg/dL) 97 mg/dL (75-99) 01/06/19 11:54 POC Glu Fundraising Sale Representative ID Annette Cabello 01/06/19 11:54 Calcium 8.5 mg/dL (8.4-10.2) 01/05/19 20:30 Magnesium 2.0 mg/dL (1.6-2.3) 01/05/19 20:30 Total Bilirubin 1.5 mg/dL (0.2-1.3) H 01/05/19 20:30 AST 114 U/L (17-59) H 01/05/19 20:30 ALT 47 U/L (21-72) 01/05/19 20:30 Alkaline Phosphatase 471 U/L (38-126) H 01/05/19 20:30 Ammonia 29 umol/L (<30) 01/06/19 09:32 Troponin I 0.013 ng/mL (0.000-0.034) 01/05/19 20:30 Total Protein 6.5 g/dL (6.3-8.2) 01/05/19 20:30 Albumin 2.7 g/dL (3.5-5.0) L 01/05/19 20:30 Lipase 113 U/L (23-300) 01/05/19 20:30 Stool Occult Blood Positive (Negative) 01/05/19 20:30 Blood Type A Positive 01/05/19 20:30 Blood Type Confirm A Positive 01/05/19 21:22 Blood Type Recheck CABO Indicated 01/05/19 20:30 Antibody Screen NEGATIVE 01/05/19 20:30 Spec Expiration Date 01/08/2019232901/05/19 20:30 CBC & Chem 7: 01/05/19 20:30 01/05/19 20:30 Labs: Abnormal Lab Results - Last 24 Hours (Table) 01/05/19 01/05/19 01/05/19 Range/Units 20:30 20:30 20:30 RBC 2.67 L (4.30-5.90) m/uL Hgb 7.3 L (13.0-17.5) gm/dL Hct 23.3 L (39.0-53.0) % RDW 19.6 H (11.5-15.5) % Retic Count (0.5-2.0) % PT 13.0 H (9.0-12.0) sec INR 1.3 H (<1.2) Sodium 136 L (137-145) mmol/L BUN 28 H (9-20) mg/dL Creatinine 1.70 H (0.66-1.25) mg/dL POC Glucose (mg/dL) (75-99) mg/dL Total Bilirubin 1.5 H (0.2-1.3) mg/dL AST 114 H (17-59) U/L Alkaline Phosphatase 471 H (38-126) U/L Albumin 2.7 L (3.5-5.0) g/dL 01/06/19 01/06/19 Range/Units 06:52 09:32 RBC (4.30-5.90) m/uL Hgb (13.0-17.5) gm/dL Hct (39.0-53.0) % RDW (11.5-15.5) % Retic Count 3.9 H (0.5-2.0) % PT (9.0-12.0) sec INR (<1.2) Sodium (137-145) mmol/L BUN (9-20) mg/dL Creatinine (0.66-1.25) mg/dL POC Glucose (mg/dL) 103 H (75-99) mg/dL Total Bilirubin (0.2-1.3) mg/dL AST (17-59) U/L Alkaline Phosphatase (38-126) U/L Albumin (3.5-5.0) g/dL Assessment and Plan Plan: This is a 63-year-old male with super morbid obesity presented to the hospital with possible acute anemia with possible GI bleed most likely due to diverticular disease. Consult with GI in place with plan for endoscopy. The patient is also known to have chronic wounds with acute on chronic folliculitis of the panniculus. Local wound care will be addressed. Patient will require tight glucose control for healing. Continue supportive care. Further recommendations as patient progresses. The above dictated assessment and findings were discussed with Dr. Meza. The impression and plan of care have been directed as dictated. Loni Jolly nurse practitioner acting as scribe for Dr. Meza.
[2019-01-06 16:22] LABS: Iron Saturation 11.85 (15.00-50.00)
[2019-01-06 16:45] LABS: Glucose,Whole Blood 114 mg/dL (75-99)
[2019-01-06] MEDS: BUDESONIDE 0.5 MG/2 ML NEBU INHALATION SCH (19:09)
[2019-01-06 21:06] LABS: Glucose,Whole Blood 109 mg/dL (75-99)
[2019-01-06] MEDS: VENLAFAXINE HCL ER 75 MG CAP PO SCH (21:25)
[2019-01-06] MEDS: MONTELUKAST 10 MG TAB PO SCH (21:25)
[2019-01-06] MEDS: POTASSIUM CHLORIDE ER 20 MEQ TAB.ER PO SCH (21:25)
[2019-01-06] MEDS: RIFAXIMIN 550 MG TABLET PO SCH (22:14)
[2019-01-06] MEDS: BUMETANIDE 1 MG TAB PO SCH (22:14)
--- NOTE | 2019-01-07 00:24 | P.CON ---
Consult Note - . Consult date: 01/06/19 Assessment/Plan:: This is a 63-year-old male resides at [facility] as a long-term resident with past medical history of super morbid obesity, hepatocellular disease and cirrhosis most likely secondary to fatty liver, mild intermittent asthma, hyp ertension, osteoarthritis, kidney stones, chronic cellulitis of the lower extremities and panniculus, subdural hemorrhage secondary to a fall not requiring surgery. Patient is noted to have chronic wounds which patient and daughter state are improved from baseline. These wounds are to the bilateral forearms, bilateral panniculus, left axillary area. He has chronic changes to the bilateral lower extremities. Due to concern for GI bleed, patient was sent into [facility] emergency center for evaluation where repeat hemoglobin is 7.3, INR 1.3, BUN 28 and creatinine 1.70 with baseline of 1.1-1.3. Total bilirubin 1.5, AST 114, ALT 47, alkaline phosphatase 471. Stool for occult blood is positive. Lipase 113. Albumin 2.7. Patient has been admitted to the [facility] floor and no antibiotics are currently in place. Cardiac has provided clearance for endoscopy which is planned in the OR with GI.I agree with evaluation, assessment and plan as dictated by nurse practitioner Mrs. Loni Landa. Patient is still feeling poorly. He is with multiple skin lesions including some bullous lesion onto the left lower abdominal area. Rob catheter is placed. At this time local wound care can be initiated with thick zinc product which should allow some improvement of discomfort in these areas. Cultured the drainage will be helpful. It is noted the patient has evidenceof this event.antibiotic therapy witH Rocephin will be initiated for coverage of Staphylococcus which he's had in the past. He's not had MRSA. Over the local wound care will see some improvement. He is a resident [facility].Please see the consult note as dictated by nurse practitioner Mrs. Loni Landa.
[2019-01-07] MEDS: PREGABALIN 50 MG CAP PO SCH ×3 (05:13→20:37)
[2019-01-07 07:10] LABS: Glucose,Whole Blood 113 mg/dL (75-99)
[2019-01-07] MEDS: INSULIN ASPART (NovoLOG) 100 UNIT/ML VIAL SQ SCH ×4 (07:20→20:33)
[2019-01-07] MEDS: PANTOPRAZOLE 40 MG/10 ML VIAL IVP SCH (07:27)
[2019-01-07] MEDS: BUMETANIDE 1 MG TAB PO SCH ×2 (07:28→17:10)
[2019-01-07] MEDS: POTASSIUM CHLORIDE ER 20 MEQ TAB.ER PO SCH ×2 (07:28→20:37)
[2019-01-07] MEDS: RIFAXIMIN 550 MG TABLET PO SCH ×2 (07:29→20:37)
[2019-01-07] MEDS: LURASIDONE 20 MG TAB PO SCH (07:29)
[2019-01-07] MEDS: BUDESONIDE 0.5 MG/2 ML NEBU INHALATION SCH ×2 (08:27→20:49)
[2019-01-07 10:48] LABS: Anisocytosis Slight; Basophils # (A) 0.1 k/uL (0-0.2); Basophils % (A) 1 %; Eosinophils # (A) 0.5 k/uL (0-0.7); Eosinophils % (A) 6 %; HCT 22.8 % (39.0-53.0); Hypochromasia Marked; Lymphocytes # (A) 1.4 k/uL (1.0-4.8); Lymphocytes % (A) 18 %; MCH 27.3 pg (25.0-35.0); MCHC 30.6 g/dL (31.0-37.0); MCV 89.1 fL (80.0-100.0); Mean Platelet Volume 7.7; Monocytes # (A) 0.5 k/uL (0-1.0); Monocytes % (A) 7 %; Neutrophils # (A) 5.4 k/uL (1.3-7.7); Neutrophils % (A) 66 %; Platelet Count 213 k/uL (150-450); Poikilocytosis Slight; RBC 2.56 m/uL (4.30-5.90); RDW 19.4 % (11.5-15.5); WBC 8.1 k/uL (3.8-10.6)
[2019-01-07 11:32] LABS: Glucose,Whole Blood 119 mg/dL (75-99)
--- NOTE | 2019-01-07 12:32 | P.PN ---
Subjective Progress Note Date: 01/07/19 This 63-year-old gentleman with morbid obesity is admitted to the hospital with severe anemia and suspected GI bleeding. Patient is waiting to have endoscopy studies. He remained stable clinically. Denies any chest pain. He has chronic shortness of breath which is stable. His hemoglobin is about 7 g and hemodynamically stable. We'll follow him as needed Objective - Vital Signs Vital signs: Vital Signs Temp 98.2 F 01/07/19 07:20 Pulse 80 01/07/19 08:42 Resp 15 01/07/19 07:20 BP 93/68 01/07/19 07:20 Pulse Ox 99 01/07/19 07:20 Intake & Output 01/06/19 01/07/19 01/07/19 18:59 06:59 18:59 Intake Total 300 400 Output Total 650 1250 Balance -350 -850 Weight 241.6 kg Intake: Intake, IV Titration 400 Amount Sodium Chloride 0.9% 1, 400 000 ml @ 100 mls/hr IV . Q10H STA Rx#:[id number] Oral 300 Output: Urine 650 1250 Other: Voiding Method Incontinent Incontinent Incontinent # Voids 1 # Bowel Movements 1 - Exam GENERAL EXAM: Patient is alert and oriented and doesn't appear to be in any acute distress HEENT: Normocephalic. Normal reaction of pupils, equal size, normal range of extraocular motion. No erythema or exudates in the throat. NECK: No masses, no nuchal rigidity. CHEST: No chest wall deformity. LUNGS: Diminished air exchange HEART: Distant heart sounds ABDOMEN: Protuberant SKIN: Patient has cellulitis and rashes in the legs CENTRAL NERVOUS SYSTEM: No focal deficits. EXTREMITIES: No cyanosis, clubbing or edema. - Labs CBC & Chem 7: 01/07/19 10:17 01/05/19 20:30 Labs: Abnormal Lab Results - Last 24 Hours (Table) 01/06/19 01/06/19 01/06/19 Range/Units 09:32 09:32 16:42 RBC (4.30-5.90) m/uL Hgb (13.0-17.5) gm/dL Hct (39.0-53.0) % MCHC (31.0-37.0) g/dL RDW (11.5-15.5) % POC Glucose (mg/dL) 114 H (75-99) mg/dL Iron 32 L (65-175) ug/dL Iron Saturation 11.85 L (15.00-50.00) Vitamin B12 1100.0 H (200.0-944.0) pg/mL 01/06/19 01/07/19 01/07/19 Range/Units 21:04 06:59 10:17 RBC 2.56 L (4.30-5.90) m/uL Hgb 7.0 L (13.0-17.5) gm/dL Hct 22.8 L (39.0-53.0) % MCHC 30.6 L (31.0-37.0) g/dL RDW 19.4 H (11.5-15.5) % POC Glucose (mg/dL) 109 H 113 H (75-99) mg/dL Iron (65-175) ug/dL Iron Saturation (15.00-50.00) Vitamin B12 (200.0-944.0) pg/mL 01/07/19 Range/Units 11:31 RBC (4.30-5.90) m/uL Hgb (13.0-17.5) gm/dL Hct (39.0-53.0) % MCHC (31.0-37.0) g/dL RDW (11.5-15.5) % POC Glucose (mg/dL) 119 H (75-99) mg/dL Iron (65-175) ug/dL Iron Saturation (15.00-50.00) Vitamin B12 (200.0-944.0) pg/mL Assessment and Plan (1) Exogenous obesity Current Visit: Yes Status: Acute Code(s): E66.09 - OTHER OBESITY DUE TO EXCESS CALORIES SNOMED Code(s): 724330501 (2) GI hemorrhage Current Visit: Yes Status: Acute Code(s): K92.2 - GASTROINTESTINAL HEMORRHAGE, UNSPECIFIED SNOMED Code(s): 72416403 (3) Non-alcoholic cirrhosis Current Visit: Yes Status: Acute Code(s): K74.60 - UNSPECIFIED CIRRHOSIS OF LIVER SNOMED Code(s): 302532270 (4) Asthma Current Visit: No Status: Acute Code(s): J45.909 - UNSPECIFIED ASTHMA, UNCOMPLICATED SNOMED Code(s): 478936622 (5) Depression Current Visit: No Status: Acute Code(s): F32.9 - MAJOR DEPRESSIVE DISORDER, SINGLE EPISODE, UNSPECIFIED SNOMED Code(s): 13492278 Plan: Clinically stable. No complaints of chest pain. No arrhythmias. Waiting for the endoscopy studies
[2019-01-07] MEDS ORDERED: LACTATED RINGERS 1,000 ML IV ONE (13:18)
[2019-01-07] MEDS ORDERED: PROPOFOL 10 MG/ML 20 ML VIAL IV ONE (13:47)
[2019-01-07] MEDS ORDERED: LIDOCAINE 1% INJ 10MG/ML (20 ML MDV) ONE (13:47)
[2019-01-07] MEDS ORDERED: NEOSTIGMINE 1 MG/ML 10 ML VIAL ONE (13:47)
[2019-01-07] MEDS ORDERED: GLYCOPYRROLATE 0.2 MG/ML 2 ML VIAL ONE (13:47)
[2019-01-07] MEDS ORDERED: ETOMIDATE 2 MG/ML 10 ML VIAL ONE (13:47)
--- NOTE | 2019-01-07 14:10 | P.PN ---
Subjective Progress Note Date: 01/07/19 This is a 63-year-old male patient of Dr. Palmer followed at [facility] as a long-term resident with past medical history of super morbid obesity, hepatocellular disease and cirrhosis most likely secondary to fatty liver, mild intermittent asthma, hypertension, osteoarthritis, kidney stones, chronic cellulitis of the lower extremities and panniculus, subdural hemorrhage secondary to a fall not requiring surgery. Patient's most recent hospitalization was in May 2018 which time she was treated for chest pain/musculoskeletal. She was seen at that time by Dr. Watts. Echocardiogram at that time revealed EF of 55-60% with mild concentric left hypertrophy. Patient was found at the [facility] to have a hemoglobin of 7.0 and hemoglobin appears to run at about 12. Patient is non-ambulatory. He had rapid decline and is now bedbound with no clear explanation. He denies having any abdominal pain, black tarry stools, he denies history of esophageal varices. He denies history of NC or coronary artery disease. He does have history of subdural he hemorrhage but no CVA. He is being treated for conjunctivitis as he states he recently scratched his conjunctiva. Patient complains of a cough with productive red sputum 2 nights ago and that was reason for lab work and a chest x-ray to be done. Patient is noted to have chronic wounds which patient and daughter state her improved from baseline. These wounds are to the bilateral forearms, bilateral panniculus, left axillary area. He has chronic wound changes to the bilateral lower extremities. A condom catheter has been placed. Patient's last colonoscopy was greater than 10 years ago. Due to concern for GI bleed, patient was sent into [facility] emergency center for evaluation where repeat hemoglobin is 7.3, INR 1.3, BUN 28 and creatinine 1.70 with baseline of 1.1-1.3. Total bilirubin 1.5, AST 114, ALT 47, alkaline phosphatase 471. Stool for occult blood is positive. Lipase 113. Albumin 2.7. Patient has been admitted to the MedSurg floor and consult requested with GI. We have added the cardiac consultation for surgical clearance for endoscopy which is planned for the OR. Patient has been seen by Dr. Stewart with no contraindication for procedure. 01/07: The patient has been seen by Dr. Meza and Rocephin added. He has been afebrile, WBC 8.1, hemoglobin 7.0, platelet count 213, blood sugars running between 97 113. Vitamin B12 1100, iron saturation 11.85, iron 32, TIBC 270, ferritin 87.8, ammonia 29, recheck count 3.9. Patient is scheduled for EGD today in the operating room with Dr. Hudson. Patient denies having any abdominal pain, bloody or tarry stools. Objective - Vital Signs Vital signs: Vital Signs Temp 98.2 F 01/07/19 07:20 Pulse 80 01/07/19 08:42 Resp 15 01/07/19 07:20 BP 93/68 01/07/19 07:20 Pulse Ox 99 01/07/19 07:20 Intake & Output 01/06/19 01/07/19 01/07/19 18:59 06:59 18:59 Intake Total 300 400 Output Total 650 1250 Balance -350 -850 Weight 241.6 kg Intake: Intake, IV Titration 400 Amount Sodium Chloride 0.9% 1, 400 000 ml @ 100 mls/hr IV . Q10H STA Rx#:[id number] Oral 300 Output: Urine 650 1250 Other: Voiding Method Incontinent Incontinent Incontinent # Voids 1 # Bowel Movements 1 - Exam Review of Systems Constitutional: Reports weakness, Denies anorexia, Denies chills, Denies fever, Denies poor appetite, Denies weight loss Ears, nose, mouth and throat: Denies dysphagia, Denies mouth pain, Denies nasal congestion, Denies nasal discharge, Denies vertigo Cardiovascular: Reports edema, Reports leg edema, Denies decreased exercise tolerance, Denies dyspnea on exertion, Denies lightheadedness, Denies palpitations, Denies syncope Respiratory: Reports cough with sputum, Reports dyspnea, Denies cough, Denies excessive sputum, Denies hemoptysis, Denies home oxygen, Denies wheezing Gastrointestinal: Denies diarrhea, Denies coffee ground emesis, Denies constipation, Denies loss of appetite, Denies nausea, Denies vomiting, denies melena, denies abdominal pain Genitourinary: Denies dysuria, Denies urinary frequency, Denies urinary retention Musculoskeletal: Reports gait dysfunction, Reports muscle weakness Integumentary: Reports color changes, Reports darkening of skin, Reports wounds, Denies pruritus, Denies rash Neurological: Reports gait dysfunction, Denies aphasia, Denies change in mentation, Denies change in speech, Denies confusion, Denies seizures, Denies syncope Psychiatric: Denies anxiety, Denies depression Endocrine: Denies fatigue, Denies weight change Gen: This is a super morbid obese 63-year-old male. He is in bed and appears to be comfortable. Family members at bedside. HEENT: Head is atraumatic, normocephalic. Pupils equal, round. Sclerae is anicteric. NECK: Supple. No JVD. No lymphadenopathy. No thyromegaly. LUNGS: Clear to auscultation. No wheezes or rhonchi. No intercostal retra ctions. HEART: Regular rate and rhythm. No murmur. ABDOMEN: morbidly obese.Soft. Bowel sounds are present. No masses. No tenderness. Wounds/folliculitis noted on the bilateral lateral abdominal fold, worse on the left side, wound to the left axilla area. EXTREMITIES: 2+ pedal edema bilaterally. Chronic erythema to the lower extremities. No significant wounds. No drainage. Wounds to the bilateral forearms. NEUROLOGICAL: Patient is awake, alert and oriented x3. Cranial nerves 2 through 12 are grossly intact. - Labs CBC & Chem 7: 01/07/19 10:17 01/05/19 20:30 Labs: Abnormal Lab Results - Last 24 Hours (Table) 01/06/19 01/06/19 01/06/19 Range/Units 09:32 09:32 09:32 RBC (4.30-5.90) m/uL Hgb (13.0-17.5) gm/dL Hct (39.0-53.0) % MCHC (31.0-37.0) g/dL RDW (11.5-15.5) % Retic Count 3.9 H (0.5-2.0) % POC Glucose (mg/dL) (75-99) mg/dL Iron 32 L (65-175) ug/dL Iron Saturation 11.85 L (15.00-50.00) Vitamin B12 1100.0 H (200.0-944.0) pg/mL 01/06/19 01/06/19 01/07/19 Range/Units 16:42 21:04 06:59 RBC (4.30-5.90) m/uL Hgb (13.0-17.5) gm/dL Hct (39.0-53.0) % MCHC (31.0-37.0) g/dL RDW (11.5-15.5) % Retic Count (0.5-2.0) % POC Glucose (mg/dL) 114 H 109 H 113 H (75-99) mg/dL Iron (65-175) ug/dL Iron Saturation (15.00-50.00) Vitamin B12 (200.0-944.0) pg/mL 01/07/19 Range/Units 10:17 RBC 2.56 L (4.30-5.90) m/uL Hgb 7.0 L (13.0-17.5) gm/dL Hct 22.8 L (39.0-53.0) % MCHC 30.6 L (31.0-37.0) g/dL RDW 19.4 H (11.5-15.5) % Retic Count (0.5-2.0) % POC Glucose (mg/dL) (75-99) mg/dL Iron (65-175) ug/dL Iron Saturation (15.00-50.00) Vitamin B12 (200.0-944.0) pg/mL Assessment and Plan Plan: 1. Possible acute anemia with possible GI bleed most likely due to diverticular disease and blood and sputum. Consult with GI. Patient is scheduled for EGD today in the OR. Monitor hemoglobin. Hold aspirin, Plavix, ibuprofen. 2. Acute kidney injury secondary to dehydration, diuretics and ibuprofen. Bumex and potassium will be resumed, ibuprofen on hold. 3. Diabetes mellitus type 2. Metformin and Amaryl on hold. NovoLog scale before meals and at bedtime. 4. Acute on chronic folliculitis of the panniculus. Consult with Dr. Meza. 5. Hepatocellular disease and cirrhosis secondary to fatty liver, with mild coagulopathy. GI consult. Ammonia level. Patient is normally on lactulose 40 g 4 times daily and Xifaxan. 6. Chronic lower extremity edema. No history of coronary artery disease or heart failure. Continue Bumex and potassium. 7. Mild intermittent asthma, stable. Continue DuoNeb treatments every 4 hours as needed or Ventolin inhaler as needed. Continue Pulmicort 0.5 mg twice daily. 8. Hypertension. Continue Bumex. 9. Super morbid obesity with BMI of 70. Hold Adipex. 10. Chronic kidney disease stage III. 11. Recurrent depression. Continue Effexor X are 225 mg at bedtime, continue Latuda 20 mg daily. 12. History of some dural hemorrhage secondary to fall, not requiring surgery, stable. 13. DVT prophylaxis. SCDs and KATHY hose. 14. GI prophylaxis. Protonix 40 mg IV daily. Discharge plan: return to [facility] most likely on Thursday Impression and plan of care have been directed as dictated by the signing physician. Loni Jolly nurse practitioner acting as scribe for signing physician.
--- NOTE | 2019-01-07 14:39 | P.PCN ---
Date of Procedure: 01/07/19 Procedure(s) Performed: BRIEF HISTORY: Patient is a 63-year-old, pleasant, white male, with history of morbid obesity, bedridden, admitted to the hospital with black tarry stools of 2 days' duration. Hemoglobin was noted 7.5 g/dL. Iron indices consistent with iron deficiency anemia. He does have history of liver cirrhosis related to nonalcoholic fatty liver disease diagnosed 2 years ago. He scheduled for an upper endoscopy to evaluate for possible upper GI source of bleeding. PROCEDURE PERFORMED: Esophagogastroduodenoscopy. PREOPERATIVE DIAGNOSIS: Melena/anemia. sedation per anesthesia. General anesthesia PROCEDURE: After informed consent was obtained, the patient was brought into the endoscopy unit. IV sedation was administered by Anesthesia under continuous monitoring. Initially the Olympus GIF-140 video endoscope was inserted into the mouth. Esophagus intubated without any difficulty. It was gradually advanced into the stomach and duodenum and carefully examined. The bulb and the second part of the duodenum appeared normal. The scope at this time was withdrawn to the stomach, adequately insufflated with air, and upon careful examination, mucosa of the antrum had minimal gastritis but no active bleeding. The, body, cardia and the fundus appeared normal. The scope was then withdrawn into the esophagus. The GE junction was located at 39 cm from the incisors. The esophagus appeared normal. No evidence of esophagitis or esophageal varices. There were no erosions or ulcerations seen and the patient tolerated the procedure well. IMPRESSION: 1. Minimal antral gastritis. 2. No evidence of esophageal or gastric varices. No evidence of peptic ulcer disease. RECOMMENDATIONS: The findings of this examination were discussed with the patient as well as his family. Because of overall medical condition and morbid obesity colonoscopy would be a very high-risk procedure. Will discuss with the family..
[2019-01-07 16:55] LABS: Glucose,Whole Blood 122 mg/dL (75-99)
[2019-01-07 20:17] LABS: Glucose,Whole Blood 106 mg/dL (75-99)
[2019-01-07] MEDS: MONTELUKAST 10 MG TAB PO SCH (20:37)
[2019-01-07] MEDS: VENLAFAXINE HCL ER 75 MG CAP PO SCH (20:38)
--- NOTE | 2019-01-08 00:18 | P.PN ---
Subjective Progress Note Date: 01/07/19 This is a 63-year-old male resides at [facility] as a long-term resident with past medical history of super morbid obesity, hepatocellular disease and cirrhosis most likely secondary to fatty liver, mild intermittent asthma, hypertension, osteoarthritis, kidney stones, chronic cellulitis of the lower extremities and panniculus, subdural hemorrhage secondary to a fall not requiring surgery. Patient is noted to have chronic wounds which patient and daughter state are improved from baseline. These wounds are to the bilateral forearms, bilateral panniculus, left axillary area. He has chronic changes to the bilateral lower extremities. Due to concern for GI bleed, patient was sent into [facility] emergency center for evaluation where repeat hemoglobin is 7.3, INR 1.3, BUN 28 and creatinine 1.70 with baseline of 1.1-1.3. Total bilirubin 1.5, AST 114, ALT 47, alkaline phosphatase 471. Stool for occult blood is positive. Lipase 113. Albumin 2.7. [facility] and no antibiotics are currently in place. Cardiac has provided clearance for endoscopy which is planned in the OR with GI. 01/07/2019 the patient has had his endoscopy performed without evidence of extensive gastrointestinal bleeding. He relates that the ointment applied to the blister areas has helped him feel better. Objective - Vital Signs Vital signs: Vital Signs Temp 97.9 F 01/07/19 19:06 Pulse 86 01/07/19 21:01 Resp 16 01/07/19 19:06 BP 94/55 01/07/19 19:06 Pulse Ox 100 01/07/19 19:06 Intake & Output 01/07/19 01/07/19 01/08/19 06:59 18:59 06:59 Intake Total 400 980 480 Output Total 1250 700 Balance -850 280 480 Weight 241.6 kg Intake: IV 800 Intake, IV Titration 400 Amount Sodium Chloride 0.9% 1, 400 000 ml @ 100 mls/hr IV . Q10H STA Rx#:[id number] Oral 180 480 Output: Urine 1250 700 Other: Voiding Method Incontinent Incontinent Incontinent - Exam Gen: This is a super morbid obese 63-year-old male. He is in bed and appears to be comfortable. Daughter is at bedside. HEENT: Head is atraumatic, normocephalic. Pupils equal, round. Sclerae is anicteric. NECK: Supple. No JVD. No lymphadenopathy. No thyromegaly. LUNGS: Clear to auscultation. No wheezes or rhonchi. No intercostal retractions. HEART: Regular rate and rhythm. No murmur. ABDOMEN: morbidly obese.Soft. Bowel sounds are present. No masses. No tenderness. Wounds/folliculitis noted on the bilateral lateral abdominal fold, worse on the left side, wound to the left axilla area. EXTREMITIES: 2+ pedal edema bilaterally. Chronic erythema to the lower extremities. No significant wounds. No drainage. Wounds to the bilateral forearms. NEUROLOGICAL: Patient is awake, alert and oriented x3. Cranial nerves 2 through 12 are grossly intact. - Labs CBC & Chem 7: 01/07/19 10:17 01/05/19 20:30 Labs: Abnormal Lab Results - Last 24 Hours (Table) 01/06/19 01/07/19 01/07/19 Range/Units 09:32 06:59 10:17 RBC 2.56 L (4.30-5.90) m/uL Hgb 7.0 L (13.0-17.5) gm/dL Hct 22.8 L (39.0-53.0) % MCHC 30.6 L (31.0-37.0) g/dL RDW 19.4 H (11.5-15.5) % POC Glucose (mg/dL) 113 H (75-99) mg/dL RBC Folate 1,554 H (280 - 791) ng/mL 01/07/19 01/07/19 01/07/19 Range/Units 11:31 16:54 20:16 RBC (4.30-5.90) m/uL Hgb (13.0-17.5) gm/dL Hct (39.0-53.0) % MCHC (31.0-37.0) g/dL RDW (11.5-15.5) % POC Glucose (mg/dL) 119 H 122 H 106 H (75-99) mg/dL RBC Folate (280 - 791) ng/mL Microbiology - Last 24 Hours (Table) 01/07/19 11:09 Wound Culture - Preliminary Abdomen Laboratory Results WBC 8.1 k/uL (3.8-10.6) 01/07/19 10:17 RBC 2.56 m/uL (4.30-5.90) L 01/07/19 10:17 Hgb 7.0 gm/dL (13.0-17.5) L 01/07/19 10:17 Hct 22.8 % (39.0-53.0) L 01/07/19 10:17 MCV 89.1 fL (80.0-100.0) 01/07/19 10:17 MCH 27.3 pg (25.0-35.0) 01/07/19 10:17 MCHC 30.6 g/dL (31.0-37.0) L 01/07/19 10:17 RDW 19.4 % (11.5-15.5) H 01/07/19 10:17 Plt Count 213 k/uL (150-450) 01/07/19 10:17 Neutrophils % 66 % 01/07/19 10:17 Lymphocytes % 18 % 01/07/19 10:17 Monocytes % 7 % 01/07/19 10:17 Eosinophils % 6 % 01/07/19 10:17 Basophils % 1 % 01/07/19 10:17 Neutrophils # 5.4 k/uL (1.3-7.7) 01/07/19 10:17 Lymphocytes # 1.4 k/uL (1.0-4.8) 01/07/19 10:17 Monocytes # 0.5 k/uL (0-1.0) 01/07/19 10:17 Eosinophils # 0.5 k/uL (0-0.7) 01/07/19 10:17 Basophils # 0.1 k/uL (0-0.2) 01/07/19 10:17 Hypochromasia Marked 01/07/19 10:17 Poikilocytosis Slight 01/07/19 10:17 Anisocytosis Slight 01/07/19 10:17 Retic Count 3.9 % (0.5-2.0) H 01/06/19 09:32 PT 13.0 sec (9.0-12.0) H 01/05/19 20:30 INR 1.3 (<1.2) H 01/05/19 20:30 APTT 23.8 sec (22.0-30.0) 01/05/19 20:30 Sodium 136 mmol/L (137-145) L 01/05/19 20:30 Potassium 3.9 mmol/L (3.5-5.1) 01/05/19 20:30 Chloride 103 mmol/L (98-107) 01/05/19 20:30 Carbon Dioxide 24 mmol/L (22-30) 01/05/19 20:30 Anion Gap 9 mmol/L 01/05/19 20:30 BUN 28 mg/dL (9-20) H 01/05/19 20:30 Creatinine 1.70 mg/dL (0.66-1.25) H 01/05/19 20:30 Est GFR (CKD-EPI)AfAm 48 (>60 ml/min/1.73 sqM) 01/05/19 20:30 Est GFR (CKD-EPI)NonAf 42 (>60 ml/min/1.73 sqM) 01/05/19 20:30 Glucose 94 mg/dL (74-99) 01/05/19 20:30 POC Glucose (mg/dL) 106 mg/dL (75-99) H 01/07/19 20:16 POC Glu [employer] Yesi Roe 01/07/19 20:16 Calcium 8.5 mg/dL (8.4-10.2) 01/05/19 20:30 Magnesium 2.0 mg/dL (1.6-2.3) 01/05/19 20:30 Iron 32 ug/dL (65-175) L 01/06/19 09:32 TIBC 270 ug/dL (228-460) 01/06/19 09:32 Iron Saturation 11.85 (15.00-50.00) L 01/06/19 09:32 Ferritin 87.8 ng/mL (22.0-322.0) 01/06/19 09:32 Total Bilirubin 1.5 mg/dL (0.2-1.3) H 01/05/19 20:30 AST 114 U/L (17-59) H 01/05/19 20:30 ALT 47 U/L (21-72) 01/05/19 20:30 Alkaline Phosphatase 471 U/L (38-126) H 01/05/19 20:30 Ammonia 29 umol/L (<30) 01/06/19 09:32 Troponin I 0.013 ng/mL (0.000-0.034) 01/05/19 20:30 Total Protein 6.5 g/dL (6.3-8.2) 01/05/19 20:30 Albumin 2.7 g/dL (3.5-5.0) L 01/05/19 20:30 Lipase 113 U/L (23-300) 01/05/19 20:30 Vitamin B12 1100.0 pg/mL (200.0-944.0) H 01/06/19 09:32 RBC Folate 1,554 ng/mL (280 - 791) H 01/06/19 09:32 Stool Occult Blood Positive (Negative) 01/05/19 20:30 Blood Type A Positive 01/05/19 20:30 Blood Type Confirm A Positive 01/05/19 21:22 Blood Type Recheck CABO Indicated 01/05/19 20:30 Antibody Screen NEGATIVE 01/05/19 20:30 Spec Expiration Date 01/08/2019 - 232901/05/19 20:30 Microbiology 01/07/19 11:09 Abdomen Wound Culture - Preliminary Assessment and Plan (1) Morbid obesity Current Visit: Yes Status: Acute Code(s): E66.01 - MORBID (SEVERE) OBESITY DUE TO EXCESS CALORIES SNOMED Code(s): 329683751 (2) Benign skin lesion of multiple sites Narrative/Plan: Patient is still feeling poorly. He is with multiple skin lesions including some bullous lesion onto the left lower abdominal area. Rob catheter is placed. At this time local wound care can be initiated with thick zinc product which should allow some improvement of discomfort in these areas. Cultured the drainage will be helpful. It is noted the patient has evidenceof this event.antibiotic therapy witH Rocephin will be initiated for coverage of Staphylococcus which he's had in the past. He's not had MRSA. 01/07/2019, EGD performed without evidence of any significant gastrointestinal bleeding in the upper aspect. GI is following. Zinc was added to his many skin lesions and he finds it to be soothing. Rocephin was added for coverage of Staphylococcus aureus is isolated in the past. Continue local care at this time. Current Visit: Yes Status: Acute Code(s): L98.9 - DISORDER OF THE SKIN AND SUBCUTANEOUS TISSUE, UNSPECIFIED SNOMED Code(s): 77366170
[2019-01-08] MEDS: PREGABALIN 50 MG CAP PO SCH ×3 (05:03→22:48)
[2019-01-08 07:16] LABS: Glucose,Whole Blood 106 mg/dL (75-99)
[2019-01-08 07:40] LABS: Calcium 8.3 mg/dL (8.4-10.2); Potassium 3.5 mmol/L (3.5-5.1)
[2019-01-08] MEDS: BUDESONIDE 0.5 MG/2 ML NEBU INHALATION SCH ×2 (08:38→20:27)
[2019-01-08 08:42] LABS: Anisocytosis Slight; HCT 22.2 % (39.0-53.0); Hypochromasia Marked; MCH 27.3 pg (25.0-35.0); MCV 88.1 fL (80.0-100.0); Platelet Count 224 k/uL (150-450); Poikilocytosis Slight; RBC 2.52 m/uL (4.30-5.90); RDW 19.4 % (11.5-15.5)
[2019-01-08 08:44] LABS: HGB 6.9 gm/dL (13.0-17.5)
[2019-01-08] MEDS: INSULIN ASPART (NovoLOG) 100 UNIT/ML VIAL SQ SCH ×4 (08:46→22:25)
--- NOTE | 2019-01-08 10:21 | P.PN ---
Subjective Progress Note Date: 01/08/19 Principal diagnosis: GI bleed Patient continued to be lethargic at baseline mental status and able to provide detailed information but denied any recent black stool or vomiting blood. No major events per nursing staff. Hemoglobin is 6.9 this morning down from 7 on prior evaluation during this hospital stay Objective - Vital Signs Vital signs: Vital Signs Temp 97.7 F 01/08/19 07:49 Pulse 88 01/08/19 08:47 Resp 18 01/08/19 07:49 BP 104/63 01/08/19 07:49 Pulse Ox 92 L 01/08/19 07:49 Intake & Output 01/07/19 01/08/19 01/08/19 18:59 06:59 18:59 Intake Total 980 960 Output Total 700 1050 Balance 280 -90 Weight 241.6 kg 243.4 kg Intake: IV 800 Oral 180 960 Output: Urine 700 1050 Condom 800 Other: Voiding Method Incontinent Incontinent - Exam Gen.: in stated age, no acute distress, morbidly obese Heart: Normal S1-S2 Lungs: Diminished bilaterally Abdomen: Soft, no tenderness, positive bowel sounds in all 4 quadrant no guarding or rebound Skin: No new rash Psych: Alert and oriented at baseline mental status Neuro: No focal deficit - Labs CBC & Chem 7: 01/08/19 06:43 01/08/19 06:43 Labs: Abnormal Lab Results - Last 24 Hours (Table) 01/05/19 01/06/19 01/07/19 Range/Units 20:30 09:32 10:17 RBC 2.56 L (4.30-5.90) m/uL Hgb 7.0 L (13.0-17.5) gm/dL Hct 22.8 L (39.0-53.0) % MCHC 30.6 L (31.0-37.0) g/dL RDW 19.4 H (11.5-15.5) % BUN (9-20) mg/dL Creatinine (0.66-1.25) mg/dL Glucose (74-99) mg/dL POC Glucose (mg/dL) (75-99) mg/dL Calcium (8.4-10.2) mg/dL RBC Folate 1,554 H (280 - 791) ng/mL Crossmatch See Detail 07/06/1601/07/19 01/07/19 Range/Units 11:31 16:54 20:16 RBC (4.30-5.90) m/uL Hgb (13.0-17.5) gm/dL Hct (39.0-53.0) % MCHC (31.0-37.0) g/dL RDW (11.5-15.5) % BUN (9-20) mg/dL Creatinine (0.66-1.25) mg/dL Glucose (74-99) mg/dL POC Glucose (mg/dL) 119 H 122 H 106 H (75-99) mg/dL Calcium (8.4-10.2) mg/dL RBC Folate (280 - 791) ng/mL Crossmatch 01/08/19 01/08/19 01/08/19 Range/Units 06:43 06:43 07:04 RBC 2.52 L (4.30-5.90) m/uL Hgb 6.9 L* (13.0-17.5) gm/dL Hct 22.2 L (39.0-53.0) % MCHC (31.0-37.0) g/dL RDW 19.4 H (11.5-15.5) % BUN 28 H (9-20) mg/dL Creatinine 1.84 H (0.66-1.25) mg/dL Glucose 112 H (74-99) mg/dL POC Glucose (mg/dL) 106 H (75-99) mg/dL Calcium 8.3 L (8.4-10.2) mg/dL RBC Folate (280 - 791) ng/mL Crossmatch Microbiology - Last 24 Hours (Table) 01/07/19 11:09 Gram Stain - Preliminary Abdomen Wound Culture - Preliminary Assessment and Plan Assessment: 1. GI bleed. 2. Status post EGD with minimal antral gastritis. 3. Morbid obesity with poor prognosis. 4. No alcoholic liver cirrhosis. 5. Acute kidney injury secondary to dehydration and diuretics. 6. Chronic lower extremity edema with venous insufficiency. 7. Asthma. 8. Anxiety and depression. 9. Diabetes mellitus type 2. We'll transfuse 2 units of packed red blood cells today, follow-up with GI recommendation regarding current management and need for colonoscopy. Patient is high risk for any surgical procedure or sedation. We'll repeat hemoglobin in the morning. Optimize kidney function avoid nephrotoxic medication and maintain negative fluid balance. Continue current medication and discharge planning based on clinical progress
--- NOTE | 2019-01-08 11:22 | PN ---
PROGRESS NOTE DATE OF SERVICE: 01/08/2019 The patient is a 63-year-old pleasant white male admitted to hospital because of symptomatic anemia and hemoglobin of 7 and intermittent black tarry stools. The patient has history of morbid obesity and has been bedridden for the last 2-1/2 years duration. He was diagnosed with GARCIA/cirrhosis of the liver about 2-1/2 years ago. As a part of workup, he underwent an upper endoscopy yesterday under general anesthesia which was completely normal. In the meantime, patient is complaining of some pain on the left side at his open wound on the left side of the abdominal wall. He denies any nausea, vomiting. He reports no abdominal pain. He denies any rectal bleeding. PHYSICAL EXAMINATION: On physical examination, he appears comfortable. Vital signs are stable. Blood pressure 95/60, pulse 92, temperature 98.4. HEENT examination unremarkable. Conjunctivae pink. Sclerae anicteric. Oral cavity no lesions. NECK: No JVD or lymph node enlargement. CHEST was clear to auscultation. HEART: Regular rate and rhythm. ABDOMEN is morbidly obese, but nontender. EXTREMITIES: No pedal edema. SKIN: Multiple . NEURO: Alert and oriented x3. No focal deficits. LABS: Labs from today: WBC 10, hemoglobin down to 6.9, platelets are normal. Basic metabolic panel is within normal limits. BUN is 28 and creatinine 1.83. IMPRESSION: 1. Morbid obesity. 2. Severe symptomatic anemia with a hemoglobin of 6.9 g/dL. Hemoglobin on admission was 7 g/dL. Upper endoscopy done yesterday did not show any pathology, cannot rule out possibility of colonic source of bleeding. Last colonoscopy was about 10 years ago. 3. History of GARCIA/cirrhosis of the liver diagnosed 2 years ago, which appears to be well compensated. RECOMMENDATIONS: I had a lengthy discussion with the patient as well as his family yesterday regarding further workup and given his overall medical condition and body habitus and morbid obesity, performing a colonoscopy may be extremely challenging and high risk at this time. However, if he continues to drop his hemoglobin, we may have to consider proceeding with a colonoscopy. The plan was discussed with the patient and for now we decided to continue to watch and transfuse him with 1 unit of PRBC and repeat CBC in the morning. Thank you for this consultation. MMODL / IJN: [id number] /
[2019-01-08 12:02] LABS: Glucose,Whole Blood 119 mg/dL (75-99)
[2019-01-08] MEDS: RIFAXIMIN 550 MG TABLET PO SCH ×2 (13:35→23:53)
[2019-01-08] MEDS: BUMETANIDE 1 MG TAB PO SCH ×2 (13:35→20:06)
[2019-01-08] MEDS: LURASIDONE 20 MG TAB PO SCH (13:36)
[2019-01-08] MEDS: POTASSIUM CHLORIDE ER 20 MEQ TAB.ER PO SCH ×2 (13:45→22:48)
[2019-01-08] MEDS: PANTOPRAZOLE 40 MG/10 ML VIAL IVP SCH (13:45)
--- NOTE | 2019-01-08 14:02 | P.PN ---
Subjective Progress Note Date: 01/08/19 This 63-year-old gentleman with morbid obesity is admitted to the hospital with severe anemia and suspected GI bleeding. EGD was performed yesterday by Dr. Maribell Gomez with findings of minimal antral gastritis. No evidence of esophageal or gastric varices. No evidence of peptic ulcer disease. Hemoglobin this morning is 6.9 and he has ordered for 1 unit of packed RBCs. Patient is had good urine output. Creatinine is 1.84, blood pressure 104/63. One dose of IV Lasix ordered. Gen: This is a super morbidly obese 63-year-old male. He does not appear to be in any acute distress. HEENT: Head is atraumatic, normocephalic. Pupils equal, round. Sclerae is anicteric. NECK: Supple. No JVD. No lymphadenopathy. No thyromegaly. LUNGS: Diminished bilaterally. No intercostal retractions. HEART: Regular rate and rhythm. No murmur. Distant heart sounds ABDOMEN: Morbidly obese. Soft. Bowel sounds are present. No masses. No tenderness. EXTREMITIES: 2+ pedal edema bilaterally. No calf tenderness. NEUROLOGICAL: Patient is awake, alert and oriented x3. Generalized weakness Assessment: Acute GI bleed Super morbid obesity Non-alcoholic cirrhosis of the liver Acute kidney injury Chronic lower extremity edema Plan: Patient is scheduled for transfusion of one unit of packed RBCs. Lasix 40 mg IV 1 today. Further recommendations to follow based upon clinical course. Nurse practitioner note has been reviewed, I agree with documented findings and plan of care. Patient was seen and examined. Objective - Vital Signs Vital signs: Vital Signs Temp 97.7 F 01/08/19 12:54 Pulse 87 01/08/19 12:54 Resp 18 01/08/19 07:49 BP 108/66 01/08/19 12:54 Pulse Ox 99 01/08/19 12:54 Intake & Output 01/07/19 01/08/19 01/08/19 18:59 06:59 18:59 Intake Total 980 960 Output Total 700 1050 Balance 280 -90 Weight 241.6 kg 243.4 kg Intake: IV 800 Oral 180 960 Output: Urine 700 1050 Condom 800 Other: Voiding Method Incontinent Incontinent - Labs CBC & Chem 7: 01/08/19 06:43 01/08/19 06:43 Labs: Abnormal Lab Results - Last 24 Hours (Table) 01/05/19 01/07/19 01/07/19 Range/Units 20:30 16:54 20:16 RBC (4.30-5.90) m/uL Hgb (13.0-17.5) gm/dL Hct (39.0-53.0) % RDW (11.5-15.5) % BUN (9-20) mg/dL Creatinine (0.66-1.25) mg/dL Glucose (74-99) mg/dL POC Glucose (mg/dL) 122 H 106 H (75-99) mg/dL Calcium (8.4-10.2) mg/dL Crossmatch See Detail 01/08/19 01/08/19 01/08/19 Range/Units 06:43 06:43 07:04 RBC 2.52 L (4.30-5.90) m/uL Hgb 6.9 L* (13.0-17.5) gm/dL Hct 22.2 L (39.0-53.0) % RDW 19.4 H (11.5-15.5) % BUN 28 H (9-20) mg/dL Creatinine 1.84 H (0.66-1.25) mg/dL Glucose 112 H (74-99) mg/dL POC Glucose (mg/dL) 106 H (75-99) mg/dL Calcium 8.3 L (8.4-10.2) mg/dL Crossmatch 01/08/19 Range/Units 11:50 RBC (4.30-5.90) m/uL Hgb (13.0-17.5) gm/dL Hct (39.0-53.0) % RDW (11.5-15.5) % BUN (9-20) mg/dL Creatinine (0.66-1.25) mg/dL Glucose (74-99) mg/dL POC Glucose (mg/dL) 119 H (75-99) mg/dL Calcium (8.4-10.2) mg/dL Crossmatch Microbiology - Last 24 Hours (Table) 01/07/19 11:09 Gram Stain - Preliminary Abdomen Wound Culture - Preliminary Gram Neg Bacilli Presumptive MRSA
[2019-01-08] MEDS ORDERED: FUROSEMIDE 10 MG/ML 4 ML VIAL IV STA (15:48)
[2019-01-08] MEDS ORDERED: FUROSEMIDE 10 MG/ML 2 ML VIAL IV PRN (15:49)
[2019-01-08] MEDS ORDERED: BENZOCAINE/MENTHOL LOZENG 1 EACH LOZENGE MUCOUS MEM PRN (15:51)
[2019-01-08 16:55] LABS: Glucose,Whole Blood 121 mg/dL (75-99)
[2019-01-08 20:10] LABS: Glucose,Whole Blood 115 mg/dL (75-99)
[2019-01-08] MEDS: MONTELUKAST 10 MG TAB PO SCH (22:48)
[2019-01-08] MEDS: VENLAFAXINE HCL ER 75 MG CAP PO SCH (22:48)
--- NOTE | 2019-01-08 23:12 | P.PN ---
Subjective Progress Note Date: 01/08/19 This is a 63-year-old male resides at [facility] as a long-term resident with past medical history of super morbid obesity, hepatocellular disease and cirrhosis most likely secondary to fatty liver, mild intermittent asthma, hypertension, osteoarthritis, kidney stones, chronic cellulitis of the lower extremities and panniculus, subdural hemorrhage secondary to a fall not requiring surgery. Patient is noted to have chronic wounds which patient and daughter state are improved from baseline. These wounds are to the bilateral forearms, bilateral panniculus, left axillary area. He has chronic changes to the bilateral lower extremities. Due to concern for GI bleed, patient was sent into [facility] emergency center for evaluation where repeat hemoglobin is 7.3, INR 1.3, BUN 28 and creatinine 1.70 with baseline of 1.1-1.3. Total bilirubin 1.5, AST 114, ALT 47, alkaline phosphatase 471. Stool for occult blood is positive. Lipase 113. Albumin 2.7. [facility] and no antibiotics are currently in place. Cardiac has provided clearance for endoscopy which is planned in the OR with GI. 01/07/2019 the patient has had his endoscopy performed without evidence of extensive gastrointestinal bleeding. He relates that the ointment applied to the blister areas has helped him feel better. 01/08/2019 patient has been followed by gastroenterology today. If he continues to have evidence of bleeding will need colonoscopy which is very challenging due to his superobesity. No evidence of acute bleeding at this time. The patient's skin seems to responding to the current topical therapy but wound culture is evidence of MRSA and gram-negative bacilli. Objective - Vital Signs Vital signs: Vital Signs Temp 98.4 F 01/08/19 22:22 Pulse 96 01/08/19 22:22 Resp 18 01/08/19 22:22 BP 85/55 01/08/19 22:22 Pulse Ox 97 01/08/19 22:22 Intake & Output 01/08/19 01/08/19 01/09/19 06:59 18:59 06:59 Intake Total 960 0 310 Output Total 1050 Balance -90 0 310 Weight 243.4 kg Intake: Oral 960 Blood Product 0 310 Rc As-1 Unit 0 310 [id number] Output: Urine 1050 Condom 800 Other: Voiding Method Incontinent Incontinent # Voids 1,000 - Exam Gen: This is a super morbid obese 63-year-old male. He is in bed and appears to be comfortable. Daughter is at bedside. HEENT: Head is atraumatic, normocephalic. Pupils equal, round. Sclerae is anicteric. NECK: Supple. No JVD. No lymphadenopathy. No thyromegaly. LUNGS: Clear to auscultation. No wheezes or rhonchi. No intercostal retractions. HEART: Regular rate and rhythm. No murmur. ABDOMEN: morbidly obese.Soft. Bowel sounds are present. No masses. No tenderness. Wounds/folliculitis noted on the bilateral lateral abdominal fold, worse on the left side, wound to the left axilla area. EXTREMITIES: 2+ pedal edema bilaterally. Chronic erythema to the lower extremities. No significant wounds. No drainage. Wounds to the bilateral forearms. NEUROLOGICAL: Patient is awake, alert and oriented x3. Cranial nerves 2 through 12 are grossly intact. - Labs CBC & Chem 7: 01/08/19 06:43 01/08/19 06:43 Labs: Abnormal Lab Results - Last 24 Hours (Table) 01/05/19 01/08/19 01/08/19 Range/Units 20:30 06:43 06:43 RBC 2.52 L (4.30-5.90) m/uL Hgb 6.9 L* (13.0-17.5) gm/dL Hct 22.2 L (39.0-53.0) % RDW 19.4 H (11.5-15.5) % BUN 28 H (9-20) mg/dL Creatinine 1.84 H (0.66-1.25) mg/dL Glucose 112 H (74-99) mg/dL POC Glucose (mg/dL) (75-99) mg/dL Calcium 8.3 L (8.4-10.2) mg/dL Crossmatch See Detail 01/08/19 01/08/19 01/08/19 Range/Units 07:04 11:50 16:48 RBC (4.30-5.90) m/uL Hgb (13.0-17.5) gm/dL Hct (39.0-53.0) % RDW (11.5-15.5) % BUN (9-20) mg/dL Creatinine (0.66-1.25) mg/dL Glucose (74-99) mg/dL POC Glucose (mg/dL) 106 H 119 H 121 H (75-99) mg/dL Calcium (8.4-10.2) mg/dL Crossmatch 01/08/19 Range/Units 20:06 RBC (4.30-5.90) m/uL Hgb (13.0-17.5) gm/dL Hct (39.0-53.0) % RDW (11.5-15.5) % BUN (9-20) mg/dL Creatinine (0.66-1.25) mg/dL Glucose (74-99) mg/dL POC Glucose (mg/dL) 115 H (75-99) mg/dL Calcium (8.4-10.2) mg/dL Crossmatch Microbiology - Last 24 Hours (Table) 01/07/19 11:09 Gram Stain - Preliminary Abdomen Wound Culture - Preliminary Gram Neg Bacilli Presumptive MRSA Laboratory Results WBC 10.0 k/uL (3.8-10.6) 01/08/19 06:43 RBC 2.52 m/uL (4.30-5.90) L 01/08/19 06:43 Hgb 6.9 gm/dL (13.0-17.5) L* 01/08/19 06:43 Hct 22.2 % (39.0-53.0) L 01/08/19 06:43 MCV 88.1 fL (80.0-100.0) 01/08/19 06:43 MCH 27.3 pg (25.0-35.0) 01/08/19 06:43 MCHC 31.0 g/dL (31.0-37.0) 01/08/19 06:43 RDW 19.4 % (11.5-15.5) H 01/08/19 06:43 Plt Count 224 k/uL (150-450) 01/08/19 06:43 Neutrophils % 66 % 01/07/19 10:17 Lymphocytes % 18 % 01/07/19 10:17 Monocytes % 7 % 01/07/19 10:17 Eosinophils % 6 % 01/07/19 10:17 Basophils % 1 % 01/07/19 10:17 Neutrophils # 5.4 k/uL (1.3-7.7) 01/07/19 10:17 Lymphocytes # 1.4 k/uL (1.0-4.8) 01/07/19 10:17 Monocytes # 0.5 k/uL (0-1.0) 01/07/19 10:17 Eosinophils # 0.5 k/uL (0-0.7) 01/07/19 10:17 Basophils # 0.1 k/uL (0-0.2) 01/07/19 10:17 Hypochromasia Marked 01/08/19 06:43 Poikilocytosis Slight 01/08/19 06:43 Anisocytosis Slight 01/08/19 06:43 Retic Count 3.9 % (0.5-2.0) H 01/06/19 09:32 PT 13.0 sec (9.0-12.0) H 01/05/19 20:30 INR 1.3 (<1.2) H 01/05/19 20:30 APTT 23.8 sec (22.0-30.0) 01/05/19 20:30 Sodium 137 mmol/L (137-145) 01/08/19 06:43 Potassium 3.5 mmol/L (3.5-5.1) 01/08/19 06:43 Chloride 103 mmol/L (98-107) 01/08/19 06:43 Carbon Dioxide 26 mmol/L (22-30) 01/08/19 06:43 Anion Gap 8 mmol/L 01/08/19 06:43 BUN 28 mg/dL (9-20) H 01/08/19 06:43 Creatinine 1.84 mg/dL (0.66-1.25) H 01/08/19 06:43 Est GFR (CKD-EPI)AfAm 44 (>60 ml/min/1.73 sqM) 01/08/19 06:43 Est GFR (CKD-EPI)NonAf 38 (>60 ml/min/1.73 sqM) 01/08/19 06:43 Glucose 112 mg/dL (74-99) H 01/08/19 06:43 POC Glucose (mg/dL) 115 mg/dL (75-99) H 01/08/19 20:06 POC Glu Allergy And Immunology Chief Raina Capellan 01/08/19 20:06 Calcium 8.3 mg/dL (8.4-10.2) L 01/08/19 06:43 Magnesium 2.0 mg/dL (1.6-2.3) 01/05/19 20:30 Iron 32 ug/dL (65-175) L 01/06/19 09:32 TIBC 270 ug/dL (228-460) 01/06/19 09:32 Iron Saturation 11.85 (15.00-50.00) L 01/06/19 09:32 Ferritin 87.8 ng/mL (22.0-322.0) 01/06/19 09:32 Total Bilirubin 1.5 mg/dL (0.2-1.3) H 01/05/19 20:30 AST 114 U/L (17-59) H 01/05/19 20:30 ALT 47 U/L (21-72) 01/05/19 20:30 Alkaline Phosphatase 471 U/L (38-126) H 01/05/19 20:30 Ammonia 29 umol/L (<30) 01/06/19 09:32 Troponin I 0.013 ng/mL (0.000-0.034) 01/05/19 20:30 Total Protein 6.5 g/dL (6.3-8.2) 01/05/19 20:30 Albumin 2.7 g/dL (3.5-5.0) L 01/05/19 20:30 Lipase 113 U/L (23-300) 01/05/19 20:30 Vitamin B12 1100.0 pg/mL (200.0-944.0) H 01/06/19 09:32 RBC Folate 1,554 ng/mL (280 - 791) H 01/06/19 09:32 Stool Occult Blood Positive (Negative) 01/05/19 20:30 Blood Type A Positive 01/05/19 20:30 Blood Type Confirm A Positive 01/05/19 21:22 Blood Type Recheck CABO Indicated 01/05/19 20:30 Antibody Screen NEGATIVE 01/05/19 20:30 Crossmatch See Detail 01/05/19 20:30 Spec Expiration Date 01/08/2019 - 232901/05/19 20:30 Microbiology 01/07/19 11:09 Abdomen Gram Stain - Preliminary 01/07/19 11:09 Abdomen Wound Culture - Preliminary Gram Neg Bacilli Presumptive MRSA Assessment and Plan (1) Morbid obesity Current Visit: Yes Status: Acute Code(s): E66.01 - MORBID (SEVERE) OBESITY DUE TO EXCESS CALORIES SNOMED Code(s): 286832790 (2) Benign skin lesion of multiple sites Narrative/Plan: Patient is still feeling poorly. He is with multiple skin lesions including some bullous lesion onto the left lower abdominal area. Rob catheter is placed. At this time local wound care can be initiated with thick zinc product which should allow some improvement of discomfort in these areas. Cultured the drainage will be helpful. It is noted the patient has evidenceof this event.antibiotic therapy witH Rocephin will be initiated for coverage of Staphylococcus which he's had in the past. He's not had MRSA. 01/07/2019, EGD performed without evidence of any significant gastrointestinal bleeding in the upper aspect. GI is following. Zinc was added to his many skin lesions and he finds it to be soothing. Rocephin was added for coverage of Staphylococcus aureus is isolated in the past. Continue local care at this time. 11/08/2018 patient is being followed for his gastrointestinal bleed. Wound culture reveals evidence of staph aureus but likely MRSA which is different than in the past and some gram-negative bacilli. With this isolated intravenous doxycycline 100 mg IV piggyback every 12 hours as requested until further data is available. If susceptible this might give an oral option at the time of his discharge out of hospital. Current Visit: Yes Status: Acute Code(s): L98.9 - DISORDER OF THE SKIN AND SUBCUTANEOUS TISSUE, UNSPECIFIED SNOMED Code(s): 33726909
[2019-01-08] MEDS: DOXYCYCLINE 100 MG in SODIUM CHLORIDE 0.9% 100 ML IVPB SCH (23:53)
[2019-01-09 07:10] LABS: Glucose,Whole Blood 132 mg/dL (75-99)
[2019-01-09 07:30] LABS: Anisocytosis Slight; HCT 24.3 % (39.0-53.0); HGB 7.6 gm/dL (13.0-17.5); Hypochromasia Marked; MCH 27.7 pg (25.0-35.0); MCHC 31.1 g/dL (31.0-37.0); Mean Platelet Volume 7.8; Platelet Count 217 k/uL (150-450); Poikilocytosis Moderate; RBC 2.73 m/uL (4.30-5.90); WBC 8.3 k/uL (3.8-10.6)
[2019-01-09] MEDS: INSULIN ASPART (NovoLOG) 100 UNIT/ML VIAL SQ SCH ×4 (07:53→22:06)
[2019-01-09 07:56] LABS: Calcium 8.1 mg/dL (8.4-10.2); Potassium 3.2 mmol/L (3.5-5.1)
[2019-01-09] MEDS: BUDESONIDE 0.5 MG/2 ML NEBU INHALATION SCH ×2 (09:15→20:14)
--- NOTE | 2019-01-09 10:19 | PN ---
PROGRESS NOTE DATE OF DICTATION: January 09, 2019. REQUESTING PHYSICIAN: Dr. Palmer. The patient is a 63-year-old pleasant white male who was admitted to the hospital with dark stools and anemia, hemoglobin of 7, which dropped to 6.8 and required 1 unit of blood transfusion yesterday. Hemoglobin today 7.8 g/dL. The patient denies any symptoms. He reports no rectal bleeding or melena. Denies any nausea, vomiting. PHYSICAL EXAMINATION: He appears comfortable. No apparent distress. Vital signs stable. Blood pressure is 135/62, pulse 89, temperature 97.9. HEENT examination unremarkable. Conjunctivae pink. Sclerae anicteric. Oral cavity no lesions. NECK: No JVD or lymph node enlargement. CHEST: Clear to auscultation. HEART: Regular rate and rhythm. ABDOMEN was obese. It was benign. EXTREMITIES: No pedal edema. NEURO: He is alert and oriented x3. No focal deficits. LABS: From today WBC 8.3, hemoglobin 7.6, platelets 217. BUN 27, creatinine 1.79. IMPRESSION: 1. Symptomatic anemia with dark colored stools, status post EGD 2 days ago that was unremarkable except for mild gastritis. 2. History of cirrhosis of the liver secondary to GARCIA diagnosed 2 years ago, appears to be well compensated. 3. Morbid obesity. RECOMMENDATIONS: I discussed with the patient as well as his family, at this time, we will not plan on a colonoscopy at this time because of the extremely high risk because of morbid obesity. Continue to monitor CBC on a daily basis. Thank you for this consultation. MMODL / IJN: [id number] /
[2019-01-09] MEDS: RIFAXIMIN 550 MG TABLET PO SCH (10:48)
[2019-01-09] MEDS: BUMETANIDE 1 MG TAB PO SCH ×2 (10:49→15:19)
[2019-01-09] MEDS: LURASIDONE 20 MG TAB PO SCH (10:49)
[2019-01-09] MEDS: PREGABALIN 50 MG CAP PO SCH ×3 (10:55→22:33)
[2019-01-09] MEDS: POTASSIUM CHLORIDE ER 20 MEQ TAB.ER PO SCH ×2 (10:55→22:34)
[2019-01-09 11:26] LABS: Glucose,Whole Blood 117 mg/dL (75-99)
--- NOTE | 2019-01-09 11:51 | P.PN ---
Subjective Progress Note Date: 01/09/19 Principal diagnosis: GI bleed Patient continued to be with amikacin stable no major events reported by nursing staff patient tolerated blood transfusion yesterday without difficulty and feels slightly improved since yesterday no further blood in stool noted by staff no further vomiting nausea or abdominal pain reported Objective - Vital Signs Vital signs: Vital Signs Temp 97.7 F 01/09/19 08:04 Pulse 92 01/09/19 09:43 Resp 16 01/09/19 01:02 BP 122/68 01/09/19 08:04 Pulse Ox 94 L 01/09/19 08:04 Intake & Output 01/08/19 01/09/19 01/09/19 18:59 06:59 18:59 Intake Total 0 310 Output Total 825 Balance 0 -515 Intake: Blood Product 0 310 Rc As-1 Unit 0 310 [id number] Output: Urine 825 Other: Voiding Method Incontinent Incontinent # Voids 1,000 - Exam Gen.: in stated age, no acute distress, morbidly obese Heart: Normal S1-S2 Lungs: Diminished bilaterally Abdomen: Soft, no tenderness, positive bowel sounds in all 4 quadrant no guarding or rebound Skin: No new rash Psych: Alert and oriented at baseline mental status Neuro: No focal deficit - Labs CBC & Chem 7: 01/09/19 07:06 01/09/19 07:06 Labs: Abnormal Lab Results - Last 24 Hours (Table) 01/05/19 01/08/19 01/08/19 Range/Units 20:30 11:50 16:48 RBC (4.30-5.90) m/uL Hgb (13.0-17.5) gm/dL Hct (39.0-53.0) % RDW (11.5-15.5) % Potassium (3.5-5.1) mmol/L BUN (9-20) mg/dL Creatinine (0.66-1.25) mg/dL Glucose (74-99) mg/dL POC Glucose (mg/dL) 119 H 121 H (75-99) mg/dL Calcium (8.4-10.2) mg/dL Crossmatch See Detail 01/08/19 01/09/19 01/09/19 Range/Units 20:06 06:58 07:06 RBC 2.73 L (4.30-5.90) m/uL Hgb 7.6 L (13.0-17.5) gm/dL Hct 24.3 L (39.0-53.0) % RDW 19.0 H (11.5-15.5) % Potassium (3.5-5.1) mmol/L BUN (9-20) mg/dL Creatinine (0.66-1.25) mg/dL Glucose (74-99) mg/dL POC Glucose (mg/dL) 115 H 132 H (75-99) mg/dL Calcium (8.4-10.2) mg/dL Crossmatch 01/09/19 01/09/19 Range/Units 07:06 11:25 RBC (4.30-5.90) m/uL Hgb (13.0-17.5) gm/dL Hct (39.0-53.0) % RDW (11.5-15.5) % Potassium 3.2 L (3.5-5.1) mmol/L BUN 27 H (9-20) mg/dL Creatinine 1.79 H (0.66-1.25) mg/dL Glucose 127 H (74-99) mg/dL POC Glucose (mg/dL) 117 H (75-99) mg/dL Calcium 8.1 L (8.4-10.2) mg/dL Crossmatch Microbiology - Last 24 Hours (Table) 01/07/19 11:09 Gram Stain - Preliminary Abdomen Wound Culture - Preliminary Gram Neg Bacilli Presumptive MRSA Assessment and Plan Assessment: 1. GI bleed. 2. Status post EGD with minimal antral gastritis. 3. Morbid obesity with poor prognosis. 4. No alcoholic liver cirrhosis. 5. Acute kidney injury secondary to dehydration and diuretics. 6. Chronic lower extremity edema with venous insufficiency. 7. Asthma. 8. Anxiety and depression. 9. Diabetes mellitus type 2. Patient received 1 unit of blood yesterday hemoglobin seems to be stable this morning, patient is asymptomatic, discussed with GI consideration for colonoscopy if patient experiences further bleeding or drop in his hemoglobin during this hospital stay otherwise is conservative management as patient is high risk due to his morbid obesity and not very good candidate for any surgical intervention and would like to monitor him conservatively at this point. Plan discussed with nursing staff as well
[2019-01-09] MEDS: DOXYCYCLINE 100 MG in SODIUM CHLORIDE 0.9% 100 ML IVPB SCH (14:12)
[2019-01-09] MEDS: PANTOPRAZOLE 40 MG/10 ML VIAL IVP SCH (14:12)
[2019-01-09] MEDS ORDERED: POTASSIUM CHLORIDE ER 20 MEQ TAB.ER PO STA (16:30)
[2019-01-09] MEDS ORDERED: Potassium Replacement Protocol 1 EACH MISC MISCELLANE PRN (16:31)
[2019-01-09 17:10] LABS: Anisocytosis Slight; Basophils % (A) 0 %; Eosinophils # (A) 0.4 k/uL (0-0.7); Eosinophils % (A) 6 %; HCT 22.8 % (39.0-53.0); HGB 7.4 gm/dL (13.0-17.5); Hypochromasia Marked; Lymphocytes # (A) 1.3 k/uL (1.0-4.8); Lymphocytes % (A) 17 %; MCH 29.2 pg (25.0-35.0); MCHC 32.5 g/dL (31.0-37.0); MCV 89.8 fL (80.0-100.0); Mean Platelet Volume 7.6; Monocytes # (A) 0.8 k/uL (0-1.0); Monocytes % (A) 11 %; Neutrophils % (A) 64 %; Platelet Count 206 k/uL (150-450); Poikilocytosis Moderate; RBC 2.54 m/uL (4.30-5.90); RDW 18.8 % (11.5-15.5); WBC 7.8 k/uL (3.8-10.6)
[2019-01-09 17:17] LABS: Glucose,Whole Blood 135 mg/dL (75-99)
[2019-01-09] MEDS: MIDODRINE 5 MG TAB PO SCH (18:50)
[2019-01-09] MEDS: LACTULOSE 20 GM/30 ML CUP PO SCH ×2 (18:51→22:33)
[2019-01-09 19:07] LABS: Polychromasia Present
[2019-01-09 20:40] LABS: Glucose,Whole Blood 114 mg/dL (75-99)
[2019-01-09] MEDS: MONTELUKAST 10 MG TAB PO SCH (22:33)
[2019-01-09] MEDS: VENLAFAXINE HCL ER 75 MG CAP PO SCH (22:34)
[2019-01-10] MEDS: DOXYCYCLINE 100 MG in SODIUM CHLORIDE 0.9% 100 ML IVPB SCH ×2 (00:08→08:22)
[2019-01-10] MEDS: RIFAXIMIN 550 MG TABLET PO SCH ×2 (00:08→08:14)
[2019-01-10] MEDS: PREGABALIN 50 MG CAP PO SCH ×2 (06:20→14:41)
[2019-01-10 07:02] LABS: Glucose,Whole Blood 121 mg/dL (75-99)
[2019-01-10] MEDS: INSULIN ASPART (NovoLOG) 100 UNIT/ML VIAL SQ SCH ×2 (07:39→11:38)
[2019-01-10] MEDS: BUDESONIDE 0.5 MG/2 ML NEBU INHALATION SCH (08:01)
[2019-01-10] MEDS: MIDODRINE 5 MG TAB PO SCH ×2 (08:12→11:38)
[2019-01-10] MEDS: LURASIDONE 20 MG TAB PO SCH (08:13)
[2019-01-10] MEDS: POTASSIUM CHLORIDE ER 20 MEQ TAB.ER PO SCH (08:13)
[2019-01-10] MEDS: PANTOPRAZOLE 40 MG/10 ML VIAL IVP SCH (08:14)
[2019-01-10] MEDS: BUMETANIDE 1 MG TAB PO SCH (08:14)
[2019-01-10] MEDS: LACTULOSE 20 GM/30 ML CUP PO SCH ×2 (08:15→14:41)
[2019-01-10 09:19] LABS: Anisocytosis Slight; HCT 24.5 % (39.0-53.0); HGB 7.5 gm/dL (13.0-17.5); Hypochromasia Marked; MCH 27.4 pg (25.0-35.0); MCHC 30.6 g/dL (31.0-37.0); MCV 89.5 fL (80.0-100.0); Platelet Count 198 k/uL (150-450); Poikilocytosis Moderate; RBC 2.73 m/uL (4.30-5.90); RDW 18.6 % (11.5-15.5); WBC 7.7 k/uL (3.8-10.6)
[2019-01-10 09:33] LABS: Calcium 8.1 mg/dL (8.4-10.2); Potassium 3.5 mmol/L (3.5-5.1)
--- NOTE | 2019-01-10 10:08 | P.DS ---
Providers Date of admission: 01/05/19 19:33 Expected date of discharge: 01/10/19 Attending physician: Rosa Palmer Consults: 01/05/19 19:32 Consult Physician Routine Consulting Provider: Rip De Los Santos Consult Reason/Comments: gib Do you want consulting provider notified?: Yes 01/06/19 11:10 Consult Physician Routine Consulting Provider: Jimmy Stewart Consult Reason/Comments: clearance for endoscopy, GIB on plavix and asa Do you want consulting provider notified?: Yes 01/06/19 11:20 Consult Physician Routine Consulting Provider: Fritz Meza Consult Reason/Comments: multiple wounds Do you want consulting provider notified?: Yes Primary care physician: Rosa Palmer Hospital Course: This is a 63-year-old male patient of Dr. Palmer followed at [facility] as a long-term resident with past medical history of super morbid obesity, hepatocellular disease and cirrhosis most likely secondary to fatty liver, mild intermittent asthma, hypertension, osteoarthritis, kidney stones, chronic cellulitis of the lower extremities and panniculus, subdural hemorrhage secondary to a fall not requiring surgery. Patient's most recent hospitalization was in May 2018 which time she was treated for chest pain/musculoskeletal. She was seen at that time by Dr. Watts. Echocardiogram at that time revealed EF of 55-60% with mild concentric left hypertrophy. Patient was found at the skilled nursing to have a hemoglobin of 7.0 and hemoglobin appears to run at about 12. Patient is non-ambulatory. He had rapid decline and is now bedbound with no clear explanation. He denies having any abdominal pain, black tarry stools, he denies history of esophageal varices. He denies history of IA or coronary artery disease. He does have history of subdural he hemorrhage but no CVA. He is being treated for conjunctivitis as he states he recently scratched his conjunctiva. Patient complains of a cough with productive red sputum 2 nights ago and that was reason for lab work and a chest x-ray to be done. Patient is noted to have chronic wounds which patient and daughter state her improved from baseline. These wounds are to the bilateral forearms, bilateral panniculus, left axillary area. He has chronic wound changes to the bilateral lower extremities. A condom catheter has been placed. Patient's last colonoscopy was greater than 10 years ago. Due to concern for GI bleed, patient was sent into [facility] emergency center for evaluation where repeat hemoglobin is 7.3, INR 1.3, BUN 28 and creatinine 1.70 with baseline of 1.1-1.3. Total bilirubin 1.5, AST 114, ALT 47, alkaline phosphatase 471. Stool for occult blood is positive. Lipase 113. Albumin 2.7. Patient has been admitted to the [facility] floor and consult requested with GI. We have added the cardiac consultation for surgical clearance for endoscopy which is planned for the OR. Patient has been seen by Dr. Stewart with no contraindication for procedure. 01/07: The patient has been seen by Dr. Meza and Gale added. He has been afebrile, WBC 8.1, hemoglobin 7.0, platelet count 213, blood sugars running between 97 113. Vitamin B12 1100, iron saturation 11.85, iron 32, TIBC 270, ferritin 87.8, ammonia 29, recheck count 3.9. Patient is scheduled for EGD today in the operating room with Dr. Hudson. Patient denies having any abdominal pain, bloody or tarry stools. 01/08: Patient continued to be lethargic at baseline mental status and able to provide detailed information but denied any recent black stool or vomiting blood. No major events per nursing staff. Hemoglobin is 6.9 this morning down from 7 on prior evaluation during this hospital stay 01/09: Patient continued to be with amikacin stable no major events reported by nursing staff patient tolerated blood transfusion yesterday without difficulty and feels slightly improved since yesterday no further blood in stool noted by staff no further vomiting nausea or abdominal pain reported 01/10: Patient remains afebrile, heart rate 76, blood pressure 100/68, pulse ox 98% on room air. Repeat lab work reveals white count 7.7, hemoglobin and 0.5, platelets 198. Potassium 3.5, BUN 27 creatinine 1.72. Blood sugars running between 190- 121. Abdominal wound culture positive for Enterobacter cloacae and MRSA. Dr. Meza has recommended course of doxycycline. Patient will be discharged back to [facility] today in stable condition. EGD performed on January [address] Gomez revealed minimal antral gastritis. No evidence of esophageal or gastric varices. No evidence of peptic ulcer disease. Discharge diagnoses: 1. Acute blood loss anemia secondary to gastritis and hemoptysis with underlying chronic anemia of chronic disease. 2. Acute kidney injury secondary to dehydration, diuretics and ibuprofen. 3. Diabetes mellitus type 2. 4. Acute on chronic folliculitis of the panniculus. 5. Hepatocellular disease and cirrhosis secondary to fatty liver, with mild coagulopathy. 6. Chronic lower extremity edema. 7. Mild intermittent asthma, stable. 8. Hypertension. 9. Super morbid obesity with BMI of 70. 10. Chronic kidney disease stage III. 11. Recurrent depression. 12. History of subdural hemorrhage secondary to fall, not requiring surgery, stable. Discharge plan: return to [facility] under the care of Dr. Palmer Impression and plan of care have been directed as dictated by the signing physician. Loni Jolly nurse practitioner acting as scribe for signing physician. Patient Condition at Discharge: Good Plan - Discharge Summary New Discharge Prescriptions: New Doxycycline Hyclate 100 mg PO BID #20 tab Midodrine [ProAmatine] 2.5 mg PO AC-TID tab Continue Bumetanide [BUMEX] 2 mg PO BID@0900,1700 Olopatadine HCl [Patanol] 1 drop BOTH EYES DAILY PRN PRN Reason: OCULAR IRRITATION Ipratropium-Albuterol Nebulize [Duoneb 0.5 mg-3 mg/3 ml Soln] 3 ml INHALATION RT-Q4H PRN PRN Reason: Shortness Of Breath Lactulose 40 gm PO QID Rifaximin [Xifaxan] 550 mg PO BID@0900,2100 Milk Thistle 240 mg PO BID@0900,2100 Metolazone [Zaroxolyn] 2.5 mg PO TH Pantoprazole Sodium [Protonix] 20 mg PO DAILY@0600 Aspirin [Adult Low Dose Aspirin EC] 81 mg PO DAILY@0900 Albuterol Inhaler [Ventolin Hfa Inhaler] 1 - 2 puff INHALATION RT-Q4H PRN PRN Reason: Shortness Of Breath guaiFENesin [guaiFENesin Oral Solution] 200 mg PO Q4H PRN PRN Reason: Cough Potassium Chloride ER [K-Dur 20] 20 meq PO BID@0900,2100 metFORMIN HCL [metFORMIN HCL ER] 750 mg PO BID@0900,1700 Ergocalciferol [Vitamin D2 (DRISDOL)] 50,000 unit PO HUERTA@1400 Budesonide [Pulmicort] 0.5 mg INHALATION RT-BID@0900,2100 Venlafaxine HCl ER [Effexor XR] 225 mg PO HS@2100 Montelukast [Singulair] 10 mg PO HS@2200 Potassium Chloride ER [K-Dur 20] 20 meq PO DAILY@1400 Lurasidone [Latuda] 20 mg PO DAILY@0900 Glimepiride [Amaryl] 1 mg PO DAILY@0900 Pregabalin [Lyrica] 50 mg PO TID@0600,1400,2200 #12 cap Discontinued Clopidogrel [Plavix] 75 mg PO DAILY@0900 Phentermine HCl [Adipex-P] 37.5 mg PO DAILY@1000 Ibuprofen [Motrin Ib] 400 mg PO Q6H PRN PRN Reason: Pain Discharge Medication List Bumetanide [BUMEX] 2 mg PO BID@0900,1700 11/20/16 [History] Aspirin [Adult Low Dose Aspirin EC] 81 mg PO DAILY@0900 06/03/18 [History] Ipratropium-Albuterol Nebulize [Duoneb 0.5 mg-3 mg/3 ml Soln] 3 ml INHALATION RT-Q4H PRN 06/03/18 [History] Lactulose 40 gm PO QID 06/03/18 [History] Metolazone [Zaroxolyn] 2.5 mg PO TH 06/03/18 [History] Milk Thistle 240 mg PO BID@0900,209906/03/18 [History] Olopatadine HCl [Patanol] 1 drop BOTH EYES DAILY PRN 06/03/18 [History] Pantoprazole Sodium [Protonix] 20 mg PO DAILY@0600 06/03/18 [History] Rifaximin [Xifaxan] 550 mg PO BID@0900,209906/03/18 [History] Albuterol Inhaler [Ventolin Hfa Inhaler] 1 - 2 puff INHALATION RT-Q4H PRN 01/05/19 [History] Budesonide [Pulmicort] 0.5 mg INHALATION RT-BID@0900,2100 01/05/19 [History] Ergocalciferol [Vitamin D2 (DRISDOL)] 50,000 unit PO HUERTA@1400 01/05/19 [History] Glimepiride [Amaryl] 1 mg PO DAILY@0900 01/05/19 [History] Lurasidone [Latuda] 20 mg PO DAILY@0900 01/05/19 [History] Montelukast [Singulair] 10 mg PO HS@2200 01/05/19 [History] Potassium Chloride ER [K-Dur 20] 20 meq PO BID@0900,2100 01/05/19 [History] Potassium Chloride ER [K-Dur 20] 20 meq PO DAILY@1400 01/05/19 [History] Venlafaxine HCl ER [Effexor XR] 225 mg PO HS@2100 01/05/19 [History] guaiFENesin [guaiFENesin Oral Solution] 200 mg PO Q4H PRN 01/05/19 [History] metFORMIN HCL [metFORMIN HCL ER] 750 mg PO BID@0900,1700 01/05/19 [History] Doxycycline Hyclate 100 mg PO BID #20 tab 01/10/19 [Rx] Midodrine [ProAmatine] 2.5 mg PO AC-TID tab 01/10/19 [Rx] Pregabalin [Lyrica] 50 mg PO TID@0600,1400,2200 #12 cap 01/10/19 [Rx] Follow up Appointment(s)/Referral(s): Rosa Palmer MD [Primary Care Provider] - 1 Week (at [facility]) Discharge Disposition: TRANSFER TO SNF/ECF
[2019-01-10 10:54] LABS: Glucose,Whole Blood 137 mg/dL (75-99)
[2019-01-10 14:44] VITALS: BP 111/73; PULSE 84; RESP 18; TEMP 97.9; BMI 72.8
== END 2019-01-10 15:43 | DRG 378 ==
LOC: EC 19:16 → EEVIPCON 19:16 → 4SSUR 19:33
PROVIDERS: ADMIT Family Medicine; ATTEND Family Medicine
PROC: 0DJ08ZZ Inspection of Upper Intestinal Tract, Via Natural or Artificial Opening Endoscopic (ICD-10-PCS; principal; 2019-01-07 13:45)
PROC: 30233N1 Transfusion of Nonautologous Red Blood Cells into Peripheral Vein, Percutaneous Approach (ICD-10-PCS; 2019-01-08)
DX: K29.71 Gastritis, unspecified, with bleeding (principal); D62 Acute posthemorrhagic anemia; D68.4 Acquired coagulation factor deficiency; Z68.45 Body mass index [BMI] 70 or greater, adult; F33.9 Major depressive disorder, recurrent, unspecified; N17.9 Acute kidney failure, unspecified; D63.8 Anemia in other chronic diseases classified elsewhere; E11.22 Type 2 diabetes mellitus with diabetic chronic kidney disease; E66.01 Morbid (severe) obesity due to excess calories; E86.0 Dehydration; F41.9 Anxiety disorder, unspecified; H10.9 Unspecified conjunctivitis; I12.9 Hypertensive chronic kidney disease with stage 1 through stage 4 chronic kidney disease, or unspecified chronic kidney disease; I25.10 Atherosclerotic heart disease of native coronary artery without angina pectoris; I87.2 Venous insufficiency (chronic) (peripheral); J45.20 Mild intermittent asthma, uncomplicated; K74.60 Unspecified cirrhosis of liver; K76.0 Fatty (change of) liver, not elsewhere classified; L73.9 Follicular disorder, unspecified; N18.3 Chronic kidney disease, stage 3 (moderate); Z74.01 Bed confinement status; Z79.02 Long term (current) use of antithrombotics/antiplatelets; Z79.51 Long term (current) use of inhaled steroids; Z79.82 Long term (current) use of aspirin; Z79.84 Long term (current) use of oral hypoglycemic drugs; Z79.899 Other long term (current) drug therapy; Z80.42 Family history of malignant neoplasm of prostate; Z80.8 Family history of malignant neoplasm of other organs or systems; Z82.49 Family history of ischemic heart disease and other diseases of the circulatory system; Z82.5 Family history of asthma and other chronic lower respiratory diseases; Z86.73 Personal history of transient ischemic attack (TIA), and cerebral infarction without residual deficits; Z87.442 Personal history of urinary calculi; Z87.891 Personal history of nicotine dependence; R60.0 Localized edema
CPT/HCPCS: 36415; 43235; 80048; 80053; 82140; 82272; 82607; 82728; 82747; 83540; 83550; 83690; 83735; 84484; 85025; 85027; 85045; 85610; 85730; 86850; 86900; 86901; 86920; 87070; 87077; 87186; 87205; 93005; 94640; 96361; 96374; 99285

== ENCOUNTER 2019-01-28 15:25 | Emergency (ER) | payer MEDICARE, OTHER ==
[2019-01-28 15:59] LABS: Anisocytosis Slight; HCT 21.1 % (39.0-53.0); Hypochromasia Marked; MCHC 30.8 g/dL (31.0-37.0); MCV 87.8 fL (80.0-100.0); Mean Platelet Volume 8.6; Platelet Count 253 k/uL (150-450); Poikilocytosis Moderate; WBC 11.7 k/uL (3.8-10.6)
[2019-01-28 16:07] LABS: HGB 6.5 gm/dL (13.0-17.5)
[2019-01-28 18:27] VITALS: RESP 20
--- NOTE | 2019-01-28 20:37 | ED ---
General Adult HPI - General Chief complaint: Abdominal Pain Stated complaint: Low hemoglobin Time Seen by Provider: 01/28/19 15:32 Source: EMS Mode of arrival: EMS Limitations: altered mental status, physical limitation - History of Present Illness Initial comments: Patient sent to the [facility] department because his blood count was low. Patient denies any lightheadedness or dizziness, chest pain or shortness of breath. He has had a recent workup. He has no GI bleed. - Related Data Home Medications Medication Instructions Recorded Confirmed Bumetanide [BUMEX] 2 mg PO BID@0900,1700 11/20/16 01/28/19 Aspirin [Adult Low Dose Aspirin EC] 81 mg PO DAILY@0900 06/03/18 01/28/19 Ipratropium-Albuterol Nebulize 3 ml INHALATION RT-Q4H PRN 06/03/18 01/28/19 [Duoneb 0.5 mg-3 mg/3 ml Soln] Lactulose 40 gm PO QID 06/03/18 01/28/19 Metolazone [Zaroxolyn] 2.5 mg PO MOWEFRSA@0606/03/18 01/28/19 Olopatadine HCl [Patanol] 1 drop BOTH EYES DAILY PRN 06/03/18 01/28/19 Rifaximin [Xifaxan] 550 mg PO BID@0900,2100 06/03/18 01/28/19 Albuterol Inhaler [Ventolin Hfa 1 - 2 puff INHALATION RT-Q4H PRN 01/05/19 01/28/19 Inhaler] Budesonide [Pulmicort] 0.5 mg INHALATION RT-BID@0900,209901/05/19 01/28/19 Ergocalciferol [Vitamin D2 50,000 unit PO HUERTA@1400 01/05/19 01/28/19 (DRISDOL)] Glimepiride [Amaryl] 1 mg PO DAILY@0900 01/05/19 01/28/19 Lurasidone [Latuda] 20 mg PO HS@209901/05/19 01/28/19 Montelukast [Singulair] 10 mg PO HS@209901/05/19 01/28/19 Venlafaxine HCl ER [Effexor XR] 225 mg PO HS@2100 01/05/19 01/28/19 guaiFENesin [guaiFENesin Oral 200 mg PO Q4H PRN 01/05/19 01/28/19 Solution] metFORMIN HCL [metFORMIN HCL ER] 750 mg PO BID@0900,1700 01/05/19 01/28/19 Acetaminophen Tab [Tylenol Tab] 650 mg PO Q4H PRN 01/28/19 01/28/19 Ferrous Sulfate [Feosol] 325 mg PO DAILY@0900 01/28/19 01/28/19 Hydrocortisone Suppository 25 mg RECTAL BID@0900,2100 01/28/19 01/28/19 [Anusol-Hc] Midodrine [ProAmatine] 2.5 mg PO TID@0600,1200,1700 01/28/19 01/28/19 Mupirocin 2% Oint [Bactroban 2% 1 applic TOPICAL Q12H 01/28/19 01/28/19 Oint] Phentermine HCl [Adipex-P] 37.5 mg PO DAILY@0900 01/28/19 01/28/19 Spironolactone [Aldactone] 100 mg PO DAILY@0600 01/28/19 01/28/19 Previous Rx's Medication Instructions Recorded Pregabalin [Lyrica] 50 mg PO TID@0600,1400,2200 #12 cap 01/10/19 Allergies Allergy/AdvReac Type Severity Reaction Status Date / Time No Known Allergies Allergy Verified 01/28/19 16:33 Review of Systems ROS Statement: Those systems with pertinent positive or pertinent negative responses have been documented in the HPI. ROS Other: All systems not noted in ROS Statement are negative. Past Medical History Past Medical History: Asthma, Hypertension, Osteoarthritis (OA), Pneumonia, Skin Disorder Additional Past Medical History / Comment(s): IN PAST TX FOR HYPERTENSION NO LONGER ON MEDS, KIDNEY STONE, BRONCHITIS, BEGINNINGS OF CATARACTS, DJD, HANDS SHAKY/TREMORS, DIVERTICULOSIS,anemia history of elevated ammonia levels, hepatic encephalopathy, hx of cellulitis lower extremities. previously charted "chronic subdural hemorrhage", stoke 1 year ago History of Any Multi-Drug Resistant Organisms: MRSA Date of last positivie culture/infection: 01/07/19 MDRO Source:: Abdomen Past Surgical History: Hernia Repair, Orthopedic Surgery Additional Past Surgical History / Comment(s): cyst removed from hand, CRISTOPHER CAR PAL TUNNEL RELEASE,UMB HERNIA REPAIR, RT KNEE ARTHROSCOPY,COLONOSCOPY Past Anesthesia/Blood Transfusion Reactions: No Reported Reaction Additional Past Anesthesia/Blood Transfusion Reaction / Comment(s): pt currently at [facility] on [facility] [place]. not ambulatory. bedbound Past Psychological History: Anxiety, Depression Smoking Status: Former smoker Past Alcohol Use History: None Reported Past Drug Use History: None Reported - Past Family History Father Family Medical History: Asthma, Cancer, CVA/TIA, Myocardial Infarction (DC), Prostate Disorder Additional Family Medical History / Comment(s): SKIN ANd PROSTATE CANCER. Father at age 79 from heart failure. Mother Family Medical History: Cancer Additional Family Medical History / Comment(s): FROM BRAIN CANCER at age 83. Brother(s) Additional Family Medical History / Comment(s): patient has 2 brothers and one sister all alive. One brother has undergone 4 vessel CABG in 1 has carotid artery disease. Daughter(s) Additional Family Medical History / Comment(s): patient has 3 children, 2 d aughters with Lyme disease and one son with no major medical problems General Exam Limitations: no limitations, altered mental status, physical limitation General appearance: alert, in no apparent distress Head exam: Present: atraumatic Eye exam: Present: normal appearance ENT exam: Present: normal exam Neck exam: Present: normal inspection Respiratory exam: Present: normal lung sounds bilaterally Cardiovascular Exam: Present: regular rate GI/Abdominal exam: Present: soft Neurological exam: Present: alert, oriented X3 Psychiatric exam: Present: normal affect Skin exam: Present: warm, dry Course Vital Signs 01/28/19 01/28/19 01/28/19 15:37 18:15 18:40 Temperature 97.6 F 97.5 F L Pulse Rate 86 86 87 Respiratory 20 20 20 Rate Blood Pressure 92/75 95/47 87/56 O2 Sat by Pulse 98 98 97 Oximetry 01/28/19 01/28/19 18:55 20:00 Temperature 97.4 F L Pulse Rate 85 85 Respiratory 20 20 Rate Blood Pressure 79/65 85/56 O2 Sat by Pulse 98 98 Oximetry Medical Decision Making - Medical Decision Making Patient presents for low hemoglobin. He is given 1 unit packed red blood cells. He has no symptoms requiring admission. He is stable for discharge back to his facility. - Lab Data Result diagrams: 01/28/19 15:45 Lab Results 01/28/19 01/28/19 Range/Units 15:45 15:45 WBC 11.7 H (3.8-10.6) k/uL RBC 2.40 L (4.30-5.90) m/uL Hgb 6.5 L* (13.0-17.5) gm/dL Hct 21.1 L (39.0-53.0) % MCV 87.8 (80.0-100.0) fL MCH 27.0 (25.0-35.0) pg MCHC 30.8 L (31.0-37.0) g/dL RDW 19.0 H (11.5-15.5) % Plt Count 253 (150-450) k/uL Hypochromasia Marked Poikilocytosis Moderate Anisocytosis Slight Blood Type A Positive Blood Type Recheck No Antibody Screen NEGATIVE Crossmatch See Detail Spec Expiration Date 01/31/2019 - 2345 Disposition Clinical Impression: Anemia Disposition: HOME SELF-CARE Condition: Good Instructions (If sedation given, give patient instructions): Anemia (ED) Is patient prescribed a controlled substance at d/c from ED?: No Referrals: Rosa Palmer MD [Primary Care Provider] - 1-2 days
[2019-01-28 20:55] VITALS: TEMP 97.8
[2019-01-28 20:59] VITALS: PULSE 86
[2019-01-28 22:08] VITALS: BP 97/53
== END 2019-01-28 22:05 | disposition home or self-care (01) ==
LOC: EC 15:25
DX: D64.9 Anemia, unspecified (principal); R41.82 Altered mental status, unspecified; J45.909 Unspecified asthma, uncomplicated; I10 Essential (primary) hypertension; M19.90 Unspecified osteoarthritis, unspecified site; F32.9 Major depressive disorder, single episode, unspecified; Z87.891 Personal history of nicotine dependence; Z79.51 Long term (current) use of inhaled steroids; Z79.52 Long term (current) use of systemic steroids; Z79.82 Long term (current) use of aspirin; Z79.84 Long term (current) use of oral hypoglycemic drugs; Z79.899 Other long term (current) drug therapy; Z86.14 Personal history of Methicillin resistant Staphylococcus aureus infection; Z87.01 Personal history of pneumonia (recurrent); Z86.73 Personal history of transient ischemic attack (TIA), and cerebral infarction without residual deficits
CPT/HCPCS: 36415; 86900; 86901; 85027; 86850; 86920; 99284; P9016